=== PATIENT | female | born 1980 | race Caucasian/White ===

== ENCOUNTER 2023-10-04 20:44 | Emergency (ER) | payer BC, MEDICARE, SELFPAY ==
[2023-10-04 21:19] VITALS: BP 173/101
[2023-10-04] MEDS: ZOFRAN 4 MG IV (21:23)
[2023-10-04 21:32] LABS: % Basophils 0.6 % (0-2); % Eosinophils 0.9 % (0-6); % Immature Granulocytes 0.3 % (0-0.5); % Lymphocytes 12.4 % (20.5-51.1); % Monocytes 4.5 % (1.7-9.3); % Neutrophils 81.3 % (42.2-75.2); Absolute Basophils 0.1 10^3/uL (0-0.2); Absolute Eosinophils 0.1 10^3/uL (0-0.7); Absolute Immature Granulocytes 0.1 10^3/uL (0-0.05); Absolute Lymphocytes 1.8 10^3/uL (1.2-3.4); Absolute Monocytes 0.7 10^3/uL (0.1-0.6); Absolute Neutrophils 11.8 10^3/uL (1.4-6.5); Hematocrit 47.5 % (37.0-47.0); Hemoglobin 16.3 g/dL (12.0-16.0); Mean Corp Hgb Conc. 34.3 g/dL (33.0-37.0); Mean Corpuscular Hgb 28.5 pg (27.0-31.0); Mean Corpuscular Volume 83.2 fL (81.0-99.0); Mean Platelet Volume 9.1 fL (7.4-10.4); Nucleated Red Blood Cells % 0 %; Platelet Count 332 10^3/uL (130-400); Red Blood Cell Count 5.71 10^6/uL (4.20-5.40); Red Cell Dist. Width 13.3 % (11.5-14.5); White Blood Cell Count 14.5 10^3/uL (4.8-10.8)
[2023-10-04 21:46] LABS: HCG, Serum Qualitative Screen Negative
[2023-10-04 21:51] LABS: ALT (SGPT) 22 U/L (0-35); AST (SGOT) 30 U/L (14-36); Albumin 4.6 g/dl (3.5-5.0); Alkaline Phosphatase 97 U/L (38-126); Blood Urea Nitrogen 8 mg/dl (7-17); Calcium 10.2 mg/dl (8.4-10.2); Carbon Dioxide 20 mmol/L (22-30); Chloride 102 mmol/L (98-107); Glucose 125 mg/dl (70-99); Lipase 54 U/L (23-300); Potassium 3.8 mmol/L (3.5-5.1); Sodium 137 mmol/L (135-145); Total Protein 8.6 g/dl (6.3-8.2); eGFR > 60.00
--- NOTE | 2023-10-05 00:28 | ED.GENMED ---
History of Present Illness
General
Chief Complaint: Abdominal Pain
Source: patient
Exam Limitations: none
Time Seen by Provider: 10/05/23 00:14
Nursing documentation reviewed up to this point in time: agreed with
Travel History
Have you had any contact with someone who has COVID-19?: No
Do you have any symptoms of coronavirus? Fever > 100 degrees, chills, cough, shortness of breath, sore throat, loss of taste or smell, muscle aches, or headache?: No
History of Present Illness
History of Present Illness:
Patient diagnosed with colitis 2 weeks ago and completed 10-day course of Augmentin 5 days ago, presents to ED secondary to worsening lower abdominal pain with nausea and vomiting. Denies fever but reports chills sensation. Patient also reports
ongoing diarrhea. Abdominal pain described as sharp, nonradiating, without any alleviating or exacerbating factors. Denies back pain. Denies dizziness or weakness.
Past History
Past History
ED Past Medical History: GERD, Hypothyroidism and Other (RSD, nutcracker syndrome, lung nodules, hidradenitis, Colitis, Diverticulitis, Chronic pain syndrome due to RSD)
ED Past Surgical History: Cholecystectomy, (x 1), Gynecological (Tubal, ), Orthopedic (Right ankle surgery ) and Other (Tubal ligation , Spinal stimulator. Renal vein transposition)
Social History
Tobacco: Smoker
Alcohol: None
Drug: None
Personal:
Living: with family
Review of Systems
Review of Systems
Allergies reviewed?: Yes
All Other Systems: ROS reviewed and negative except as documented in HPI and ROS
Constitutional: Reports chills; Denies fever
EENT: Reports no symptoms
Respiratory: Reports no symptoms
Cardiac: Reports no symptoms
ABD/GI: Reports abdominal pain, nausea, vomiting and diarrhea
: Reports no symptoms
Musculoskeletal: Reports no symptoms
Skin: Reports no symptoms
Neurological: Reports no symptoms
Phy Exam
Physical Exam
Physical Exam:
Physical Exam
General: mild painful distress, not acutely ill. afebrile
Head: nc/at. eomi
Neck: supple. no meningeal signs.
Heart: s1/s2 regular rate and rhythm, no murmur. equal radial pulses.
Lungs: no acute respiratory distress. clear bilaterally
Abdomen: normal bowel sounds. mild LLQ tenderness to palpation.
Neuro: alert and oriented. no focal neurological deficits
Skin: no rash
Psychiatric: well kept. interactive and cooperative
Extremities: no edema. no calf tenderness.
Course
Orders/Labs/Results
Orders:
Orders
10/04/23 21:10
Ondansetron Orally Disint [Zofran Odt (Orally Disintegrating)] 4 mg .ROUTE .STK-MED ONE
10/04/23 21:12
Ondansetron Injectable [Zofran] 4 mg .ROUTE .STK-MED ONE
10/04/23 21:23
Ondansetron Injectable [Zofran] 4 mg IV NOW STA
Test Result ONCE
10/04/23 21:25
Complete Blood Count/With Diff Urgent
Comprehensive Metabolic Panel Urgent
HCG, Serum Qualitative Screen Urgent
Lipase Urgent
10/05/23 00:27
CT Abd/pelvis W Iv Cont Urgent
Comment:
Reason For Exam: LLQ pain
0.9% Sodium Chloride 1000 ml [Nss] 1,000 ml IV BOLUS
HYDROmorphone [Dilaudid] 1 mg IV NOW STA
Ondansetron Injectable [Zofran] 4 mg IV NOW STA
10/05/23 01:17
HYDROmorphone [Dilaudid] 1 mg IV NOW STA
10/05/23 01:48
Oxycodone/Acetaminophen [Percocet 5/325] 1 tablet PO NOW STA
Abnormal Lab Results
10/04/23
21:25
WBC 14.5 H 10^3/uL
(4.8-10.8)
RBC 5.71 H 10^6/uL
(4.20-5.40)
Hgb 16.3 H g/dL
(12.0-16.0)
Hct 47.5 H %
(37.0-47.0)
Abs Immat Gran (auto) 0.1 H 10^3/uL
(0-0.05)
Absolute Neuts (auto) 11.8 H 10^3/uL
(1.4-6.5)
Absolute Monos (auto) 0.7 H 10^3/uL
(0.1-0.6)
Neutrophils % 81.3 H %
(42.2-75.2)
Lymphocytes % 12.4 L %
(20.5-51.1)
Carbon Dioxide 20 L mmol/L
(22-30)
Creatinine 0.5 L mg/dL
(0.6-1.0)
Glucose 125 H mg/dl
(70-99)
Total Protein 8.6 H g/dl
(6.3-8.2)
10/04/23 21:25
10/04/23 21:25
Vital Signs
Initial and Last Documented VS:
Initial Vital Signs
Temp Pulse Resp BP Pulse Ox
98.7 F 105 20 173/101 100
10/04/23 21:19 10/04/23 21:19 10/04/23 21:19 10/04/23 21:19 10/04/23 21:19
Last Documented Vital Signs
Temp Pulse Resp BP Pulse Ox
98.7 F 86 17 150/88 96
10/04/23 21:19 10/05/23 01:54 10/05/23 01:54 10/05/23 01:54 10/05/23 01:45
MDM/Problems Addressed
MDM/Problems Addressed:
Blood work and CT report reviewed with patient. Patient without any further vomiting episodes after treatment in ED, and reports mild improvement in symptoms after treatment. As such, decision made to discharge patient home with additional 7-day
course of Augmentin along with pain medication. Advised to return to ED with worsening symptoms, i.e. fever/worsening pain/vomiting. Patient expresses understanding at time of discharge.
*Critical Care Note
Total Time (30-74mins, 75-104mins- exclusive of procedures): Not Applicable
ED Attending Note
-
Portions of this chart may have been created with voice recognition software.� Occasional wrong word or��sound alike� substitutions may have occurred due to the inherent limitations of voice recognition software.
Discharge Plan
Departure
Patient Disposition: Home (Routine Discharge)
Date of Disposition: 10/05/23
Time of Disposition: 01:50
Patient with high blood pressure during this ER visit?: Yes
Condition: Good
Discharge Problem:
Colitis
Instructions: Colitis (DC)
Prescriptions:
New
oxycodone-acetaminophen [Percocet] 5-325 mg Tablet
1 tab PO Q6HPRN PRN (Reason: pain) Qty: 12 0RF
ondansetron 4 mg Tablet,Disintegrating
4 mg PO TIDPRN PRN (Reason: nausea/vomiting) Qty: 12 0RF
amoxicillin-pot clavulanate 875-125 mg tablet
1 tab PO BID Qty: 14 0RF
No Action
gabapentin 600 MG tablet
600 mg PO BID
hydromorphone [Dilaudid] 4 mg Tablet
4 mg PO Q6HPRN PRN (Reason: BREAKTHROUGH PAIN)
Rx Instructions:
07/24/2023, patient filled this medication on 06/27/2023 for 120 tablets according to PDMP at [facility].
carvedilol 6.25 mg tablet
6.25 mg PO BID
morphine 30 mg tablet extended release
30 mg PO TID
Rx Instructions:
07/24/2023, patient filled this medication on 07/08/2023 for 90 tablets according to PDMP from [facility].
sennosides [Senokot] 8.6 mg Tablet
8.6 mg PO DAILY PRN (Reason: constipation)
polyethylene glycol 3350 [Miralax] 17 gram Powder In Packet
17 g PO DAILY PRN (Reason: constipation)
levothyroxine 200 mcg Tablet
200 mcg PO DAILY
albuterol sulfate 90 mcg/actuation Hfa Aerosol Inhaler
2 puff INHALATION R Q6HPRN PRN (Reason: wheezing)
duloxetine 30 mg Capsule,Delayed Release(Dr/Ec)
30 mg PO DAILY
dicyclomine 10 mg Capsule
10 mg PO BIDPRN PRN (Reason: ABDOMINAL PAIN) Qty: 10 0RF
amoxicillin-pot clavulanate 875-125 mg tablet
1 tab PO BID Qty: 20 0RF
Referrals:
Allan Estrada DO [Family Provider] -
Activity Restrictions/Additional Instructions:
As discussed, please follow-up with your primary care physician for reevaluation next week. Please return to ED with worsening symptoms, i.e. fever/worsening pain/vomiting. Your prescriptions have been sent electronically to [facility] pharmacy in
[place].
Interventions
Interventions:
*Risk Screen - Suicide Last Done: 10/04/23 21:19
*General Assessment Last Done: 10/04/23 21:19
*Neglect/Abuse Screening Last Done: 10/04/23 21:19
ED- Fall Risk Assessment Last Done: 10/05/23 02:03
*ED COVID-19 Vaccine History Last Done: 10/04/23 21:19
*Nursing Disposition Last Done: 10/05/23 02:03
GZ-Fsmbwj-Asutfyixwt Assessment Last Done: 10/05/23 01:04
Discharge Date and Time
Discharge Date/Time: 10/05/23 02:04
[2023-10-05] MEDS: ZOFRAN 4 MG IV (00:36)
[2023-10-05] MEDS: DILAUDID 1 MG IV ×2 (00:38→01:20)
[2023-10-05] MEDS: NSS 1000 IV (00:40)
[2023-10-05 00:42] VITALS: BP 178/109
[2023-10-05 01:13] VITALS: BP 185/96
[2023-10-05] MEDS: PERCOCET 5/325 1 TABLET PO (01:53)
[2023-10-05 01:54] VITALS: BP 150/88
== END 2023-10-05 02:04 | disposition home or self-care (01) ==
LOC: EMR 20:44
PROVIDERS: Student in an Organized Health Care Education/Training Program; EMERGENCY PHYSICIAN Emergency Medicine; FAMILY PHYSICIAN Family Medicine
DX: K52.9 Noninfective gastroenteritis and colitis, unspecified (principal); K21.9 Gastro-esophageal reflux disease without esophagitis; E03.9 Hypothyroidism, unspecified; G89.4 Chronic pain syndrome; F17.200 Nicotine dependence, unspecified, uncomplicated; Z90.49 Acquired absence of other specified parts of digestive tract
CPT/HCPCS: 99284; 96374 ×2; 96375; 96376; 96361; 74177; 80053; 83690; 84703; 85025; Q9967

== ENCOUNTER 2023-11-04 08:24 | Inpatient (IN) | payer BC, MEDICARE, SELFPAY ==
[2023-11-01] VITALS (8 sets, daily range): BP systolic 143–182; BP diastolic 88–125
[2023-11-01 17:05] LABS: % Basophils 0.5 % (0-2); % Eosinophils 1.3 % (0-6); % Immature Granulocytes 0.3 % (0-0.5); % Lymphocytes 7.6 % (20.5-51.1); % Monocytes 7.4 % (1.7-9.3); % Neutrophils 82.9 % (42.2-75.2); Absolute Eosinophils 0.1 10^3/uL (0-0.7); Absolute Lymphocytes 0.6 10^3/uL (1.2-3.4); Absolute Monocytes 0.6 10^3/uL (0.1-0.6); Absolute Neutrophils 6.6 10^3/uL (1.4-6.5); Hematocrit 44.3 % (37.0-47.0); Hemoglobin 15.6 g/dL (12.0-16.0); Mean Corp Hgb Conc. 35.2 g/dL (33.0-37.0); Mean Corpuscular Hgb 28.6 pg (27.0-31.0); Mean Corpuscular Volume 81.3 fL (81.0-99.0); Mean Platelet Volume 8.8 fL (7.4-10.4); Nucleated Red Blood Cells % 0 %; Platelet Count 188 10^3/uL (130-400); Red Blood Cell Count 5.45 10^6/uL (4.20-5.40); Red Cell Dist. Width 13.4 % (11.5-14.5)
[2023-11-01 17:22] LABS: ALT (SGPT) 17 U/L (0-35); AST (SGOT) 24 U/L (14-36); Albumin 4.6 g/dl (3.5-5.0); Alkaline Phosphatase 89 U/L (38-126); Blood Urea Nitrogen 9 mg/dl (7-17); Calcium 9.4 mg/dl (8.4-10.2); Carbon Dioxide 22 mmol/L (22-30); Chloride 105 mmol/L (98-107); Glucose 117 mg/dl (70-99); Lipase 38 U/L (23-300); Sodium 136 mmol/L (135-145); Total Bilirubin 1.2 mg/dl (0.2-1.3); eGFR > 60.00
[2023-11-01 17:31] LABS: Potassium 3.8 mmol/L (3.5-5.1)
--- NOTE | 2023-11-01 18:16 | ED.GENMED ---
History of Present Illness
General
Chief Complaint: Abdominal Symptoms
Source: patient
Exam Limitations: none
Time Seen by Provider: 11/01/23 18:03
Travel History
Have you had any contact with someone who has COVID-19?: No
Do you have any symptoms of coronavirus? Fever > 100 degrees, chills, cough, shortness of breath, sore throat, loss of taste or smell, muscle aches, or headache?: No
History of Present Illness
History of Present Illness:
43-year-old female presents for evaluation for recurrent left-sided abdominal pain with vomiting. Pain and diarrhea started about 3 to 4 days ago and vomiting started today. She has a complicated extended past medical history including nutcracker
syndrome, chronic pain syndrome and opiate dependence, colitis, diverticulitis. No known sick contacts. She denies chest pain. Was here last month for similar symptoms. Has been imaged many times in the past. Also does have a history of C.
difficile.
Past History
Past History
ED Past Medical History: GERD, Hypothyroidism and Other (RSD, nutcracker syndrome, lung nodules, hidradenitis, Colitis, Diverticulitis, Chronic pain syndrome due to RSD)
ED Past Surgical History: Cholecystectomy, (x 1), Gynecological (Tubal, ), Orthopedic (Right ankle surgery ) and Other (Tubal ligation , Spinal stimulator. Renal vein transposition)
Social History
Tobacco: Smoker
Alcohol: None
Drug: None
Personal:
Living: with family
Phy Exam
Physical Exam
Physical Exam:
General: Well-developed female no acute respiratory distress
HEENT: Normocephalic atraumatic
Heart: Regular rate and rhythm no murmurs
Lungs: Clear to auscultation bilaterally no wheezing
Abdomen soft tender to the left side of the abdomen no guarding or rebound normal bowel sounds
Extremities: No cyanosis or edema
Course
Orders/Labs/Results
Orders:
Orders
11/01/23 16:58
Complete Blood Count/With Diff Urgent
Comprehensive Metabolic Panel Urgent
Lipase Urgent
11/01/23 18:14
Ondansetron Injectable [Zofran] 4 mg IV NOW STA
11/01/23 18:15
STOOL [C difficile Antigen & Toxins] Urgent
KEILY Source: Feces/Stool
Specimen Description:
Stool Culture Urgent
KEILY Source: Feces/Stool
Specimen Description:
11/01/23 18:21
HYDROmorphone [Dilaudid] 1 mg IV NOW STA
11/01/23 19:40
HYDROmorphone [Dilaudid] 1 mg IV NOW STA
Ondansetron Injectable [Zofran] 4 mg IV NOW STA
Abnormal Lab Results
11/01/23
16:58
RBC 5.45 H 10^6/uL
(4.20-5.40)
Absolute Neuts (auto) 6.6 H 10^3/uL
(1.4-6.5)
Absolute Lymphs (auto) 0.6 L 10^3/uL
(1.2-3.4)
Neutrophils % 82.9 H %
(42.2-75.2)
Lymphocytes % 7.6 L %
(20.5-51.1)
Glucose 117 H mg/dl
(70-99)
11/01/23 16:58
11/01/23 16:58
Vital Signs
Initial and Last Documented VS:
Initial Vital Signs
Temp Pulse Resp BP Pulse Ox
100.1 F 103 16 178/125 97
11/01/23 16:17 11/01/23 16:17 11/01/23 16:17 11/01/23 16:17 11/01/23 16:17
Last Documented Vital Signs
Temp Pulse Resp BP Pulse Ox
98.9 F 88 19 153/98 96
11/01/23 20:47 11/01/23 20:46 11/01/23 20:46 11/01/23 20:46 11/01/23 19:45
MDM/Problems Addressed
Differential Diagnosis Includes:
Abdominal pain left-sided. Consider recurrent colitis versus diverticulitis versus C. difficile. Will check stool cultures and labs. Hydrate and give Zofran. I reviewed prior hospital records.
*Critical Care Note
Total Time (30-74mins, 75-104mins- exclusive of procedures): Not Applicable
Update Note
Update Note:
Patient reevaluated. She is still complaining significant abdominal pain and nausea despite multiple rounds of medication. Reviewed prior records. She has had multiple CTs in the past. Most recently was last month. Given the lack of improvement
with IV medications unable to discharge home. Will admit to hospital for intractable symptoms
ED Attending Note
-
Portions of this chart may have been created with voice recognition software.� Occasional wrong word or��sound alike� substitutions may have occurred due to the inherent limitations of voice recognition software.
Discharge Plan
Departure
Patient Disposition: Admit
Date of Disposition: 11/01/23
Time of Disposition: 21:27
Presentation/result/management discussed w/ accepting MD/DO: Hospitalist
Discharge Problem:
Abdominal pain
Prescriptions:
No Action
gabapentin 600 MG tablet
600 mg PO BID
hydromorphone [Dilaudid] 4 mg Tablet
4 mg PO Q6HPRN PRN (Reason: BREAKTHROUGH PAIN)
Rx Instructions:
07/24/2023, patient filled this medication on 06/27/2023 for 120 tablets according to PDMP at [facility].
carvedilol 6.25 mg tablet
6.25 mg PO BID
morphine 30 mg tablet extended release
30 mg PO TID
Rx Instructions:
07/24/2023, patient filled this medication on 07/08/2023 for 90 tablets according to PDMP from [facility].
sennosides [Senokot] 8.6 mg Tablet
8.6 mg PO DAILY PRN (Reason: constipation)
polyethylene glycol 3350 [Miralax] 17 gram Powder In Packet
17 g PO DAILY PRN (Reason: constipation)
levothyroxine 200 mcg Tablet
200 mcg PO DAILY
albuterol sulfate 90 mcg/actuation Hfa Aerosol Inhaler
2 puff INHALATION R Q6HPRN PRN (Reason: wheezing)
duloxetine 30 mg Capsule,Delayed Release(Dr/Ec)
30 mg PO DAILY
dicyclomine 10 mg Capsule
10 mg PO BIDPRN PRN (Reason: ABDOMINAL PAIN) Qty: 10 0RF
amoxicillin-pot clavulanate 875-125 mg tablet
1 tab PO BID Qty: 20 0RF
oxycodone-acetaminophen [Percocet] 5-325 mg Tablet
1 tab PO Q6HPRN PRN (Reason: pain) Qty: 12 0RF
ondansetron 4 mg Tablet,Disintegrating
4 mg PO TIDPRN PRN (Reason: nausea/vomiting) Qty: 12 0RF
amoxicillin-pot clavulanate 875-125 mg tablet
1 tab PO BID Qty: 14 0RF
Referrals:
Nidia Escobar DO [Family Provider] -
Interventions
Interventions:
*Risk Screen - Suicide Last Done: 11/01/23 16:17
*General Assessment Last Done: 11/01/23 16:57
*Neglect/Abuse Screening Last Done: 11/01/23 16:17
ED- Fall Risk Assessment Last Done: 11/01/23 16:57
*ED COVID-19 Vaccine History Last Done: 11/01/23 16:17
MM-Dgibgk-Pjlclvugan Assessment Last Done: 11/01/23 16:57
[2023-11-01] MEDS: DILAUDID 1 MG IV ×3 (18:23→23:35)
[2023-11-01] MEDS: ZOFRAN 4 MG IV ×2 (18:24→20:02)
--- NOTE | 2023-11-01 19:15 | EDRN ---
Report received, introduced myself to patient who is complaining of increased pain, SIN New aware
--- NOTE | 2023-11-01 21:52 | EDRN ---
Hospitalist at bedside working on admission
--- NOTE | 2023-11-01 22:08 | HPS.HSE ---
Addendum entered and electronically signed by Forrest Souza DO 11/01/23 23:32:
Patient seen and examined independently. Agree with findings and plan as set forth by Simona Santacruz PA-C.
Patient is a 43y F with PMH significant for chronic pain, L renal vein entrapment / 'nutcracker syndrome' and multiple prior admissions for pain control who presents to ED complaining of several days of worsening L flank pain. Patient reports
diarrhea x several days, N/V x multiple episodes. Symptoms are similar to prior exacerbations of pain. Patient has had multiple imaging studies in the past which have shown known anatomic abnormalities without any correctable issues.
Ass:
Acute on Chronic Pain Syndrome
Chronic Opioid Dependence
Complex Regional Pain Syndrome
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
Benign Hypertension
Hypothyroidism
GERD
Plan:
Observe overnight for pain / symptom control.
IV pain medications, antiemetics, IVF support, etc.
Continue usual outpatient medications.
Follow for clinical improvement.
Consider imaging if symptoms worsen or persist; however, patient has had myriad CT scans in the past which have proved unhelpful in her management.
Original Note:
Family Physician
-
Family Physician: Nidia Escobar DO
Chief Complaint
-
Flank Pain
History of Present Illness
Patient is a 43 y/o female past medical history of chronic pain with opioid dependence, left renal vein entrapment s/p renal vein transposition, and hypertension who presents with left sided abdominal pain, vomiting and diarrhea. Patient reports
some intermittent diarrhea for the past few days. This morning she developed worsening left sided abdominal / flank pain which was associated with significant vomiting. She reports about 3 episode of vomiting prior to arrival and about 3 episode
here in the emergency department. Patient admits to multiple similar episodes in the past.
Medical History
Past Medical History
Past Medical History: Reports Other
Additional Past Medical History:
Complex Regional Pain Syndrome
Opioid Dependence
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
Left Renal Vein Thrombus
Essential Hypertension
GERD
Hypothyroidism
Obesity
Unspecified Colitis
Hidradenitis
Past Surgical History: Reports Other
Additional Past Surgical History:
Left Renal Vein Transposition (08/07/22)
Spinal Stimulator
Tubal Ligation
x 1
Right Ankle Surgery
Cholecystectomy
Social History
Tobacco: Smoker (09/09 ppd)
Alcohol: None
Drug: Other (Patient reports she has a medical marijuana card, but has not used marijuana since Jul 2023)
Family History
Family History: Other (DM, hypertension, Breast Cancer, Lung Cancer)
Allergies / Home Medications
Allergies reflects when Allergies were last updated in [facility].
Home Medications with original date entered in [facility]
Allergy/Medication List:
Allergies
Allergy/AdvReac Type Severity Reaction Status Date / Time
No Known Allergies Allergy Verified 09/22/23 10:29
Home Medications
gabapentin 600 mg tablet 600 mg PO BID Pain 09/12/21
hydromorphone 4 mg tablet (Dilaudid) 4 mg PO Q6HPRN PRN BREAKTHROUGH PAIN 07/30/22
carvedilol 6.25 mg tablet 6.25 mg PO BID Blood pressure 08/20/22
morphine 30 mg tablet,extended release 30 mg PO TID Pain 05/25/23
albuterol sulfate 90 mcg/actuation aerosol inhaler 2 puff inhalation R Q6HPRN PRN wheezing 07/24/23
levothyroxine 200 mcg tablet 200 mcg PO DAILY 07/24/23
sennosides 8.6 mg tablet (Senokot) 25.8 mg PO DAILYPRN PRN constipation 07/24/23
ondansetron 4 mg disintegrating tablet 4 mg PO TIDPRN PRN nausea/vomiting #12 tabs 10/05/23
Review of Systems
-
A 12 point ROS was completed and negative except as noted: Yes
Constitutional: Denies Fever or Chills
Respiratory: Denies Cough or Trouble Breathing
Cardiac: Denies Chest Pain or Palpitations
Abdomen/GI: Reports See HPI
Physical Exam
Vital Signs
Vital Signs
Temp Pulse Resp BP Pulse Ox
98.9 F 90 22 143/88 96
11/01/23 20:47 11/01/23 21:45 11/01/23 21:45 11/01/23 21:00 11/01/23 19:45
Physical Exam
General: Well Developed, Well Nourished and Comfortable
HEENT: Anicteric and Moist mucous membranes
Respiratory: Clear and Non Labored Respirations
Cardiac: S1/S2 and Regular Rhythm; No Tachycardia
GI: Soft and Tender (Left upper quadrant/flank without rebound or guarding)
Rectal: Deferred by Provider
Musculoskeletal: No Clubbing, No Cyanosis and No Edema
Skin: Warm and Dry
Neuro: Awake, Alert, Oriented and Nonfocal/grossly intact
Psych: Calm
Laboratory Results
-
11/01/23 16:58
11/01/23 16:58
Laboratory Results
Total Bilirubin 1.2 mg/dl (0.2-1.3) 11/01/23 16:58
AST 24 U/L (14-36) 11/01/23 16:58
ALT 17 U/L (0-35) 11/01/23 16:58
Alkaline Phosphatase 89 U/L (38-126) 11/01/23 16:58
Lipase 38 U/L (23-300) 11/01/23 16:58
Impression/Plan
-
Acute on Chronic Abdominal Pain
-Continue MS Contin as prior to admission
-Continue Dilaudid for breakthrough pain
-Patient with multiple CT scans over the past few months therefore would hold on further imaging at this time
Essential Hypertension
-Continue Coreg
Hypothyroidism
-Continue Synthroid
DVT proph: Lovenox
Code Status: Full Code
--- NOTE | 2023-11-01 22:57 | EDRN ---
Dr. Souza at bedside speaking with patient
[2023-11-01] MEDS: NSS 1000 IV (23:42)
[2023-11-02] VITALS (7 sets, daily range): BP systolic 95–171; BP diastolic 75–98
[2023-11-02] MEDS: DILAUDID 1 MG IV ×7 (02:31→21:26)
[2023-11-02] MEDS: ZOFRAN 4 MG IV ×3 (02:31→20:59)
--- NOTE | 2023-11-02 02:36 | EDRN ---
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
[2023-11-02 05:56] LABS: Hematocrit 39.4 % (37.0-47.0); Hemoglobin 13.6 g/dL (12.0-16.0); Mean Corp Hgb Conc. 34.5 g/dL (33.0-37.0); Mean Corpuscular Hgb 28.4 pg (27.0-31.0); Mean Corpuscular Volume 82.3 fL (81.0-99.0); Mean Platelet Volume 8.6 fL (7.4-10.4); Platelet Count 153 10^3/uL (130-400); Red Blood Cell Count 4.79 10^6/uL (4.20-5.40); Red Cell Dist. Width 13.3 % (11.5-14.5); White Blood Cell Count 4.1 10^3/uL (4.8-10.8)
[2023-11-02 06:00] LABS: Blood Urea Nitrogen 11 mg/dl (7-17); Calcium 8.4 mg/dl (8.4-10.2); Carbon Dioxide 21 mmol/L (22-30); Chloride 108 mmol/L (98-107); Estimated Creatinine Clearance 122 ml/min; Glucose 95 mg/dl (70-99); Magnesium 1.9 mg/dl (1.6-2.3); Potassium 3.5 mmol/L (3.5-5.1); Sodium 135 mmol/L (135-145); eGFR > 60.00
--- NOTE | 2023-11-02 06:20 | EDRN ---
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
[2023-11-02] MEDS: SYNTHROID 200 MCG PO (07:01)
[2023-11-02] MEDS: NEURONTIN 600 MG PO ×2 (08:19→20:59)
[2023-11-02] MEDS: COREG 6.25 MG PO ×2 (08:19→20:55)
[2023-11-02] MEDS: MS CONTIN (EXTENDED RELEASE) 30 MG PO ×3 (08:19→20:59)
--- NOTE | 2023-11-02 11:41 | W.PN.HOSP.TC ---
Today's Communication/Plan
-
Left renal vein Doppler
UA for hematuria
Assessment / Plan
Assessment / Plan
Acute Abdominal Pain
Patient onset of pain was rather acute yesterday and it is localized to left lower quadrant radiating to left back. She is also tender in the left costovertebral angle.
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 That was followed by a blood clot/thrombosis of the left renal vein and needed anticoagulation for some time. Currently not on anticoagulation.
Rule out recurrent left renal vein thrombosis.
Check UA for hematuria and obtain Doppler ultrasound of the left renal vein. If ultrasound imaging is negative and if pain persists will obtain a CT of the abdomen pelvis due to her GI symptoms . She is nontoxic, afebrile and white count is
normal. Her diarrhea has not happened since arrival to the hospital.
RSD
-Continue MS Contin as prior to admission
-Continue Dilaudid for breakthrough pain
Essential Hypertension
-Continue Coreg
Hypothyroidism
-Continue Synthroid
DVT proph: Lovenox
Code Status: Full Code
Anticipated Discharge: 24 - 48 hours
Subjective/Interval History
-
Date of Service: November 02, 2023
Persistent left-sided abdominal pain.
Patient with RSD and chronic pain regimen at home. Her daughter is doing well his left arm and the right leg.
For the last 4 days she was having issues with diarrhea. Loose stools 5 to 6/day. They have stopped now. She also had vomiting yesterday. NOT Eating much. Feeling a little nauseous.
She developed acute left-sided abdominal pain. It is in the left lower quadrant radiating to left back. Currently scores it is 8 out of 10. No trauma.
No fever chills.
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 That was followed by a blood clot/thrombosis of the left renal vein and needed anticoagulation for some time. Currently not on anticoagulation.
Objective Data
-
Labs:
Laboratory Results
11/02/23
05:37
WBC 4.1 L
Hgb 13.6
Hct 39.4
Plt Count 153
Sodium 135
Potassium 3.5
Chloride 108 H
Carbon Dioxide 21 L
BUN 11
Creatinine 0.7
Glucose 95
Calcium 8.4
Vital Signs:
Vital Signs
Temp Pulse Resp BP Pulse Ox
98.3 F 98 28 156/87 97
11/02/23 08:35 11/02/23 10:46 11/02/23 10:46 11/02/23 08:35 11/02/23 08:35
Review of Systems
-
Respiratory: Denies Trouble Breathing
Cardiac: Denies Chest Pain
Neuro: Denies Dizzy
Physical Exam
-
General: No Apparent Distress
HEENT: Moist Mucous Membranes
Respiratory: Clear to Auscultation
Cardiac: Regular Rhythm and S1/S2
GI: Soft, Nondistended, Normal Bowel Sounds and Tender (LLQ n Left Cv angle ;no rebound or rigidity.)
Genito-urinary: Costovertebral Angle Tend (Left side)
Neuro: AO x 3
Psych: Calm
Data Reviewed
-
Labs: Labs Reviewed by me
[2023-11-02] MEDS: NSS 1000 IV (12:05)
[2023-11-02] MEDS: FLUSH (NSS) 2 FLUSH IV (15:23)
[2023-11-02] MEDS: LOVENOX 40 MG SC (17:12)
[2023-11-02 17:27] LABS: Urine Albumin Trace (Neg - Trace); Urine Bilirubin 1+ (Negative); Urine Character Slightly Cloudy (Clear); Urine Color Yellow; Urine Glucose Negative (Negative); Urine Ketone Negative (Negative); Urine Leukocyte Trace (Negative); Urine Nitrite Negative (Negative); Urine Occult Blood 4+ (Negative); Urine Specific Gravity 1.025 (<1.030); Urine Urobilinogen 2+ (Neg - 1+)
[2023-11-02 17:40] LABS: Urine Bacteria Few (Negative); Urine Mucus Moderate; Urine Squamous Cell 0-2 /LPF (Few)
[2023-11-03] MEDS: DILAUDID 1 MG IV ×8 (00:40→23:09)
[2023-11-03 00:59] VITALS: BP 107/61
[2023-11-03] MEDS: NSS 1000 IV (01:20)
[2023-11-03 07:00] VITALS: BP 106/60
[2023-11-03] MEDS: SYNTHROID 200 MCG PO (07:14)
[2023-11-03] MEDS: NEURONTIN 600 MG PO ×2 (07:35→19:50)
[2023-11-03] MEDS: MS CONTIN (EXTENDED RELEASE) 30 MG PO ×3 (07:35→21:08)
[2023-11-03] MEDS: COREG PO ×2 (07:38→19:49)
--- NOTE | 2023-11-03 13:06 | W.PN.HOSP.TC ---
Today's Communication/Plan
-
check CPK, CMP
CT scan ab/pelvis
await US
Assessment / Plan
Assessment / Plan
pt is a 43 year old female
Acute Abdominal Pain with diarrhea and left costovertebral angle tenderness--no improvement--check CT scan abdomen/pelvis--US of left renal vein pending--if ALL w/u neg, may be exacerbation of RSD--UA positive for 4+ blood but ONLY 3-5 RBC per HPF,
consistent with urine myoglobinuria--check CPK
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 That was followed by a blood clot/thrombosis of the left renal vein and needed anticoagulation for some time. Currently not on anticoagulation.
RSD -Continue MS Contin as prior to admission-Continue Dilaudid for breakthrough pain
Essential Hypertension-Continue Coreg
Hypothyroidism-Continue Synthroid
DVT proph: Lovenox
Code Status: Full Code
Anticipated Discharge: 24 - 48 hours
Subjective/Interval History
-
Date of Service: November 03, 2023
pt c/o Left sided abdominal pain--diarrhea stopped
Objective Data
-
Vital Signs:
max temp for 24 hours
11/02/23
12:39
Temp 98.7 F
Vital Signs
Temp Pulse Resp BP Pulse Ox
98.3 F 72 16 106/60 99
11/03/23 07:00 11/03/23 11:38 11/03/23 11:38 11/03/23 07:38 11/03/23 11:38
I&O
11/02/23 11/03/23 11/04/23
06:59 06:59 06:59
Intake Total 560 / 560
Balance 560 / 560
Review of Systems
-
All other systems: Reviewed and negative
Abdomen/GI: Reports Abdominal Pain
Physical Exam
-
General: Well Developed, Well Nourished and No Apparent Distress
HEENT: Normocephalic and Atraumatic; Negative Oxygen
Respiratory: Wheezes (diffusely); Negative Clear to Auscultation or Rhonchi
Cardiac: Regular Rhythm and S1/S2; Negative Murmur
GI: Soft, Nontender, Nondistended and Normal Bowel Sounds
Musculoskeletal: No Clubbing, No Cyanosis and No Edema
Skin: Warm
Neuro: Awake and Alert
--- NOTE | 2023-11-03 13:12 | CM ---
Patient seen at bedside with physician and mil. Patient is OBS and CM reviewed DAS form and signed copy placed on chart. Patient states that she lives with who works at [employer] so she uses their pharmacy on the [facility]
campus. Patient states that her PCP is Dr. Escobar and her plan is for discharge home with no needs. CM will continue to follow for discharge planning needs.
Plan; home with VN vs home with no needs
[2023-11-03] MEDS: OMNIPAQUE 50 ML PO (14:00)
[2023-11-03 14:50] LABS: ALT (SGPT) 19 U/L (0-35); AST (SGOT) 28 U/L (14-36); Albumin 3.6 g/dl (3.5-5.0); Alkaline Phosphatase 70 U/L (38-126); Blood Urea Nitrogen 4 mg/dl (7-17); Calcium 8.1 mg/dl (8.4-10.2); Carbon Dioxide 25 mmol/L (22-30); Chloride 105 mmol/L (98-107); Creatine Phosphokinase 128 U/L (30-135); Estimated Creatinine Clearance > 125 ml/min; Glucose 101 mg/dl (70-99); Potassium 3.2 mmol/L (3.5-5.1); Sodium 136 mmol/L (135-145); Total Bilirubin 0.8 mg/dl (0.2-1.3); Total Protein 6.3 g/dl (6.3-8.2); eGFR > 60.00
[2023-11-03 15:11] VITALS: BP 128/77
[2023-11-03] MEDS: LOVENOX 40 MG SC (17:21)
[2023-11-03] MEDS: KCL 40 MEQ PO (17:21)
[2023-11-03 19:49] VITALS: BP 115/76
[2023-11-03 23:20] VITALS: BP 113/64
[2023-11-04] MEDS: SYNTHROID 200 MCG PO (06:08)
[2023-11-04] MEDS: DILAUDID 1 MG IV ×2 (06:10→09:43)
[2023-11-04 06:44] LABS: Hematocrit 36.8 % (37.0-47.0); Hemoglobin 12.2 g/dL (12.0-16.0); Mean Corp Hgb Conc. 33.2 g/dL (33.0-37.0); Mean Corpuscular Hgb 28.2 pg (27.0-31.0); Mean Platelet Volume 9.5 fL (7.4-10.4); Platelet Count 143 10^3/uL (130-400); Red Blood Cell Count 4.33 10^6/uL (4.20-5.40); Red Cell Dist. Width 13.2 % (11.5-14.5); White Blood Cell Count 4.5 10^3/uL (4.8-10.8)
[2023-11-04 07:09] LABS: Blood Urea Nitrogen 3 mg/dl (7-17); Calcium 8.5 mg/dl (8.4-10.2); Carbon Dioxide 31 mmol/L (22-30); Chloride 103 mmol/L (98-107); Estimated Creatinine Clearance > 125 ml/min; Glucose 84 mg/dl (70-99); Potassium 3.9 mmol/L (3.5-5.1); Sodium 138 mmol/L (135-145); eGFR > 60.00
[2023-11-04] MEDS: VENTOLIN NEBULES 2.5 MG INH (07:31)
[2023-11-04] MEDS: NEURONTIN 600 MG PO (07:43)
[2023-11-04] MEDS: MS CONTIN (EXTENDED RELEASE) 30 MG PO (07:43)
[2023-11-04] MEDS: COREG 6.25 MG PO (07:43)
[2023-11-04 07:44] VITALS: BP 121/71
--- NOTE | 2023-11-04 08:24 | W.PN.HOSP.TC ---
Today's Communication/Plan
-
advance diet--if tolerates then OK for d/c
Assessment / Plan
Assessment / Plan
pt is a 43 year old female
Acute Abdominal Pain with diarrhea and left costovertebral angle tenderness--mild improvement-- CT scan abdomen/pelvis without acute pathology--US of left renal vein shows patency--if ALL w/u neg, may be exacerbation of RSD?--UA positive for 4+
blood but ONLY 3-5 RBC per HPF, consistent with urine myoglobinuria--CPK wnl--recheck UA and urine myoglobin
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 That was followed by a blood clot/thrombosis of the left renal vein and needed anticoagulation for some time. Currently not on anticoagulation.
RSD -Continue MS Contin as prior to admission-Continue Dilaudid for breakthrough pain
Essential Hypertension-Continue Coreg
Hypothyroidism-Continue Synthroid
DVT proph: Lovenox
Code Status: Full Code
Anticipated Discharge: Today
Subjective/Interval History
-
Date of Service: November 04, 2023
reviewed imaging studies with patient and possibility that this could be an RSD flare
Objective Data
-
Labs:
Laboratory Results
11/04/23
06:00
WBC 4.5 L
Hgb 12.2
Hct 36.8 L
Plt Count 143
Sodium 138
Potassium 3.9
Chloride 103
Carbon Dioxide 31 H
BUN 3 L
Creatinine 0.6
Glucose 84
Calcium 8.5
Vital Signs:
max temp for 24 hours
11/03/23
19:49
Temp 98.9 F
Vital Signs
Temp Pulse Resp BP Pulse Ox
97 F 56 18 121/71 97
11/04/23 07:44 11/04/23 07:44 11/04/23 07:44 11/04/23 07:44 11/04/23 07:44
I&O
11/03/23 11/04/23 11/05/23
06:59 06:59 06:59
Intake Total 560 / 560 1200 / 1200
Balance 560 / 560 1200 / 1200
Review of Systems
-
All other systems: Reviewed and negative
Physical Exam
-
General: Well Developed, Well Nourished and No Apparent Distress
HEENT: Normocephalic and Atraumatic
Respiratory: Wheezes
Cardiac: Regular Rhythm and S1/S2; Negative Murmur
GI: Soft, Nontender, Nondistended and Normal Bowel Sounds
Musculoskeletal: No Clubbing, No Cyanosis and No Edema
Neuro: Awake and Alert
Psych: Calm
--- NOTE | 2023-11-04 08:51 | CM ---
Patient for discharge today home with family, no needs anticipated.
Plan; home with no needs.
[2023-11-04 09:55] LABS: Urine Albumin Negative (Neg - Trace); Urine Bilirubin Negative (Negative); Urine Character Clear (Clear); Urine Color Yellow; Urine Glucose Negative (Negative); Urine Ketone Negative (Negative); Urine Leukocyte Negative (Negative); Urine Nitrite Negative (Negative); Urine Occult Blood 4+ (Negative); Urine Urobilinogen 2+ (Neg - 1+)
[2023-11-04 10:53] LABS: Urine Squamous Cell 26-30 /LPF (Few); Urine Urothelial Cell 0-2 /LPF (FEW)
[2023-11-04 10:54] LABS: Urine Bacteria Few (Negative)
--- NOTE | 2023-11-05 07:07 | W.DCSUMMARY ---
Discharge Summary
Discharge Data
Date of Admission: 11/04/23
Date of Discharge: 11/04/23
-
Pending Results: Yes
Additional Pending Results:
Urine myoglobin is pending
Hospital Course
Primary care physician : Nidia Escobar
Principal Discharge diagnosis : Acute abdominal pain with diarrhea and left costovertebral angle tenderness
Chronic Discharge diagnosis : History of nutcracker syndrome and left renal vein transposition in 2021, reflex sympathetic dystrophy, essential hypertension, hypothyroidism
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
left-sided abdominal pain, vomiting, and diarrhea. Patient had intermittent diarrhea for a few days prior to admission and on the morning of admission she developed worsening left-sided flank and abdominal pain. This was associated with
significant vomiting. She reported 3 episodes of vomiting prior to arrival and then 3 episodes in the emergency department. Patient was admitted.
Problem #1: Acute abdominal pain with diarrhea and left costovertebral angle tenderness. Patient was admitted. White blood cell count was normal on admission which then dropped to 4.5 on the day of discharge. Imaging studies showed widely patent
left renal vein by ultrasound. CAT scan was done which showed no acute pathology in the abdomen or pelvis. Patient was not started on any antibiotics. Urinalysis was done on November 02, 2023 which showed 4+ occult blood by dipstick but only 3-5
red blood cells per high-powered field. CPK was checked as this can be consistent with urine myoglobin; and CPK was normal. Repeat urinalysis was checked and findings were the same. Urine myoglobin was sent off and is pending at this time. There
were no signs of hemolysis as the patient's hemoglobin was 12 throughout her hospitalization. Therefore that workup was not started. Patient was reassured that studies are negative. She tolerated a diet and is stable for discharge at this time.
One possibility, is that this is part of her RSD flare and should be discussed with her RSD doctor as she has had multiple presentations with this and studies are always negative.
Problem #2: All other medical issues. These include History of nutcracker syndrome and left renal vein transposition in 2021, reflex sympathetic dystrophy, essential hypertension, hypothyroidism. These medical issues were stable during her
hospitalization. Medications were continued as able.
Patient is stable for discharge home at this time. If there are any questions regarding this dictation or her hospital stay, please not hesitate to call. Our office number is [phone].
Important imaging findings :
ULTRASOUND IMPRESSION: As on prior examinations, mid to distal left renal vein patent without signs of thrombosis. The proximal aspect of the vein/junction with IVC is not identifiable.
CT SCAN ABDOMEN/PELVIS IMPRESSION: No acute pathology of the abdomen or pelvis identified.
Mild hepatomegaly. Stable.
New mild splenomegaly.
Bowel and fat containing supraumbilical ventral hernia as described above. No evidence of incarceration or strangulation. Previously the hernia contained only fat
Mild diverticulosis. Stable. No evidence of acute diverticulitis.
Simple right ovarian cyst. Stable
Discharge Plan
-
Patient Disposition: Home (Routine Discharge)
Discharge Diagnosis/Procedures: Acute abdominal pain with diarrhea and left costovertebral angle tenderness, history of nutcracker syndrome with left renal vein transposition in 2021, reflex sympathetic dystrophy, essential hypertension,
hypothyroidism
Condition: Good
Diet: As tolerated
Activity: As tolerated
Driving Restrictions: As prior to admission
Bathing Restrictions: None
Referrals:
Nidia Escobar DO [Family Provider] - in less than 1 week
Prescriptions:
New
acetaminophen 325 mg Tablet
650 mg PO Q4HPRN PRN (Reason: mild pain/ fever>100.5F) Qty: 0 0RF
Continued
gabapentin 600 MG tablet
600 mg PO BID
hydromorphone [Dilaudid] 4 mg Tablet
4 mg PO Q6HPRN PRN (Reason: BREAKTHROUGH PAIN)
Rx Instructions:
07/24/2023, patient filled this medication on 06/27/2023 for 120 tablets according to PDMP at [facility].
carvedilol 6.25 mg tablet
6.25 mg PO BID
morphine 30 mg tablet extended release
30 mg PO TID
Rx Instructions:
07/24/2023, patient filled this medication on 07/08/2023 for 90 tablets according to PDMP from [facility].
sennosides [Senokot] 8.6 mg Tablet
25.8 mg PO DAILYPRN PRN (Reason: constipation)
levothyroxine 200 mcg Tablet
200 mcg PO DAILY AT 0700
albuterol sulfate 90 mcg/actuation Hfa Aerosol Inhaler
2 puff INHALATION R Q6HPRN PRN (Reason: wheezing)
ondansetron 4 mg Tablet,Disintegrating
4 mg PO TIDPRN PRN (Reason: nausea/vomiting) Qty: 12 0RF
Discharge Orders:
Discharge Patient (As Directed); Ordered 11/04/23
Ordered By: Autumn Chacon
Discharge Date and Time
Discharge Date/Time: 11/04/23 11:05
[2023-11-06 12:10] LABS: Myoglobin, Urine <1 mg/L (0-1)
== END 2023-11-04 11:05 | disposition home or self-care (01) | DRG 392 ==
LOC: 3 WEST ACU 08:24
PROVIDERS: Internal Medicine; Physician Assistant Medical; ADMITTING PHYSICIAN Hospitalist; ATTENDING PHYSICIAN Internal Medicine; EMERGENCY PHYSICIAN Emergency Medicine; FAMILY PHYSICIAN Family Medicine
DX: K52.9 Noninfective gastroenteritis and colitis, unspecified (principal); I82.3 Embolism and thrombosis of renal vein; F11.20 Opioid dependence, uncomplicated; G90.522 Complex regional pain syndrome I of left lower limb; I10 Essential (primary) hypertension; E03.9 Hypothyroidism, unspecified; K22.4 Dyskinesia of esophagus; G89.4 Chronic pain syndrome; K21.9 Gastro-esophageal reflux disease without esophagitis; E66.9 Obesity, unspecified; F17.210 Nicotine dependence, cigarettes, uncomplicated; Z68.35 Body mass index [BMI] 35.0-35.9, adult
CPT/HCPCS: 74177; 80048; 80053; 81003; 81015; 82550; 83690; 83735; 83874; 85025; 85027; 93975; 94640; 96361; 96374; 96375; 96376; 99284; Q9967

== ENCOUNTER 2023-12-13 11:26 | Observation (INO) | payer BC, MEDICARE, SELFPAY ==
[2023-12-13 03:49] VITALS: BP 152/100
[2023-12-13 05:04] VITALS: BMI 35.2
[2023-12-13] MEDS: ZOFRAN 4 MG IV ×3 (05:14→13:09)
[2023-12-13] MEDS: NSS 1000 IV ×3 (05:16→19:55)
[2023-12-13 05:17] LABS: % Basophils 0.8 % (0-2); % Eosinophils 4.8 % (0-6); % Immature Granulocytes 0.3 % (0-0.5); % Lymphocytes 17.1 % (20.5-51.1); % Monocytes 5.5 % (1.7-9.3); % Neutrophils 71.5 % (42.2-75.2); Absolute Basophils 0.1 10^3/uL (0-0.2); Absolute Eosinophils 0.3 10^3/uL (0-0.7); Absolute Lymphocytes 1.1 10^3/uL (1.2-3.4); Absolute Monocytes 0.3 10^3/uL (0.1-0.6); Absolute Neutrophils 4.4 10^3/uL (1.4-6.5); Hematocrit 42.9 % (37.0-47.0); Hemoglobin 14.3 g/dL (12.0-16.0); Mean Corp Hgb Conc. 33.3 g/dL (33.0-37.0); Mean Corpuscular Hgb 27.6 pg (27.0-31.0); Mean Corpuscular Volume 82.7 fL (81.0-99.0); Mean Platelet Volume 8.3 fL (7.4-10.4); Nucleated Red Blood Cells % 0 %; Platelet Count 198 10^3/uL (130-400); Red Blood Cell Count 5.19 10^6/uL (4.20-5.40); Red Cell Dist. Width 13.7 % (11.5-14.5); White Blood Cell Count 6.2 10^3/uL (4.8-10.8)
[2023-12-13 05:20] VITALS: BP 165/98
[2023-12-13 05:26] LABS: HCG, Serum Qualitative Screen Negative
[2023-12-13 05:29] LABS: ALT (SGPT) 17 U/L (0-35); AST (SGOT) 25 U/L (14-36); Albumin 4.4 g/dl (3.5-5.0); Alkaline Phosphatase 73 U/L (38-126); Blood Urea Nitrogen 7 mg/dl (7-17); Calcium 9.2 mg/dl (8.4-10.2); Carbon Dioxide 24 mmol/L (22-30); Chloride 107 mmol/L (98-107); Estimated Creatinine Clearance > 125 ml/min; Glucose 119 mg/dl (70-99); Lipase 44 U/L (23-300); Potassium 4.6 mmol/L (3.5-5.1); Sodium 135 mmol/L (135-145); Total Bilirubin 0.9 mg/dl (0.2-1.3); Total Protein 7.9 g/dl (6.3-8.2); eGFR > 60.00
--- NOTE | 2023-12-13 06:16 | ED.GENMED ---
History of Present Illness
General
Chief Complaint: Abdominal Pain
Source: patient
Exam Limitations: none
Time Seen by Provider: 12/13/23 06:02
Nursing documentation reviewed up to this point in time: agreed with
Travel History
Have you had any contact with someone who has COVID-19?: No
Do you have any symptoms of coronavirus? Fever > 100 degrees, chills, cough, shortness of breath, sore throat, loss of taste or smell, muscle aches, or headache?: No
History of Present Illness
History of Present Illness:
43-year-old female presents emergency department due to left-sided abdominal pain left leg pain left groin pain since 2 AM and vomiting. She has had similar symptoms like this before. She has a history of renal vein nutcracker syndrome. She has
had blood in her urine.
Past History
Past History
ED Past Medical History: GERD, Hypothyroidism and Other (RSD, nutcracker syndrome, lung nodules, hidradenitis, Colitis, Diverticulitis, Chronic pain syndrome due to RSD)
ED Past Surgical History: Cholecystectomy, (x 1), Gynecological (Tubal, ), Orthopedic (Right ankle surgery ) and Other (Tubal ligation , Spinal stimulator. Renal vein transposition)
Social History
Tobacco: Smoker
Alcohol: None
Drug: None
Personal:
Living: with family
Review of Systems
Review of Systems
Allergies reviewed?: Yes
All Other Systems: Not applicable
Constitutional: Reports no symptoms
EENT: Reports no symptoms
Respiratory: Reports no symptoms
Cardiac: Reports no symptoms
ABD/GI: Reports abdominal pain and vomiting
: Reports flank pain and bleeding
Musculoskeletal: Reports no symptoms
Skin: Reports no symptoms
Neurological: Reports no symptoms
Endocrine: Reports no symptoms
Hematologic/Lymphatic: Reports no symptoms
Psychiatric: Reports no symptoms
Phy Exam
Physical Exam
Physical Exam:
Physical Exam
General: Appears uncomfortable, afebrile
Neck: supple. no meningeal signs. normal posterior pharynx
Heart: s1/s2 regular rate and rhythm, no murmur. equal radial
pulses.
HEENT: Pupils equal round reactive to light, EOMI
Lungs: no acute respiratory distress. clear bilaterally
Abdomen: normal bowel sounds. Mild left lower quadrant tenderness. No CVAT
Neuro: alert and oriented. no focal neurological deficits cranial nerves II through XII intact
Skin: no rash
Psychiatric: well kept. interactive and cooperative
Extremities: no edema. no calf tenderness. negative homans. good distal pulses
Course
Orders/Labs/Results
Orders:
Orders
12/13/23 05:02
IV Insert/Care/Rem.- Treatment PRN
Test Result ONCE
12/13/23 05:04
Complete Blood Count/With Diff Urgent
Comprehensive Metabolic Panel Urgent
Free T4 Urgent
HCG, Serum Qualitative Screen Urgent
Lipase Urgent
TSH Reflex To Free T4 Urgent
Comment: ADDON
12/13/23 05:13
Ondansetron Injectable [Zofran] 4 mg .ROUTE .ST-MED ONE
12/13/23 05:14
Ondansetron Injectable [Zofran] 4 mg IV NOW STA
12/13/23 05:16
0.9% Sodium Chloride 1000 ml [Nss] 1,000 ml IV BOLUS
12/13/23 05:22
Add On- LAB Urgent
Tests Added?: TSH reflex t4
12/13/23 06:11
Urinalysis Reflex To Culture Urgent
Date Specimen was Collected: 12/13/23
Time Specimen was Collected: 05:02
Urine Microscopic Reflex Cult Urgent
12/13/23 06:14
Add On- LAB Urgent
Tests Added?: urine myoglobin
12/13/23 06:15
HYDROmorphone [Dilaudid] 1 mg IV NOW STA
12/13/23 06:39
Ondansetron Injectable [Zofran] 4 mg IV NOW STA
12/13/23 09:06
Renal & Bladder US [US Renal With Bladder] Urgent
Comment:
Reason For Exam: left flank pain, hematuria
12/13/23 09:25
HYDROmorphone [Dilaudid] 1 mg IV NOW STA
12/13/23 Lunch
Full Liquids
At Your Request: Full Participation
Does patient need a safe tray?: No
Flush Continuous pump feedings with water (mL/hr): 25
12/13/23 11:11
Admit/Transfer Patient As Directed
Co-Sign Provider:
Level of Care: Observation services
Assign to:: Medical/Surgical
Physician / Group: Cornell Dennison
Diagnosis: left flank pain, hematuria
12/13/23 11:14
Code Status As Directed
Resuscitation Status: Full Code
12/13/23 12:18
0.9% Sodium Chloride 1000 ml [Nss] 1,000 ml IV 150 mls/hr
Acetaminophen [Tylenol] 650 mg PO Q4HPRN PRN
HYDROmorphone [Dilaudid] 1 mg IV Q3HPRN PRN
HYDROmorphone [Dilaudid] 1.5 mg IV Q3HPRN PRN
Naloxone [Narcan] 0.4 mg IV ONCE PRN PRN
Ondansetron Injectable [Zofran] 4 mg IV Q6HPRN PRN
12/13/23 12:18
Activity As Directed
Activity Level: As Tolerated
Pneumatic Compression Sleeves As Directed
Type: Knee high
Vital Signs As Directed
Frequency: Per unit guidelines
DX Deep Vein Thrombosis Video Routine
12/13/23 16:00
Morphine Sulfate Extended Rel. [Ms Contin (Extended Release)] 30 mg PO TID
12/13/23 20:00
Carvedilol [Coreg] 6.25 mg PO BID
12/14/23 06:00
Basic Metabolic Panel IN AM
Complete Blood Count/No Diff IN AM
12/14/23 07:00
Levothyroxine [Synthroid] 200 mcg PO DAILY AT 0700
Abnormal Lab Results
12/13/23 12/13/23
05:04 06:11
Absolute Lymphs (auto) 1.1 L 10^3/uL
(1.2-3.4)
Lymphocytes % 17.1 L %
(20.5-51.1)
Glucose 119 H mg/dl
(70-99)
TSH (Reflex) 17.70 H uIU/ml
(0.47-4.68)
Free T4 0.57 L ng/dl
(0.78-2.19)
Ur Occult Blood Reflex 4+ A
(Negative)
Urine RBC >100 A /HPF
(0-2)
12/13/23 05:04
12/13/23 05:04
Vital Signs
Initial and Last Documented VS:
Initial Vital Signs
Temp Pulse Resp BP Pulse Ox
99.1 F 75 18 152/100 97
12/13/23 03:49 12/13/23 03:49 12/13/23 03:49 12/13/23 03:49 12/13/23 03:49
Last Documented Vital Signs
Temp Pulse Resp BP Pulse Ox
98.4 F 74 16 163/94 96
12/13/23 12:51 12/13/23 12:51 12/13/23 12:51 12/13/23 12:51 12/13/23 12:51
MDM/Problems Addressed
Differential Diagnosis Includes:
Hematuria, kidney stones
MDM/Problems Addressed:
43-year-old female with intractable left flank pain, hematuria. Admit to hospitalist. Doubt this is related to patient nutcracker syndrome.
Chronic conditions affecting care: Other (Nutcracker syndrome)
*Radiology
Radiology exam reviewed: radiology read reviewed (Ultrasound renal, no acute findings)
*Pulse Oximetry
Patient hypoxic: no
*EKG
Interpreted by ED Provider?: NA
*Chief Vendor Quality Interpretation
Rate: Chief Vendor Quality- N/A
*Critical Care Note
Total Time (30-74mins, 75-104mins- exclusive of procedures): Not Applicable
Data Reviewed
Review of Other/Old Records Reveals: Discharge Summary (Recent hospitalization for abdominal pain in October)
Patient Management
Discussion with other providers: Circular Knitter Helper (Vascular surgery)
Escalation/DeEscalation of care consider admission/obs:
Admit indicated
ED Attending Note
-
Portions of this chart may have been created with voice recognition software.� Occasional wrong word or��sound alike� substitutions may have occurred due to the inherent limitations of voice recognition software.
Discharge Plan
Departure
Patient Disposition: Admit
Date of Disposition: 12/13/23
Time of Disposition: 10:12
Admit to: Med/Surg
Presentation/result/management discussed w/ accepting MD/DO: Hospitalist
Patient with high blood pressure during this ER visit?: Yes
Condition: Fair
Discharge Problem:
Acute left flank pain, Hematuria
Interventions
Interventions:
*Risk Screen - Suicide Last Done: 12/13/23 03:49
*General Assessment Last Done: 12/13/23 03:49
*Neglect/Abuse Screening Last Done: 12/13/23 03:49
ED- Fall Risk Assessment Last Done: 12/13/23 05:20
*ED COVID-19 Vaccine History Last Done: 12/13/23 12:05
*Nursing Disposition Last Done: 12/13/23 12:05
EH-Phqwaw-Vqfggbtmse Assessment Last Done: 12/13/23 05:20
Discharge Date and Time
Discharge Date/Time: 12/13/23 12:05
[2023-12-13 06:18] LABS: Urine Albumin Trace (Neg - Trace); Urine Bilirubin Negative (Negative); Urine Character Very Cloudy (Clear); Urine Color Red; Urine Glucose Negative (Negative); Urine Ketone Negative (Negative); Urine Leukocyte Negative (Negative); Urine Nitrite Negative (Negative); Urine Occult Blood 4+ (Negative); Urine Urobilinogen Negative (Neg - 1+)
[2023-12-13 06:27] LABS: Urine Red Blood Cell >100 /HPF (0-2); Urine White Cell 0-2 /HPF (0-5)
[2023-12-13] MEDS: DILAUDID 1 MG IV ×2 (06:33→09:38)
[2023-12-13 06:38] LABS: Free T4 0.57 ng/dl (0.78-2.19)
[2023-12-13 09:30] VITALS: BP 152/91
--- NOTE | 2023-12-13 11:19 | HPS.HSE ---
Family Physician
-
Family Physician: Noemi Dowd
Chief Complaint
-
Left-sided flank pain nausea vomiting
History of Present Illness
Patient is a 43-year-old female with past medical history of hypothyroidism, obesity, chronic pain and narcotic dependence, nutcracker syndrome s/p left renal vein transposition in July 31, right ankle fracture and complex regional pain syndrome
came to ER with new onset of left flank pain with nausea vomiting and minimal hematuria. Patient had multiple ER visits and admission last year for similar presentation of flank pain with nausea and vomiting. Patient started to having acute onset
of discomfort of left flank pain with radiation to groin and leg from yesterday evening. Patient also had 3-4 episodes of bilious vomitus. No reported change in bowel habits/diarrhea/constipation. No overt fever or chills.
Patient also noticed minimal pinkish/bloody urine patient does have history of microscopic hematuria in the past although no joce hematuria. Denies of any problem of kidney stones.
Medical History
Past Medical History
Past Medical History: Reports Other
Additional Past Medical History:
history of hypothyroidism, obesity, chronic pain and narcotic dependence, nutcracker syndrome s/p left renal vein transposition in July 31, right ankle fracture and complex regional pain syndrome
Past Surgical History: Reports Other
Social History
Tobacco: Smoker
Alcohol: None
Drug: Marijuana
Personal:
Living: With Family
Employment: Employed
Family History
Family History: Not pertinent
Allergies / Home Medications
Allergies reflects when Allergies were last updated in [employer].
Home Medications with original date entered in [employer]
Allergy/Medication List:
Allergies
Allergy/AdvReac Type Severity Reaction Status Date / Time
No Known Allergies Allergy Verified 09/22/23 10:29
Home Medications
gabapentin 600 mg tablet 600 mg PO BID Pain 09/12/21
hydromorphone 4 mg tablet (Dilaudid) 4 mg PO Q6HPRN PRN BREAKTHROUGH PAIN 07/30/22
carvedilol 6.25 mg tablet 6.25 mg PO BID Blood pressure 08/20/22
morphine 30 mg tablet,extended release 30 mg PO TID Pain 05/25/23
albuterol sulfate 90 mcg/actuation aerosol inhaler 2 puff inhalation R Q6HPRN PRN wheezing 07/24/23
levothyroxine 200 mcg tablet 200 mcg PO DAILY AT 0700 Thyroid 07/24/23
sennosides 8.6 mg tablet (Senokot) 25.8 mg PO DAILYPRN PRN constipation 07/24/23
ondansetron 4 mg disintegrating tablet 4 mg PO TIDPRN PRN nausea/vomiting #12 tabs 10/05/23
acetaminophen 325 mg tablet 650 mg (2 x 325 mg) PO Q4HPRN PRN mild pain/ fever>100.5F #0 tabs 11/04/23
Review of Systems
-
A 12 point ROS was completed and negative except as noted: Yes
Physical Exam
Vital Signs
Vital Signs
Temp Pulse Resp BP Pulse Ox
99.1 F 72 17 152/91 97
12/13/23 03:49 12/13/23 09:30 12/13/23 09:30 12/13/23 09:30 12/13/23 09:30
Physical Exam
General: Pain and Obese
HEENT: No Oxygen
Respiratory: Clear
Cardiac: S1/S2 and Regular Rhythm; No Tachycardia or Murmur
GI: Soft, Non Distended, Normal Bowel Sounds and Tender (Left flank and left CV angle)
Musculoskeletal: No Edema
Skin: Warm; No Rash
Neuro: Awake, Alert, Oriented and Nonfocal/grossly intact
Psych: Calm
Laboratory Results
-
12/13/23 05:04
12/13/23 05:04
Laboratory Results
Total Bilirubin 0.9 mg/dl (0.2-1.3) 12/13/23 05:04
AST 25 U/L (14-36) 12/13/23 05:04
ALT 17 U/L (0-35) 12/13/23 05:04
Alkaline Phosphatase 73 U/L (38-126) 12/13/23 05:04
Lipase 44 U/L (23-300) 12/13/23 05:04
Data Reviewed
-
Ultrasound: Report Reviewed by me and Discussed with Patient
Lab Data: Labs Reviewed by me, Discussed with Patient and Discussed with Family
Old Records: Reviewed
Impression/Plan
-
1. Left flank pain
Nausea and vomiting
Hematuria
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
-Patient had frequent episode of intractable left-sided flank pain and nausea and vomiting
-have undergone left renal vein transposition for nutcracker syndrome last year
-Renal ultrasound negative for any kidney stone or hydronephrosis
-UA showing significant hematuria, patient not having any period right now.
-Considering CTA abdomen pelvis to rule out any vascular issues
-Maintain on IV Dilaudid and oral MS Contin
-As needed Zofran ordered
-Maintain on IV fluid and FL diet with advancing as tolerated
2. chronic pain and narcotic dependence
right ankle fracture and complex regional pain syndrome
-Patient on MS Contin 30 mg 3 times daily and Dilaudid 4 mg every 4 hours as needed
3. history of hypothyroidism
-Continue levothyroxine
4. Essential HTN
-No previous history also presumed component of HTN
-PRN hydralazine for SBP > 160
DVT PPX -scd
Full code
Total time spent : 78 mins
I personally saw and examined the patient.
I have reviewed all diagnostic interpretations and treatment plans as written.
Time includes patient management by me, time spent at the patients bedside, time to review lab and imaging results, discussing patient care, documentation in the medical record, and time spent with the family or caregiver and discussing care plan
with RN/Consultants.
--- NOTE | 2023-12-13 12:11 | CM ---
CM confirmed demographics. Patient lives independently with spouse. Patient confirmed demographics. Patient has had a history of VN with [facility] post-operatively, but they are currently no on service. Patient denies history of SNF> Patient is reliant
on crutches for ambulation. Patient uses [facility] for medication services. Patient is active with her PCP. OBS letter given.
PLAN: home no needs.
[2023-12-13 12:51] VITALS: BP 163/94; BMI 34.3
[2023-12-13] MEDS: DILAUDID 1.5 MG IV ×4 (13:10→23:43)
[2023-12-13 15:05] VITALS: BP 116/67
[2023-12-13] MEDS: MS CONTIN (EXTENDED RELEASE) 30 MG PO ×2 (16:09→21:27)
[2023-12-13] MEDS: COREG 6.25 MG PO (19:57)
[2023-12-13 23:55] VITALS: BP 130/84
[2023-12-14] MEDS: NSS 1000 IV ×2 (02:32→09:09)
[2023-12-14] MEDS: DILAUDID 1.5 MG IV ×2 (02:44→13:18)
[2023-12-14] MEDS: SYNTHROID 200 MCG PO (05:55)
[2023-12-14] MEDS: DILAUDID 1 MG IV ×2 (05:55→10:05)
[2023-12-14] MEDS: ZOFRAN 4 MG IV (05:55)
[2023-12-14 07:30] LABS: Hematocrit 35.3 % (37.0-47.0); Hemoglobin 11.8 g/dL (12.0-16.0); Mean Corp Hgb Conc. 33.4 g/dL (33.0-37.0); Mean Corpuscular Hgb 27.8 pg (27.0-31.0); Mean Corpuscular Volume 83.3 fL (81.0-99.0); Mean Platelet Volume 8.7 fL (7.4-10.4); Platelet Count 171 10^3/uL (130-400); Red Blood Cell Count 4.24 10^6/uL (4.20-5.40); Red Cell Dist. Width 13.8 % (11.5-14.5); White Blood Cell Count 6.1 10^3/uL (4.8-10.8)
[2023-12-14 08:06] LABS: Blood Urea Nitrogen 7 mg/dl (7-17); Calcium 8.4 mg/dl (8.4-10.2); Chloride 107 mmol/L (98-107); Estimated Creatinine Clearance 120 ml/min; Glucose 87 mg/dl (70-99); Potassium 4.6 mmol/L (3.5-5.1); Sodium 134 mmol/L (135-145); eGFR > 60.00
[2023-12-14 08:23] LABS: Carbon Dioxide 24 mmol/L (22-30)
[2023-12-14 08:40] VITALS: BP 139/81
[2023-12-14] MEDS: COREG 6.25 MG PO ×2 (09:09→20:01)
[2023-12-14] MEDS: MS CONTIN (EXTENDED RELEASE) 30 MG PO ×3 (09:09→21:50)
[2023-12-14 12:00] VITALS: BP 115/68
[2023-12-14] MEDS: FLUSH (NSS) 2 FLUSH IV (13:18)
--- NOTE | 2023-12-14 13:18 | W.PN.HOSP.TC ---
Today's Communication/Plan
-
see note
Assessment / Plan
Assessment / Plan
1. Left flank pain
Nausea and vomiting
Hematuria
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
-Patient had frequent episode of intractable left-sided flank pain and nausea and vomiting
-have undergone left renal vein transposition for nutcracker syndrome last year
-Renal ultrasound negative for any kidney stone or hydronephrosis
-UA showing significant hematuria, patient not having any period right now.
-Discussed at length with [facility] urology for possible noninvasive imaging to better diagnose transposition left renal vein stenosis/thrombosis. Per radiology CT with IV contrast (not angio) should be able to visualize any thrombus. As patient on
multiple CT scan and last few months ordering a repeat abdominal ultrasound Dopplex to r/o changes
-Definitive venogram would be the last resort to rule out any structural problem.
-Discussed with patient that patient may require to follow-up with vascular surgeon at tertiary center/[facility] and patient willing to do that.
-Pain better controlled today. Will transition to home regimen of MS Contin and oral Dilaudid from evening.
-Stop further IV fluid as patient have good oral intake. Diet advancing to regular as well.
2. chronic pain and narcotic dependence
right ankle fracture and complex regional pain syndrome
-Patient on MS Contin 30 mg 3 times daily and Dilaudid 4 mg every 4 hours as needed
3. history of hypothyroidism
-Continue levothyroxine
4. Essential HTN
-No previous history also presumed component of HTN
-PRN hydralazine for SBP > 160
DVT PPX -scd
Full code
Total time spent : 52 mins
Anticipated Discharge: Within 24 hours
Subjective/Interval History
-
Date of Service: December 14, 2023
Abdominal pain better
Nausea and vomiting has improved
Objective Data
-
Labs:
Laboratory Results
12/14/23
07:14
WBC 6.1
Hgb 11.8 L
Hct 35.3 L
Plt Count 171
Sodium 134 L
Potassium 4.6
Chloride 107
Carbon Dioxide 24
BUN 7
Creatinine 0.7
Glucose 87
Calcium 8.4
Vital Signs:
Vital Signs
Temp Pulse Resp BP Pulse Ox
98.2 F 75 16 115/68 94
12/14/23 12:00 12/14/23 12:00 12/14/23 12:00 12/14/23 12:00 12/14/23 12:00
I&O
12/13/23 12/14/23 12/15/23
06:59 06:59 06:59
Intake Total 4190 / 4190
Balance 4190 / 4190
Review of Systems
-
Respiratory: Reports No Symptoms
Cardiac: Reports No Symptoms
Abdomen/GI: Reports Abdominal Pain and Nausea
Physical Exam
-
General: Obese
HEENT: Negative Oxygen
Respiratory: Clear to Auscultation
Cardiac: Regular Rhythm and S1/S2; Negative Murmur
GI: Soft, Nondistended, Normal Bowel Sounds and Tender (Left flank)
Musculoskeletal: No Edema
Neuro: Awake, Alert and No Motor Deficits
Psych: Calm
[2023-12-14 15:20] VITALS: BP 114/71
[2023-12-14] MEDS: LOVENOX 40 MG SC (17:46)
[2023-12-14] MEDS: DILAUDID 4 MG PO ×2 (17:46→23:28)
[2023-12-14] MEDS: TYLENOL 650 MG PO (23:26)
[2023-12-14 23:45] VITALS: BP 131/82
[2023-12-15] MEDS: DILAUDID 4 MG PO ×2 (04:01→09:40)
[2023-12-15] MEDS: SYNTHROID 200 MCG PO (04:02)
[2023-12-15] MEDS: ZOFRAN 4 MG IV (06:34)
--- NOTE | 2023-12-15 07:35 | W.PN.HOSP.TC ---
Addendum entered and electronically signed by Lorenzo Yip MD 12/15/23 18:30:
Patient having fever; ordered COVID, Influenza and blood cultures.
Original Note:
Today's Communication/Plan
-
Still needing IV pain medication
Consulted urology for unexplained hematuria, recommendations appreciated
Assessment / Plan
Assessment / Plan
Physical Exam
Physical Exam was not performed as patient was not present in her room at the time of attempted patient encounter.
Assessment/Plan
# Left flank pain with History of Recurrent Left Flank Pain
Nausea and vomiting
Hematuria
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
-Patient had frequent episode of intractable left-sided flank pain and nausea and vomiting
-have undergone left renal vein transposition for nutcracker syndrome last year
-Renal ultrasound negative for any kidney stone or hydronephrosis
-UA showing significant hematuria, patient not having any period right now.
-Discussed at length with [facility] urology for possible noninvasive imaging to better diagnose transposition left renal vein stenosis/thrombosis. Per radiology CT with IV contrast (not angio) should be able to visualize any thrombus. As patient on
multiple CT scan and last few months a repeat abdominal ultrasound Dopplex to r/o changes was ordered
-Definitive venogram would be the last resort to rule out any structural problem.
-Dr. Dennison discussed with patient that patient may require to follow-up with vascular surgeon at tertiary center/[facility] and patient willing to do that.
-Continue Regular Diet
-Ordered renal vein Doppler to rule out any thrombus: showed possible new right renal artery stenosis
-Dr. Dennison Advised patient to find a [facility] vascular surgeon/nephrology as patient post discharge.
-Consulted urology, recommendations appreciated
# chronic pain and narcotic dependence
right ankle fracture and complex regional pain syndrome
-Pain is worse today, as per patient's nurse
-Patient on MS Contin 30 mg 3 times daily
-Hold home Dilaudid 4 mg every 4 hours as needed
-Continue prn IV Dilaudid for now
# history of hypothyroidism
-Continue levothyroxine
# Essential HTN
-No previous history also presumed component of HTN
-PRN hydralazine for SBP > 160
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 Garcia.
DVT PPX -scd
Full code
Anticipated Discharge: 24 - 48 hours
Subjective/Interval History
-
Date of Service: December 15, 2023
Patient was not present in her room at the time of attempted patient encounter. Nurse reported patient was in severe pain.
Objective Data
-
Vital Signs:
Vital Signs
Temp Pulse Resp BP Pulse Ox
100.1 F 91 16 131/82 97
12/14/23 23:45 12/14/23 23:45 12/14/23 23:45 12/14/23 23:45 12/14/23 23:45
I&O
12/14/23 12/15/23 12/16/23
06:59 06:59 06:59
Intake Total 4190 / 4190 1420 / 1420
Balance 4190 / 4190 1420 / 1420
[2023-12-15 08:00] VITALS: BP 134/77
[2023-12-15] MEDS: MS CONTIN (EXTENDED RELEASE) 30 MG PO ×3 (09:39→22:12)
[2023-12-15] MEDS: COREG 6.25 MG PO ×2 (09:40→20:19)
--- NOTE | 2023-12-15 10:50 | CM ---
Patient seen bedside, reports no concerns to CM at this time. Per previous CM note, patient history with [facility] post-operatively. CM will watch for VN needs, will follow for all discharge planning needs.
Plan; home with spouse, no needs likely.
[2023-12-15] MEDS: DILAUDID 1 MG IV ×3 (12:14→20:24)
[2023-12-15 15:15] VITALS: BP 123/80
--- NOTE | 2023-12-15 16:44 | CON.VAS ---
Addendum entered and electronically signed by Ponce Thomson III, MD 12/15/23 17:48:
This patient was seen and examined with SHIRLENE Fonseca. I agree with the history and physical exam as well as the assessment and plan. I have the following additions:
Patient well-known to the vascular surgery service
Prior surgical intervention for nutcracker
Postoperative course complicated by thrombosed left renal vein. Patent venous drainage through the left gonadal vein
Recurrent presentations for abdominal/flank pain
Now admitted with gross hematuria last week, abd pain/flank pain, nausea
Renal artery duplex performed. Velocity measurements on the right consistent with possible right KEIKO.
I reviewed her recent CT abdomen/pelvis from October 2023. Please see the attached clinical image. There is no evidence of renal artery stenosis bilaterally on cross-sectional imaging. Her left gonadal vein is enlarged.
Continue symptom management
BP control
No evidence of renal artery stenosis on recent (and prior) axial imaging and certainly this would not be consistent with her presentation if it were present.
She can followup with Dr Garcia after discharge
Signed:
Ponce Thomson III, MD
[facility] Vascular Surgery
[phone] ([id number])
Original Note:
Consultation
Consultation Request
Date/Time Consultation Performed: 12/15/2023 1600
Requesting Provider: Hospitalist
Performing Provider: Mercedes Humphries NP-C for Ponce Thomson III, MD
Reason for Consultation: Left flank pain
Medical History
-
Chief Complaint: left flank pain, hematuria, nausea, vomiting
History of Present Illness:
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
Patient is known to our service as she underwent left renal vein transposition on 08/07/2022 with subsequent development of thrombosed left renal vein roughly two weeks after surgery. She was on several months of PO anticoagulation for treatment of
left renal vein thrombosis. She presented in January, March, April, and May of 2023 to ER with similar chief compliant of LLQ abd/flank pain, nausea, and vomiting. She was successfully treated with pain medication and IV fluids and discharged home
after a short admission for all these occurrences. She endorses that she was doing well past several months, until this month. Historically she experiences 'flare ups' of symptoms a few days before her menstruation, this episode of abd pain and
nausea/vomiting was significant enough for her to seek evaluation in our ER. She does endorse that her menstruation is pending, she denies recent illness or trauma. Currently, she reports improvement in her abd pain and nausea/vomiting with pain
medication. She is tolerating p.o. intake. Does endorse that she has always had microscopic hematuria but noticed bright red blood in urine with this admission.
Past Medical History
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
Social History
Tobacco: Smoker
Alcohol: None
Drug: Marijuana
Personal:
Living: With Family
Allergies / Home Medications
Allergy/AdvReac Type Severity Reaction Status Date / Time
No Known Allergies Allergy Verified 09/22/23 10:29
�Medication �Instructions �Recorded �Confirmed �Type
gabapentin 600 mg tablet 600 mg PO BID Pain 09/12/21 12/13/23 History
hydromorphone 4 mg tablet 4 mg PO Q6HPRN PRN BREAKTHROUGH 07/30/22 12/13/23 History
(Dilaudid) PAIN
carvedilol 6.25 mg tablet 6.25 mg PO BID Blood pressure 08/20/22 12/13/23 History
morphine 30 mg tablet,extended 30 mg PO TID Pain 05/25/23 12/13/23 History
release
albuterol sulfate 90 mcg/actuation 2 puff inhalation R Q6HPRN PRN 07/24/23 12/13/23 History
aerosol inhaler wheezing
levothyroxine 200 mcg tablet 200 mcg PO DAILY AT 0700 Thyroid 07/24/23 12/13/23 History
sennosides 8.6 mg tablet (Senokot) 25.8 mg PO DAILYPRN PRN 07/24/23 12/13/23 History
constipation
ondansetron 4 mg disintegrating 4 mg PO TIDPRN PRN nausea/vomiting 10/05/23 12/13/23 Rx
tablet #12 tabs
acetaminophen 325 mg tablet 650 mg (2 x 325 mg) PO Q4HPRN PRN 11/04/23 12/13/23 Rx
mild pain/ fever>100.5F #0 tabs
Review of Systems
-
History Source: Patient
Constitutional: Reports No Symptoms
EENT: Reports No Symptoms
Respiratory: Reports No Symptoms
Cardiac: Reports No Symptoms
Abdomen/GI: Reports Abdominal Pain, Nausea and Vomiting
: Reports Other (Hematuria)
Musculoskeletal: Reports No Symptoms
Skin: Reports No Symptoms
Neurological: Reports No Symptoms
Endocrine: Reports No Symptoms
Physical Exam
Vital Signs
Temp Pulse Resp BP Pulse Ox
100.2 F 94 16 123/80 96
12/15/23 16:08 12/15/23 15:15 12/15/23 15:15 12/15/23 15:15 12/15/23 15:15
Lab Results
12/14/23 07:14
12/14/23 07:14
Physical Exam
General: No Apparent Distress and Comfortable
HEENT: Normocephalic, Anicteric and Atraumatic
Respiratory: Non Labored Respirations
Cardiac: Negative JVD
GI: Soft, Non Distended and Tender
Skin: Warm and Dry
Neuro: AO x 3
Assessment / Plan
-
Assessment: 43-year-old female with reoccurring left flank/groin pain with accompanying nausea, vomiting, and hematuria; s/p left renal vein transposition on 08/07/2022 with subsequent development of thrombosed left renal vein; now with renal artery
duplex ultrasound concerning for possible RIGHT renal artery stenosis
Plan:
Low suspicion for right renal artery stenosis, as CT done in October does not demonstrate renal artery stenosis and current symptomatology is not supportive of diagnosis. Additionally, patient notes well-controlled hypertension on Coreg, with no
changes in her blood pressure regimen or blood pressure readings at home.
No need for urgent/emergent surgical intervention, surgical recommendations for vascular attending
I performed this shared service with the attending. I evaluated the patient [id number] and have entered clinical documentation as shown in the encounter note. I performed the following component(s):�history and physical exam. Note that medical
decision making is not final until attested by vascular attending.
[2023-12-15] MEDS: LOVENOX 40 MG SC (17:36)
[2023-12-15 21:32] LABS: COVID-19 Antigen Negative (Negative)
[2023-12-15 23:58] VITALS: BP 112/60
[2023-12-16] MEDS: DILAUDID 1 MG IV ×3 (00:31→09:56)
[2023-12-16] MEDS: SYNTHROID 200 MCG PO (05:27)
[2023-12-16 06:03] LABS: % Basophils 0.5 % (0-2); % Immature Granulocytes 0.4 % (0-0.5); % Lymphocytes 16.5 % (20.5-51.1); % Monocytes 9.4 % (1.7-9.3); % Neutrophils 69.2 % (42.2-75.2); Absolute Eosinophils 0.3 10^3/uL (0-0.7); Absolute Lymphocytes 1.3 10^3/uL (1.2-3.4); Absolute Monocytes 0.7 10^3/uL (0.1-0.6); Absolute Neutrophils 5.4 10^3/uL (1.4-6.5); Hematocrit 36.5 % (37.0-47.0); Hemoglobin 12.3 g/dL (12.0-16.0); Mean Corp Hgb Conc. 33.7 g/dL (33.0-37.0); Mean Corpuscular Hgb 27.6 pg (27.0-31.0); Mean Corpuscular Volume 81.8 fL (81.0-99.0); Mean Platelet Volume 8.7 fL (7.4-10.4); Nucleated Red Blood Cells % 0 %; Platelet Count 147 10^3/uL (130-400); Red Blood Cell Count 4.46 10^6/uL (4.20-5.40); Red Cell Dist. Width 13.6 % (11.5-14.5); White Blood Cell Count 7.8 10^3/uL (4.8-10.8)
[2023-12-16 06:31] LABS: Blood Urea Nitrogen 6 mg/dl (7-17); Calcium 8.6 mg/dl (8.4-10.2); Carbon Dioxide 24 mmol/L (22-30); Chloride 102 mmol/L (98-107); Estimated Creatinine Clearance > 125 ml/min; Glucose 103 mg/dl (70-99); Potassium 3.7 mmol/L (3.5-5.1); Sodium 133 mmol/L (135-145); eGFR > 60.00
[2023-12-16 07:15] VITALS: BP 127/65
[2023-12-16] MEDS: COREG 6.25 MG PO (08:24)
[2023-12-16] MEDS: MS CONTIN (EXTENDED RELEASE) 30 MG PO (08:24)
--- NOTE | 2023-12-16 10:52 | W.PN.HOSP.TC ---
Addendum entered and electronically signed by Lorenzo Yip MD 12/16/23 13:10:
More than 30 minutes spent in discharge including
Final examination of the patient
Summarizing hospital stay
Instructions for continuing care to all relevant caregivers
Preparation of discharge records, prescriptions, and referral forms
Total time spent (in minutes): 38
Original Note:
Today's Communication/Plan
-
Discharge today
Assessment / Plan
Assessment / Plan
Physical Exam
General: Obese
HEENT: Negative Oxygen
Respiratory: Clear to Auscultation
Cardiac: Regular Rhythm and S1/S2; Negative Murmur
GI: Soft, Nondistended, Normal Bowel Sounds and Tender (Left flank)
Musculoskeletal: No Edema
Neuro: Awake, Alert and No Motor Deficits
Psych: Calm
Assessment/Plan
# Left flank pain with History of Recurrent Left Flank Pain
Recurrent presentations for abdominal/flank pain
Nausea and vomiting
Gross Hematuria
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 Patent venous drainage through the left gonadal vein
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 Garcia.
Enlarged Left Gonadal Vein
-Patient had frequent episodes of intractable left-sided flank pain and nausea and vomiting
-Underwent left renal vein transposition for nutcracker syndrome last year
-Renal ultrasound negative for any kidney stone or hydronephrosis
-Urinalysis showed significant hematuria, patient not having any period right now.
-Dr. Dennison discussed at length with [facility] and urology for possible noninvasive imaging to better diagnose transposition left renal vein stenosis/thrombosis. Per radiology CT with IV contrast (not angio) should be able to visualize any thrombus. As
patient on multiple CT scan and last few months a repeat abdominal ultrasound Dopplex to r/o changes was ordered: velocity measurements on the right consistent with possible right KEIKO.
-Definitive venogram would be the last resort to rule out any structural problem.
-Consulted vascular surgery, recommendations appreciated: Dr. Thomson reviewed her recent CT abdomen/pelvis from October 2023 - no evidence of renal artery stenosis bilaterally on cross-sectional imaging but her left gonadal
vein is enlarged.
-Dr. Dennison discussed with patient that patient may require to follow-up with vascular surgeon at tertiary center/[facility] and patient willing to do that.
-Follow-up with vascular surgeon Dr. Garcia within 1 week -- spoke with both Dr. Thomson and Dr. Garcia today and the plan as agreed with them is for patient to follow-up with Dr. Garcia after discharge
-Continue Regular Diet
-Ordered renal vein Doppler to rule out any thrombus: showed possible new right renal artery stenosis
-Dr. Dennison Advised patient to find a [facility] vascular surgeon/nephrology as patient post discharge.
-Consulted urology, recommendations appreciated
# Chronic pain and narcotic dependence
right ankle fracture and complex regional pain syndrome
-Continue home pain medications
-Patient needs follow-up with pain management outpatient
# History of hypothyroidism
-Continue levothyroxine
# Essential Hypertension
-No previous history also presumed component of hypertension
-PRN hydralazine for SBP > 160
DVT PPX -scd
Full code
Anticipated Discharge: Today
Subjective/Interval History
-
Date of Service: December 16, 2023
Patient was seen and examined. She reported that her pain is better controlled today. She reported that her urine is pink, she has been having hematuria previously.
Objective Data
-
Labs:
Laboratory Results
12/16/23
05:39
WBC 7.8
Hgb 12.3
Hct 36.5 L
Plt Count 147
Sodium 133 L
Potassium 3.7
Chloride 102
Carbon Dioxide 24
BUN 6 L
Creatinine 0.6
Glucose 103 H
Calcium 8.6
Vital Signs:
Vital Signs
Temp Pulse Resp BP Pulse Ox
99 F 80 16 112/60 95
12/16/23 07:15 12/16/23 07:15 12/16/23 07:15 12/16/23 08:24 12/16/23 07:15
I&O
12/15/23 12/16/23 12/17/23
06:59 06:59 06:59
Intake Total 1420 / 1420 1080 / 1080
Balance 1420 / 1420 1080 / 1080
--- NOTE | 2023-12-16 12:54 | W.PN.UPDATE ---
Update Note
Progress Note Update
Seen and examined. Agree with vascular team/Dr. Thomson assessment recently. Recurrent similar symptoms. Discussed again with patient only thing to offer at this point would be transposition of the ovarian vein onto one of the deep veins (pelvic
veins. However discussed that cannot definitively say this would relieve all her symptoms. It is odd for a chronically thrombosed renal vein to cause recurrent symptoms as such. Other alternative would be nephrectomy (would have to talk to
urology). However certainly that is more extreme at this point and necessarily needed. Patient expressed to me that she is having hernia repair done at different hospital. From what she describes sounds like component separation. She asked about
performing the procedure at the time of the component separation. I think it be reasonable to try to perform at the same time rather than staged as a component separation would involve likely incision in the fascia for the external oblique. This
may complicate a retroperitoneal type incision potentially or we can a closure as such. However, if her surgery is to be done at a different hospital and fortunately can help in she can discuss with the team there and potentially a vascular surgeon
over there if that could be performed concomitantly if needed. Regardless she will see me in the office in the next week or 2 to further discuss. She is being discharged home today.
--- NOTE | 2023-12-16 13:08 | W.DS.TRANS ---
DC Summary - [employer]
-
Discharge Instructions:
Discharge Diagnosis/Procedures Left flank pain with History of Recurrent Left
Flank Pain
Recurrent presentations for abdominal/flank pain
Nausea and vomiting
Gross Hematuria
Nutcracker syndrome s/p left renal vein
transposition in July 31 - postoperative
course complicated by thrombosed left renal vein
. Patent venous drainage through the left
gonadal vein
History of left renal vein transposition for SMA
syndrome in July [address] Garcia.
Enlarged Left Gonadal Vein
Chronic pain and narcotic dependence
right ankle fracture and complex regional pain
syndrome
History of hypothyroidism
Essential Hypertension
Diet As tolerated
Activity As tolerated
Driving Restrictions No driving
Blood Work Repeat CBC and BMP with your primary care
provider as soon as possible this week
Instructions:
Stand-Alone Forms:
Changes to Home Medications: Yes
Discharge Medications:
DC Medications w/original date entered in [employer]
gabapentin 600 mg tablet 600 mg PO BID Pain 09/12/21
hydromorphone 4 mg tablet (Dilaudid) 4 mg PO Q6HPRN PRN BREAKTHROUGH PAIN 07/30/22
carvedilol 6.25 mg tablet 6.25 mg PO BID Blood pressure 08/20/22
morphine 30 mg tablet,extended release 30 mg PO TID Pain 05/25/23
albuterol sulfate 90 mcg/actuation aerosol inhaler 2 puff inhalation R Q6HPRN PRN wheezing 07/24/23
levothyroxine 200 mcg tablet 200 mcg PO DAILY AT 0700 Thyroid 07/24/23
sennosides 8.6 mg tablet (Senokot) 25.8 mg PO DAILYPRN PRN constipation 07/24/23
ondansetron 4 mg disintegrating tablet 4 mg PO TIDPRN PRN nausea/vomiting #12 tabs 10/05/23
acetaminophen 325 mg tablet 650 mg (2 x 325 mg) PO Q4HPRN PRN mild pain/ fever>100.5F #0 tabs 11/04/23
Home Medication Changes
Zofran on hold pending primary care provider follow-up
Pending Results: No
Additional Pending Results:
Blood culture results
Total time spent discharging patient (in min): 38
[2023-12-16 13:58] VITALS: BP 126/82
--- NOTE | 2023-12-16 14:00 | CM ---
Chart reviewed and plan is to home no needs when stable.
Plan; Home no needs.
--- NOTE | 2023-12-16 17:58 | W.DCSUMMARY ---
Discharge Summary
Discharge Data
Date of Admission: 12/13/23
Date of Discharge: 12/16/23
Total time spent discharging patient (in min): 38
-
Pending Results: Yes
Additional Pending Results:
Blood culture results
Hospital Course
43-year-old female with past medical history of hypothyroidism, obesity, chronic pain and narcotic dependence, nutcracker syndrome status post left renal vein transposition recently, right ankle fracture and complex regional pain syndrome came to
emergency room with new onset of left flank pain with nausea vomiting and minimal hematuria. Patient was noted to have had multiple emergency room visits and admission last year for similar presentation of flank pain with nausea and vomiting. Renal
ultrasound was negative for any kidney stone or hydronephrosis, urinalysis showed significant hematuria, patient was noted not to be having any period at the time. Patient had 100.4 F fever one-time, but no obvious source of infection, and fevers
resolved. Vascular surgery was consulted, they mentioned that the renal artery duplex showed velocity measurements on the right consistent with possible right KEIKO, but then upon their review of her recent CT abdomen/pelvis from October 2023, there
was no evidence of renal artery stenosis bilaterally on cross-sectional imaging, and that her left gonadal vein is enlarged - there was no evidence of renal artery stenosis on recent (and prior) axial imaging and this would not be consistent with
her presentation if it were present. They recommended symptom management, blood pressure control and following with Dr. Garcia after discharge.
Discharge Plan
-
Patient Disposition: Home (Routine Discharge)
Discharge Diagnosis/Procedures: Left flank pain with History of Recurrent Left Flank Pain
Recurrent presentations for abdominal/flank pain
Nausea and vomiting
Gross Hematuria
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 Patent venous drainage through the left gonadal vein
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 Garcia.
Enlarged Left Gonadal Vein
Chronic pain and narcotic dependence
right ankle fracture and complex regional pain syndrome
History of hypothyroidism
Essential Hypertension
Condition: Fair
Diet: As tolerated
Activity: As tolerated
Driving Restrictions: No driving
Blood Work: Repeat CBC and BMP with your primary care provider as soon as possible this week
Activity Restrictions/Additional Instructions:
No driving because you are taking narcotic pain medications
Referrals:
Juliocesar Garcia MD [Active] - in one to two weeks
Noemi Dowd DO [Non-Admitting Privileges] - in two to three days
Additional Discharge Medication Instructions: Zofran on hold until patient discusses continuing Zofran with outpatient provider.
Prescriptions:
Continued
gabapentin 600 MG tablet
600 mg PO BID
hydromorphone [Dilaudid] 4 mg Tablet
4 mg PO Q6HPRN PRN (Reason: BREAKTHROUGH PAIN)
Patient Comments:
12/13/2023: last filled 11/18/23, 120 tabs for 30 days from [facility]
carvedilol 6.25 mg tablet
6.25 mg PO BID
morphine 30 mg tablet extended release
30 mg PO TID
Patient Comments:
: last filled 11/28/23, 90 tabs for 30 days from [facility]
sennosides [Senokot] 8.6 mg Tablet
25.8 mg PO DAILYPRN PRN (Reason: constipation)
levothyroxine 200 mcg Tablet
200 mcg PO DAILY AT 0700
albuterol sulfate 90 mcg/actuation Hfa Aerosol Inhaler
2 puff INHALATION R Q6HPRN PRN (Reason: wheezing)
acetaminophen 325 mg Tablet
650 mg PO Q4HPRN PRN (Reason: mild pain/ fever>100.5F) Qty: 0 0RF
Held
ondansetron 4 mg Tablet,Disintegrating
4 mg PO TIDPRN PRN (Reason: nausea/vomiting) Qty: 12 0RF
Hold Instructions: Resume on 12/23/23. Discuss with your primary care provider before resuming this medication, as this medication can prolong 'QTc' on an electrocardiogram
Discharge Orders:
Discharge Patient (As Directed); Ordered 12/16/23
Ordered By: Lorenzo Yip
Discharge Date and Time
Discharge Date/Time: 12/16/23 14:01
Print Language: [id number]
== END 2023-12-16 14:01 | disposition home or self-care (01) ==
LOC: 4 EAST ACU 11:26
PROVIDERS: Emergency Medicine; ADMITTING PHYSICIAN Hospitalist; ATTENDING PHYSICIAN Hospitalist; CONSULT PHYSICIAN Surgery Vascular Surgery; EMERGENCY PHYSICIAN Emergency Medicine; FAMILY PHYSICIAN Family Medicine
DX: R10.9 Unspecified abdominal pain (principal); R10.32 Left lower quadrant pain; M79.605 Pain in left leg; R11.2 Nausea with vomiting, unspecified; R31.0 Gross hematuria; I87.1 Compression of vein; G89.4 Chronic pain syndrome; F11.20 Opioid dependence, uncomplicated; G90.521 Complex regional pain syndrome I of right lower limb; I10 Essential (primary) hypertension; R50.9 Fever, unspecified; K21.9 Gastro-esophageal reflux disease without esophagitis; E03.9 Hypothyroidism, unspecified; F17.200 Nicotine dependence, unspecified, uncomplicated; E66.9 Obesity, unspecified; Z87.828 Personal history of other (healed) physical injury and trauma; Z68.34 Body mass index [BMI] 34.0-34.9, adult; Z79.890 Hormone replacement therapy; Z11.52 Encounter for screening for COVID-19
CPT/HCPCS: 76770; 80048; 80053; 81003; 81015; 83690; 84439; 84443; 84703; 85025; 85027; 87040; 87502; 87811; 93975; 96374; 96375; 96376; 99284; 99406; G0378

== ENCOUNTER 2023-12-28 01:35 | Emergency (ER) | payer BC, MEDICARE, SELFPAY ==
[2023-12-28 01:36] VITALS: BMI 34.1
[2023-12-28 01:45] VITALS: BP 157/100
--- NOTE | 2023-12-28 02:24 | ED.GENMED ---
History of Present Illness
General
Chief Complaint: Flank Pain
Source: patient
Exam Limitations: none
Time Seen by Provider: 12/28/23 02:12
Travel History
Have you had any contact with someone who has COVID-19?: No
Do you have any symptoms of coronavirus? Fever > 100 degrees, chills, cough, shortness of breath, sore throat, loss of taste or smell, muscle aches, or headache?: No
History of Present Illness
History of Present Illness:
This is a 43 year old female that comes in with c/o abd pain. States that she started at 12-12:30am with abd pain, nausea and vomiting. States that she didn't have much appetite yesterday and that this awoke her from sleep. States that the pain is
on the left sided and goes into her back. States that she can't tell the difference between if this is kidney pain or Diverticulitis. States that the renal vein clotted off after surgery so they are not sure if they are going to remove the kidney or
not. Denies any fever, chills, chest pain, SOB, diarrhea, headache, dizziness, urinary burning.
Past History
Past History
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 PNA, Gastroenteritis) and Other (C-diff)
ED Past Surgical History: Cholecystectomy, (x 1), Gynecological (Tubal, ), Orthopedic (Right ankle surgery ), Urological ( Renal vein transposition,) and Other ( Spinal stimulator. Hernia repair)
Social History
Tobacco: Smoker
Alcohol: None
Drug: None
Personal:
Living: with family
Review of Systems
Review of Systems
All Other Systems: ROS reviewed and negative except as documented in HPI and ROS
Constitutional: Reports no symptoms; Denies fever or chills
EENT: Reports no symptoms
Respiratory: Reports no symptoms; Denies cough or trouble breathing
Cardiac: Reports no symptoms; Denies chest pain
ABD/GI: Reports abdominal pain, nausea and vomiting; Denies diarrhea
: Reports no symptoms; Denies dysuria, frequency or urgency
Musculoskeletal: Reports no symptoms
Skin: Reports no symptoms
Neurological: Reports no symptoms; Denies dizzy or headache
Psychiatric: Reports no symptoms
Phy Exam
General Physical Exam
General Presentation: mild distress
General age: appears stated age
General Skin: warm and dry
General Habitus: normal
General Mental: alert
General Hydration: dry mucous membranes
ENT Exam
ENT Exam: TM's normal, pharynx normal and neck supple
Eye Exam
Eye Exam: EOMI
Cardiovascular Exam
Cardiovascular Exam: regular rate/rhythm, no edema, no murmur and normal peripheral pulses
Pulmonary Exam
Pulmonary Exam: lungs clear, no respiratory distress, no rales, chest non tender, no crackles, no rhonchi, no wheezing and no cough
Gastrointestinal Exam
Gastrointestinal Exam: soft, no organomegaly, no pulsatile mass, non distended, tender (Left sided abd tenderness with palpation) and other (Hypoactive bowel sounds)
Musculoskeletal Exam
Musculoskeletal Exam: full ROM and no edema
Skin Exam
Skin Exam: normal color, warm/dry, no petechia and other (Old bruising noted on the RLQ (patient states that she hit her dressing table))
Psychiatric Exam
Psychiatric Exam: normal mood/affect
Course
Orders/Labs/Results
Orders:
Orders
12/28/23 02:22
UA Reflex to Culture [Urinalysis Reflex To Culture] Urgent
Date Specimen was Collected: 12/28/23
Time Specimen was Collected: 02:21
Urine Microscopic Reflex Cult Urgent
12/28/23 02:23
CT Abd/pelvis W Iv Cont Urgent
Comment:
Reason For Exam: lEFT SIDED ABD PAIN
0.9% Sodium Chloride 1000 ml [Nss] 1,000 ml IV BOLUS
Test Result ONCE
12/28/23 02:24
HYDROmorphone [Dilaudid] 0.5 mg IV NOW STA
Ondansetron Injectable [Zofran] 4 mg IV NOW STA
12/28/23 02:40
Complete Blood Count/With Diff Urgent
Comprehensive Metabolic Panel Urgent
HCG, Serum Qualitative Screen Urgent
12/28/23 03:37
Ondansetron Injectable [Zofran] 4 mg IV NOW STA
Abnormal Lab Results
12/28/23 12/28/23
02:22 02:40
Chloride 108 H mmol/L
(98-107)
Carbon Dioxide 21 L mmol/L
(22-30)
Creatinine 0.5 L mg/dL
(0.6-1.0)
Glucose 100 H mg/dl
(70-99)
Urine Ketones 3+ A
(Negative)
Ur Occult Blood Reflex Trace A
(Negative)
Urine Bilirubin 1+ A
(Negative)
Urine Urobilinogen 3+ A
(Neg - 1+)
Leukocyte Esterase Rfl Trace A
(Negative)
Urine Bacteria (Reflex) Few A
(Negative)
12/28/23 02:40
12/28/23 02:40
Chloride slightly elevated. Glucose nonfasting. HCG negative. Urine negative for infection. Positive for Blood.
Vital Signs
Initial and Last Documented VS:
Initial Vital Signs
Temp Pulse Resp BP Pulse Ox
99.6 F 72 20 157/100 99
12/28/23 01:45 12/28/23 01:45 12/28/23 01:45 12/28/23 01:45 12/28/23 01:45
Last Documented Vital Signs
Temp Pulse Resp BP Pulse Ox
99.6 F 72 20 143/71 97
12/28/23 01:45 12/28/23 01:45 12/28/23 01:45 12/28/23 04:00 12/28/23 03:47
MDM/Problems Addressed
Differential Diagnosis Includes:
Diverticulitis, renal calculus,
MDM/Problems Addressed:
This is a 43 year old female that comes in with c/o left sided abd pain. State that this awoke her from sleep at 12-12:30am. States that she is nauseated and vomiting. States that the pain goes into he back.
will get labs and CT scan. Give IV pain medication and Antiemetics.
back into see patient. Explain that there is some constipation and Minimal diverticulitis/colitis. Will place patient on Augmenting and have patient follow up with the family doctor. Patient can use Pain medication that she has at home.
Chronic conditions affecting care:
Left renal vein transpositioned,
Chronic conditions affecting care: Previous abdomnial surgery
Acute Exacerbation and/or Progression of Chronic Illness: Previous abdomnial surgery and Other (History of diverticulitis and Colitis, )
*Radiology
Radiology exam reviewed: radiology read reviewed (CT [place]- appendix normal. constipation without bowel obstruction. Minimal inflammation about the sigmoid colon suggesting minimal diverticulitis/colitis. No obstructing renal stones. Status
post cholecystectomy. No pancreatitis. Abdominal aorta of normal caliber. Status post retroperitoneal ) and other (CT cont- lymph node dissection. Fat-containing ventral hernia. Dilated Pelvic venous collaterals suggesting pelvic congestion
syndrome. Bladder is decompressed. Spinal stimulator. )
*Pulse Oximetry
Patient hypoxic: no
*EKG
Interpreted by ED Provider?: NA
Rate: EKG- N/A
*Front Desk Manager Interpretation
Rate: Front Desk Manager- N/A
*Critical Care Note
Total Time (30-74mins, 75-104mins- exclusive of procedures): Not Applicable
ED Attending Note
-
Portions of this chart may have been created with voice recognition software.� Occasional wrong word or��sound alike� substitutions may have occurred due to the inherent limitations of voice recognition software.
Discharge Plan
Departure
Patient Disposition: Home (Routine Discharge)
Date of Disposition: 12/28/23
Time of Disposition: :25
Patient with high blood pressure during this ER visit?: Yes
Condition: Good
Covid-19: Not Applicable
Discharge Problem:
Diverticulitis
Instructions: Diverticulitis (DC), BLOOD PRESSURE
Prescriptions:
New
amoxicillin-pot clavulanate 875-125 mg tablet
1 tab PO BID Qty: 14 0RF
No Action
gabapentin 600 MG tablet
600 mg PO BID
hydromorphone [Dilaudid] 4 mg Tablet
4 mg PO Q6HPRN PRN (Reason: BREAKTHROUGH PAIN)
Patient Comments:
12/13/2023: last filled 11/18/23, 120 tabs for 30 days from [facility]
carvedilol 6.25 mg tablet
6.25 mg PO BID
morphine 30 mg tablet extended release
30 mg PO TID
Patient Comments:
: last filled 11/28/23, 90 tabs for 30 days from [facility]
sennosides [Senokot] 8.6 mg Tablet
25.8 mg PO DAILYPRN PRN (Reason: constipation)
levothyroxine 200 mcg Tablet
200 mcg PO DAILY AT 0700
albuterol sulfate 90 mcg/actuation Hfa Aerosol Inhaler
2 puff INHALATION R Q6HPRN PRN (Reason: wheezing)
ondansetron 4 mg Tablet,Disintegrating
4 mg PO TIDPRN PRN (Reason: nausea/vomiting) Qty: 12 0RF
Hold Instructions: Resume on 12/23/23. Discuss with your primary care provider before resuming this medication, as this medication can prolong 'QTc' on an electrocardiogram
acetaminophen 325 mg Tablet
650 mg PO Q4HPRN PRN (Reason: mild pain/ fever>100.5F) Qty: 0 0RF
Referrals:
Nidia Escobar, [Family Provider] - Follow up in 2-3 days
Activity Restrictions/Additional Instructions:
As discussed, your blood work is normal and your urine is negative for infection. Your CT scan shows that you have very mild Diverticulitis and constipation. You have been given your first dose of antibiotic here and a prescription has been sent to
your Pharmacy. You will also need to use Colace to help with your Constipation. You have pain medication at home that you can also use. IF YOU HAVE INCREASED OR CHANGING PAIN, FEVER, OR YOU HAVE ANY OTHER CONCERNS PLEASE RETURN TO THE EMERGENCY
ROOM.
Interventions
Interventions:
*Risk Screen - Suicide Last Done: 12/28/23 01:45
*General Assessment Last Done: 12/28/23 01:45
*Neglect/Abuse Screening Last Done: 12/28/23 01:45
ED- Fall Risk Assessment Last Done: 12/28/23 01:45
*ED COVID-19 Vaccine History Last Done: 12/28/23 01:45
WB-Yqaelv-Plvkiqtuso Assessment Last Done: 12/28/23 02:16
ED-Female Genitourinary Assessment Last Done: 12/28/23 02:16
Discharge Date and Time
Print Language: FRISIAN
[2023-12-28] MEDS: DILAUDID 0.5 MG IV (02:51)
[2023-12-28] MEDS: NSS 1000 IV (02:51)
[2023-12-28] MEDS: ZOFRAN 4 MG IV ×2 (02:52→03:44)
[2023-12-28 02:53] LABS: % Basophils 0.6 % (0-2); % Eosinophils 1.2 % (0-6); % Immature Granulocytes 0.4 % (0-0.5); % Lymphocytes 22.8 % (20.5-51.1); % Monocytes 4.9 % (1.7-9.3); % Neutrophils 70.1 % (42.2-75.2); Absolute Basophils 0.1 10^3/uL (0-0.2); Absolute Eosinophils 0.1 10^3/uL (0-0.7); Absolute Lymphocytes 1.9 10^3/uL (1.2-3.4); Absolute Monocytes 0.4 10^3/uL (0.1-0.6); Absolute Neutrophils 5.8 10^3/uL (1.4-6.5); Hematocrit 37.3 % (37.0-47.0); Hemoglobin 12.7 g/dL (12.0-16.0); Mean Corpuscular Hgb 28.2 pg (27.0-31.0); Mean Corpuscular Volume 82.7 fL (81.0-99.0); Mean Platelet Volume 9.1 fL (7.4-10.4); Nucleated Red Blood Cells % 0 %; Platelet Count 223 10^3/uL (130-400); Red Blood Cell Count 4.51 10^6/uL (4.20-5.40); Red Cell Dist. Width 13.8 % (11.5-14.5); White Blood Cell Count 8.3 10^3/uL (4.8-10.8)
[2023-12-28 02:53] LABS: Urine Albumin Trace (Neg - Trace); Urine Bilirubin 1+ (Negative); Urine Character Clear (Clear); Urine Color Amber; Urine Glucose Negative (Negative); Urine Ketone 3+ (Negative); Urine Leukocyte Trace (Negative); Urine Nitrite Negative (Negative); Urine Occult Blood Trace (Negative); Urine Specific Gravity 1.015 (<1.030); Urine Urobilinogen 3+ (Neg - 1+)
[2023-12-28 02:59] LABS: Urine Mucus Few; Urine Squamous Cell >30 /LPF (Few)
[2023-12-28 03:00] VITALS: BP 161/89
[2023-12-28 03:00] LABS: HCG, Serum Qualitative Screen Negative
[2023-12-28 03:00] LABS: Urine Bacteria Few (Negative); Urine Red Blood Cell None Seen /HPF (0-2)
[2023-12-28 03:05] LABS: ALT (SGPT) 11 U/L (0-35); AST (SGOT) 21 U/L (14-36); Albumin 4.2 g/dl (3.5-5.0); Alkaline Phosphatase 69 U/L (38-126); Blood Urea Nitrogen 9 mg/dl (7-17); Calcium 9.4 mg/dl (8.4-10.2); Carbon Dioxide 21 mmol/L (22-30); Chloride 108 mmol/L (98-107); Estimated Creatinine Clearance > 125 ml/min; Glucose 100 mg/dl (70-99); Potassium 4.1 mmol/L (3.5-5.1); Sodium 137 mmol/L (135-145); Total Bilirubin 0.9 mg/dl (0.2-1.3); Total Protein 7.5 g/dl (6.3-8.2); eGFR > 60.00
[2023-12-28 03:35] VITALS: BP 163/87
[2023-12-28 04:00] VITALS: BP 143/71
[2023-12-28] MEDS: AUGMENTIN 875 MG/125 MG 1 TABLET PO (04:49)
== END 2023-12-28 04:56 | disposition home or self-care (01) ==
LOC: EMR 01:35
PROVIDERS: Clinical Nurse Specialist Family Health; EMERGENCY PHYSICIAN Emergency Medicine; FAMILY PHYSICIAN Family Medicine
DX: K57.32 Diverticulitis of large intestine without perforation or abscess without bleeding (principal); I10 Essential (primary) hypertension; F17.200 Nicotine dependence, unspecified, uncomplicated
CPT/HCPCS: 99285; 96374; 96375; 96361; 96376; 74177; 80053; 81003; 81015; 84703; 85025; Q9967

== ENCOUNTER 2023-12-28 15:35 | Inpatient (IN) | payer BC, MEDICARE, SELFPAY ==
[2023-12-28] VITALS (9 sets, daily range): BP systolic 127–177; BP diastolic 76–119; BMI 34.3
--- NOTE | 2023-12-28 09:56 | ED.GENMED ---
History of Present Illness
General
Chief Complaint: Abdominal Pain
Time Seen by Provider: 12/28/23 09:39
Travel History
Have you had any contact with someone who has COVID-19?: No
Do you have any symptoms of coronavirus? Fever > 100 degrees, chills, cough, shortness of breath, sore throat, loss of taste or smell, muscle aches, or headache?: No
History of Present Illness
History of Present Illness:
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
with nausea and vomiting as well as chills. She was seen several hours ago and was emergency department and diagnosed with acute diverticulitis, was discharged on Augmentin. She states that on returning home she attempted to take her Augmentin but
vomited promptly. Her pain has been worsening. She does require chronic opiates but states this pain is distinctly different from her prior chronic pain
Past History
Past History
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 PNA, Gastroenteritis) and Other (C-diff)
ED Past Surgical History: Cholecystectomy, (x 1), Gynecological (Tubal, ), Orthopedic (Right ankle surgery ), Urological ( Renal vein transposition,) and Other ( Spinal stimulator. Hernia repair)
Social History
Tobacco: Smoker
Alcohol: None
Drug: None
Personal:
Living: with family
Review of Systems
Review of Systems
Allergies reviewed?: Yes
All Other Systems: ROS reviewed and negative except as documented in HPI and ROS
Phy Exam
Physical Exam
Physical Exam:
GEN: Well appearing, NAD, WDWN
HEENT: Oral mucosa moist, no scleral icterus
Cardiac: Regular rate
Lung: No respiratory distress, no tachypnea
Abdomen: Patient clutching the left lower quadrant, focally tender to palpation, no rigidity or peritoneal signs
MSK: No gross deformity or injuries
Skin: Good color, no pallor or jaundice, no rashes
Neuro: AO x3, moves all extremities freely
Psych: Calm, cooperative
Course
Orders/Labs/Results
Orders:
Orders
12/28/23 09:55
IV Insert/Care/Rem.- Treatment PRN
0.9% Sodium Chloride 1000 ml [Nss] 1,000 ml IV BOLUS
Metoclopramide [Reglan] 10 mg IV NOW STA
Piperacillin/Tazo 3.375 Gram [Zosyn] 3.375 gram in 50 ml IV NOW
12/28/23 09:56
HYDROmorphone [Dilaudid] 0.5 mg IV NOW STA
12/28/23 10:59
HYDROmorphone [Dilaudid] 0.5 mg IV NOW STA
Vital Signs
Initial and Last Documented VS:
Initial Vital Signs
Temp Pulse Resp BP Pulse Ox
99.3 F 80 20 172/100 98
12/28/23 09:12 12/28/23 09:12 12/28/23 09:12 12/28/23 09:12 12/28/23 09:12
Last Documented Vital Signs
Temp Pulse Resp BP Pulse Ox
99.3 F 80 20 159/97 97
12/28/23 09:12 12/28/23 09:12 12/28/23 09:12 12/28/23 13:00 12/28/23 14:30
MDM/Problems Addressed
MDM/Problems Addressed:
Patient was treated with IV opioids and antiemetics as well as fluids, reports pain is not improving. She was given the option for discharge home given initial IV antibiotics were started in the emergency department however she request admission
for pain control purposes. It is not clear whether this pain represents a breakthrough of her chronic symptoms versus related to diverticulitis however the CT scan findings are somewhat minimal. Will place in observation under the hospitalist
service for further IV antibiotics and management
Case was discussed with the hospitalist via [employer] connect message at 11:41 AM
*Critical Care Note
Total Time (30-74mins, 75-104mins- exclusive of procedures): Not Applicable
ED Attending Note
-
Portions of this chart may have been created with voice recognition software.� Occasional wrong word or��sound alike� substitutions may have occurred due to the inherent limitations of voice recognition software.
Discharge Plan
Departure
Patient Disposition: Admit
Date of Disposition: 12/28/23
Time of Disposition: 11:41
Admit to: Med/Surg
Presentation/result/management discussed w/ accepting MD/DO: Hospitalist
Discharge Problem:
Acute diverticulitis
Prescriptions:
No Action
gabapentin 600 MG tablet
600 mg PO BID
hydromorphone [Dilaudid] 4 mg Tablet
4 mg PO Q6HPRN PRN (Reason: BREAKTHROUGH PAIN)
morphine 30 mg tablet extended release
30 mg PO TID
sennosides [Senokot] 8.6 mg Tablet
25.8 mg PO DAILYPRN PRN (Reason: constipation)
levothyroxine 200 mcg Tablet
200 mcg PO DAILY
Patient Comments:
12/28/2023, last filled on 07/23/2023 for 90-day supply.
albuterol sulfate 90 mcg/actuation Hfa Aerosol Inhaler
2 puff INHALATION R Q6HPRN PRN (Reason: wheezing)
carvedilol 12.5 mg Tablet
12.5 mg PO BID
ibuprofen [Motrin IB] 200 mg Tablet
400 - 600 mg PO DAILYPRN PRN (Reason: mild pain)
ondansetron 4 mg Tablet,Disintegrating
4 mg PO TIDPRN PRN (Reason: nausea/vomiting)
Referrals:
Nidia Escobar DO [Family Provider] -
Interventions
Interventions:
*Risk Screen - Suicide Last Done: 12/28/23 09:50
*General Assessment Last Done: 12/28/23 09:50
*Neglect/Abuse Screening Last Done: 12/28/23 09:50
ED- Fall Risk Assessment Last Done: 12/28/23 09:50
*ED COVID-19 Vaccine History Last Done: 12/28/23 09:50
QD-Exelvn-Bedspsduvl Assessment Last Done: 12/28/23 09:50
Discharge Date and Time
Print Language: KOSOVAN
[2023-12-28] MEDS: NSS 1000 IV ×2 (10:07→17:56)
[2023-12-28] MEDS: ZOSYN 50 IV ×3 (10:07→23:23)
[2023-12-28] MEDS: REGLAN 10 MG IV (10:07)
[2023-12-28] MEDS: DILAUDID 0.5 MG IV ×2 (10:08→11:12)
--- NOTE | 2023-12-28 11:58 | HPS.HSE ---
Family Physician
-
Family Physician: Nidia Escobar DO
Chief Complaint
-
Left sided Abd pain
History of Present Illness
43 female current smoker hypothyroidism obesity chronic pain opioid dependence Nutcracker syndrome status post left renal vein transposition right ankle fracture complex regional pain syndrome presents with new onset left-sided abdomen pain
progressive since yesterday morning resulting in appetite loss. Pain worsened overnight waking her from sleep with associate nausea vomiting prompting visit to ED. Evaluated with lab work and CT patient was diagnosed with diverticulitis/colitis
and discharged with Augmentin. Patient however returned as she was unable to tolerate any oral intake. Reporting non-bloody vomiting. Reported regular bowel movements. Denied constipation (though CT was suggestive of constipation with moderate
colonic fecal burden. Denied fever coughing sneezing bloody bowel movements diarrhea. VSS afebrile. Labs unremarkable, no leukocytosis anemia or renal insufficiency. Oral thrush noted on physical exam.
Medical History
Past Medical History
Past Medical History: Reports Other (as above)
Past Surgical History: Reports Other (as above)
Social History
Tobacco: Smoker (currently smokes)
Alcohol: None
Drug: Marijuana
Personal:
Living: With Family
Family History
Family History: Not pertinent (reviewed)
Allergies / Home Medications
Allergies reflects when Allergies were last updated in [employer].
Home Medications with original date entered in [employer]
Allergy/Medication List:
Allergies
Allergy/AdvReac Type Severity Reaction Status Date / Time
No Known Allergies Allergy Verified 12/28/23 09:11
Home Medications
gabapentin 600 mg tablet 600 mg PO BID Pain 09/12/21
hydromorphone 4 mg tablet (Dilaudid) 4 mg PO Q6HPRN PRN BREAKTHROUGH PAIN 07/30/22
morphine 30 mg tablet,extended release 30 mg PO TID Pain 05/25/23
albuterol sulfate 90 mcg/actuation aerosol inhaler 2 puff inhalation R Q6HPRN PRN wheezing 07/24/23
levothyroxine 200 mcg tablet 200 mcg PO DAILY Thyroid 07/24/23
sennosides 8.6 mg tablet (Senokot) 25.8 mg PO DAILYPRN PRN constipation 07/24/23
carvedilol 12.5 mg tablet 12.5 mg PO BID 12/28/23
ibuprofen 200 mg tablet (Motrin IB) 400 - 600 mg PO DAILYPRN PRN mild pain 12/28/23
ondansetron 4 mg disintegrating tablet 4 mg PO TIDPRN PRN nausea/vomiting 12/28/23
Review of Systems
-
A 12 point ROS was completed and negative except as noted: Yes
Constitutional: Reports Other (as below)
Physical Exam
Vital Signs
Vital Signs
Temp Pulse Resp BP Pulse Ox
99.3 F 80 20 144/85 95
12/28/23 09:12 12/28/23 09:12 12/28/23 09:12 12/28/23 11:00 12/28/23 11:30
Physical Exam
General: Other (as below)
Impression/Plan
-
ROS
General: Denies fever chills night sweats unexpected weight loss
Neuro: Denies seizure shaking loss of consciousness dizziness vertigo
Psych: denies depression hallucinations confusion manic episodes
Endocrine: Denies polyuria polydipsia polyphagia heat/cold intolerance
HEENT: Denies blindness visual disturbances epistaxis
Pulmonary: denies coughing hemoptysis sneezing sob dyspnea on exertion
Cardiovascular: denies chest pain palpitations leg swelling
Hematology: denies signs symptoms of anemia easy bruising/bleeding
Gastrointestinal: reports severe left sided abdomen pain tenderness with associate nausea vomiting
Genito-Urinary: denies retention incontinence dysuria
Musculoskeletal: reports joint pain
Dermatology: denies rash laceration bruising
Physical Exam
General: No pallor, cyanosis, or jaundice.
HEENT: Throat clear. Normocephalic atraumatic dilated pupils b/l equal reactive to light oral thrush noted
NECK: Supple. No JVD Carotid Bruits
RESPIRATORY: Lungs clear to auscultation. No crackles wheezes stridor
CVS: S1, S2 normal. RRR. No murmur, rub or gallop.
ABDOMEN: Soft, left sided tenderness. No distension rebound tenderness or guarding. BS+/normal.
EXTREMITIES: No peripheral cyanosis or edema.
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
IMPRESSION:
43 female current smoker HTN hypothyroidism obesity chronic pain opioid dependence Nutcracker syndrome status post left renal vein transposition right ankle fracture complex regional pain syndrome presents with new onset left-sided abdomen pain
progressive since yesterday morning resulting in appetite loss. Pain worsened overnight waking her from sleep with associate nausea vomiting prompting visit to ED. Evaluated with lab work and CT patient was diagnosed with diverticulitis/colitis
and discharged with Augmentin. Patient however returned as she was unable to tolerate any oral intake. Reporting non-bloody vomiting. Reported regular bowel movements. Denied constipation (though CT was suggestive of constipation with moderate
colonic fecal burden. Denied fever coughing sneezing bloody bowel movements diarrhea. VSS afebrile. Labs unremarkable, no leukocytosis anemia or renal insufficiency. Oral thrush noted on physical exam.
PLAN:
CT abd/pelvis noted
-Mild splenomegaly
-Pre-existing high attenuation excreted contrast material within the collapsed renal pelvis, bilaterally, and collapsed urinary bladder. Uncertain etiology.
-Constipation with moderate colonic fecal burden.
-Mild to moderate diverticulosis of the sigmoid colon. Initial/preliminary report suggested possible minor diverticulitis/colitis.
-Anterior midline abdominal hernia without associated bowel obstruction.
-Normal appendix.
-Slight prominence of the left pelvic venous structures and distended left ovarian vein, which may be a sequela of previous left renal vein compression and/or collateral flow. Cannot exclude pelvic congestion syndrome.
#Left-sided abdomen pain progressive 24 to 48 hours associated nausea vomiting
# Possibly due to diverticulitis/colitis versus severe constipation (Patient report regular bowel movements non-diarrheal nonbloody not suggestive of diverticulitis/colitis or severe constipation)
med/surg
bowel rest, NPO except meds as tolerated
IVF support
pain control
scheduled laxatives
cont empiric zosyn for now
Gi eval requested
Nutcracker Syndrome s/p left renal transposition
chronic pain opioid dependence
-to minimize risk opioid withdrawal, oral pain meds converted to Fentanyl patch and prn IV pain meds
-can convert back to home oral pain meds when patient is tolerating oral intake
-consider Vascular re-evaluation inpt vs outpt.
#Oral thrush
start nystatin swish when tolerating oral diet
#Hypothyroidism
cont Synthroid
#HTN
cont home Coreg
consider additional antihypertensives if BP remains elevated despite pain control
Tobacco us
Currently smokes
Smoking cessation advised
patient declined nicotine supplementation
dvt ppx Lovenox
gi ppx Protonix
Meds reconciled and resumed a appropriate
Full Code
I spent a total of 76 minutes with the patient or on the floor. More than 50% of this time involved counseling and coordination of care.
[2023-12-28] MEDS: PROTONIX IV 40 MG IV (15:48)
[2023-12-28] MEDS: DURAGESIC 25 MCG/HR PATCH 1 PATCH TRANSDERM (15:49)
[2023-12-28] MEDS: ZOFRAN 4 MG IV (17:14)
[2023-12-28] MEDS: DILAUDID 2 MG IV ×2 (17:15→21:17)
[2023-12-28] MEDS: LOVENOX 40 MG SC (17:56)
[2023-12-28] MEDS: MUCINEX 600 MG PO (20:30)
[2023-12-28] MEDS: SENOKOT-S 1 TABLET PO (20:30)
[2023-12-28] MEDS: COREG 12.5 MG PO (20:30)
[2023-12-29] MEDS: DILAUDID 2 MG IV ×6 (01:22→22:59)
[2023-12-29] MEDS: NSS 1000 IV ×3 (01:22→18:27)
[2023-12-29] MEDS: ZOFRAN 4 MG IV (05:38)
[2023-12-29] MEDS: SYNTHROID 200 MCG PO (05:38)
[2023-12-29] MEDS: ZOSYN 50 IV ×4 (05:38→23:03)
[2023-12-29 06:00] VITALS: BMI 33.6
[2023-12-29 06:27] LABS: % Basophils 0.6 % (0-2); % Eosinophils 1.6 % (0-6); % Immature Granulocytes 0.2 % (0-0.5); % Lymphocytes 19.5 % (20.5-51.1); % Monocytes 6.1 % (1.7-9.3); Absolute Basophils 0.1 10^3/uL (0-0.2); Absolute Eosinophils 0.1 10^3/uL (0-0.7); Absolute Lymphocytes 1.7 10^3/uL (1.2-3.4); Absolute Monocytes 0.5 10^3/uL (0.1-0.6); Absolute Neutrophils 6.2 10^3/uL (1.4-6.5); Mean Corp Hgb Conc. 33.3 g/dL (33.0-37.0); Mean Corpuscular Hgb 27.7 pg (27.0-31.0); Mean Corpuscular Volume 83.1 fL (81.0-99.0); Nucleated Red Blood Cells % 0 %; Platelet Count 213 10^3/uL (130-400); Red Blood Cell Count 4.33 10^6/uL (4.20-5.40); Red Cell Dist. Width 13.5 % (11.5-14.5); White Blood Cell Count 8.7 10^3/uL (4.8-10.8)
[2023-12-29 06:56] LABS: ALT (SGPT) < 10 U/L (0-35); AST (SGOT) 19 U/L (14-36); Albumin 3.6 g/dl (3.5-5.0); Alkaline Phosphatase 62 U/L (38-126); Blood Urea Nitrogen 8 mg/dl (7-17); Calcium 8.5 mg/dl (8.4-10.2); Carbon Dioxide 21 mmol/L (22-30); Chloride 106 mmol/L (98-107); Estimated Creatinine Clearance > 125 ml/min; Glucose 95 mg/dl (70-99); Potassium 3.6 mmol/L (3.5-5.1); Sodium 134 mmol/L (135-145); Total Bilirubin 0.9 mg/dl (0.2-1.3); Total Protein 6.5 g/dl (6.3-8.2); eGFR > 60.00
--- NOTE | 2023-12-29 07:14 | CON.GI ---
Addendum entered and electronically signed by Jackie Walker MD 12/29/23 13:49:
I saw and examined the patient.
The TILE MASON's note was reviewed and I agree with the note.
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
presented to the emergency room with symptoms of abdominal pain she has had prior admissions for abdominal pain. She is also been recently seen by a surgeon at [facility] and was going to be scheduled soon for repair of abdominal wall hernia CT
shows probable mild diverticulitis versus colitis and rest of findings as below and was started on antibiotics. She does have chronic constipation and she says that she usually takes MiraLAX and senna as needed. No rectal bleeding or melena no
fevers or chills
Assessment and plan abdominal pain with nausea vomiting CT negative for bowel obstruction she does have an anterior abdominal wall hernia, possible mild colitis or diverticulitis was noted. Symptoms are likely related to mild diverticulitis,
constipation, diverticular associated spasm and adhesions from prior surgeries. She did have mild sigmoid inflammation noted on colonoscopy in 2021 possible segmental colitis associated with chronic diverticular disease. Continue antibiotics for
now. No rectal bleeding currently
Chronic constipation on opiates, I encouraged her to use MiraLAX daily and Senokot daily she is currently using them as needed if does not improve with it may need to be started on Relistor or Movantik.
Original Note:
Consultation
-
Date/Time Consultation Requested: 12/28/23 1750
Date/Time Consultation Performed: 12/29/23 0715
Requesting Provider: Eliu Sesay MD
Performing Provider: SHIRLENE Gamez, Jackie Walker MD
Reason for Consultation: abdominal pain
Medical History
Chief Complaint / HPI
Chief Complaint: N/V/D, LLQ pain
History of Present Illness:
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
diverticulitis, scad on colonoscopy however was diagnosed with renal vein nutcracker compression after. Since surgery she has had evaluation by surgeon at [facility] for abdominal hernia(due for repair) and several admission to for recurrent
abdominal pain. On last admission Pt had reassessment with vascular surgery with only other recommendation would be transposition of ovarian vein onto one of deep veins vs considering nephrectomy. She has also seen vascular surgery outpatient and
also discussed similar recommendations but was to see COMMER[employer] OCEAN CLAMMER first prior to consider ovarian transposition. She now presents with recurrent abdominal pain. CT on admission with mild splenomegaly with high attenuation contrast material in
collapsed renal pelvis b/l and collapsed urinary bladder. Constipation with moderate colon stool burden. diverticulosis and minor diverticulitis/colitis anterior midline hernia without bowl obstruction. normal appendix and Slight prominence of the
left pelvic venous structures and distended left ovarian vein, which may be a sequela of previous left renal vein compression and/or collateral flow. Cannot exclude pelvic congestion syndrome. Asked to see for any other etiology of pain as noted
with constipation and minor diverticulitis/colitis on imaging.
In reviewing with patient pain similar to prior episodes with some less back pain. She admits to constipation with stools every 3 days. She does not always take laxatives daily but takes Colace or spencer-colace at time and will take Senna
and Miralax if increased constipation. She denies any improvement in pain with stools and had several stools even loose stool overnight with continued pain. She had some nausea with vomiting small amounts of bile prior to admission. She denies
dysphagia, GERD, blood or black in stools. HX EGD [address] Alston with mild antral gastritis, bilious gastric fluid, normal duodenum, coloscopy [address] Rebeca TANNER thickening with diverticular disease, hemorrhoids multiple small polyps
in rectum and sigmoid, diverticulosis, congested and erythema in recto sigmoid, and distal sigmoid, polyps(hyperplastic) and glandularity. random bx with nodular lymphoid aggregate no significant pathology.
Past Medical History
Past Medical History: GERD, Hypothyroidism and Other (Left renal vein nutcracker syndrome, ovarian cyst, renal pain syndrome, diverticulosis, scad, lung nodule, hidradenitis)
Past Surgical History: Cholecystectomy, , Gynecological (The ligation), Orthopedic (Ankle surgery) and Other (Spinal cord stimulator, renal vein transposition)
Social History
Tobacco: Smoker
Alcohol: None
Drug: Marijuana (rare use )
Personal:
Living: With Family
Family History
Family History: Other (aunt colon cancer, ?father with colon cancer, mother with polyps)
Allergies / Home Medications
Allergy/AdvReac Type Severity Reaction Status Date / Time
No Known Allergies Allergy Verified 12/28/23 09:11
�Medication �Instructions �Recorded
gabapentin 600 mg tablet 600 mg PO BID Pain 09/12/21
hydromorphone 4 mg tablet 4 mg PO Q6HPRN PRN BREAKTHROUGH 07/30/22
(Dilaudid) PAIN
morphine 30 mg tablet,extended 30 mg PO TID Pain 05/25/23
release
albuterol sulfate 90 mcg/actuation 2 puff inhalation R Q6HPRN PRN 07/24/23
aerosol inhaler wheezing
levothyroxine 200 mcg tablet 200 mcg PO DAILY Thyroid 07/24/23
sennosides 8.6 mg tablet (Senokot) 25.8 mg PO DAILYPRN PRN 07/24/23
constipation
carvedilol 12.5 mg tablet 12.5 mg PO BID 12/28/23
ibuprofen 200 mg tablet (Motrin IB) 400 - 600 mg PO DAILYPRN PRN mild 12/28/23
pain
ondansetron 4 mg disintegrating 4 mg PO TIDPRN PRN nausea/vomiting 12/28/23
tablet
Review of Systems
-
History Source: Patient
Constitutional: Reports No Symptoms
EENT: Reports No Symptoms
Respiratory: Reports No Symptoms
Abdomen/GI: Reports Abdominal Pain, Nausea, Vomiting, Diarrhea (since admission ) and Constipated (prior to admission )
: Reports No Symptoms
Musculoskeletal: Reports Other (back pain at times )
Skin: Reports No Symptoms
Neurological: Reports Weakness
Endocrine: Reports No Symptoms
Hematologic/Lymphatic: Reports No Symptoms
Vital Signs
Temp Pulse Resp BP Pulse Ox
98.1 F 60 18 127/84 97
12/28/23 23:05 12/28/23 23:05 12/28/23 23:05 12/28/23 23:05 12/28/23 23:05
Physical Exam
Exam
General: Well Developed, Well Nourished and No Apparent Distress
HEENT: Normocephalic and Anicteric
Respiratory: Clear
Cardiac: Regular Rhythm
GI: Soft, Non Distended, Tender (LLQ ) and Other (large mid line scar healed minimal bulge with hernia with lying flat )
Musculoskeletal: No Clubbing and No Cyanosis
Skin: Warm and Dry
Neuro: Awake, Alert and AO x 3
Psych: Calm
Results
WBC 8.7 10^3/uL (4.8-10.8) 12/29/23 06:03
Hgb 12.0 g/dL (12.0-16.0) 12/29/23 06:03
Hct 36.0 % (37.0-47.0) L 12/29/23 06:03
MCV 83.1 fL (81.0-99.0) 12/29/23 06:03
Plt Count 213 10^3/uL (130-400) 12/29/23 06:03
Absolute Neuts (auto) 6.2 10^3/uL (1.4-6.5) 12/29/23 06:03
Sodium 134 mmol/L (135-145) L 12/29/23 06:03
Potassium 3.6 mmol/L (3.5-5.1) 12/29/23 06:03
Chloride 106 mmol/L (98-107) 12/29/23 06:03
Carbon Dioxide 21 mmol/L (22-30) L 12/29/23 06:03
BUN 8 mg/dl (7-17) 12/29/23 06:03
Creatinine 0.6 mg/dL (0.6-1.0) 12/29/23 06:03
Calcium 8.5 mg/dl (8.4-10.2) 12/29/23 06:03
Total Bilirubin 0.9 mg/dl (0.2-1.3) 12/29/23 06:03
AST 19 U/L (14-36) 12/29/23 06:03
ALT < 10 U/L (0-35) 12/29/23 06:03
Alkaline Phosphatase 62 U/L (38-126) 12/29/23 06:03
Diagnostic Image Results:
12/28/23-
Mild splenomegaly.
Pre-existing high attenuation excreted contrast material within the collapsed renal pelvis, bilaterally, and collapsed urinary bladder. Uncertain etiology.
Constipation with moderate colonic fecal burden.
Mild to moderate diverticulosis of the sigmoid colon. Initial/preliminary report suggested possible minor diverticulitis/colitis.
Anterior midline abdominal hernia without associated bowel obstruction.
Normal appendix.
Slight prominence of the left pelvic venous structures and distended left ovarian vein, which may be a sequela of previous left renal vein compression and/or collateral flow. Cannot exclude pelvic congestion syndrome.
Prior GI Procedures:
EGD: ar[facility] 2021 with normal esophagus, mild antral gastritis, bilious gastric fluid, normal duodenum. bx chronic inactive gastritis, neg H pylori, neg celiac, neg EOE or dysplasia.
Colonoscopy: 01/2022 [facility]- SCAD thickening with diverticular disease, hemorrhoids multiple small polyps in rectum and sigmoid, diverticulosis, congested and erythema in recto sigmoid, and distal sigmoid, polyps(hyperplastic) and glandularity.
random bx with nodular lymphoid aggregate no significant pathology.
Assessment / Plan
-
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
diverticulitis, scad on colonoscopy however was diagnosed with renal vein nutcracker compression after. Since surgery she has had evaluation by surgeon at [facility] for abdominal hernia(due for repair) and several admission to for recurrent
abdominal pain. On last admission Pt had reassessment with vascular surgery with only other recommendation would be transposition of ovarian vein onto one of deep veins vs considering nephrectomy. She has also seen vascular surgery outpatient and
also discussed similar recommendations but was to see [facility]CE[facility] CLAMMER first prior to consider ovarian transposition. She now presents with recurrent abdominal pain. CT on admission with mild splenomegaly with high attenuation contrast material in
collapsed renal pelvis b/l and collapsed urinary bladder. Constipation with moderate colon stool burden. diverticulosis and minor diverticulitis/colitis anterior midline hernia without bowl obstruction. normal appendix and Slight prominence of the
left pelvic venous structures and distended left ovarian vein, which may be a sequela of previous left renal vein compression and/or collateral flow. Cannot exclude pelvic congestion syndrome. Asked to see for any other etiology of pain as noted
with constipation and minor diverticulitis/colitis on imaging.
-abdominal pain with nausea/vomiting
-hx left renal vein nutcracker compression with prior left renal vein transposition with occlusion
-narcotic induced constipation with increased stool on CT with now diarrhea since admission
-concern for possible oral thrush
-minor diverticulitis vs colitis on CT
-abdominal hernia
-hx SCAD on prior colonoscopy
other medical problems:
-regional pain symptoms with prior ankle injury- chronic narcotics and stimulator in place
-tobacco abuse
-GERD
-ovarian cyst
-julio cesar
-rare Marijuana use
-family hx colon CA
-hypothyroidism
PLAN:
etiology of LLQ related to nutcracker compression with continued occlusion, colitis/diverticulitis though mild on CT, constipation(though no improvement with several stools overnight) vs other
currently on antibiotics for colitis /diverticulitis -- monitor for loose stools as may be antibiotic related
cont laxative regiment Miralax daily and Senna BID-- discussed if failed may need to consider laxative such as Movantik, relistor for narcotic induced constipation
pt due OP follow up with [facility]CE[facility] CLAMMER and need to review with vascular [place] [facility] [place] if any intervention can be done at time of hernia
cont pain control per hospitalist
advance to clear diet for lunch with no further vomiting
cont protonix 40mg daily
counseled on quitting tobacco
-
-
-
Thank you for consultation and allowing me to participate in the patient's care. Please call the publications production supervisor GI physician during the after hours with any questions or concerns.
[2023-12-29 07:39] VITALS: BP 135/87
[2023-12-29] MEDS: PROTONIX IV 40 MG IV (08:11)
[2023-12-29] MEDS: COREG 12.5 MG PO ×2 (08:12→21:53)
[2023-12-29] MEDS: SENOKOT-S PO (08:13)
[2023-12-29] MEDS: MUCINEX 600 MG PO ×2 (08:13→21:48)
--- NOTE | 2023-12-29 08:13 | W.PN.HOSP.TC ---
Today's Communication/Plan
-
Continue antibiotics and bowel regimen
If tolerating clear liquid diet, diet will be advanced tomorrow and patient can be resumed on her oral pain medicines
Discussed case with vascular surgery, please see below
Assessment / Plan
Assessment / Plan
Physical Exam
General: Not in acute distress.
HEENT: Normocephalic.
NECK: Supple.
RESPIRATORY: Lungs clear to auscultation bilaterally.
CVS: S1, S2 normal. RRR.
ABDOMEN: Soft, left sided tenderness. No distension rebound tenderness or guarding. BS+/normal.
EXTREMITIES: No peripheral cyanosis or edema.
GREEN END WORKER: AAOx3
Assessment/Plan
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
left-sided abdominal pain progressive since the day before presentation, resulting in appetite loss. Pain worsened overnight waking her from sleep with associated nausea and vomiting - prompting her to visit the ED. Evaluated with lab work and CT,
patient was diagnosed with diverticulitis/colitis and discharged with Augmentin. Patient however returned as she was unable to tolerate any oral intake, reporting non-bloody vomiting. Reported regular bowel movements. Denied constipation (though
CT was suggestive of constipation with moderate colonic fecal burden. Denied fever coughing sneezing bloody bowel movements diarrhea. VSS afebrile. Labs unremarkable, no leukocytosis anemia or renal insufficiency. Oral thrush noted on physical
exam.
CT abd/pelvis noted
-Mild splenomegaly
-Pre-existing high attenuation excreted contrast material within the collapsed renal pelvis, bilaterally, and collapsed urinary bladder. Uncertain etiology.
-Constipation with moderate colonic fecal burden.
-Mild to moderate diverticulosis of the sigmoid colon. Initial/preliminary report suggested possible minor diverticulitis/colitis.
-Anterior midline abdominal hernia without associated bowel obstruction.
-Normal appendix.
-Slight prominence of the left pelvic venous structures and distended left ovarian vein, which may be a sequela of previous left renal vein compression and/or collateral flow. Cannot exclude pelvic congestion syndrome.
#Left-sided abdomen pain progressive 24 to 48 hours associated nausea vomiting
# Possibly due to diverticulitis/colitis versus severe constipation (Patient report regular bowel movements non-diarrheal nonbloody not suggestive of diverticulitis/colitis or severe constipation)
med/surg
bowel rest
Diet advanced on December 29, 2023 to Clear Liquids Diet
IVF support
pain control -- oral pain meds converted to fentanyl patch and IV prn to avoid opiate withdrawal.
Resume oral pain meds soon if patient tolerating diet
Scheduled laxatives
If constipation does not improve, may need to be started on Relistor or Movantik
Continue empiric zosyn for now
GI eval requested
Nutcracker Syndrome s/p left renal transposition
chronic pain opioid dependence
-to minimize risk opioid withdrawal, oral pain meds converted to Fentanyl patch and prn IV pain meds
-can convert back to home oral pain meds when patient is tolerating oral intake
-Will discuss with Vascular Surgery today 12/29/23: Dr. Garcia just saw her as outpatient last week and recommended she sees REVENUE ACCOUNTING MANAGER re: possible OCPs to see if slowing/stopping her menses may help with her pain; otherwise the only thing Dr. Garcia would
offer is ovarian vein transposition.
-REVENUE ACCOUNTING MANAGER referral for soon after discharge.
#Oral thrush
Consider starting nystatin swish when tolerating oral diet
#Hypothyroidism
cont Synthroid
#Hypertension
cont home Coreg
consider additional antihypertensives if BP remains elevated despite pain control
Obesity
Tobacco us
Currently smokes
Smoking cessation advised
patient declined nicotine supplementation
dvt ppx Lovenox
gi ppx Protonix
Full Code
Anticipated Discharge: 24 - 48 hours
Subjective/Interval History
-
Date of Service: December 29, 2023
Patient was seen and examined. She reported ongoing pain in her left lower abdomen, where she usually gets her pain.
Objective Data
-
Labs:
Laboratory Results
12/29/23
06:03
WBC 8.7
Hgb 12.0
Hct 36.0 L
Plt Count 213
Sodium 134 L
Potassium 3.6
Chloride 106
Carbon Dioxide 21 L
BUN 8
Creatinine 0.6
Glucose 95
Calcium 8.5
Total Bilirubin 0.9
AST 19
ALT < 10
Alkaline Phosphatase 62
Vital Signs:
Vital Signs
Temp Pulse Resp BP Pulse Ox
98.0 F 63 17 135/87 98
12/29/23 07:39 12/29/23 07:39 12/29/23 07:39 12/29/23 07:39 12/29/23 07:39
I&O
12/28/23 12/29/23 12/30/23
06:59 06:59 06:59
Intake Total 1300 / 1300
Balance 1300 / 1300
--- NOTE | 2023-12-29 11:48 | CM ---
Met with pt at bedside
Pt lives with her , children and mother in a split-level home
Describes self as mostly independent - needs some assist. Ambulates with crutches
DME - Crutches, shower chair
SNF - none in past
HH - has used [facility] in past
Has ride home at d/c
PCP - Dr Ren Rocha
Pharm - [facility]
Plan - anticipate home no needs vs HH
[2023-12-29 15:24] VITALS: BP 122/73
[2023-12-29] MEDS: LOVENOX 40 MG SC (18:26)
[2023-12-29] MEDS: SENOKOT-S 1 TABLET PO (21:48)
[2023-12-29 23:33] VITALS: BP 118/72
[2023-12-30] MEDS: DILAUDID 2 MG IV ×4 (03:24→20:07)
[2023-12-30] MEDS: NSS 1000 IV ×2 (04:50→11:02)
[2023-12-30 06:00] VITALS: BMI 34.4
[2023-12-30] MEDS: ZOSYN 50 IV ×2 (06:21→11:01)
[2023-12-30] MEDS: SYNTHROID 200 MCG PO (06:22)
[2023-12-30 07:12] VITALS: BP 152/89
[2023-12-30] MEDS: PROTONIX IV 40 MG IV (07:42)
[2023-12-30] MEDS: COREG 12.5 MG PO ×2 (07:43→21:54)
[2023-12-30] MEDS: NSS (PRESERVATIVE FREE) 10 ML IV (07:43)
[2023-12-30] MEDS: SENOKOT-S PO ×3 (07:44→21:55)
[2023-12-30] MEDS: MUCINEX 600 MG PO ×2 (07:44→21:54)
[2023-12-30 08:35] LABS: % Basophils 0.7 % (0-2); % Immature Granulocytes 0.2 % (0-0.5); % Lymphocytes 24.2 % (20.5-51.1); % Monocytes 6.3 % (1.7-9.3); % Neutrophils 65.6 % (42.2-75.2); Absolute Eosinophils 0.2 10^3/uL (0-0.7); Absolute Lymphocytes 1.3 10^3/uL (1.2-3.4); Absolute Monocytes 0.3 10^3/uL (0.1-0.6); Absolute Neutrophils 3.5 10^3/uL (1.4-6.5); Hematocrit 33.5 % (37.0-47.0); Mean Corp Hgb Conc. 32.8 g/dL (33.0-37.0); Mean Corpuscular Hgb 27.7 pg (27.0-31.0); Mean Corpuscular Volume 84.4 fL (81.0-99.0); Mean Platelet Volume 9.1 fL (7.4-10.4); Nucleated Red Blood Cells % 0 %; Platelet Count 203 10^3/uL (130-400); Red Blood Cell Count 3.97 10^6/uL (4.20-5.40); Red Cell Dist. Width 13.6 % (11.5-14.5); White Blood Cell Count 5.4 10^3/uL (4.8-10.8)
[2023-12-30 09:23] LABS: ALT (SGPT) 11 U/L (0-35); AST (SGOT) 18 U/L (14-36); Albumin 3.4 g/dl (3.5-5.0); Alkaline Phosphatase 59 U/L (38-126); Blood Urea Nitrogen 6 mg/dl (7-17); Calcium 8.4 mg/dl (8.4-10.2); Carbon Dioxide 24 mmol/L (22-30); Chloride 108 mmol/L (98-107); Estimated Creatinine Clearance 120 ml/min; Glucose 91 mg/dl (70-99); Magnesium 1.8 mg/dl (1.6-2.3); Potassium 3.6 mmol/L (3.5-5.1); Sodium 135 mmol/L (135-145); Total Bilirubin 0.6 mg/dl (0.2-1.3); Total Protein 6.1 g/dl (6.3-8.2); eGFR > 60.00
--- NOTE | 2023-12-30 09:42 | W.PN.GI.CBS2 ---
Addendum entered and electronically signed by Jovan Boone MD 12/30/23 10:30:
I saw and examined the patient.
The PA's note was reviewed and I agree with the note.
Comment:
Pt feeling her pain is improving. Tolerating liquid diet. Some loose BM this AM, agree with stool studies. GI will s/o, pls call with questions.
Original Note:
Today's Communication / Plan
-
etiology of LLQ related to nutcracker compression with continued occlusion, colitis/diverticulitis though mild on CT, constipation(though no improvement with several stools overnight), adhesive disease vs other
slow improvement in pain but some nausea
cont pain management per hospitalist
typically with constipation(possible narcotic induced with chronic opioid use) now loose stool overnight will check stool studies to rule out infectious process vs possible abx related
laxatives held this am
tolerating small amount liquid diet will trial full liquid lunch
no signs of thrush this am hold on treatment
cont Protonix 40mg daily
Due OP EDGER LINER and [facility] surgical eval to discuss vascular issues
Assessment / Plan
-
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
diverticulitis, scad on colonoscopy however was diagnosed with renal vein nutcracker compression after. Since surgery she has had evaluation by surgeon at [facility] for abdominal hernia(due for repair) and several admission to for recurrent
abdominal pain. On last admission Pt had reassessment with vascular surgery with only other recommendation would be transposition of ovarian vein onto one of deep veins vs considering nephrectomy. She has also seen vascular surgery outpatient and
also discussed similar recommendations but was to see EDGER LINER first prior to consider ovarian transposition. She now presents with recurrent abdominal pain. CT on admission with mild splenomegaly with high attenuation contrast material in
collapsed renal pelvis b/l and collapsed urinary bladder. Constipation with moderate colon stool burden. diverticulosis and minor diverticulitis/colitis anterior midline hernia without bowl obstruction. normal appendix and Slight prominence of the
left pelvic venous structures and distended left ovarian vein, which may be a sequela of previous left renal vein compression and/or collateral flow. Cannot exclude pelvic congestion syndrome. Asked to see for any other etiology of pain as noted
with constipation and minor diverticulitis/colitis on imaging.
-abdominal pain with nausea/vomiting
-hx left renal vein nutcracker compression with prior left renal vein transposition with occlusion
-narcotic induced constipation with increased stool on CT with now diarrhea since admission
-concern for possible oral thrush on admission no thrush noted now
-minor diverticulitis vs colitis on CT
-abdominal hernia
-hx SCAD on prior colonoscopy
other medical problems:
-regional pain symptoms with prior ankle injury- chronic narcotics and stimulator in place
-tobacco abuse
-GERD
-ovarian cyst
-julio cesar
-rare Marijuana use
-family hx colon CA
-hypothyroidism
PLAN:
etiology of LLQ related to nutcracker compression with continued occlusion, colitis/diverticulitis though mild on CT, constipation(though no improvement with several stools overnight), adhesive disease vs other
slow improvement in pain but some nausea
cont pain management per hospitalist
typically with constipation(possible narcotic induced with chronic opioid use) now loose stool overnight will check stool studies to rule out infectious process vs possible abx related
laxatives held this am
tolerating small amount liquid diet will trial full liquid lunch
no signs of thrush this am hold on treatment
cont Protonix 40mg daily
Due OP [facility] LINER and [facility] eval to discuss vascular issues
-
Subjective
Subjective
Date of Service: December 30, 2023
still with some LLQ pain and nausea taking small amount of liquid diet
Objective
Data Reviewed
Laboratory Data:
Laboratory Results
12/30/23 08:11
12/30/23 08:11
Laboratory Results
Magnesium 1.8 mg/dl (1.6-2.3) 12/30/23 08:11
Total Bilirubin 0.6 mg/dl (0.2-1.3) 12/30/23 08:11
AST 18 U/L (14-36) 12/30/23 08:11
ALT 11 U/L (0-35) 12/30/23 08:11
Alkaline Phosphatase 59 U/L (38-126) 12/30/23 08:11
Vital Signs and I&O:
Vital Signs
Temp Pulse Resp BP Pulse Ox
98.5 F 56 18 152/89 97
12/30/23 07:12 12/30/23 07:43 12/30/23 07:12 12/30/23 07:43 12/30/23 07:12
I&O
12/29/23 12/30/23 12/31/23
06:59 06:59 06:59
Intake Total 1300 / 1300 1600 / 1600
Balance 1300 / 1300 1600 / 1600
Physical Exam
Physical Exam
HEENT: Anicteric and Moist mucous membranes
Cardiology: Normal Sinus Rhythm
Pulmonary: Clear
GI: Soft, Non Distended and Tender (LLQ )
Extremities: No Edema
Neuro: Non Focal
--- NOTE | 2023-12-30 12:38 | W.PN.UPDATE ---
Update Note
Progress Note Update
Vascular surgery consult:
Pt seen in our office by Dr Garcia 1 week ago, office note attached.
Pt has MEDIA BUYER appt next month.
Pt seen at bedside this am. No new/different symptoms at this time. Pt in agreement with plan to see MEDIA BUYER as scheduled.
--- NOTE | 2023-12-30 12:39 | PTOTSP ---
Patient independent with all functional mobility. No skilled PT needs, will sign off.
[2023-12-30] MEDS: DILAUDID 1 MG IV (12:50)
[2023-12-30] MEDS: ZOFRAN 4 MG IV (13:34)
[2023-12-30 14:34] LABS: Hemoglobin 11.1 g/dL (12.0-16.0); Mean Corp Hgb Conc. 33.6 g/dL (33.0-37.0); Mean Corpuscular Hgb 27.8 pg (27.0-31.0); Mean Corpuscular Volume 82.5 fL (81.0-99.0); Mean Platelet Volume 9.2 fL (7.4-10.4); Platelet Count 211 10^3/uL (130-400); Red Cell Dist. Width 13.8 % (11.5-14.5); White Blood Cell Count 5.8 10^3/uL (4.8-10.8)
[2023-12-30 14:51] LABS: Lactic Acid 1.6 mmol/L (0.7-2.0)
[2023-12-30 14:52] LABS: ALT (SGPT) 13 U/L (0-35); AST (SGOT) 18 U/L (14-36); Albumin 3.5 g/dl (3.5-5.0); Alkaline Phosphatase 54 U/L (38-126); Blood Urea Nitrogen 5 mg/dl (7-17); Calcium 8.4 mg/dl (8.4-10.2); Carbon Dioxide 25 mmol/L (22-30); Chloride 108 mmol/L (98-107); Estimated Creatinine Clearance 120 ml/min; Glucose 122 mg/dl (70-99); Potassium 3.3 mmol/L (3.5-5.1); Sodium 136 mmol/L (135-145); Total Bilirubin 0.5 mg/dl (0.2-1.3); Total Protein 6.2 g/dl (6.3-8.2); eGFR > 60.00
[2023-12-30] MEDS: KCL 40 MEQ PO (15:16)
--- NOTE | 2023-12-30 15:33 | PTOTSP ---
pt currently demonstrates ability to complete simple ADLs, functional transfers, ambulation with supervision to no assistance. no acute OT needs identified, will sign off.
--- NOTE | 2023-12-30 15:34 | W.PN.HOSP.TC ---
Today's Communication/Plan
-
Tolerating oral diet now -- full liquids
Pain has been severe along with nausea
Per vascular, this will likely be an outpatient ASSISTANT ACCOUNTING MANAGER follow-up for consideration of OCPs
Transitioned Zosyn to Augmentin
Hopefully pain can be better controlled
Assessment / Plan
Assessment / Plan
Physical Exam
General: Not in acute distress.
HEENT: Normocephalic.
NECK: Supple.
RESPIRATORY: Lungs clear to auscultation bilaterally.
CVS: S1, S2 normal. RRR.
ABDOMEN: Soft, left sided tenderness. No distension rebound tenderness or guarding. BS+/normal.
EXTREMITIES: No peripheral cyanosis or edema.
CELL ROOM OPERATOR: AAOx3
Assessment/Plan
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
left-sided abdominal pain progressive since the day before presentation, resulting in appetite loss. Pain worsened overnight waking her from sleep with associated nausea and vomiting - prompting her to visit the ED. Evaluated with lab work and CT,
patient was diagnosed with diverticulitis/colitis and discharged with Augmentin. Patient however returned as she was unable to tolerate any oral intake, reporting non-bloody vomiting. Reported regular bowel movements. Denied constipation (though
CT was suggestive of constipation with moderate colonic fecal burden. Denied fever coughing sneezing bloody bowel movements diarrhea. VSS afebrile. Labs unremarkable, no leukocytosis anemia or renal insufficiency. Oral thrush noted on physical
exam.
CT abd/pelvis noted
-Mild splenomegaly
-Pre-existing high attenuation excreted contrast material within the collapsed renal pelvis, bilaterally, and collapsed urinary bladder. Uncertain etiology.
-Constipation with moderate colonic fecal burden.
-Mild to moderate diverticulosis of the sigmoid colon. Initial/preliminary report suggested possible minor diverticulitis/colitis.
-Anterior midline abdominal hernia without associated bowel obstruction.
-Normal appendix.
-Slight prominence of the left pelvic venous structures and distended left ovarian vein, which may be a sequela of previous left renal vein compression and/or collateral flow. Cannot exclude pelvic congestion syndrome.
#Left-sided abdomen pain progressive 24 to 48 hours associated nausea vomiting
# Possibly due to diverticulitis/colitis versus severe constipation (Patient report regular bowel movements non-diarrheal nonbloody not suggestive of diverticulitis/colitis or severe constipation)
med/surg
bowel rest
Diet advanced on December 30, 2023 to Full Liquids Diet
IVF support -- wean off IV fluids as patient now tolerating liquids
pain control -- oral pain meds converted to fentanyl patch and IV prn to avoid opiate withdrawal.
Resume oral pain meds soon if patient tolerating diet
Scheduled laxatives -- careful with the laxatives as patient has been having diarrhea -- appreciate GI assistance with this
If constipation did not/does not improve, may need to be started on Relistor or Movantik
Status post Zosyn
Start Augmentin 875 mg BID for 10 days (Day 1 is 12/30/23)
GI eval requested
Continue Protonix
Nutcracker Syndrome s/p left renal transposition
chronic pain opioid dependence
-to minimize risk opioid withdrawal, oral pain meds converted to Fentanyl patch and prn IV pain meds
-can convert back to home oral pain meds when patient is tolerating oral intake
-Will discuss with Vascular Surgery today 12/29/23: Dr. Garcia just saw her as outpatient last week and recommended she sees ASSISTANT ACCOUNTING MANAGER re: possible OCPs to see if slowing/stopping her menses may help with her pain; otherwise the only thing Dr. Garcia would
offer is ovarian vein transposition.
-ASSISTANT ACCOUNTING MANAGER referral for soon after discharge: OCP not actually contraindicated as per vascular --- ASSISTANT ACCOUNTING MANAGER will need to communicate with vascular about this
#Oral thrush
None right now
#Hypothyroidism
cont Synthroid
#Hypertension
cont home Coreg
consider additional antihypertensives if BP remains elevated despite pain control
Obesity
Tobacco us
Currently smokes
Smoking cessation advised
patient declined nicotine supplementation
dvt ppx Lovenox
gi ppx Protonix
Full Code
Anticipated Discharge: 24 - 48 hours
Subjective/Interval History
-
Date of Service: December 30, 2023
Patient was seen and examined. She reported diarrhea in the past 24 hours, she still has pain, later in the day she had more severe pain and additional nausea and pain medications given.
Objective Data
-
Labs:
Laboratory Results
12/30/23 12/30/23
08:11 14:27
WBC 5.4 5.8
Hgb 11.0 L 11.1 L
Hct 33.5 L 33.0 L
Plt Count 203 211
Sodium 135 136
Potassium 3.6 3.3 L
Chloride 108 H 108 H
Carbon Dioxide 24 25
BUN 6 L 5 L
Creatinine 0.7 0.7
Glucose 91 122 H
Calcium 8.4 8.4
Total Bilirubin 0.6 0.5
AST 18 18
ALT 11 13
Alkaline Phosphatase 59 54
Vital Signs:
Vital Signs
Temp Pulse Resp BP Pulse Ox
98.5 F 56 18 152/89 97
12/30/23 07:12 12/30/23 07:43 12/30/23 07:12 12/30/23 07:43 12/30/23 07:12
I&O
12/29/23 12/30/23 12/31/23
06:59 06:59 06:59
Intake Total 1300 / 1300 1600 / 1600
Balance 1300 / 1300 1600 / 1600
--- NOTE | 2023-12-30 15:52 | CM ---
Per PT, no skilled PT needed
Plan: discharge to home when medically stable
[2023-12-30 16:34] VITALS: BP 159/97
[2023-12-30] MEDS: LOVENOX 40 MG SC (17:08)
[2023-12-30] MEDS: AUGMENTIN 875 MG/125 MG 1 TABLET PO (21:53)
[2023-12-30 23:30] VITALS: BP 141/74
[2023-12-31] MEDS: DILAUDID 2 MG IV ×2 (00:34→05:38)
[2023-12-31] MEDS: SYNTHROID 200 MCG PO (06:32)
[2023-12-31 07:00] VITALS: BP 112/76
[2023-12-31] MEDS: MUCINEX 600 MG PO ×2 (07:24→20:40)
[2023-12-31] MEDS: AUGMENTIN 875 MG/125 MG 1 TABLET PO (07:24)
[2023-12-31] MEDS: COREG 12.5 MG PO ×2 (07:25→20:40)
[2023-12-31] MEDS: NSS (PRESERVATIVE FREE) 10 ML IV (07:25)
[2023-12-31] MEDS: SENOKOT-S PO ×2 (07:25→20:45)
[2023-12-31] MEDS: PROTONIX IV 40 MG IV (07:25)
--- NOTE | 2023-12-31 09:25 | W.PN.GI.CBS2 ---
Addendum entered and electronically signed by Jovan Boone MD 12/31/23 12:31:
I saw and examined the patient.
The PA's note was reviewed and I agree with the note.
Comment:
Agree with advancing diet, f/u stool studies.
Original Note:
Today's Communication / Plan
-
etiology of LLQ related to nutcracker compression with continued occlusion, colitis/diverticulitis though mild on CT, constipation(though no improvement with several stools overnight), adhesive disease vs other
slow improvement in pain still some nausea but taking some liquid and willing to try advanced diet
cont pain management per hospitalist
other complaint is diarrhea -antibiotics related vs colitis vs overflow vs other
-- stool studies pending c-diff neg
abx changed to PO Augmentin 12/29 monitor off Zosyn
check abd film for stool burden to excluded
reviewed with patient will hold Imodium for now as hx chronic narcotic induced constipation
resume laxative regiment after diarrhea improves
advance to low residue/low lactose diet
no signs of thrush this am hold on treatment
cont Protonix 40mg daily
Due OP MANAGEMENT SUPERVISOR and [facility] surgical eval to discuss vascular issues -- already set up Outpatient
appreciate vascular input
Assessment / Plan
-
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
diverticulitis, scad on colonoscopy however was diagnosed with renal vein nutcracker compression after. Since surgery she has had evaluation by surgeon at [facility] for abdominal hernia(due for repair) and several admission to for recurrent
abdominal pain. On last admission Pt had reassessment with vascular surgery with only other recommendation would be transposition of ovarian vein onto one of deep veins vs considering nephrectomy. She has also seen vascular surgery outpatient and
also discussed similar recommendations but was to see MANAGEMENT SUPERVISOR first prior to consider ovarian transposition. She now presents with recurrent abdominal pain. CT on admission with mild splenomegaly with high attenuation contrast material in
collapsed renal pelvis b/l and collapsed urinary bladder. Constipation with moderate colon stool burden. diverticulosis and minor diverticulitis/colitis anterior midline hernia without bowl obstruction. normal appendix and Slight prominence of the
left pelvic venous structures and distended left ovarian vein, which may be a sequela of previous left renal vein compression and/or collateral flow. Cannot exclude pelvic congestion syndrome. Asked to see for any other etiology of pain as noted
with constipation and minor diverticulitis/colitis on imaging.
-abdominal pain with nausea/vomiting
-hx left renal vein nutcracker compression with prior left renal vein transposition with occlusion
-narcotic induced constipation with increased stool on CT with now diarrhea since admission
-concern for possible oral thrush on admission no thrush noted now
-minor diverticulitis vs colitis on CT
-abdominal hernia
-hx SCAD on prior colonoscopy
other medical problems:
-regional pain symptoms with prior ankle injury- chronic narcotics and stimulator in place
-tobacco abuse
-GERD
-ovarian cyst
-julio cesar
-rare Marijuana use
-family hx colon CA
-hypothyroidism
PLAN:
etiology of LLQ related to nutcracker compression with continued occlusion, colitis/diverticulitis though mild on CT, constipation(though no improvement with several stools overnight), adhesive disease vs other
slow improvement in pain still some nausea but taking some liquid and willing to try advanced diet
cont pain management per hospitalist
other complaint is diarrhea -antibiotics related vs colitis vs overflow vs other
-- stool studies pending c-diff neg
abx changed to PO Augmentin 12/29 monitor off Zosyn
check abd film for stool burden to excluded
reviewed with patient will hold Imodium for now as hx chronic narcotic induced constipation
resume laxative regiment after diarrhea improves
advance to low residue/low lactose diet
no signs of thrush this am hold on treatment
cont Protonix 40mg daily
Due OP MANAGEMENT SUPERVISOR and [facility] surgical eval to discuss vascular issues -- already set up Outpatient
appreciate vascular input
-
Subjective
Subjective
Date of Service: December 31, 2023
asked to reassess for diarrhea
still with some abdominal pain but states some improvement and c/o diarrhea passing some stool every time in bathroom advancing to low residue diet
Objective
Data Reviewed
Laboratory Data:
Laboratory Results
12/30/23 14:27
12/30/23 14:27
Laboratory Results
Magnesium 1.8 mg/dl (1.6-2.3) 12/30/23 08:11
Total Bilirubin 0.5 mg/dl (0.2-1.3) 12/30/23 14:27
AST 18 U/L (14-36) 12/30/23 14:27
ALT 13 U/L (0-35) 12/30/23 14:27
Alkaline Phosphatase 54 U/L (38-126) 12/30/23 14:27
Vital Signs and I&O:
Vital Signs
Temp Pulse Resp BP Pulse Ox
98.4 F 60 18 112/76 98
12/31/23 07:00 12/31/23 07:25 12/31/23 07:00 12/31/23 07:25 12/31/23 07:00
I&O
12/30/23 12/31/23 01/01/24
06:59 06:59 06:59
Intake Total 1600 / 1600 1460 / 1460
Balance 1600 / 1600 1460 / 1460
Physical Exam
Physical Exam
HEENT: Anicteric and Moist mucous membranes
Cardiology: Normal Sinus Rhythm
Pulmonary: Clear
GI: Soft, Distended (mild ) and Tender (LLQ but states some improvement overnight )
Extremities: No Edema
Neuro: Non Focal
[2023-12-31] MEDS: MS CONTIN (EXTENDED RELEASE) 30 MG PO ×3 (09:37→22:01)
--- NOTE | 2023-12-31 09:48 | W.PN.UPDATE ---
Update Note
Progress Note Update
Seen and examined. Seen vascular ONLINE FACILITATOR notes for attached recent office visit. Patient's pain seems to be improving today. Her exam is stable. Discussed with her again options/plan extensively as discussed in the office with her.
I really have great hesitation reoperating on her for ovarian vein transposition. It just seems not clear/quite odd that she has such difficulty and pain due to left renal vein occlusion. In addition this would not explain nausea etc. Though
there really is no other found etiology so far for any of the symptoms. And based on the fact that it is left flank into the pelvis, the proposed mechanism of congestion that worsens during menses (since the renal vein currently is
decompressed/drains via the ovarian vein, and resistance through that system increases likely at the time of menses) does make sense.
She is amenable to seeing HEAD OF MARKETING ADOMETRY as an outpatient to see if she can be started on OCPs and if those help her. She does not have any hypercoagulability that I am aware of that would contraindicate her being started on OCPs. Her renal vein transposed
thrombosis was not likely due to hypercoagulable state but was postsurgical.
[2023-12-31] MEDS: DILAUDID 4 MG PO ×2 (12:31→20:49)
--- NOTE | 2023-12-31 12:31 | W.PN.UPDATE ---
Update Note
Progress Note Update
billing note
[2023-12-31] MEDS: ZOFRAN 4 MG IV (13:13)
[2023-12-31 13:50] LABS: Hematocrit 36.2 % (37.0-47.0); Hemoglobin 12.2 g/dL (12.0-16.0); Mean Corp Hgb Conc. 33.7 g/dL (33.0-37.0); Mean Corpuscular Hgb 27.9 pg (27.0-31.0); Mean Corpuscular Volume 82.8 fL (81.0-99.0); Mean Platelet Volume 9.3 fL (7.4-10.4); Platelet Count 233 10^3/uL (130-400); Red Blood Cell Count 4.37 10^6/uL (4.20-5.40); Red Cell Dist. Width 13.8 % (11.5-14.5); White Blood Cell Count 8.7 10^3/uL (4.8-10.8)
[2023-12-31 14:02] LABS: Blood Urea Nitrogen 2 mg/dl (7-17); Calcium 9.2 mg/dl (8.4-10.2); Carbon Dioxide 24 mmol/L (22-30); Chloride 105 mmol/L (98-107); Estimated Creatinine Clearance > 125 ml/min; Glucose 120 mg/dl (70-99); Magnesium 1.9 mg/dl (1.6-2.3); Potassium 3.7 mmol/L (3.5-5.1); Sodium 135 mmol/L (135-145); eGFR > 60.00
[2023-12-31 15:00] VITALS: BP 169/102
[2023-12-31] MEDS: TYLENOL 650 MG PO (15:59)
[2023-12-31] MEDS: LOVENOX 40 MG SC (16:56)
--- NOTE | 2023-12-31 19:28 | W.PN.HOSP.TC ---
Today's Communication/Plan
-
Patient having fever today after switched to Augmentin yesterday
Ordered blood cultures
Antibiotics switched back to Zosyn
Assessment / Plan
Assessment / Plan
Physical Exam
General: Not in acute distress.
HEENT: Normocephalic.
NECK: Supple.
RESPIRATORY: Lungs clear to auscultation bilaterally.
CVS: S1, S2 normal. RRR.
ABDOMEN: Soft, left sided tenderness. No distension rebound tenderness or guarding. BS+/normal.
EXTREMITIES: No peripheral cyanosis or edema.
PATIENT REGISTRATION CLERK: AAOx3
Assessment/Plan
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
left-sided abdominal pain progressive since the day before presentation, resulting in appetite loss. Pain worsened overnight waking her from sleep with associated nausea and vomiting - prompting her to visit the ED. Evaluated with lab work and CT,
patient was diagnosed with diverticulitis/colitis and discharged with Augmentin. Patient however returned as she was unable to tolerate any oral intake, reporting non-bloody vomiting. Reported regular bowel movements. Denied constipation (though
CT was suggestive of constipation with moderate colonic fecal burden. Denied fever coughing sneezing bloody bowel movements diarrhea. VSS afebrile. Labs unremarkable, no leukocytosis anemia or renal insufficiency. Oral thrush noted on physical
exam.
CT abd/pelvis noted
-Mild splenomegaly
-Pre-existing high attenuation excreted contrast material within the collapsed renal pelvis, bilaterally, and collapsed urinary bladder. Uncertain etiology.
-Constipation with moderate colonic fecal burden.
-Mild to moderate diverticulosis of the sigmoid colon. Initial/preliminary report suggested possible minor diverticulitis/colitis.
-Anterior midline abdominal hernia without associated bowel obstruction.
-Normal appendix.
-Slight prominence of the left pelvic venous structures and distended left ovarian vein, which may be a sequela of previous left renal vein compression and/or collateral flow. Cannot exclude pelvic congestion syndrome.
#Left-sided abdomen pain progressive 24 to 48 hours associated nausea vomiting
# Possibly due to diverticulitis/colitis versus severe constipation (Patient report regular bowel movements non-diarrheal nonbloody not suggestive of diverticulitis/colitis or severe constipation)
med/surg
bowel rest
Diet advanced on December 30, 2023 to Full Liquids Diet
IVF support -- wean off IV fluids as patient now tolerating liquids
pain control -- oral pain meds converted to fentanyl patch and IV prn to avoid opiate withdrawal.
Resume oral pain meds soon if patient tolerating diet
Scheduled laxatives -- careful with the laxatives as patient has been having diarrhea -- appreciate GI assistance with this
If constipation did not/does not improve, may need to be started on Relistor or Movantik
Was on Zosyn-->then switched to Augmentin on 12/30/23-->then switched back to Zosyn on 12/31/23 due to fever
Continue Zosyn
Will request ID consult
GI eval requested
Continue Protonix
#Diarrhea
-Could be due to antibiotics
-Monitor
-Stool studies pending
-C. diff negative
Nutcracker Syndrome s/p left renal transposition
chronic pain opioid dependence
-to minimize risk opioid withdrawal, oral pain meds converted to Fentanyl patch and prn IV pain meds
-can convert back to home oral pain meds when patient is tolerating oral intake
-Will discuss with Vascular Surgery today 12/29/23: Dr. Garcia just saw her as outpatient last week and recommended she sees WIRE WEAVER CLOTH re: possible OCPs to see if slowing/stopping her menses may help with her pain; otherwise the only thing Dr. Garcia would
offer is ovarian vein transposition.
-WIRE WEAVER CLOTH referral for soon after discharge: OCP not actually contraindicated as per vascular --- WIRE WEAVER CLOTH will need to communicate with vascular about this
#Oral thrush
None right now
#Hypothyroidism
cont Synthroid
#Hypertension
cont home Coreg
consider additional antihypertensives if BP remains elevated despite pain control
Obesity
Tobacco us
Currently smokes
Smoking cessation advised
patient declined nicotine supplementation
DVT PPx Lovenox
GI PPx Protonix
Full Code
Anticipated Discharge: > 48 hours
Subjective/Interval History
-
Date of Service: December 31, 2023
Patient was seen and examined. She reported the ongoing same abdominal pain, but denied any other new symptoms or complaints.
Objective Data
-
Labs:
Laboratory Results
12/31/23
13:19
WBC 8.7
Hgb 12.2
Hct 36.2 L
Plt Count 233
Sodium 135
Potassium 3.7
Chloride 105
Carbon Dioxide 24
BUN 2 L
Creatinine 0.6
Glucose 120 H
Calcium 9.2
Vital Signs:
Vital Signs
Temp Pulse Resp BP Pulse Ox
100.7 F H 94 18 169/102 99
12/31/23 15:00 12/31/23 15:00 12/31/23 15:00 12/31/23 15:00 12/31/23 15:00
I&O
12/30/23 12/31/23 01/01/24
06:59 06:59 06:59
Intake Total 1600 / 1600 1460 / 1460 720 / 720
Balance 1600 / 1600 1460 / 1460 720 / 720
[2023-12-31] MEDS: ZOSYN 50 IV (20:39)
[2023-12-31] MEDS: FLUSH (NSS) 2 FLUSH IV (20:40)
[2023-12-31 23:44] VITALS: BP 105/61
[2024-01-01] MEDS: ZOSYN 50 IV ×4 (02:15→20:21)
[2024-01-01] MEDS: DILAUDID 4 MG PO ×4 (03:00→22:21)
[2024-01-01 05:37] VITALS: BMI 33.7
[2024-01-01] MEDS: SYNTHROID 200 MCG PO (05:39)
[2024-01-01 07:00] VITALS: BP 109/68
[2024-01-01 07:10] LABS: % Basophils 0.4 % (0-2); % Eosinophils 0.7 % (0-6); % Immature Granulocytes 0.3 % (0-0.5); % Lymphocytes 11.5 % (20.5-51.1); % Monocytes 6.2 % (1.7-9.3); % Neutrophils 80.9 % (42.2-75.2); Absolute Basophils 0.1 10^3/uL (0-0.2); Absolute Eosinophils 0.1 10^3/uL (0-0.7); Absolute Lymphocytes 1.3 10^3/uL (1.2-3.4); Absolute Monocytes 0.7 10^3/uL (0.1-0.6); Hemoglobin 11.6 g/dL (12.0-16.0); Mean Corp Hgb Conc. 34.1 g/dL (33.0-37.0); Mean Corpuscular Hgb 28.1 pg (27.0-31.0); Mean Corpuscular Volume 82.3 fL (81.0-99.0); Mean Platelet Volume 9.6 fL (7.4-10.4); Nucleated Red Blood Cells % 0 %; Platelet Count 210 10^3/uL (130-400); Red Blood Cell Count 4.13 10^6/uL (4.20-5.40); Red Cell Dist. Width 13.9 % (11.5-14.5); White Blood Cell Count 11.2 10^3/uL (4.8-10.8)
[2024-01-01 07:18] LABS: Blood Urea Nitrogen 5 mg/dl (7-17); Calcium 9.4 mg/dl (8.4-10.2); Carbon Dioxide 27 mmol/L (22-30); Chloride 101 mmol/L (98-107); Estimated Creatinine Clearance 104 ml/min; Glucose 100 mg/dl (70-99); Potassium 3.5 mmol/L (3.5-5.1); Sodium 136 mmol/L (135-145); eGFR > 60.00
[2024-01-01] MEDS: MS CONTIN (EXTENDED RELEASE) 30 MG PO ×3 (08:51→23:21)
[2024-01-01] MEDS: MUCINEX 600 MG PO ×2 (08:51→20:20)
[2024-01-01] MEDS: COREG 12.5 MG PO ×2 (08:51→20:20)
[2024-01-01] MEDS: PROTONIX 40 MG PO (08:51)
[2024-01-01] MEDS: SENOKOT-S PO ×2 (08:54→20:21)
--- NOTE | 2024-01-01 10:28 | W.PN.GI.CBS2 ---
Today's Communication / Plan
-
.
Assessment / Plan
-
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
diverticulitis, scad on colonoscopy however was diagnosed with renal vein nutcracker compression after. Since surgery she has had evaluation by surgeon at [facility] for abdominal hernia(due for repair) and several admission to for recurrent
abdominal pain. On last admission Pt had reassessment with vascular surgery with only other recommendation would be transposition of ovarian vein onto one of deep veins vs considering nephrectomy. She has also seen vascular surgery outpatient and
also discussed similar recommendations but was to see DIRECTOR OF RESEARCH first prior to consider ovarian transposition. She now presents with recurrent abdominal pain. CT on admission with mild splenomegaly with high attenuation contrast material in
collapsed renal pelvis b/l and collapsed urinary bladder. Constipation with moderate colon stool burden. diverticulosis and minor diverticulitis/colitis anterior midline hernia without bowl obstruction. normal appendix and Slight prominence of the
left pelvic venous structures and distended left ovarian vein, which may be a sequela of previous left renal vein compression and/or collateral flow. Cannot exclude pelvic congestion syndrome. Asked to see for any other etiology of pain as noted
with constipation and minor diverticulitis/colitis on imaging.
Abdo pain is improving, wants to eat solid breakfast this am. Stool studies pending, will need f/u.
Total Time Spent with Patient (in minutes): 35
Subjective
Subjective
Date of Service: January 01, 2024
pain better today, wants to eat solid breakfast today
Objective
Data Reviewed
Laboratory Data:
Laboratory Results
01/01/24 06:09
01/01/24 06:09
Laboratory Results
Magnesium 1.9 mg/dl (1.6-2.3) 12/31/23 13:19
Total Bilirubin 0.5 mg/dl (0.2-1.3) 12/30/23 14:27
AST 18 U/L (14-36) 12/30/23 14:27
ALT 13 U/L (0-35) 12/30/23 14:27
Alkaline Phosphatase 54 U/L (38-126) 12/30/23 14:27
Vital Signs and I&O:
Vital Signs
Temp Pulse Resp BP Pulse Ox
98.1 F 64 18 109/68 94
01/01/24 07:00 01/01/24 08:51 01/01/24 07:00 01/01/24 08:51 01/01/24 09:37
I&O
12/31/23 01/01/24 01/02/24
06:59 06:59 06:59
Intake Total 1460 / 1460 1060 / 1060
Balance 1460 / 1460 1060 / 1060
--- NOTE | 2024-01-01 12:12 | CM ---
manager garden following pt for d/c planning
Remains on IV abx
Seen by PT - no needs
CM will be available for d/c needs
Plan - anticipate home no needs when medically ready
--- NOTE | 2024-01-01 14:01 | CON.ID ---
Consultation
-
Date/Time Consultation Requested: 12/31/20232025
Date/Time Consultation Performed: 01/01/2024 1400
Requesting Provider: Dr. Yip
Performing Provider: Dr. Acosta
Reason for Consultation: Fever; diverticulitis
Chief Complaint / Past History
History of Present Illness
Chelsie Gao is a 43-year-old female being evaluated at request of Dr. Yip regarding fever. History is obtained from chart review, along with patient interview.
Patient has an extensive past medical history that includes RSD and diverticulitis, and she reports she was in her usual state of health until 12/27 when she had the acute onset of left lower quadrant abdominal discomfort. This was associated with
nausea and vomiting. She presented to the emergency room for further evaluation, and ultimately was discharged on Augmentin. She she returned later that day secondary to vomiting up the Augmentin and overall feeling unwell. She notes that the
pain was sharp and persistent.
She was started on empiric antibiotics (Zosyn) and then transition to oral Augmentin on 12/29. Yesterday she developed a temperature to 100.7 degrees, and Infectious Diseases asked to comment upon further antimicrobial therapy.
At present, she notes that the pain is improved (now 4/10) but remains in the left lower quadrant. She notes some vomiting yesterday, but this is improved today she is currently tolerating pills.
Past History
Additional Past Medical History:
GERD
HTN
Hypothyroidism
RSD
Nutcracker syndrome
Lung nodule
Hidradenitis suppurativa
Diverticulitis
Arm and leg wounds secondary to RSD
Hx PNA
Additional Past Surgical History:
Cholecystectomy
Tubal ligation
Right ankle surgery
Renal vein transposition
Spinal stimulator
Hernia repair
Allergy History:
No Known Allergies Allergy (Verified 12/28/23 09:11)
Medications Reviewed: Yes
Current Antibiotics:
Zosyn 3.375 g IV every 6 hours
Social History
Tobacco: Smoker (1/2 PPD)
Alcohol: None
Drug: None
Personal:
Living: With Family
Review of Systems
Vital Signs
Temp Pulse Resp BP Pulse Ox
98.1 F 64 18 109/68 94
01/01/24 07:00 01/01/24 08:51 01/01/24 07:00 01/01/24 08:51 01/01/24 09:37
Physical Exam
Physical Exam
Constitutional: No Acute Distress, Comfortable and Non-toxic
Eyes: No Conjunctival Hemorrhage
Oral: No Thrush and No Ulcers
Cardiovascular: S1/S2; Negative S3/S4 or Murmur
Pulmonary: Clear; Negative Wheezes, Rales or Rhonchi
Gastrointestinal: Soft, Tender (LLQ), Non Distended and Normal Bowel Sounds; Negative No Rebound or No Guarding
Genito-Urinary: Negative Thomson
Extremities: Negative Cyanosis or Erythema
Neurological: Awake and Alert
Psychological: Calm
Lab / Diagnostic Study Results
01/01/24 06:09
01/01/24 06:09
Abs Immat Gran (auto) 0.0 10^3/uL (0-0.05) 01/01/24 06:09
Absolute Neuts (auto) 9.0 10^3/uL (1.4-6.5) H 01/01/24 06:09
Absolute Lymphs (auto) 1.3 10^3/uL (1.2-3.4) 01/01/24 06:09
Absolute Monos (auto) 0.7 10^3/uL (0.1-0.6) H 01/01/24 06:09
Absolute Basos (auto) 0.1 10^3/uL (0-0.2) 01/01/24 06:09
Immature Gran % 0.3 % (0-0.5) 01/01/24 06:09
Neutrophils % 80.9 % (42.2-75.2) H 01/01/24 06:09
Lymphocytes % 11.5 % (20.5-51.1) L 01/01/24 06:09
Monocytes % 6.2 % (1.7-9.3) 01/01/24 06:09
Eosinophils % 0.7 % (0-6) 01/01/24 06:09
Basophils % 0.4 % (0-2) 01/01/24 06:09
Lactic Acid 1.6 mmol/L (0.7-2.0) 12/30/23 14:27
Microbiology Results
Micro:
12/30/23 12:52 Salmonella/Shigella Culture - Final
Feces/Stool No Salmonella, Shigella, Aeromonas or Plesiomonas species
isolated.
Campylobacter Culture - Final
No Campylobacter species isolated.
Shiga Toxin Test - Final
No E. coli Shiga Toxin 1 or 2 detected.
12/31/23 17:23 Blood Culture - Pending
Blood/Venous
12/31/23 16:47 Blood Culture - Pending
Blood/Venous
12/30/23 12:52 Stool Leukocytes - Final
Feces/Stool
12/30/23 12:52 C. difficile GDH Antigen & Toxins - Final
Feces/Stool Negative for toxigenic C.difficile
12/30/23 12:52 Cryptosporidium/Giardia - Final
Feces/Stool Negative for Cryptosporidium and/or Giardia Lamblia
antigens.
12/29/23 06:14 MRSA Screen - Final
Nose No Methicillin Resistant Staphylococcus aureus isolated.
Imaging:
12/28/2023 CT abdomen/pelvis: Mild splenomegaly. Pre-existing high attenuation excreted contrast material within the collapsed renal pelvis, bilaterally, and collapsed urinary bladder. Uncertain etiology. Constipation with moderate colonic fecal
burden. Mild to moderate diverticulosis of the sigmoid colon. Initial/preliminary report suggested possible minor diverticulitis/colitis. Anterior midline abdominal hernia without associated bowel obstruction. Normal appendix.
Slight prominence of the left pelvic venous structures and distended left ovarian vein, which may be a sequela of previous left renal vein compression and/or collateral flow. Cannot exclude pelvic congestion syndrome.
Assessment / Plan
Diverticulitis
Episode of fever
GERD
HTN
Hypothyroidism
RSD
Note crackly syndrome
Lung nodule
Hidradenitis suppurativa
Diverticulitis
Arm and leg wounds secondary to RSD
Hx PNA
Recommendations:
Continue with Zosyn for today. Eventually will transition back to oral antibiotics (augmentin)
Follow temperature curve, along with white count.
[2024-01-01 15:00] VITALS: BP 128/85
--- NOTE | 2024-01-01 15:32 | W.PN.HOSP.TC ---
Today's Communication/Plan
-
Continue Zosyn
Follow cultures
Appreciate Infectious Diseases
Assessment / Plan
Assessment / Plan
Physical Exam
General: Not in acute distress.
HEENT: Normocephalic.
NECK: Supple.
RESPIRATORY: Lungs clear to auscultation bilaterally.
CVS: S1, S2 normal. RRR.
ABDOMEN: Soft, left sided tenderness. No distension rebound tenderness or guarding. BS+/normal.
EXTREMITIES: No peripheral cyanosis or edema.
SHADE BANDER: AAOx3
Assessment/Plan
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
left-sided abdominal pain progressive since the day before presentation, resulting in appetite loss. Pain worsened overnight waking her from sleep with associated nausea and vomiting - prompting her to visit the ED. Evaluated with lab work and CT,
patient was diagnosed with diverticulitis/colitis and discharged with Augmentin. Patient however returned as she was unable to tolerate any oral intake, reporting non-bloody vomiting. Reported regular bowel movements. Denied constipation (though
CT was suggestive of constipation with moderate colonic fecal burden. Denied fever coughing sneezing bloody bowel movements diarrhea. VSS afebrile. Labs unremarkable, no leukocytosis anemia or renal insufficiency. Oral thrush noted on physical
exam.
CT abd/pelvis noted
-Mild splenomegaly
-Pre-existing high attenuation excreted contrast material within the collapsed renal pelvis, bilaterally, and collapsed urinary bladder. Uncertain etiology.
-Constipation with moderate colonic fecal burden.
-Mild to moderate diverticulosis of the sigmoid colon. Initial/preliminary report suggested possible minor diverticulitis/colitis.
-Anterior midline abdominal hernia without associated bowel obstruction.
-Normal appendix.
-Slight prominence of the left pelvic venous structures and distended left ovarian vein, which may be a sequela of previous left renal vein compression and/or collateral flow. Cannot exclude pelvic congestion syndrome.
#Left-sided abdomen pain progressive 24 to 48 hours associated nausea vomiting
# Possibly due to diverticulitis/colitis versus severe constipation (Patient report regular bowel movements non-diarrheal nonbloody not suggestive of diverticulitis/colitis or severe constipation)
med/surg
bowel rest
Diet advanced on December 30, 2023 to Full Liquids Diet
IVF support -- wean off IV fluids as patient now tolerating liquids
pain control -- oral pain meds converted to fentanyl patch and IV prn to avoid opiate withdrawal.
Resumed oral pain meds
Scheduled laxatives -- careful with the laxatives as patient has been having diarrhea -- appreciate GI assistance with this
If constipation did not/does not improve, may need to be started on Relistor or Movantik
Was on Zosyn-->then switched to Augmentin on 12/30/23-->then switched back to Zosyn on 12/31/23 due to fever
Continue Zosyn
ID consulted due to the fever after previously switching to Augmentin -- appreciate evaluation and recommendations
GI eval requested
Continue Protonix
#Diarrhea
-Could be due to antibiotics
-Monitor
-Stool studies pending
-C. diff negative
Nutcracker Syndrome s/p left renal transposition
chronic pain opioid dependence
-to minimize risk opioid withdrawal, oral pain meds converted to Fentanyl patch and prn IV pain meds
-can convert back to home oral pain meds when patient is tolerating oral intake
-Will discuss with Vascular Surgery today 12/29/23: Dr. Garcia just saw her as outpatient last week and recommended she sees SENIOR SYSTEM OPERATOR re: possible OCPs to see if slowing/stopping her menses may help with her pain; otherwise the only thing Dr. Garcia would
offer is ovarian vein transposition.
-SENIOR SYSTEM OPERATOR referral for soon after discharge: OCP not actually contraindicated as per vascular --- SENIOR SYSTEM OPERATOR will need to communicate with vascular about this
#Oral thrush
None right now
#Hypothyroidism
cont Synthroid
#Hypertension
cont home Coreg
consider additional antihypertensives if BP remains elevated despite pain control
Obesity
Tobacco us
Currently smokes
Smoking cessation advised
patient declined nicotine supplementation
DVT PPx Lovenox
GI PPx Protonix
Full Code
Anticipated Discharge: 24 - 48 hours
Subjective/Interval History
-
Date of Service: January 01, 2024
Patient was seen and examined. She reports the same chronic abdominal pain, her diarrhea is improving.
Objective Data
-
Labs:
Laboratory Results
01/01/24
06:09
WBC 11.2 H
Hgb 11.6 L
Hct 34.0 L
Plt Count 210
Sodium 136
Potassium 3.5
Chloride 101
Carbon Dioxide 27
BUN 5 L
Creatinine 0.8
Glucose 100 H
Calcium 9.4
Vital Signs:
Vital Signs
Temp Pulse Resp BP Pulse Ox
98.1 F 64 18 109/68 94
01/01/24 07:00 01/01/24 08:51 01/01/24 07:00 01/01/24 08:51 01/01/24 09:37
I&O
12/31/23 01/01/24 01/02/24
06:59 06:59 06:59
Intake Total 1460 / 1460 1060 / 1060
Balance 1460 / 1460 1060 / 1060
[2024-01-01] MEDS: LOVENOX 40 MG SC (17:15)
[2024-01-01 23:08] VITALS: BP 117/66
[2024-01-02] MEDS: ZOSYN 50 IV ×2 (02:39→09:03)
[2024-01-02] MEDS: DILAUDID 4 MG PO ×2 (04:22→10:25)
[2024-01-02] MEDS: SYNTHROID 200 MCG PO (05:19)
[2024-01-02 06:00] VITALS: BMI 34.3
[2024-01-02 06:20] LABS: % Basophils 0.8 % (0-2); % Eosinophils 3.5 % (0-6); % Immature Granulocytes 0.4 % (0-0.5); % Lymphocytes 20.6 % (20.5-51.1); % Monocytes 9.3 % (1.7-9.3); % Neutrophils 65.4 % (42.2-75.2); Absolute Basophils 0.1 10^3/uL (0-0.2); Absolute Eosinophils 0.3 10^3/uL (0-0.7); Absolute Lymphocytes 1.5 10^3/uL (1.2-3.4); Absolute Monocytes 0.7 10^3/uL (0.1-0.6); Absolute Neutrophils 4.9 10^3/uL (1.4-6.5); Hematocrit 31.8 % (37.0-47.0); Hemoglobin 10.6 g/dL (12.0-16.0); Mean Corp Hgb Conc. 33.3 g/dL (33.0-37.0); Mean Corpuscular Volume 84.1 fL (81.0-99.0); Mean Platelet Volume 9.1 fL (7.4-10.4); Nucleated Red Blood Cells % 0 %; Platelet Count 196 10^3/uL (130-400); Red Blood Cell Count 3.78 10^6/uL (4.20-5.40); Red Cell Dist. Width 14.1 % (11.5-14.5); White Blood Cell Count 7.4 10^3/uL (4.8-10.8)
[2024-01-02 07:24] LABS: Blood Urea Nitrogen 11 mg/dl (7-17); Calcium 8.5 mg/dl (8.4-10.2); Carbon Dioxide 30 mmol/L (22-30); Chloride 104 mmol/L (98-107); Estimated Creatinine Clearance 105 ml/min; Glucose 93 mg/dl (70-99); Potassium 3.5 mmol/L (3.5-5.1); Sodium 137 mmol/L (135-145); eGFR > 60.00
[2024-01-02 07:33] VITALS: BP 130/88
[2024-01-02] MEDS: MUCINEX 600 MG PO (09:04)
[2024-01-02] MEDS: PROTONIX 40 MG PO (09:04)
[2024-01-02] MEDS: COREG 12.5 MG PO (09:05)
[2024-01-02] MEDS: MS CONTIN (EXTENDED RELEASE) 30 MG PO ×2 (09:06→16:32)
[2024-01-02] MEDS: SENOKOT-S PO (09:09)
--- NOTE | 2024-01-02 10:05 | W.PN.ID1 ---
Date of Service
Date of Service: January 02, 2024
Today's Communication
Transition to Augmentin.
Assessment / Plan
Diverticulitis
Episode of fever
GERD
HTN
Hypothyroidism
RSD
Note crackly syndrome
Lung nodule
Hidradenitis suppurativa
Diverticulitis
Arm and leg wounds secondary to RSD
Hx PNA
Recommendations:
Transition back to Augmentin.
Chief Complaint
-: Other (Diverticulitis)
Subjective / Review of Systems
Patient seen and examined. Reports mild ongoing abdominal discomfort on the left side, but overall improved. No further fevers or chills.
Review of Systems: No Fever and No Chills
Vital Signs / Physical Exam
Vital Signs
Vital Signs
Temp Pulse Resp BP Pulse Ox
98 F 69 17 130/88 98
01/02/24 07:33 01/02/24 09:05 01/02/24 07:33 01/02/24 09:05 01/02/24 07:33
Physical Exam
Constitutional: No Acute Distress, Comfortable and Non-toxic
Eyes: Sclera Anicteric
Cardiovascular: S1/S2; Negative S3/S4
Pulmonary: Non Labored
Gastrointestinal: Soft, Tender (left side - minimal), Non Distended and Normal Bowel Sounds
Neurological: Awake and Alert
Objective Data
Lab Data
Lab Results
01/02/24 06:05
01/02/24 06:05
Estimated Creat Clear 105 ml/min 01/02/24 06:05
Lactic Acid 1.6 mmol/L (0.7-2.0) 12/30/23 14:27
Total Bilirubin 0.5 mg/dl (0.2-1.3) 12/30/23 14:27
AST 18 U/L (14-36) 12/30/23 14:27
ALT 13 U/L (0-35) 12/30/23 14:27
Alkaline Phosphatase 54 U/L (38-126) 12/30/23 14:27
Most recent labs reviewed.
Micro Results:
12/31/23 17:23 Blood Culture - Preliminary
Blood/Venous No Growth in 24 hours- Final report to follow
12/31/23 16:47 Blood Culture - Preliminary
Blood/Venous No Growth in 24 hours- Final report to follow
12/30/23 12:52 Salmonella/Shigella Culture - Final
Feces/Stool No Salmonella, Shigella, Aeromonas or Plesiomonas species
isolated.
Campylobacter Culture - Final
No Campylobacter species isolated.
Shiga Toxin Test - Final
No E. coli Shiga Toxin 1 or 2 detected.
12/30/23 12:52 Stool Leukocytes - Final
Feces/Stool
12/30/23 12:52 C. difficile GDH Antigen & Toxins - Final
Feces/Stool Negative for toxigenic C.difficile
12/30/23 12:52 Cryptosporidium/Giardia - Final
Feces/Stool Negative for Cryptosporidium and/or Giardia Lamblia
antigens.
12/29/23 06:14 MRSA Screen - Final
Nose No Methicillin Resistant Staphylococcus aureus isolated.
Imaging:
12/28/2023 CT abdomen/pelvis: Mild splenomegaly. Pre-existing high attenuation excreted contrast material within the collapsed renal pelvis, bilaterally, and collapsed urinary bladder. Uncertain etiology. Constipation with moderate colonic fecal
burden. Mild to moderate diverticulosis of the sigmoid colon. Initial/preliminary report suggested possible minor diverticulitis/colitis. Anterior midline abdominal hernia without associated bowel obstruction. Normal appendix.
Slight prominence of the left pelvic venous structures and distended left ovarian vein, which may be a sequela of previous left renal vein compression and/or collateral flow. Cannot exclude pelvic congestion syndrome.
--- NOTE | 2024-01-02 10:32 | W.PN.GI.CBS2 ---
Addendum entered and electronically signed by Lucila Ybarra MD 01/02/24 15:42:
I saw and examined the patient.
The LIBRARY CLERK [employer] or PA's note was reviewed and I agree with the note.
Comment: Patient reports that her abdominal pain is better though not completely resolved. Tolerating diet without any GI symptoms. Diarrhea is improving as well.
Abdominal x-ray without any evidence of overflow diarrhea. Stool cultures, white cells and C. difficile negative.
Complete course of antibiotics for questionable diverticulitis. Patient could have diarrhea associated with antibiotics as well. Okay to take probiotics. Outpatient GI follow-up. Will sign off
Original Note:
Today's Communication / Plan
-
As per plan. GI signing off.
Assessment / Plan
-
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
diverticulitis, scad on colonoscopy however was diagnosed with renal vein nutcracker compression after. Since surgery she has had evaluation by surgeon at [facility] for abdominal hernia(due for repair) and several admission to for recurrent
abdominal pain. On last admission Pt had reassessment with vascular surgery with only other recommendation would be transposition of ovarian vein onto one of deep veins vs considering nephrectomy. She has also seen vascular surgery outpatient and
also discussed similar recommendations but was to see ENTRY MANAGER first prior to consider ovarian transposition. She now presents with recurrent abdominal pain. CT on admission with mild splenomegaly with high attenuation contrast material in collapsed
renal pelvis b/l and collapsed urinary bladder. Constipation with moderate colon stool burden. diverticulosis and minor diverticulitis/colitis anterior midline hernia without bowl obstruction. normal appendix and Slight prominence of the left
pelvic venous structures and distended left ovarian vein, which may be a sequela of previous left renal vein compression and/or collateral flow. Cannot exclude pelvic congestion syndrome. Asked to see for any other etiology of pain as noted with
constipation and minor diverticulitis/colitis on imaging.
Impression:
Left lower quadrant pain-> improving
History of nutcracker compression with continued occlusion
Colitis/diverticulitis on CT-> improving currently on antibiotics. Transition to Augmentin.
History of chronic constipation on opiates
Plan:
-Antibiotics per internal medicine/ID
-Low residue diet as tolerated
-Discussed with patient to make sure that she does not become constipated again. To make sure that as her stools become more solid to reinitiate MiraLAX.
-Continue Protonix 40 mg daily
-Follow-up outpatient with ENTRY MANAGER and and surgery at [facility] as outpatient to discuss vascular issues (already set up as an outpatient).
-Patient up-to-date on colonoscopy. Had colonoscopy 2021.
-Can follow-up in the office as outpatient after discharge with Dr. Kwon.
-Nothing further to add from a GI perspective. Will be available as needed or by request.
Subjective
Subjective
Date of Service: January 02, 2024
Patient feeling much improved. No further nausea or vomiting. Left lower quadrant tenderness improved. Tolerating solid diet without any difficulty. Loose stool improving. States she felt better on oral antibiotics (Augmentin) than she did on
Zosyn. She states she feels good enough to go home and would like to do so. GI has no objection to this.
Objective
Data Reviewed
Laboratory Data:
Laboratory Results
01/02/24 06:05
01/02/24 06:05
Laboratory Results
Magnesium 1.9 mg/dl (1.6-2.3) 12/31/23 13:19
Total Bilirubin 0.5 mg/dl (0.2-1.3) 12/30/23 14:27
AST 18 U/L (14-36) 12/30/23 14:27
ALT 13 U/L (0-35) 12/30/23 14:27
Alkaline Phosphatase 54 U/L (38-126) 12/30/23 14:27
Vital Signs and I&O:
Vital Signs
Temp Pulse Resp BP Pulse Ox
98 F 69 17 130/88 98
01/02/24 07:33 01/02/24 09:05 01/02/24 07:33 01/02/24 09:05 01/02/24 07:33
I&O
01/01/24 01/02/24 01/03/24
06:59 06:59 06:59
Intake Total 1060 / 1060 1060 / 1060
Balance 1060 / 1060 1060 / 1060
Physical Exam
Physical Exam
HEENT: Anicteric
Cardiology: Normal Sinus Rhythm
Pulmonary: Clear
GI: Soft, Non Distended, Tender (Very mild left lower quadrant tenderness) and Normal Bowel Sounds
Extremities: No Edema
Neuro: Non Focal
--- NOTE | 2024-01-02 11:41 | CM ---
Case management following for d/c planning
PT - no needs
Has ride when d/c'ed
Plan - anticipate home no needs when medically stable
--- NOTE | 2024-01-02 14:35 | W.PN.HOSP.TC ---
Today's Communication/Plan
-
Discharge today
Assessment / Plan
Assessment / Plan
Physical Exam
General: Not in acute distress.
HEENT: Normocephalic.
NECK: Supple.
RESPIRATORY: Lungs clear to auscultation bilaterally.
CVS: S1, S2 normal. RRR.
ABDOMEN: Soft, left sided tenderness. No distension rebound tenderness or guarding. BS+/normal.
EXTREMITIES: No peripheral cyanosis or edema.
CADASTRAL ENGINEER: AAOx3
Assessment/Plan
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
left-sided abdominal pain progressive since the day before presentation, resulting in appetite loss. Pain worsened overnight waking her from sleep with associated nausea and vomiting - prompting her to visit the ED. Evaluated with lab work and CT,
patient was diagnosed with diverticulitis/colitis and discharged with Augmentin. Patient however returned as she was unable to tolerate any oral intake, reporting non-bloody vomiting. Reported regular bowel movements. Denied constipation (though
CT was suggestive of constipation with moderate colonic fecal burden. Denied fever coughing sneezing bloody bowel movements diarrhea. VSS afebrile. Labs unremarkable, no leukocytosis anemia or renal insufficiency. Oral thrush noted on physical
exam.
CT abd/pelvis noted
-Mild splenomegaly
-Pre-existing high attenuation excreted contrast material within the collapsed renal pelvis, bilaterally, and collapsed urinary bladder. Uncertain etiology.
-Constipation with moderate colonic fecal burden.
-Mild to moderate diverticulosis of the sigmoid colon. Initial/preliminary report suggested possible minor diverticulitis/colitis.
-Anterior midline abdominal hernia without associated bowel obstruction.
-Normal appendix.
-Slight prominence of the left pelvic venous structures and distended left ovarian vein, which may be a sequela of previous left renal vein compression and/or collateral flow. Cannot exclude pelvic congestion syndrome.
#Left-sided abdomen pain progressive 24 to 48 hours associated nausea vomiting
# Possibly due to diverticulitis/colitis versus severe constipation (Patient report regular bowel movements non-diarrheal nonbloody not suggestive of diverticulitis/colitis or severe constipation)
med/surg
bowel rest
Continue low residue diet -- patient is tolerating it
IVF support -- wean off IV fluids as patient now tolerating liquids
pain control -- oral pain meds converted to fentanyl patch and IV prn to avoid opiate withdrawal.
Resumed oral pain meds
Scheduled laxatives -- careful with the laxatives as patient has been having diarrhea -- appreciate GI assistance with this
As diarrhea improves and stools become more solid - MUST resume bowel regimen with Miralax
If constipation did not/does not improve, may need to be started on Relistor or Movantik
Was on Zosyn-->then switched to Augmentin on 12/30/23-->then switched back to Zosyn on 12/31/23 due to fever
Now switched back to Augmentin
Continue Augmentin on discharge for 7 more days
ID consulted due to the fever after previously switching to Augmentin -- appreciate evaluation and recommendations
Follow-up with Dr. Kwon (GI) after discharge
Continue Protonix 40 mg daily
#Diarrhea
-Could be due to antibiotics
-Monitor
-Stool studies pending
-C. diff negative
Nutcracker Syndrome s/p left renal transposition
chronic pain opioid dependence
-to minimize risk opioid withdrawal, oral pain meds converted to Fentanyl patch and prn IV pain meds
-can convert back to home oral pain meds when patient is tolerating oral intake
-Will discuss with Vascular Surgery today 12/29/23: Dr. Garcia just saw her as outpatient last week and recommended she sees CONFERENCE SERVICES COORDINATOR re: possible OCPs to see if slowing/stopping her menses may help with her pain; otherwise the only thing Dr. Garcia would
offer is ovarian vein transposition.
-Follow-up outpatient with CONFERENCE SERVICES COORDINATOR and and surgery at [facility] as outpatient to discuss vascular issues (already set up as an outpatient).
#Oral thrush
None right now
#Hypothyroidism
cont Synthroid
#Hypertension
cont home Coreg
consider additional antihypertensives if BP remains elevated despite pain control
Obesity
Tobacco us
Currently smokes
Smoking cessation advised
patient declined nicotine supplementation
DVT PPx Lovenox
GI PPx Protonix
Full Code
More than 30 minutes spent in discharge including
Final examination of the patient
Summarizing hospital stay
Instructions for continuing care to all relevant caregivers
Preparation of discharge records, prescriptions, and referral forms
Total time spent (in minutes): 34
Anticipated Discharge: Today
Subjective/Interval History
-
Date of Service: January 02, 2024
Patient was seen and examined. She reported her diarrhea is improving and her abdominal pain on the left side is about the same, tolerating diet well.
Objective Data
-
Labs:
Laboratory Results
01/02/24
06:05
WBC 7.4
Hgb 10.6 L
Hct 31.8 L
Plt Count 196
Sodium 137
Potassium 3.5
Chloride 104
Carbon Dioxide 30
BUN 11
Creatinine 0.8
Glucose 93
Calcium 8.5
Vital Signs:
Vital Signs
Temp Pulse Resp BP Pulse Ox
98 F 69 17 130/88 98
01/02/24 07:33 01/02/24 09:05 01/02/24 07:33 01/02/24 09:05 01/02/24 08:30
I&O
01/01/24 01/02/24 01/03/24
06:59 06:59 06:59
Intake Total 1060 / 1060 1060 / 1060
Balance 1060 / 1060 1060 / 1060
--- NOTE | 2024-01-02 15:59 | W.DS.TRANS ---
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
-
Discharge Instructions:
Discharge Diagnosis/Procedures Constipation
Mild Splenomegaly
Diverticulitis/Colitis
Diarrhea
Abdominal Hernia
Nutcracker Syndrome status post left renal
transposition
Chronic pain opioid dependence
Hypothyroidism
Hypertension
Obesity
Tobacco use
Diet Low Residue
Activity As tolerated
Instructions:
Stand-Alone Forms:
Changes to Home Medications: Yes
Discharge Medications:
DC Medications w/original date entered in [employer]
gabapentin 600 mg tablet 600 mg PO BID Pain 09/12/21
hydromorphone 4 mg tablet (Dilaudid) 4 mg PO Q6HPRN PRN BREAKTHROUGH PAIN 07/30/22
morphine 30 mg tablet,extended release 30 mg PO TID Pain 05/25/23
albuterol sulfate 90 mcg/actuation aerosol inhaler 2 puff inhalation R Q6HPRN PRN wheezing 07/24/23
levothyroxine 200 mcg tablet 200 mcg PO DAILY Thyroid 07/24/23
sennosides 8.6 mg tablet (Senokot) 25.8 mg PO DAILYPRN PRN constipation 07/24/23
carvedilol 12.5 mg tablet 12.5 mg PO BID Heart Failure 12/28/23
ibuprofen 200 mg tablet (Motrin IB) 400 - 600 mg PO DAILYPRN PRN mild pain 12/28/23
ondansetron 4 mg disintegrating tablet 4 mg PO TIDPRN PRN nausea/vomiting 12/28/23
amoxicillin 875 mg-potassium clavulanate 125 mg tablet 1 tab PO Q12 7 days #14 tabs 01/02/24
pantoprazole 40 mg tablet,delayed release 40 mg PO DAILY #30 tabs 01/02/24
polyethylene glycol 3350 17 gram oral powder packet (HealthyLax) 17 g PO DAILYPRN PRN constipation #100 ea 01/02/24
Home Medication Changes
Amoxicillin-Pot Clavulanate, Pantoprazole, and HealthyLax are new medications.
Pending Results: Yes
Additional Pending Results:
Final results of blood cultures from hospitalization
Total time spent discharging patient (in min): 34
[2024-01-02 16:00] VITALS: BP 152/75
--- NOTE | 2024-01-05 10:23 | W.DCSUMMARY ---
Discharge Summary
Discharge Data
Date of Admission: 12/28/23
Date of Discharge: 01/07/24
Total time spent discharging patient (in min): 34
-
Pending Results: Yes
Additional Pending Results:
Final results of blood cultures from hospitalization
Hospital Course
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
abdomen pain progressive since the morning on the day before resulting in appetite loss. Pain worsened overnight waking her from sleep with associate nausea vomiting prompting visit to emergency department. Patient was evaluated with lab work and CT
imaging, diagnosed with diverticulitis/colitis and discharged with Augmentin. Patient however returned as she was unable to tolerate any oral intake. Patient was started on intravenous fluids and Zosyn. Gastroenterology was consulted and mentioned
that patient's symptoms are likely related to mild diverticulitis, constipation, diverticular-associated spasm and adhesions from prior surgeries. Patient was also noted to have chronic constipation on opiates, she was encouraged to use MiraLAX
daily and Senokot daily on a scheduled basis and if her constipation/pain did not improve then she may need to be started on Relistor or Movantik. Patient's diet was advanced as tolerated. Vascular surgery was consulted, and mentioned they have
great hesitation reoperating on her for ovarian vein transposition. Vascular also mentioned that, based on the fact that it is left flank into the pelvis, the proposed mechanism of congestion that worsens during menses (since the renal vein
currently is decompressed/drains via the ovarian vein, and resistance through that system increases likely at the time of menses) does make sense. Patient was happy to see a MAIL PROCESSING MACHINE OPERATOR provider as an outpatient to see if she can be started on OCPs and if
those help her. She did not have any hypercoagulability that would otherwise prevent her being started on OCPs. It was noted that patient's renal vein transposed thrombosis was not likely due to hypercoagulable state, but was postsurgical.
Patient was switched from intravenous antibiotic (above) to Augmentin but then had fever. Patient was placed back on intravenous antibiotics and infectious disease was consulted. Patient had diarrhea which improved. Patient's pain improved, she was
tolerating PO well, and she was stable for discharge.
Discharge Plan
-
Patient Disposition: Home (Routine Discharge)
Discharge Diagnosis/Procedures: Constipation
Mild Splenomegaly
Diverticulitis/Colitis
Diarrhea
Abdominal Hernia
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
Chronic pain opioid dependence
Hypothyroidism
Hypertension
Obesity
Tobacco use
Diet: Low Residue
Activity: As tolerated
Activity Restrictions/Additional Instructions:
As diarrhea improves and stools become more solid - MUST resume bowel regimen with Miralax.
Follow-up with gastroenterology and vascular surgery outpatient.
Referrals:
Polly Kwon DO [Active] - in less than 1 week
Nidia Escobar DO [Family Provider] - in three to four days
Additional Discharge Medication Instructions: Amoxicillin-Pot Clavulanate, Pantoprazole, and HealthyLax are new medications.
Prescriptions:
New
amoxicillin-pot clavulanate 875-125 mg Tablet
1 tab PO Q12 7 Days Qty: 14 0RF
pantoprazole 40 mg Tablet,Delayed Release (Dr/Ec)
40 mg PO DAILY Qty: 30 1RF
polyethylene glycol 3350 [HealthyLax] 17 gram Powder In Packet
17 g PO DAILYPRN PRN (Reason: constipation) Qty: 100 0RF
Continued
gabapentin 600 MG tablet
600 mg PO BID
hydromorphone [Dilaudid] 4 mg Tablet
4 mg PO Q6HPRN PRN (Reason: BREAKTHROUGH PAIN)
morphine 30 mg tablet extended release
30 mg PO TID
sennosides [Senokot] 8.6 mg Tablet
25.8 mg PO DAILYPRN PRN (Reason: constipation)
levothyroxine 200 mcg Tablet
200 mcg PO DAILY
Patient Comments:
12/28/2023, last filled on 07/23/2023 for 90-day supply.
albuterol sulfate 90 mcg/actuation Hfa Aerosol Inhaler
2 puff INHALATION R Q6HPRN PRN (Reason: wheezing)
carvedilol 12.5 mg Tablet
12.5 mg PO BID
ibuprofen [Motrin IB] 200 mg Tablet
400 - 600 mg PO DAILYPRN PRN (Reason: mild pain)
ondansetron 4 mg Tablet,Disintegrating
4 mg PO TIDPRN PRN (Reason: nausea/vomiting)
Discharge Orders:
Discharge Patient (As Directed); Ordered 01/02/24
Ordered By: Lorenzo Yip
Discharge Date and Time
Discharge Date/Time: 01/02/24 17:21
Print Language: AMERICAN
== END 2024-01-02 17:21 | disposition home or self-care (01) | DRG 392 ==
LOC: 3 WEST ACU 15:35
PROVIDERS: ADMITTING PHYSICIAN Internal Medicine; ATTENDING PHYSICIAN Hospitalist; CONSULT PHYSICIAN Internal Medicine Gastroenterology; CONSULT PHYSICIAN Internal Medicine Infectious Disease; EMERGENCY PHYSICIAN Student in an Organized Health Care Education/Training Program; FAMILY PHYSICIAN Family Medicine
DX: K59.09 Other constipation (principal); K57.32 Diverticulitis of large intestine without perforation or abscess without bleeding; I87.1 Compression of vein; F11.20 Opioid dependence, uncomplicated; B37.0 Candidal stomatitis; G90.521 Complex regional pain syndrome I of right lower limb; G89.4 Chronic pain syndrome; F17.210 Nicotine dependence, cigarettes, uncomplicated; I10 Essential (primary) hypertension; E03.9 Hypothyroidism, unspecified; R91.1 Solitary pulmonary nodule; R16.1 Splenomegaly, not elsewhere classified; R19.7 Diarrhea, unspecified; L73.2 Hidradenitis suppurativa; K21.9 Gastro-esophageal reflux disease without esophagitis; E66.9 Obesity, unspecified; T40.605A Adverse effect of unspecified narcotics, initial encounter; K59.03 Drug induced constipation; Z68.34 Body mass index [BMI] 34.0-34.9, adult; Z80.0 Family history of malignant neoplasm of digestive organs; Z87.01 Personal history of pneumonia (recurrent)
CPT/HCPCS: 74018; 80048; 80053; 83605; 83735; 85025; 85027; 87040; 87045; 87046; 87070; 87324; 87328; 87329; 87427; 87449; 89055; 96365; 96375; 96376; 97161; 97165; 99285

== ENCOUNTER 2024-01-24 23:39 | Emergency (ER) | payer BC, MEDICARE, SELFPAY ==
[2024-01-24 23:40] VITALS: BP 171/106
--- NOTE | 2024-01-25 01:22 | ED.GENMED ---
History of Present Illness
General
Chief Complaint: Abdominal Pain
Source: patient
Time Seen by Provider: 01/25/24 01:08
Travel History
Have you had any contact with someone who has COVID-19?: No
Do you have any symptoms of coronavirus? Fever > 100 degrees, chills, cough, shortness of breath, sore throat, loss of taste or smell, muscle aches, or headache?: No
History of Present Illness
History of Present Illness:
43-year-old female presents to the emergency room complaining of left lower abdominal pain. Pain began yesterday. Patient was recently treated for diverticulitis. She completed her course of antibiotics about a week ago. Pain seems similar. No
fever. She has been nauseous and vomiting. She has also had diarrhea. No relief with Zofran at home. Patient does take chronic opiates for chronic pain syndrome.
Past History
Past History
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 PNA, Gastroenteritis) and Other (C-diff)
ED Past Surgical History: Cholecystectomy, (x 1), Gynecological (Tubal, ), Orthopedic (Right ankle surgery ), Urological ( Renal vein transposition,) and Other ( Spinal stimulator. Hernia repair)
Social History
Tobacco: Smoker
Alcohol: None
Drug: None
Personal:
Living: with family
Phy Exam
Physical Exam
Physical Exam:
General: Awake, Alert, Oriented X3. No acute distress.
Vitals: unremarkable
Head: Atraumatic
Eyes: Pupils equal, EOMI
Throat: Airway intact, no exudates
Neck: Trachea midline
Lungs: Clear and equal b/l
Heart: Regular rate, no murmurs
Abd: Soft, tender left abdomen, No pulsatile mass
Neuro: Nonfocal
Skin: Warm, dry, no rash
Extremities: pulses equal b/l, no edema
Course
Orders/Labs/Results
Orders:
Orders
01/25/24 01:21
0.9% Sodium Chloride 1000 ml [Nss] 1,000 ml IV BOLUS
HYDROmorphone [Dilaudid] 1 mg IV NOW STA
Ondansetron Injectable [Zofran] 4 mg IV NOW STA
01/25/24 01:22
CT Abd/Pel (IV only)-DH only Urgent
Comment:
Reason For Exam: llq abd pain
01/25/24 01:52
Complete Blood Count/With Diff Urgent
Comprehensive Metabolic Panel Urgent
Lipase Urgent
01/25/24 02:10
Diphenhydramine [Benadryl] 25 mg IV NOW STA
Metoclopramide [Reglan] 10 mg IV NOW STA
01/25/24 03:30
HYDROmorphone [Dilaudid] 0.5 mg IV NOW STA
01/25/24 03:44
Ondansetron Orally Disint [Zofran Odt (Orally Disintegrating)] 4 mg PO NOW STA
Abnormal Lab Results
01/25/24
01:52
MCV 80.1 L fL
(81.0-99.0)
Lymphocytes % 18.9 L %
(20.5-51.1)
Chloride 109 H mmol/L
(98-107)
Carbon Dioxide 20 L mmol/L
(22-30)
Creatinine 0.5 L mg/dL
(0.6-1.0)
Glucose 125 H mg/dl
(70-99)
01/25/24 01:52
01/25/24 01:52
Vital Signs
Initial and Last Documented VS:
Initial Vital Signs
Temp Pulse Resp BP Pulse Ox
98.9 F 83 16 171/106 97
01/24/24 23:40 01/24/24 23:40 01/24/24 23:40 01/24/24 23:40 01/24/24 23:40
Last Documented Vital Signs
Temp Pulse Resp BP Pulse Ox
98.9 F 79 16 139/88 96
01/24/24 23:40 01/25/24 05:00 01/25/24 05:00 01/25/24 05:00 01/25/24 05:00
MDM/Problems Addressed
Differential Diagnosis Includes:
Diverticulitis, exacerbation of chronic pain, intra-abdominal abscess
MDM/Problems Addressed:
CT shows no acute abnormality. Patient has normal labs. Given there is no evidence of an acute unstable process I think she would be best served by being discharged and following up with her pain management doctors as an outpatient.
*Radiology
Radiology exam reviewed: radiology read reviewed
*Critical Care Note
Total Time (30-74mins, 75-104mins- exclusive of procedures): Not Applicable
ED Attending Note
-
Portions of this chart may have been created with voice recognition software.� Occasional wrong word or��sound alike� substitutions may have occurred due to the inherent limitations of voice recognition software.
Discharge Plan
Departure
Patient Disposition: Home (Routine Discharge)
Date of Disposition: 01/25/24
Time of Disposition: 04:55
Patient with high blood pressure during this ER visit?: No
Condition: Good
Discharge Problem:
Abdominal pain, Nausea & vomiting, exacerbation of chronic pain
Instructions: Abdominal Pain
Prescriptions:
No Action
gabapentin 600 MG tablet
600 mg PO BID
hydromorphone [Dilaudid] 4 mg Tablet
4 mg PO Q6HPRN PRN (Reason: BREAKTHROUGH PAIN)
morphine 30 mg tablet extended release
30 mg PO TID
sennosides [Senokot] 8.6 mg Tablet
25.8 mg PO DAILYPRN PRN (Reason: constipation)
levothyroxine 200 mcg Tablet
200 mcg PO DAILY
Patient Comments:
12/28/2023, last filled on 07/23/2023 for 90-day supply.
albuterol sulfate 90 mcg/actuation Hfa Aerosol Inhaler
2 puff INHALATION R Q6HPRN PRN (Reason: wheezing)
carvedilol 12.5 mg Tablet
12.5 mg PO BID
ondansetron 4 mg Tablet,Disintegrating
4 mg PO TIDPRN PRN (Reason: nausea/vomiting)
pantoprazole 40 mg Tablet,Delayed Release (Dr/Ec)
40 mg PO DAILY Qty: 30 1RF
polyethylene glycol 3350 [HealthyLax] 17 gram Powder In Packet
17 g PO DAILYPRN PRN (Reason: constipation) Qty: 100 0RF
Referrals:
Nidia Escobar DO [Family Provider] -
Activity Restrictions/Additional Instructions:
Please follow-up with your pain management doctor as well as MEDTRONICS TECHNICIAN as recommended by vascular surgery
Interventions
Interventions:
*Risk Screen - Suicide Last Done: 01/24/24 23:40
*General Assessment Last Done: 01/24/24 23:40
*Neglect/Abuse Screening Last Done: 01/24/24 23:40
*ED COVID-19 Vaccine History Last Done: 01/25/24 01:41
*Nursing Disposition Last Done: 01/25/24 05:10
W[facility]-Ckzqpl-Ymevxtnecb Assessment Last Done: 01/25/24 02:21
Discharge Date and Time
Discharge Date/Time: 01/25/24 05:10
Print Language: IVORIAN
[2024-01-25 01:41] VITALS: BMI 34.9
[2024-01-25] MEDS: NSS 1000 IV (01:54)
[2024-01-25 01:57] LABS: % Basophils 0.8 % (0-2); % Eosinophils 1.4 % (0-6); % Immature Granulocytes 0.2 % (0-0.5); % Lymphocytes 18.9 % (20.5-51.1); % Monocytes 5.4 % (1.7-9.3); % Neutrophils 73.3 % (42.2-75.2); Absolute Basophils 0.1 10^3/uL (0-0.2); Absolute Eosinophils 0.1 10^3/uL (0-0.7); Absolute Lymphocytes 1.6 10^3/uL (1.2-3.4); Absolute Monocytes 0.5 10^3/uL (0.1-0.6); Absolute Neutrophils 6.1 10^3/uL (1.4-6.5); Hematocrit 43.2 % (37.0-47.0); Hemoglobin 14.8 g/dL (12.0-16.0); Mean Corp Hgb Conc. 34.3 g/dL (33.0-37.0); Mean Corpuscular Hgb 27.5 pg (27.0-31.0); Mean Corpuscular Volume 80.1 fL (81.0-99.0); Mean Platelet Volume 8.9 fL (7.4-10.4); Nucleated Red Blood Cells % 0 %; Platelet Count 204 10^3/uL (130-400); Red Blood Cell Count 5.39 10^6/uL (4.20-5.40); Red Cell Dist. Width 13.5 % (11.5-14.5); White Blood Cell Count 8.4 10^3/uL (4.8-10.8)
--- NOTE | 2024-01-25 02:04 | EDRN ---
Started to push zofran IV and pt instantly developed hives and redness above iv site - pt complained of itching. IVF was discontinued immediately. IV site checked, good blood return. IVF infusing without difficulty - pt says itching has improved.
Blake Cid RN inserting another IV site.
[2024-01-25] MEDS: DILAUDID 1 MG IV (02:09)
[2024-01-25 02:15] VITALS: BP 160/93
--- NOTE | 2024-01-25 02:23 | EDRN ---
Pt says she started with L side abdominal pain yesterday morning and it has gotten progressively worse associated with n/v/d. Last vomiting and diarrhea was while pt was in the waiting room. Pt denies fever/chills/cough, cp, sob, urinary symptoms,
constipation. Pt recently diagnosed with diverticulitis and finished course of abx. No blood in urine or diarrhea.
[2024-01-25 02:36] LABS: ALT (SGPT) 15 U/L (0-35); AST (SGOT) 23 U/L (14-36); Albumin 4.6 g/dl (3.5-5.0); Alkaline Phosphatase 77 U/L (38-126); Blood Urea Nitrogen 10 mg/dl (7-17); Calcium 9.6 mg/dl (8.4-10.2); Carbon Dioxide 20 mmol/L (22-30); Chloride 109 mmol/L (98-107); Estimated Creatinine Clearance > 125 ml/min; Glucose 125 mg/dl (70-99); Lipase 47 U/L (23-300); Potassium 4.1 mmol/L (3.5-5.1); Sodium 140 mmol/L (135-145); Total Bilirubin 0.6 mg/dl (0.2-1.3); Total Protein 8.1 g/dl (6.3-8.2); eGFR > 60.00
[2024-01-25] MEDS: DILAUDID 0.5 MG IV (03:46)
[2024-01-25] MEDS: ZOFRAN ODT (ORALLY DISINTEGRATING) 4 MG PO (03:57)
[2024-01-25 04:00] VITALS: BP 144/76
[2024-01-25 04:16] VITALS: BP 144/76
[2024-01-25 05:00] VITALS: BP 139/88
== END 2024-01-25 05:10 | disposition home or self-care (01) ==
LOC: EMR 23:39
PROVIDERS: EMERGENCY PHYSICIAN Emergency Medicine; FAMILY PHYSICIAN Family Medicine
DX: R11.2 Nausea with vomiting, unspecified (principal); R10.32 Left lower quadrant pain; R19.7 Diarrhea, unspecified; K57.92 Diverticulitis of intestine, part unspecified, without perforation or abscess without bleeding; I10 Essential (primary) hypertension; E03.9 Hypothyroidism, unspecified; K52.9 Noninfective gastroenteritis and colitis, unspecified; G90.50 Complex regional pain syndrome I, unspecified; F17.200 Nicotine dependence, unspecified, uncomplicated; G89.29 Other chronic pain; Z79.891 Long term (current) use of opiate analgesic; Z90.49 Acquired absence of other specified parts of digestive tract; Z88.8 Allergy status to other drugs, medicaments and biological substances
CPT/HCPCS: 99285; 96374; 96376; 96361 ×2; 74177; 80053; 83690; 85025; Q9967

== ENCOUNTER 2024-01-25 08:41 | Emergency (ER) | payer BC, MEDICARE, SELFPAY ==
[2024-01-25 08:42] VITALS: BP 184/111
--- NOTE | 2024-01-25 09:06 | ED.GENMED ---
History of Present Illness
<Beatrice Noonan PA-C - Last Filed: 01/25/24 17:59>
General
Chief Complaint: Abdominal Symptoms
Source: patient
Exam Limitations: none
Time Seen by Provider: 01/25/24 09:06
Nursing documentation reviewed up to this point in time: agreed with
Travel History
Have you had any contact with someone who has COVID-19?: No
Do you have any symptoms of coronavirus? Fever > 100 degrees, chills, cough, shortness of breath, sore throat, loss of taste or smell, muscle aches, or headache?: No
History of Present Illness
History of Present Illness:
This is a 43 y/o female with a PMH of renal vein stenosis (nutcracker syndrome), HTN, diverticulitis, HS, presenting to the emergency department today with N/V/D and left-sided flank pain and abdominal pain. Patient states that this pain is
characteristic of her nutcracker syndrome however she usually does not get diarrhea with this. Patient states that anytime she uses the bathroom she will have diarrhea. Patient denies any blood in her diarrhea or her vomitus. Patient was seen in
the emergency department last night for the same symptoms, and had a CT scan done as well as lab work which was unremarkable. Patient was told to follow-up with her vascular surgeon FRAMING MACHINE TENDER. However, patient was in so much pain and discomfort that
she had to return emergency department today. Of note, patient was recently hospitalized for diverticulitis and finished her course of Augmentin a few days ago. Patient states that she had a surgery a few months ago with Dr. Garcia for her not
cracker syndrome but it had clotted over and there was discussion of possibly going back for another surgery. Patient denies fever, syncopal episodes, dizziness. Patient denies any chest pain, shortness of breath.
Past History
<Beatrice Noonan PA-C - Last Filed: 01/25/24 17:59>
Past History
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 PNA, Gastroenteritis) and Other (C-diff)
ED Past Surgical History: Cholecystectomy, (x 1), Gynecological (Tubal, ), Orthopedic (Right ankle surgery ), Urological ( Renal vein transposition,) and Other ( Spinal stimulator. Hernia repair)
Social History
Tobacco: Smoker
Alcohol: None
Drug: None
Personal:
Living: with family
Review of Systems
<Beatrice Noonan PA-C - Last Filed: 01/25/24 17:59>
Review of Systems
All Other Systems: ROS reviewed and negative except as documented in HPI and ROS
Phy Exam
<Beatrice Noonan PA-C - Last Filed: 01/25/24 17:59>
Physical Exam
Physical Exam:
General: Patient is well appearing and in no acute distress
Skin: Warm and dry, no rashes or lesions
Head: Normocephalic, atraumatic
Eyes: Sclera non-icteric. EOMs intact. PERRLA.
Cardiac: Regular rate and rhythm, no murmurs
Peripheral Vascular: No lower extremity swelling
Pulm: Normal respiratory effort
Abdomen: Exquisite left sided CVA tenderness. Tenderness to palpation in the left lower abdominal quadrant. No palpable masses. Normoactive bowel sounds.
Neuro: CN II-XII intact, no focal neurologic deficits.
Psychiatric: Appropriate mood and affect.
Course
<Beatrice Noonan PA-C - Last Filed: 01/25/24 17:59>
Orders/Labs/Results
Orders:
Orders
01/25/24 09:28
HYDROmorphone [Dilaudid] 1 mg IV NOW STA
01/25/24 09:33
0.9% Sodium Chloride 1000 ml [Nss] 1,000 ml IV BOLUS
01/25/24 09:35
Trimethobenzamide [Tigan] 200 mg IM NOW STA
01/25/24 09:38
Diphenhydramine [Benadryl] 25 mg IV NOW STA
Metoclopramide [Reglan] 10 mg IV NOW STA
01/25/24 09:44
Complete Blood Count/With Diff Urgent
Comprehensive Metabolic Panel Urgent
01/25/24 11:11
HYDROmorphone [Dilaudid] 1 mg IV NOW STA
01/25/24 11:12
HYDROmorphone [Dilaudid] 0.5 mg IV NOW STA
01/25/24 11:46
STOOL [C difficile Antigen & Toxins] Urgent
KEILY Source: Feces/Stool
Specimen Description:
Date Specimen was Collected: 01/25/24
Time Specimen was Collected: 11:41
Stool Culture Urgent
KEILY Source: Feces/Stool
Specimen Description:
Date Specimen was Collected: 01/25/24
Time Specimen was Collected: 11:41
01/25/24 13:31
Ketorolac [Toradol] 15 mg IV NOW STA
01/25/24 13:38
Ketorolac [Toradol] 15 mg IM NOW STA
Abnormal Lab Results
01/25/24
09:44
Chloride 109 H mmol/L
(98-107)
Carbon Dioxide 21 L mmol/L
(22-30)
Creatinine 0.5 L mg/dL
(0.6-1.0)
Glucose 104 H mg/dl
(70-99)
01/25/24 09:44
01/25/24 09:44
Vital Signs
Initial and Last Documented VS:
Initial Vital Signs
Temp Pulse Resp BP Pulse Ox
99 F 75 20 184/111 98
01/25/24 08:42 01/25/24 08:42 01/25/24 08:42 01/25/24 08:42 01/25/24 08:42
Last Documented Vital Signs
Temp Pulse Resp BP Pulse Ox
99 F 78 13 153/113 98
01/25/24 08:42 01/25/24 13:15 01/25/24 13:15 01/25/24 11:00 01/25/24 11:00
<Edwin Alegria, - Last Filed: 01/25/24 11:59>
Orders/Labs/Results
Orders:
Orders
01/25/24 09:28
HYDROmorphone [Dilaudid] 1 mg IV NOW STA
01/25/24 09:33
0.9% Sodium Chloride 1000 ml [Nss] 1,000 ml IV BOLUS
01/25/24 09:35
Trimethobenzamide [Tigan] 200 mg IM NOW STA
01/25/24 09:38
Diphenhydramine [Benadryl] 25 mg IV NOW STA
Metoclopramide [Reglan] 10 mg IV NOW STA
01/25/24 09:44
Complete Blood Count/With Diff Urgent
Comprehensive Metabolic Panel Urgent
01/25/24 11:11
HYDROmorphone [Dilaudid] 1 mg IV NOW STA
01/25/24 11:12
HYDROmorphone [Dilaudid] 0.5 mg IV NOW STA
01/25/24 11:46
STOOL [C difficile Antigen & Toxins] Urgent
KEILY Source: Feces/Stool
Specimen Description:
Date Specimen was Collected: 01/25/24
Time Specimen was Collected: 11:41
Stool Culture Urgent
KEILY Source: Feces/Stool
Specimen Description:
Date Specimen was Collected: 01/25/24
Time Specimen was Collected: 11:41
01/25/24 13:31
Ketorolac [Toradol] 15 mg IV NOW STA
01/25/24 13:38
Ketorolac [Toradol] 15 mg IM NOW STA
Abnormal Lab Results
01/25/24
09:44
Chloride 109 H mmol/L
(98-107)
Carbon Dioxide 21 L mmol/L
(22-30)
Creatinine 0.5 L mg/dL
(0.6-1.0)
Glucose 104 H mg/dl
(70-99)
01/25/24 09:44
01/25/24 09:44
Vital Signs
Initial and Last Documented VS:
Initial Vital Signs
Temp Pulse Resp BP Pulse Ox
99 F 75 20 184/111 98
01/25/24 08:42 01/25/24 08:42 01/25/24 08:42 01/25/24 08:42 01/25/24 08:42
Last Documented Vital Signs
Temp Pulse Resp BP Pulse Ox
99 F 78 13 153/113 98
01/25/24 08:42 01/25/24 13:15 01/25/24 13:15 01/25/24 11:00 01/25/24 11:00
<AJ Comer Last Filed: 01/25/24 17:59>
MDM/Problems Addressed
Differential Diagnosis Includes:
Differentials include exacerbation of chronic pain syndrome, gastroenteritis, constipation, medication side effect C. difficile infection
MDM/Problems Addressed:
Left flank pain, left-sided abdominal pain, nausea,
Chronic conditions affecting care:
nutcracker syndrome, diverticulitis, hypertension, history of C. difficile, hidradenitis suppurativa
Acute Exacerbation and/or Progression of Chronic Illness:
nutcracker syndrome
<AJ Comer Last Filed: 01/25/24 17:59>
*Pulse Oximetry
Patient hypoxic: no
*Critical Care Note
Total Time (30-74mins, 75-104mins- exclusive of procedures): Not Applicable
Data Reviewed
Review of Other/Old Records Reveals: Records (Reviewed ER physician documentation from : today), Radiology Studies (See T scan done today demonstrated no acute findings but did show a chronic lesion left renal vein with associated shunting via
the been narrowing to left-sided pelvic varices) and Discharge Summary (Reviewed discharge summary from 01/05/2024,)
<Beatrice Noonan PA-C - Last Filed: 01/25/24 17:59>
Patient Management
Escalation/DeEscalation of care consider admission/obs:
This is a 43 y/o female with a PMH of renal vein stenosis (nutcracker syndrome), HTN, diverticulitis, HS, presenting to the emergency department today with N/V/D and left-sided flank pain and abdominal pain. Patient has said that this is
characteristic of her chronic pain. Patient was seen here last night for this pain and nares CT scan did not show any acute findings, no evidence of diverticulitis however did demonstrate chronic findings associated with her nutcracker syndrome as
well as some left-sided pelvic varices. Spoke to radiology and vascular surgeon on-call who recommend no additional imaging or interventions at this time. Patient does have a follow-up appointment with Dr. Garcia in March. Vascular surgeon on-call
said that they will try to have the office try to move her appointment up. During her most previous hospitalization, there was discussion of gynecologic follow-up for OCP therapy since the vascular congestion worsens with menses. Patient does have
follow-up with SULFUR BURNER. Advised patient to call the office tomorrow. Patient stable for discharge.
ED Attending Note
<Beatrice Noonan PA-C - Last Filed: 01/25/24 17:59>
-
Portions of this chart may have been created with voice recognition software.� Occasional wrong word or��sound alike� substitutions may have occurred due to the inherent limitations of voice recognition software.
<Edwin Alegria DO - Last Filed: 01/25/24 11:59>
ED Attending Note
Patient seen and examined by attending physician: Yes
I performed the substantive portion of visit, reviewed & personally made and approve the management plan that is documented in note by myself or CED.: Yes
Discharge Plan
Departure
Patient Disposition: Home (Routine Discharge)
Date of Disposition: 01/25/24
Time of Disposition: 13:16
Patient with high blood pressure during this ER visit?: Yes
Condition: Good
Discharge Problem:
Nutcracker phenomenon of renal vein, Pelvic congestion
Instructions: Abdominal Pain, BLOOD PRESSURE
Prescriptions:
New
metoclopramide HCl 10 mg tablet
10 mg PO Q6H Qty: 10 0RF
No Action
gabapentin 600 MG tablet
600 mg PO BID
hydromorphone [Dilaudid] 4 mg Tablet
4 mg PO Q6HPRN PRN (Reason: BREAKTHROUGH PAIN)
morphine 30 mg tablet extended release
30 mg PO TID
sennosides [Senokot] 8.6 mg Tablet
25.8 mg PO DAILYPRN PRN (Reason: constipation)
levothyroxine 200 mcg Tablet
200 mcg PO DAILY
albuterol sulfate 90 mcg/actuation Hfa Aerosol Inhaler
2 puff INHALATION R Q6HPRN PRN (Reason: wheezing)
carvedilol 12.5 mg Tablet
12.5 mg PO BID
ondansetron 4 mg Tablet,Disintegrating
4 mg PO TIDPRN PRN (Reason: nausea/vomiting)
pantoprazole 40 mg Tablet,Delayed Release (Dr/Ec)
40 mg PO DAILY Qty: 30 1RF
polyethylene glycol 3350 [HealthyLax] 17 gram Powder In Packet
17 g PO DAILYPRN PRN (Reason: constipation) Qty: 100 0RF
Referrals:
Zawistoski,Nidia, DO [Family Provider] -
Activity Restrictions/Additional Instructions:
Your last dose of dilaudid was at 11:12 am.
We have sent Reglan to your pharmacy. You can take one tablet every 6 hours as needed for nausea/vomiting.
Please call Dr. Garcia's office on Friday to establish a sooner appointment.
Please return to the emergency department should you have intractable pain or intractable vomiting.
Interventions
Interventions:
*Risk Screen - Suicide Last Done: 01/25/24 08:42
*General Assessment Last Done: 01/25/24 08:42
*Neglect/Abuse Screening Last Done: 01/25/24 08:42
*ED COVID-19 Vaccine History Last Done: 01/25/24 09:21
*Nursing Disposition Last Done: 01/25/24 13:41
[facility]-Woxnb[facility]-Nsfksdvddp Assessment Last Done: 01/25/24 09:21
Discharge Date and Time
Discharge Date/Time: 01/25/24 13:54
Print Language: ARMENIAN
[2024-01-25 09:15] VITALS: BP 188/109
[2024-01-25 09:21] VITALS: BMI 33.2
[2024-01-25] MEDS: NSS 1000 IV (09:45)
[2024-01-25] MEDS: REGLAN 10 MG IV (09:45)
[2024-01-25] MEDS: DILAUDID 1 MG IV (09:46)
[2024-01-25] MEDS: BENADRYL 25 MG IV (09:46)
[2024-01-25 09:54] LABS: % Basophils 0.4 % (0-2); % Eosinophils 1.5 % (0-6); % Immature Granulocytes 0.3 % (0-0.5); % Lymphocytes 20.5 % (20.5-51.1); % Monocytes 6.7 % (1.7-9.3); % Neutrophils 70.6 % (42.2-75.2); Absolute Eosinophils 0.1 10^3/uL (0-0.7); Absolute Lymphocytes 1.5 10^3/uL (1.2-3.4); Absolute Monocytes 0.5 10^3/uL (0.1-0.6); Absolute Neutrophils 5.1 10^3/uL (1.4-6.5); Hematocrit 41.4 % (37.0-47.0); Hemoglobin 13.8 g/dL (12.0-16.0); Mean Corp Hgb Conc. 33.3 g/dL (33.0-37.0); Mean Corpuscular Hgb 27.4 pg (27.0-31.0); Mean Corpuscular Volume 82.3 fL (81.0-99.0); Mean Platelet Volume 9.5 fL (7.4-10.4); Nucleated Red Blood Cells % 0 %; Platelet Count 220 10^3/uL (130-400); Red Blood Cell Count 5.03 10^6/uL (4.20-5.40); Red Cell Dist. Width 13.5 % (11.5-14.5); White Blood Cell Count 7.3 10^3/uL (4.8-10.8)
[2024-01-25 10:00] VITALS: BP 142/98
[2024-01-25 10:06] LABS: ALT (SGPT) 12 U/L (0-35); AST (SGOT) 20 U/L (14-36); Albumin 4.3 g/dl (3.5-5.0); Alkaline Phosphatase 78 U/L (38-126); Blood Urea Nitrogen 9 mg/dl (7-17); Calcium 9.5 mg/dl (8.4-10.2); Carbon Dioxide 21 mmol/L (22-30); Chloride 109 mmol/L (98-107); Estimated Creatinine Clearance > 125 ml/min; Glucose 104 mg/dl (70-99); Potassium 3.8 mmol/L (3.5-5.1); Sodium 140 mmol/L (135-145); Total Bilirubin 0.6 mg/dl (0.2-1.3); Total Protein 7.6 g/dl (6.3-8.2); eGFR > 60.00
[2024-01-25 11:00] VITALS: BP 153/113
[2024-01-25] MEDS: DILAUDID 0.5 MG IV (11:39)
[2024-01-25] MEDS: TORADOL 15 MG IM (13:38)
== END 2024-01-25 13:54 | disposition home or self-care (01) ==
LOC: EMR 08:41
PROVIDERS: Physician Assistant; EMERGENCY PHYSICIAN Emergency Medicine; FAMILY PHYSICIAN Family Medicine
DX: N94.89 Other specified conditions associated with female genital organs and menstrual cycle (principal); I87.1 Compression of vein; I10 Essential (primary) hypertension; F17.200 Nicotine dependence, unspecified, uncomplicated
CPT/HCPCS: 99284; 96374; 96375 ×2; 96361; 96376; 96372; 80053; 85025; 87045; 87046; 87324; 87427; 87449

== ENCOUNTER 2024-03-06 19:12 | Inpatient (IN) | payer BC, MEDICARE, SELFPAY ==
[2024-03-06] VITALS (19 sets, daily range): BP systolic 149–200; BP diastolic 82–132; BMI 35.3; BMI 33.3
[2024-03-06] MEDS: NSS 1000 IV ×3 (09:21→22:19)
--- NOTE | 2024-03-06 09:21 | ED.GENMED ---
History of Present Illness
General
Chief Complaint: Abdominal Pain
Source: patient
Exam Limitations: none
Time Seen by Provider: 03/06/24 09:00
Nursing documentation reviewed up to this point in time: agreed with
History of Present Illness
History of Present Illness:
43 y/o F with many chronic medical problems
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
02/23 had ventral hernia repair and abd wall reconstruction, she has a midline vertical incision with aniyah and 2 HARLAN drains, the left has not put it any output since being discharged and the right she has had to empty several times a day
Patient says this morning at 2 AM she was woken up to generalized abdominal pain around her surgical incision site followed by vomiting. She thinks she has vomited a total of 7 or 8 times. There is no blood in her vomit. She is not having
diarrhea and was able to have a normal bowel movement this morning. She did not take any of her oral pain medications or her blood pressure medication Coreg. Patient
Rates her pain 10 out of 10. It is worse with movement. She has no chest pain or shortness of breath. She did not call her surgeon over at [facility] Dr. Verdin yet. Patient says she could not get herself to that hospital because of the
drive. Patient has never had a bowel obstruction. She does have chronic pain secondary to her pelvic congestion and renal artery stenosis but this does not feel like that
Past History
Past History
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 PNA, Gastroenteritis) and Other (C-diff)
ED Past Surgical History: Cholecystectomy, (x 1), Gynecological (Tubal, ), Orthopedic (Right ankle surgery ), Urological ( Renal vein transposition,) and Other ( Spinal stimulator. Hernia repair)
Social History
Tobacco: Smoker
Alcohol: None
Drug: None
Personal:
Living: with family
Phy Exam
Physical Exam
Physical Exam:
GENERAL: Alert , uncomfortable
EYE: pupils equal and reactive
NECK: Supple
ENT: o/p clr, mmm.
CARDIAC: Regular rate and rhythm .
LUNGS: Clear breath sounds bilaterally, no acute respiratory distress, no wheezes/rales/rhonchi
ABDOMEN: slight distended, moderately tender ángel upper abd; no r/g, no cvat, dec bowel sounds
midline srugcial incision close dwith aniyah
[address]
NEUROLOGICAL: Alert and oriented, no focal neuro deficits
SKIN: Warm and dry, midline surgical incision site closed
MUSCULOSKELETAL: No edema, well perfused. neg maki's sign
PSYCH: Normal and appropriate interaction.
Course
Orders/Labs/Results
Orders:
Orders
03/06/24 09:18
CT Abd/Pel (IV only)-DH only Urgent
Comment:
Reason For Exam: ventral hernia , vomiting
0.9% Sodium Chloride 1000 ml [Nss] 1,000 ml IV BOLUS
HYDROmorphone [Dilaudid] 1 mg IV NOW STA
03/06/24 09:19
CMP [Comprehensive Metabolic Panel] Urgent
Complete Blood Count/With Diff Urgent
03/06/24 09:36
Ondansetron Injectable [Zofran] 4 mg IV NOW STA
03/06/24 10:54
HYDROmorphone [Dilaudid] 1 mg IV NOW STA
03/06/24 11:44
NG Tube [GI tube insertion- Treatment] ONCE
03/06/24 12:16
HYDROmorphone [Dilaudid] 0.5 mg IV NOW STA
03/06/24 Dinner
NPO
Allow oral meds: No
Allow clear liquids: No
NPO with Ice Chips: Yes
03/06/24 16:02
HYDROmorphone [Dilaudid] 1 mg IV NOW STA
03/06/24 16:03
0.9% Sodium Chloride 1000 ml [Nss] 1,000 ml IV BOLUS
03/06/24 16:46
Labetalol HCl [Trandate] 10 mg IV NOW STA
03/06/24 18:14
HYDROmorphone [Dilaudid] 1 mg IV NOW STA
03/06/24 18:31
Admit/Transfer Patient As Directed
Co-Sign Provider:
Level of Care: Inpatient admission
Assign to:: Medical/Surgical
Physician / Group: Chucho
Diagnosis: SBO
Reason for Hospitalization: See progress note
Expected length of stay greater than two midnights?: Yes
ELOS- Estimated Length of Stay in days: 2
I certify the patient meets the requirements for IP care: Yes
03/06/24 18:32
Code Status As Directed
Resuscitation Status: Full Code
03/06/24 20:52
HYDROmorphone [Dilaudid] 0.5 mg IV Q4HPRN PRN
Prochlorperazine [Compazine] 5 mg IV Q6HPRN PRN
03/06/24 21:50
0.9% Sodium Chloride 1000 ml [Nss] 1,000 ml IV 100 mls/hr
Albuterol [ProAIR HFA INHALER] 2 puff INH R Q6HPRN PRN
HydrALAZINE [Apresoline] 5 mg IV Q4HPRN PRN
Ipratropium/Albuterol Sulfate [Duoneb] 3 ml INH R Q4HPRN PRN
03/06/24 21:50
Discharge Patient As Directed
Discharge patient after: to [facility] when bed is available
Month/Year vaccine administered for 0252-9315 flu season: May 2023
Month/Year vaccine administered for 4905-5056 flu season: July 2021
Month/Year vaccine administered for 8585-8676 flu season: May 2022
Activity As Directed
Activity Level: With Assistance
I&O [Intake/ Output] As Directed
Frequency: q12h
DX Deep Vein Thrombosis Video Routine
03/07/24 00:00
Heparin 5,000 units SC Q8
03/07/24 01:00
HYDROmorphone [Dilaudid] 0.25 mg IV Q4HPRN PRN
03/07/24 06:45
BMP [Basic Metabolic Panel] IN AM
CBC/No Diff [Complete Blood Count/No Diff] IN AM
Abnormal Lab Results
03/06/24
09:19
WBC 17.4 H 10^3/uL
(4.8-10.8)
MCV 79.9 L fL
(81.0-99.0)
Abs Immat Gran (auto) 0.1 H 10^3/uL
(0-0.05)
Absolute Neuts (auto) 15.4 H 10^3/uL
(1.4-6.5)
Absolute Lymphs (auto) 0.9 L 10^3/uL
(1.2-3.4)
Immature Gran % 0.6 H %
(0-0.5)
Neutrophils % 88.8 H %
(42.2-75.2)
Lymphocytes % 5.2 L %
(20.5-51.1)
Creatinine 0.5 L mg/dL
(0.6-1.0)
Glucose 147 H mg/dl
(70-99)
AST 37 H U/L
(14-36)
03/06/24 09:19
03/06/24 09:19
Vital Signs
Initial and Last Documented VS:
Initial Vital Signs
Temp Pulse Resp BP Pulse Ox
99 F 89 16 200/108 98
03/06/24 08:25 03/06/24 08:25 03/06/24 08:25 03/06/24 08:25 03/06/24 08:25
Last Documented Vital Signs
Temp Pulse Resp BP Pulse Ox
98.1 F 90 16 181/104 98
03/07/24 15:00 03/07/24 15:00 03/07/24 15:00 03/07/24 17:46 03/07/24 15:00
MDM/Problems Addressed
Differential Diagnosis Includes:
sbo
MDM/Problems Addressed:
PT IS 43 Y/O F
chronic pain opiate dependent
renal artery stenosis s/p[ transfer renal vein
pt had elective hernia repair 02/[address] [facility] [address] verdin and developed pain an dnauesa/vomitim x 8 at [facility] 2 am
unable to take her coreg
no vomiing here
mild distention
harlan output not concerning
wound not dehisced
wbc 17
ct c/w sbo:
IMPRESSION: Interval surgery with ventral hernia repair. Drains are present within the anterior subcutaneous soft tissues of the anterior abdominal wall. Small amount of air within the anterior subcutaneous soft tissues with no evidence for
collection/abscess.
Thin fluid collection along the posterior margin of the rectus muscles in the anterior abdominal wall, which is likely a postsurgical seroma
CT findings compatible with small bowel obstruction. Transition in the left anterior paramedian abdomen, adjacent to the site of surgery, with obstruction likely on the basis of an adhesion.
Small to moderate amount of free fluid within the pelvic cul-de-sac. No evidence of free intraperitoneal air.
Splenic size is in the upper range of normal, maximum dimension of 12.9 cm.
1145 AM DISCUSSED WITH [facility] [employer] REP WHO ACCEPTED THE TRANSFER
UNFORTUNATELY NO BEDS
1530 - reassessed bed status, no beds
ivf givne
more pain meds
1630 - bp elevated, hasn't had her coreg
will give labetaolol
1730 - pt still unable to be placed and [facility]
will admit given that it has malvin 6 hours and no sign of bed placement tonight.
*Critical Care Note
Total Time (30-74mins, 75-104mins- exclusive of procedures): Not Applicable
ED Attending Note
-
Portions of this chart may have been created with voice recognition software.� Occasional wrong word or��sound alike� substitutions may have occurred due to the inherent limitations of voice recognition software.
Discharge Plan
Departure
Patient Disposition: Admit
Date of Disposition: 03/06/24
Time of Disposition: 11:45
Presentation/result/management discussed w/ accepting MD/DO: Hospitalist
Patient with high blood pressure during this ER visit?: Yes
Condition: Fair
Covid-19: Not Applicable
Discharge Problem:
Small bowel obstruction
Interventions
Interventions:
*Risk Screen - Suicide Last Done: 03/06/24 08:25
*General Assessment Last Done: 03/06/24 08:25
*Neglect/Abuse Screening Last Done: 03/06/24 08:25
ED- Fall Risk Assessment Last Done: 03/06/24 09:07
*ED COVID-19 Vaccine History Last Done: 03/06/24 09:07
*Nursing Disposition Last Done: 03/06/24 21:30
HC-Chgbxt-Cxhzapxwwa Assessment Last Done: 03/06/24 09:07
Discharge Date and Time
Discharge Date/Time: 03/06/24 21:30
[2024-03-06 09:29] LABS: % Basophils 0.9 % (0-2); % Eosinophils 2.1 % (0-6); % Immature Granulocytes 0.6 % (0-0.5); % Lymphocytes 5.2 % (20.5-51.1); % Monocytes 2.4 % (1.7-9.3); % Neutrophils 88.8 % (42.2-75.2); Absolute Basophils 0.2 10^3/uL (0-0.2); Absolute Eosinophils 0.4 10^3/uL (0-0.7); Absolute Immature Granulocytes 0.1 10^3/uL (0-0.05); Absolute Lymphocytes 0.9 10^3/uL (1.2-3.4); Absolute Monocytes 0.4 10^3/uL (0.1-0.6); Absolute Neutrophils 15.4 10^3/uL (1.4-6.5); Hematocrit 38.9 % (37.0-47.0); Hemoglobin 13.3 g/dL (12.0-16.0); Mean Corp Hgb Conc. 34.2 g/dL (33.0-37.0); Mean Corpuscular Hgb 27.3 pg (27.0-31.0); Mean Corpuscular Volume 79.9 fL (81.0-99.0); Mean Platelet Volume 8.7 fL (7.4-10.4); Nucleated Red Blood Cells % 0 %; Platelet Count 360 10^3/uL (130-400); Red Blood Cell Count 4.87 10^6/uL (4.20-5.40); Red Cell Dist. Width 14.2 % (11.5-14.5); White Blood Cell Count 17.4 10^3/uL (4.8-10.8)
[2024-03-06] MEDS: DILAUDID 1 MG IV ×4 (09:38→18:14)
[2024-03-06] MEDS: ZOFRAN 4 MG IV (09:38)
[2024-03-06 09:47] LABS: ALT (SGPT) 18 U/L (0-35); AST (SGOT) 37 U/L (14-36); Albumin 4.6 g/dl (3.5-5.0); Alkaline Phosphatase 81 U/L (38-126); Blood Urea Nitrogen 9 mg/dl (7-17); Calcium 9.7 mg/dl (8.4-10.2); Carbon Dioxide 25 mmol/L (22-30); Chloride 102 mmol/L (98-107); Glucose 147 mg/dl (70-99); Potassium 4.6 mmol/L (3.5-5.1); Sodium 137 mmol/L (135-145); Total Bilirubin 0.9 mg/dl (0.2-1.3); eGFR > 60.00
[2024-03-06] MEDS: DILAUDID 0.5 MG IV ×2 (12:23→21:07)
[2024-03-06] MEDS: TRANDATE 10 MG IV (16:59)
--- NOTE | 2024-03-06 18:38 | HPS.HSE ---
Family Physician
-
Family Physician: Nidia Escobar, DO
Chief Complaint
-
Abdominal pain, nausea and vomiting.
History of Present Illness
Patient had a ventral hernia repair on 02/24/[address] [facility] and still has [address] came in as she is tender to have abdominal pain followed by vomiting. She states she vomited multiple times. She did not see any blood in
the vomitus. No diarrhea.
She was evaluated in the ER including a CT scan of the abdomen pelvis which raised the concern for small bowel obstruction with an addition. Case was discussed by ER with primary surgeon at [facility] and was accepted in transfer.
Patient has been waiting many hours in the ER for bed and since no bed available patient will be admitted to the hospital while waiting for transfer. I did speak with the transfer center myself and they still do not have a bed. Updated the
admission to the hospital while waiting for the transfer to them.
In the ER she had an NG tube with some improvement in her pain but still requiring pain medication. She has chronic opiate use for chronic abdominal pain. She has a history of nutcracker syndrome had a left renal vein transposition in 2021. She
is not passing any gas yet but states she had a bowel movement at home this morning.
Denies any shortness of breath or chest pain. No dizziness.
No fever or chills.
Medical History
Past Medical History
Past Medical History: Reports GERD, HTN, Hypothyroidism and Other (Left renal vein transposition. History of nutcracker syndrome. Chronic opiate use for chronic abdominal pain.)
Additional Past Medical History:
Chronic pain syndrome from RSD.
Past Surgical History: Reports Cholecystectomy and Other (Renal vein transposition, spinal stimulator, hernia repair)
Social History
Tobacco: Smoker (currently smokes)
Alcohol: None
Personal:
Living: With Family
Family History
Family History: Not pertinent (reviewed)
Allergies / Home Medications
Allergies reflects when Allergies were last updated in [facility].
Home Medications with original date entered in [facility]
Allergy/Medication List:
Allergies
Allergy/AdvReac Type Severity Reaction Status Date / Time
No Known Allergies Allergy Verified 12/28/23 09:11
Home Medications
gabapentin 600 mg tablet 600 mg PO BID Pain 09/12/21
hydromorphone 4 mg tablet (Dilaudid) 4 mg PO Q6HPRN PRN BREAKTHROUGH PAIN 07/30/22
morphine 30 mg tablet,extended release 30 mg PO TID Pain 05/25/23
albuterol sulfate 90 mcg/actuation aerosol inhaler 2 puff inhalation R Q6HPRN PRN wheezing 07/24/23
levothyroxine 200 mcg tablet 200 mcg PO DAILY Thyroid 07/24/23
sennosides 8.6 mg tablet (Senokot) 25.8 mg PO DAILYPRN PRN constipation 07/24/23
carvedilol 12.5 mg tablet 12.5 mg PO BID 12/28/23
ibuprofen 200 mg tablet (Motrin IB) 400 - 600 mg PO DAILYPRN PRN mild pain 12/28/23
ondansetron 4 mg disintegrating tablet 4 mg PO TIDPRN PRN nausea/vomiting 12/28/23
Review of Systems
-
A 12 point ROS was completed and negative except as noted: Yes
Physical Exam
Vital Signs
Vital Signs
Temp Pulse Resp BP Pulse Ox
99 F 89 16 175/132 98
03/06/24 08:25 03/06/24 08:25 03/06/24 08:25 03/06/24 18:08 03/06/24 08:25
Physical Exam
General: Comfortable
HEENT: Moist mucous membranes
Respiratory: Wheezes (Occasional bilateral wheezing; denies history of asthma but uses as needed inhaler) and Non Labored Respirations; No Accessory Resp Muscle Use
Cardiac: S1/S2 and Regular Rhythm
GI: Soft, Non Distended, Tender (Discomfort in all quadrants but no rebound or guarding.) and Other (2 abdominal wall drains noted on either side of midline; surgical incision with aniyah which is clean); No Normal Bowel Sounds (Hypoactive bowel
sounds)
Neuro: AO x 3
Psych: Calm; No Confused
Laboratory Results
-
03/06/24 09:19
03/06/24 09:19
Laboratory Results
Total Bilirubin 0.9 mg/dl (0.2-1.3) 03/06/24 09:19
AST 37 U/L (14-36) H 03/06/24 09:19
ALT 18 U/L (0-35) 03/06/24 09:19
Alkaline Phosphatase 81 U/L (38-126) 03/06/24 09:19
Data Reviewed
-
CT Scan: Report Reviewed by me (CT of the abdomen pelvis)
Lab Data: Labs Reviewed by me
Impression/Plan
-
Acute abdominal pain with nausea and vomiting multiple times. Suspect secondary to small bowel obstruction. Unclear if complete or partial. There is a concern about ideation. She is currently postop ventral hernia repair. Patient is accepted in
transfer to [facility], awaiting bed. Admit to hospital bed is available. Keep NPO. Start on IV fluids. Started on antiemetics and IV pain medication as needed. If here tomorrow we will get plain abdominal x-ray and surgical
consultation. Continue with NG tube suction.
Transfer to [facility] when bed is available.
Recent ventral hernia repair-[address] without any obvious abscess on the CAT scan. Continue with the drains.
Leukocytosis-afebrile. Nontoxic looking. Unclear if this is reactive. CT of the abdomen pelvis shows anterior wall subcutaneous tissue collection or abscess. There is a thin fluid collection along the posterior margin of the rectus muscle in the
anterior abdominal wall likely postsurgical seroma. Hold on antibiotics and follow white count. If she becomes febrile we will do blood cultures and start on antibiotics.
Hypertension-patient did not take her medications today. Elevated blood pressure noted. Use as needed hydralazine.
Hypothyroidism-will start on IV Synthroid if she is still here.
Chronic pain syndrome and on chronic home opiates-continue the pain regimen as above intravenously while she is NPO.
Discussed with the at bedside regarding the plan
[2024-03-06] MEDS: COMPAZINE 5 MG IV (21:07)
[2024-03-06] MEDS: APRESOLINE 5 MG IV (22:27)
--- NOTE | 2024-03-06 23:00 | PTCARENOTE ---
Pt arrived to floor from ED. FLAVIO grullon. VSS. Pt hooked up to low intermittent suction with yellow drainage. Pt oriented to room. Call stock within reach.
[2024-03-07] MEDS: HEPARIN 5000 UNITS SC ×3 (01:15→15:19)
[2024-03-07] MEDS: DILAUDID 0.5 MG IV ×4 (01:16→15:20)
[2024-03-07 04:00] VITALS: BP 175/106
[2024-03-07] MEDS: APRESOLINE 5 MG IV (04:20)
[2024-03-07] MEDS: COMPAZINE 5 MG IV ×2 (05:08→15:22)
[2024-03-07 06:09] VITALS: BP 158/99
[2024-03-07 07:00] VITALS: BP 158/108
[2024-03-07 07:39] LABS: Blood Urea Nitrogen 8 mg/dl (7-17); Calcium 9.2 mg/dl (8.4-10.2); Carbon Dioxide 23 mmol/L (22-30); Chloride 104 mmol/L (98-107); Estimated Creatinine Clearance > 125 ml/min; Glucose 119 mg/dl (70-99); Sodium 136 mmol/L (135-145); eGFR > 60.00
[2024-03-07 07:51] LABS: Hemoglobin 11.9 g/dL (12.0-16.0); Mean Corpuscular Hgb 27.4 pg (27.0-31.0); Mean Corpuscular Volume 80.6 fL (81.0-99.0); Mean Platelet Volume 9.1 fL (7.4-10.4); Platelet Count 334 10^3/uL (130-400); Red Blood Cell Count 4.34 10^6/uL (4.20-5.40); Red Cell Dist. Width 14.1 % (11.5-14.5); White Blood Cell Count 14.6 10^3/uL (4.8-10.8)
[2024-03-07] MEDS: DILAUDID 0.25 MG IV ×3 (07:58→18:26)
[2024-03-07] MEDS: NSS 1000 IV ×2 (08:02→17:02)
--- NOTE | 2024-03-07 10:50 | CM ---
Patient with Hx recent ventral hernia repair on 02/23 with Dx Abdominal pain, nausea and vomiting, concern for small bowel obstruction. [address] NPO/IVF. Receiving Compazine prn, Dilaudid prn.
Spoke with patient, who resides with her and 3 children in a 2 story house.
The patient has been independent in ADLs and ambulation, using crutches chronically stating for her right leg due to RSD.
The patient says she has no difficulty doing the stairs at home.
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
DME - crutches
Prior Joel VN.
PCP - Nidia Escobar
Pharmacy - [facility] form & Ambulance Form completed.
Plan transfer to [facility] when bed available.
--- NOTE | 2024-03-07 14:29 | W.PN.HOSP.TC ---
Today's Communication/Plan
-
transfer to [facility] once bed available
Assessment / Plan
Assessment / Plan
1. Small bowel obstruction
S/p ventral hernia repair at [facility] on 02/23
-CT abdomen pelvis showing transition point in mid abdomen concerning for small bowel obstruction
-Patient is postoperative from ventral hernia repair [facility] and has been accepted for transfer back for surgical evaluation. No bed available currently.
-NG tube in place and patient having significant greenish bilious output
-Case discussed with on-call general surgery, continue current management and may require full consultation if any change in clinical course from surgical perspective.
-Have some reactive leukocytosis and will require IV antibiotics if starting spiking fever
-Maintain n.p.o./IV fluid. On IV as needed Dilaudid for pain control
2. Essential hypertension -uncontrolled
-Elevated blood pressure maintain on IV hydralazine as needed
3. Chronic pain and narcotic dependence
H/o Right ankle fracture and complex regional pain syndrome
-Patient on MS Contin 30 mg 3 times daily (last filled on 02/26) and Dilaudid 4 mg every 4 hours as needed (last filled on 02/10/24)
-Patient currently cannot take any oral pain medication and monitor for relative narcotic withdrawal signs,.
Hematuria
Nutcracker syndrome s/p left renal vein transposition in July 31
history of hypothyroidism
DVT PPX -scd
Full code
Anticipated Discharge: Today
Subjective/Interval History
-
Date of Service: March 07, 2024
Continues to have diffuse abdominal pain
Significant drain output from solemn sump of roughly 550 mill over last 24 hrs
no other reported problems
Objective Data
-
Labs:
Laboratory Results
03/07/24
06:45
WBC 14.6 H
Hgb 11.9 L
Hct 35.0 L
Plt Count 334
Sodium 136
Potassium 4.0
Chloride 104
Carbon Dioxide 23
BUN 8
Creatinine 0.5 L
Glucose 119 H
Calcium 9.2
Vital Signs:
Vital Signs
Temp Pulse Resp BP Pulse Ox
99.2 F 108 16 158/108 98
03/07/24 07:00 03/07/24 07:00 03/07/24 07:00 03/07/24 07:00 03/07/24 07:00
I&O
03/06/24 03/07/24 03/08/24
06:59 06:59 06:59
Intake Total 350 / 350
Output Total 550 / 550
Balance 320 / 320 -550 / -550
Review of Systems
-
Respiratory: Reports No Symptoms
Cardiac: Reports No Symptoms
Abdomen/GI: Reports Abdominal Pain and Nausea; Denies Vomiting
Physical Exam
-
General: Obese
HEENT: Other (NGT - greenish billios drainage); Negative Oxygen
Respiratory: Clear to Auscultation
GI: Soft, Nondistended, Tender (Left flank) and Other (Kin drain with blood containing fluid); Negative Normal Bowel Sounds
Musculoskeletal: No Edema
Neuro: Awake, Alert and No Motor Deficits
Psych: Calm
[2024-03-07 15:00] VITALS: BP 175/114
[2024-03-07] MEDS: APRESOLINE 10 MG IV (17:46)
== END 2024-03-07 18:38 | disposition short-term general hospital (02) | DRG 389 ==
LOC: 4 WEST ACU 19:12
PROVIDERS: Physician Assistant; ADMITTING PHYSICIAN Internal Medicine; ATTENDING PHYSICIAN Hospitalist; EMERGENCY PHYSICIAN Emergency Medicine; FAMILY PHYSICIAN Family Medicine
PROC: 0DH67UZ Insertion of Feeding Device into Stomach, Via Natural or Artificial Opening (ICD-10-PCS; 2024-03-06)
DX: K56.609 Unspecified intestinal obstruction, unspecified as to partial versus complete obstruction (principal); F11.20 Opioid dependence, uncomplicated; G90.521 Complex regional pain syndrome I of right lower limb; K91.872 Postprocedural seroma of a digestive system organ or structure following a digestive system procedure; I10 Essential (primary) hypertension; I70.1 Atherosclerosis of renal artery; E03.9 Hypothyroidism, unspecified; K21.9 Gastro-esophageal reflux disease without esophagitis; D72.829 Elevated white blood cell count, unspecified; R31.9 Hematuria, unspecified; Y83.8 Other surgical procedures as the cause of abnormal reaction of the patient, or of later complication, without mention of misadventure at the time of the procedure; F17.200 Nicotine dependence, unspecified, uncomplicated; Z79.890 Hormone replacement therapy; Z79.899 Other long term (current) drug therapy; Z98.890 Other specified postprocedural states
CPT/HCPCS: 43752; 74177; 80048; 80053; 85025; 85027; 96361; 96374; 96375; 96376; 99285; Q9967

== ENCOUNTER 2024-06-08 03:42 | Emergency (ER) | payer BC, MEDICARE, SELFPAY ==
[2024-06-08 03:44] VITALS: BP 190/110
[2024-06-08 04:19] VITALS: BMI 33.8
[2024-06-08] MEDS: NSS 1000 IV (04:24)
[2024-06-08] MEDS: ZOFRAN 4 MG IV ×2 (04:28→06:14)
[2024-06-08 04:36] LABS: % Basophils 0.5 % (0-2); % Eosinophils 0.2 % (0-6); % Immature Granulocytes 0.3 % (0-0.5); % Lymphocytes 8.3 % (20.5-51.1); % Monocytes 3.3 % (1.7-9.3); % Neutrophils 87.4 % (42.2-75.2); Absolute Basophils 0.1 10^3/uL (0-0.2); Absolute Lymphocytes 1.1 10^3/uL (1.2-3.4); Absolute Monocytes 0.4 10^3/uL (0.1-0.6); Absolute Neutrophils 11.1 10^3/uL (1.4-6.5); Hematocrit 43.9 % (37.0-47.0); Mean Corp Hgb Conc. 34.2 g/dL (33.0-37.0); Mean Corpuscular Hgb 25.6 pg (27.0-31.0); Mean Corpuscular Volume 74.8 fL (81.0-99.0); Nucleated Red Blood Cells % 0 %; Platelet Count 314 10^3/uL (130-400); Red Blood Cell Count 5.87 10^6/uL (4.20-5.40); Red Cell Dist. Width 15.3 % (11.5-14.5); White Blood Cell Count 12.8 10^3/uL (4.8-10.8)
[2024-06-08 04:57] LABS: ALT (SGPT) 21 U/L (0-35); AST (SGOT) 31 U/L (14-36); Alkaline Phosphatase 94 U/L (38-126); Blood Urea Nitrogen 10 mg/dl (7-17); Calcium 10.2 mg/dl (8.4-10.2); Carbon Dioxide 18 mmol/L (22-30); Chloride 103 mmol/L (98-107); Estimated Creatinine Clearance > 125 ml/min; Glucose 150 mg/dl (70-99); Lipase 32 U/L (23-300); Potassium 4.3 mmol/L (3.5-5.1); Sodium 141 mmol/L (135-145); Total Bilirubin 0.9 mg/dl (0.2-1.3); Total Protein 8.3 g/dl (6.3-8.2); eGFR > 60.00
--- NOTE | 2024-06-08 06:07 | ED.GENMED ---
History of Present Illness
General
Chief Complaint: Abdominal Pain
Source: patient
Exam Limitations: none
Time Seen by Provider: 06/08/24 06:03
History of Present Illness
History of Present Illness:
See MDM
Past History
Past History
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 PNA, Gastroenteritis) and Other (C-diff)
ED Past Surgical History: Cholecystectomy, (x 1), Gynecological (Tubal, ), Orthopedic (Right ankle surgery ), Urological ( Renal vein transposition,) and Other ( Spinal stimulator. Hernia repair)
Social History
Tobacco: Smoker
Alcohol: None
Drug: None
Personal:
Living: with family
Phy Exam
Physical Exam
Physical Exam:
See MDM
Course
Orders/Labs/Results
Orders:
Orders
06/08/24 04:16
IV Insert/Care/Rem.- Treatment PRN
06/08/24 04:18
Complete Blood Count/With Diff Urgent
Comprehensive Metabolic Panel Urgent
Lipase Urgent
06/08/24 04:24
0.9% Sodium Chloride 1000 ml [Nss] 1,000 ml IV BOLUS
06/08/24 04:26
Ondansetron Injectable [Zofran] 4 mg .ROUTE .[facility]
06/08/24 04:28
Ondansetron Injectable [Zofran] 4 mg IV NOW STA
06/08/24 06:06
HYDROmorphone [Dilaudid] 1 mg IV NOW STA
Ondansetron Injectable [Zofran] 4 mg IV NOW STA
06/08/24 06:07
CT Abd/pelvis W Iv Cont Urgent
Comment:
Reason For Exam: General abd pain, vomiting, hx SBO
06/08/24 07:00
Urinalysis Reflex To Culture Urgent
Date Specimen was Collected: 06/08/24
Time Specimen was Collected: 04:16
Abnormal Lab Results
06/08/24
04:18
WBC 12.8 H 10^3/uL
(4.8-10.8)
RBC 5.87 H 10^6/uL
(4.20-5.40)
MCV 74.8 L fL
(81.0-99.0)
MCH 25.6 L pg
(27.0-31.0)
RDW 15.3 H %
(11.5-14.5)
Absolute Neuts (auto) 11.1 H 10^3/uL
(1.4-6.5)
Absolute Lymphs (auto) 1.1 L 10^3/uL
(1.2-3.4)
Neutrophils % 87.4 H %
(42.2-75.2)
Lymphocytes % 8.3 L %
(20.5-51.1)
Carbon Dioxide 18 L mmol/L
(22-30)
Glucose 150 H mg/dl
(70-99)
Total Protein 8.3 H g/dl
(6.3-8.2)
06/08/24 04:18
06/08/24 04:18
Vital Signs
Initial and Last Documented VS:
Initial Vital Signs
Temp Pulse Resp BP Pulse Ox
98.1 F 76 18 190/110 98
06/08/24 03:44 06/08/24 03:44 06/08/24 03:44 06/08/24 03:44 06/08/24 03:44
Last Documented Vital Signs
Temp Pulse Resp BP Pulse Ox
98.1 F 76 18 190/110 98
06/08/24 03:44 06/08/24 03:44 06/08/24 03:44 06/08/24 03:44 06/08/24 03:44
MDM/Problems Addressed
Differential Diagnosis Includes:
HPI and MDM Narrative:
44-year-old female presenting with generalized abdominal pain, nausea and vomiting. She is having trouble passing gas again. Symptoms started yesterday. Patient is concerned she could have another small bowel obstruction. Patient has a history
of a ventral hernia repair at [facility]. She was seen in the hospital few months ago and admitted for small bowel obstruction. She was then transferred to [facility] where the NG tube was continued and symptoms self resolved. Patient states she
returns back to this hospital because it is closer and she is uncomfortable. She states that she did not go to [facility] because the surgeon has 'signed off'.
Given her discomfort, will give IV pain medicine. Patient is on Dilaudid at home and MS Peters. Will obtain CT with concern for small bowel
Physical exam
General: Uncomfortable
HEENT: protecting airway
Neck: appears supple
CV: No evidence of cyanosis
Resp: No accessory muscle use
Abd: Non-distended. Generalized abdominal tenderness throughout. Hyperactive bowel sounds
Extremities: No deformities
Neuro: alert
Psych: Normal affect
Skin: Intact
Problems Addressed including Acute and Chronic Conditions affecting care:
1. General Abdominal pain
Acuity: acute
Prognosis: stable
Details: Clinical concern for small bowel obstruction. Will obtain CT
Updates
CT consistent with constipation. No evidence of small bowel obstruction. Patient is on daily Senokot. Will give magnesium citrate and discussed return precautions
Differential Diagnosis (but not limited to): Small bowel obstruction, constipation, colitis
Testing considered: Obstruction series
Drug therapy (if applicable): OTC meds, please see d/c instruction regarding Rx drugs
Amount and/or Complexity of Data Reviewed
Clinical info obtained from: Patient
External data reviewed: Patient has been admitted for small bowel obstruction and ultimately required transfer back to [facility]
Labs I independently reviewed (but not limited to): Mild leukocytosis
Radiology: The CT scan was personally and independently reviewed. In addition, official CT report reviewed.
Pulse Ox: not hypoxic
EKG independently reviewed: N/A
Sweatband Shaper: Sinus rhythm
Critical Care: N/A
Risk of Complication:
Social Determinants of health: Good social support
Discussed with other providers: N/A
Escalation of Care includes Admit/Obs: After being observed in the Emergency Department, pt stable for discharge.
Occasional wrong word or 'sound a like' substitutions may have occurred due to the inherent limitations of voice recognition software. Read the chart carefully and recognize, using context, where substitutions have occurred.
*Critical Care Note
Total Time (30-74mins, 75-104mins- exclusive of procedures): Not Applicable
ED Attending Note
-
Portions of this chart may have been created with voice recognition software.� Occasional wrong word or��sound alike� substitutions may have occurred due to the inherent limitations of voice recognition software.
Discharge Plan
Departure
Patient Disposition: Home (Routine Discharge)
Date of Disposition: 06/08/24
Time of Disposition: 07:11
Patient with high blood pressure during this ER visit?: Yes
Discharge Problem:
Constipation
Prescriptions:
No Action
gabapentin 600 MG tablet
600 mg PO BID
hydromorphone [Dilaudid] 4 mg Tablet
4 mg PO Q6HPRN PRN (Reason: BREAKTHROUGH PAIN)
Patient Comments:
03/06/2024: last filled 02/10/24, 120 tabs for 30 days from [facility]
morphine 30 mg tablet extended release
30 mg PO TID
Patient Comments:
03/06/2024: last filled 02/27/24, 90 tabs for 30 days from [facility]
sennosides [Senokot] 8.6 mg Tablet
25.8 mg PO DAILYPRN PRN (Reason: constipation)
levothyroxine 200 mcg Tablet
200 mcg PO DAILY@06
albuterol sulfate 90 mcg/actuation Hfa Aerosol Inhaler
2 puff INHALATION R Q6HPRN PRN (Reason: wheezing)
carvedilol 12.5 mg Tablet
12.5 mg PO BID
ondansetron 4 mg Tablet,Disintegrating
4 mg PO TIDPRN PRN (Reason: nausea/vomiting)
pantoprazole 40 mg Tablet,Delayed Release (Dr/Ec)
40 mg PO DAILY Qty: 30 1RF
polyethylene glycol 3350 [HealthyLax] 17 gram Powder In Packet
17 g PO DAILYPRN PRN (Reason: constipation) Qty: 100 0RF
prochlorperazine maleate 10 mg tablet
10 mg PO Q6HPRN PRN (Reason: nausea/vomiting)
methocarbamol 750 mg tablet
750 mg PO TIDPRN PRN (Reason: muscle spasms)
oxycodone-acetaminophen 10-325 mg tablet
1 tab PO BID
Patient Comments:
03/06/2024: last filled 03/01/24, 14 tabs for 7 days from [facility]
ibuprofen 600 mg tablet
600 mg PO Q6HPRN PRN (Reason: mild pain)
Referrals:
Kwabena Schulte MD [Family Provider] -
Activity Restrictions/Additional Instructions:
Please return for any worsening symptoms.
You may return at any time if you have further concerns.
Please follow up with your doctor at the first available appointment, preferably this week.
Thank you for choosing [facility].
Interventions
Interventions:
*Risk Screen - Suicide Last Done: 06/08/24 03:44
*General Assessment Last Done: 06/08/24 03:49
*Neglect/Abuse Screening Last Done: 06/08/24 03:49
ED- Fall Risk Assessment Last Done: 06/08/24 06:05
*ED COVID-19 Vaccine History Last Done: 06/08/24 03:49
HP-Zhdyrm-Umcrcisgar Assessment Last Done: 06/08/24 06:10
Discharge Date and Time
Print Language: MOSOTHO
[2024-06-08] MEDS: DILAUDID 1 MG IV (06:14)
[2024-06-08 07:29] VITALS: BP 158/91
[2024-06-08] MEDS: CITROMA 300 ML PO (07:31)
== END 2024-06-08 07:39 | disposition home or self-care (01) ==
LOC: EMR 03:42
PROVIDERS: Emergency Medicine; EMERGENCY PHYSICIAN Student in an Organized Health Care Education/Training Program; FAMILY PHYSICIAN Internal Medicine
DX: K59.00 Constipation, unspecified (principal); K21.9 Gastro-esophageal reflux disease without esophagitis; I10 Essential (primary) hypertension; E03.9 Hypothyroidism, unspecified; F17.200 Nicotine dependence, unspecified, uncomplicated; Z90.49 Acquired absence of other specified parts of digestive tract
CPT/HCPCS: 99284; 74177; 80053; 83690; 85025; Q9967

== ENCOUNTER 2024-06-09 01:00 | Observation (INO) | payer BC, MEDICARE, SELFPAY ==
[2024-06-08 21:25] VITALS: BP 195/113
[2024-06-08 21:40] LABS: % Basophils 0.2 % (0-2); % Immature Granulocytes 0.4 % (0-0.5); % Lymphocytes 7.8 % (20.5-51.1); % Monocytes 3.8 % (1.7-9.3); % Neutrophils 87.8 % (42.2-75.2); Absolute Immature Granulocytes 0.1 10^3/uL (0-0.05); Absolute Lymphocytes 1.2 10^3/uL (1.2-3.4); Absolute Monocytes 0.6 10^3/uL (0.1-0.6); Absolute Neutrophils 13.5 10^3/uL (1.4-6.5); Hematocrit 43.1 % (37.0-47.0); Hemoglobin 14.8 g/dL (12.0-16.0); Mean Corp Hgb Conc. 34.3 g/dL (33.0-37.0); Mean Corpuscular Hgb 25.1 pg (27.0-31.0); Mean Corpuscular Volume 73.1 fL (81.0-99.0); Mean Platelet Volume 8.9 fL (7.4-10.4); Nucleated Red Blood Cells % 0 %; Platelet Count 321 10^3/uL (130-400); Red Cell Dist. Width 15.2 % (11.5-14.5); White Blood Cell Count 15.3 10^3/uL (4.8-10.8)
[2024-06-08 21:55] LABS: ALT (SGPT) 21 U/L (0-35); AST (SGOT) 26 U/L (14-36); Albumin 5.1 g/dl (3.5-5.0); Alkaline Phosphatase 94 U/L (38-126); Blood Urea Nitrogen 12 mg/dl (7-17); Calcium 10.2 mg/dl (8.4-10.2); Carbon Dioxide 20 mmol/L (22-30); Chloride 101 mmol/L (98-107); Glucose 150 mg/dl (70-99); Lipase 38 U/L (23-300); Potassium 3.9 mmol/L (3.5-5.1); Sodium 137 mmol/L (135-145); Total Bilirubin 0.9 mg/dl (0.2-1.3); Total Protein 8.5 g/dl (6.3-8.2); eGFR > 60.00
--- NOTE | 2024-06-08 22:30 | ED.GENMED ---
History of Present Illness
General
Chief Complaint: Abdominal Symptoms
Source: patient
Exam Limitations: none
Time Seen by Provider: 06/08/24 22:21
Nursing documentation reviewed up to this point in time: agreed with
History of Present Illness
History of Present Illness:
44-year-old female with a past medical history significant for CRPS, GERD, hypothyroidism presents to the emergency department with intractable nausea and vomiting. Patient was seen in the emergency department earlier this morning and had a CAT
scan which showed constipation. Patient states that she has had several bowel movements throughout the day today and does not feel constipated any longer. She reports that the abdominal pain no longer feels like a small bowel obstruction. She
states that it feels different. Patient was formally treated at [facility], but lives closer to [facility].
Vital signs are stable. Patient not hypoxic
Nursing note reviewed. I agree with nursing documentation up to this point in time.
Home Meds and allergies reviewed.
NUMBER AND COMPLEXITY OF PROBLEMS ADDRESSED AT THE ENCOUNTER
� Chronic conditions affecting care: CRPS, GERD, history of small bowel obstruction, constipation
� Acute Exacerbation and/or Progression of Chronic Illness: chronic regional pain syndrome,
� Differential Diagnosis includes: Constipation, viral syndrome, small bowel obstruction, colitis
AMOUNT AND/OR COMPLEXITY OF DATA TO BE REVIEWED AND ANALYZED
I performed an independent evaluation of the following and my interpretation is:
EKG:
CT:
X-rays:
Ultrasound:
Laboratory Studies: 15,000 white blood cell count up from 12,000 earlier
Other:
Review of other/old records: Records including CT scan from this morning's ER visit.
Clinical information was obtained by an independent historian: Patient is the historian.
Prescriptions/Medications Considered but not given:
Further testing considered but not performed:
RISK OF COMPLICATIONS AND/OR MORBIDITY OR MORTALITY OF PATIENT MANAGEMENT
Social determinants of health affecting care: Good Social Support.
Discussion with other providers:
Escalation of care including admission/observation vs risk of discharge considered:
CRITICAL CARE NOTE:
Total Time (exclusive of procedures):
Update:
Past History
Past History
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 PNA, Gastroenteritis) and Other (C-diff)
ED Past Surgical History: Cholecystectomy, (x 1), Gynecological (Tubal, ), Orthopedic (Right ankle surgery ), Urological ( Renal vein transposition,) and Other ( Spinal stimulator. Hernia repair)
Social History
Tobacco: Smoker
Alcohol: None
Drug: None
Personal:
Living: with family
Phy Exam
Physical Exam
Physical Exam:
Physical Exam
Vital signs and allergy list reviewed and agreed with.
GENERAL: Alert , in minimal to moderate apparent distress
EYE: pupils equal, EOMI, anicteric
NECK: Supple, no significant adenopathy. No masses. Trachea midline
ENT: Oropharynx is clear, mmm.
CARDIAC: Regular rate and rhythm . No M/R/G
LUNGS: Clear breath sounds bilaterally, no acute respiratory distress, no wheezes/rales/rhonchi
ABDOMEN: Soft, diffuse tenderness to palpation, without focal tenderness, no r/g, no cvat. Normal BSx4q
NEUROLOGICAL: Alert and oriented, no focal neuro deficits
SKIN: Warm and dry, skin intact.
MUSCULOSKELETAL: No edema, well perfused. Moves all 4 extremities
PSYCH: Normal and appropriate interaction.
Course
Orders/Labs/Results
Orders:
Orders
06/08/24 21:33
Complete Blood Count/With Diff Urgent
Comprehensive Metabolic Panel Urgent
Lipase Urgent
06/08/24 22:23
Ondansetron Injectable [Zofran] 4 mg .ROUTE .[facility]
06/08/24 22:27
Urinalysis Reflex To Culture Urgent
Date Specimen was Collected: 06/09/24
Time Specimen was Collected: 14:52
06/08/24 22:28
CR Obstruct Series W/pa Chest Urgent
Comment:
Reason For Exam: Persistent nausea and vomiting. CT scan this morn
06/08/24 22:40
PTT Urgent
Procalcitonin Urgent
PCT Algorithmm Indication: Sepsis
Prothrombin Time Urgent
Troponin I Urgent
Ondansetron Injectable [Zofran] 4 mg IV NOW STA
06/08/24 22:42
Lactate Level [Lactic Acid] Urgent
06/08/24 22:48
HYDROmorphone [Dilaudid] 0.5 mg IV NOW STA
06/08/24 23:29
Electrocardiogram (*1) Routine
Reason for Study: QTc Monitoring
06/08/24 23:52
Haloperidol Lactate [Haldol] 1 mg IV NOW STA
06/09/24 00:20
Albuterol [ProAIR HFA INHALER] 2 puff INH R Q6HPRN PRN
HYDROmorphone [Dilaudid] 4 mg PO Q6HPRN PRN
Polyethylene Glycol Powder [Miralax] 17 grams PO DAILYPRN PRN
06/09/24 00:21
Admit/Transfer Patient As Directed
Co-Sign Provider:
Level of Care: Observation services
Assign to:: Medical/Surgical
Physician / Group: hospitalist
Diagnosis: intractable abdominal pain
PRN Pain Medication Management As Directed
May give lesser potent ordered pain med per pt: Yes
preference::
Protocol:: Medication orders for pain may be administered in a
manner that supports deferring to patient preference
when the pt is:
- Requesting an ordered lesser potent pain medication.
Least to most potent pain medications are defined
as: acetaminophen < NSAID < tramadol < opioids
(morphine, oxycodone, hydromorphone).
- Requesting a lesser dose of the same medication IF
ORDERED.
- Requesting a less intrusive route of administration
if both routes are prescribed by the provider (PO <
IV).
06/09/24 00:22
Code Status As Directed
Resuscitation Status: Full Code
06/09/24 00:49
HYDROmorphone [Dilaudid] 1 mg IV Q4HPRN PRN
Ketorolac [Toradol] 10 mg IV Q6HPRN PRN
Ondansetron Injectable [Zofran] 4 mg IV Q6HPRN PRN
06/09/24 01:00
Flush (0.9% Sodium Chloride) [Flush (Nss)] See Dose Instructions IV PER PROTOCOL
06/09/24 01:43
Acetaminophen [Tylenol] 650 mg PO Q4HPRN PRN
Dextrose 5%/Lactringers 1000ML [D5lr] 1,000 ml IV 100 mls/hr
Docusate W/Senna [Senokot-S] 1 tablet PO BIDPRN PRN
06/09/24 01:43
Activity As Directed
Activity Level: With Assistance
Vital Signs As Directed
Frequency: Per unit guidelines
DX Deep Vein Thrombosis Video Routine
06/09/24 05:59
Basic Metabolic Panel IN AM
Complete Blood Count/No Diff IN AM
06/09/24 06:00
ECG [Electrocardiogram (*1)] IN AM
Reason for Study: QTc Monitoring
Clear Liquid
At Your Request: Full Participation
Levothyroxine [Synthroid] 200 mcg PO DAILY@06
06/09/24 08:00
Carvedilol [Coreg] 12.5 mg PO BID
Gabapentin [Neurontin] 600 mg PO BID
Pantoprazole [Protonix IV] 40 mg IV DAILY
06/09/24 18:00
Enoxaparin Sodium [Lovenox] 40 mg SC QPM
Abnormal Lab Results
06/08/24
21:33
WBC 15.3 H 10^3/uL
(4.8-10.8)
RBC 5.90 H 10^6/uL
(4.20-5.40)
MCV 73.1 L fL
(81.0-99.0)
MCH 25.1 L pg
(27.0-31.0)
RDW 15.2 H %
(11.5-14.5)
Abs Immat Gran (auto) 0.1 H 10^3/uL
(0-0.05)
Absolute Neuts (auto) 13.5 H 10^3/uL
(1.4-6.5)
Neutrophils % 87.8 H %
(42.2-75.2)
Lymphocytes % 7.8 L %
(20.5-51.1)
Carbon Dioxide 20 L mmol/L
(22-30)
Creatinine 0.5 L mg/dL
(0.6-1.0)
Glucose 150 H mg/dl
(70-99)
Total Protein 8.5 H g/dl
(6.3-8.2)
Albumin 5.1 H g/dl
(3.5-5.0)
06/08/24 21:33
06/08/24 21:33
Vital Signs
Initial and Last Documented VS:
Initial Vital Signs
Temp Pulse Resp BP Pulse Ox
99.4 F 84 18 195/113 98
06/08/24 21:25 06/08/24 21:25 06/08/24 21:25 06/08/24 21:25 06/08/24 21:25
Last Documented Vital Signs
Temp Pulse Resp BP Pulse Ox
99.2 F 83 18 106/72 97
06/12/24 15:15 06/12/24 20:27 06/12/24 15:15 06/12/24 20:27 06/12/24 15:15
*Critical Care Note
Total Time (30-74mins, 75-104mins- exclusive of procedures): Not Applicable
Update Note
Update Note:
EKG shows normal sinus rhythm rate of 61 with normal intervals, normal axis. No evidence of acute ischemia. Corrected QT is 430 ms.
ED Attending Note
-
Portions of this chart may have been created with voice recognition software.� Occasional wrong word or��sound alike� substitutions may have occurred due to the inherent limitations of voice recognition software.
Discharge Plan
Departure
Patient Disposition: Admit
Date of Disposition: 06/08/24
Time of Disposition: 23:53
Admit to: Med/Surg
Presentation/result/management discussed w/ accepting MD/DO: Hospitalist
Discharge Problem:
Gastroparesis, Nausea and vomiting
Interventions
Interventions:
*Risk Screen - Suicide Last Done: 06/09/24 02:00
*General Assessment Last Done: 06/08/24 21:25
*Neglect/Abuse Screening Last Done: 06/08/24 22:46
ED- Fall Risk Assessment Last Done: 06/08/24 22:45
*ED COVID-19 Vaccine History Last Done: 06/09/24 02:00
*Nursing Disposition Last Done: 06/09/24 01:30
LC-Rzxkjc-Eqjpvqlxre Assessment Last Done: 06/08/24 22:47
Discharge Date and Time
Discharge Date/Time: 06/09/24 02:10
[2024-06-08] MEDS: ZOFRAN 4 MG IV (22:40)
[2024-06-08 22:44] VITALS: BMI 34.7
[2024-06-08] MEDS: DILAUDID 0.5 MG IV (22:50)
[2024-06-08 23:03] LABS: Lactic Acid 1.5 mmol/L (0.7-2.0)
[2024-06-08 23:15] LABS: INR 1.13; PT 14.3 Sec (11.4-14.6)
[2024-06-08 23:16] LABS: APTT 25.1 Sec (23.4-35.0)
[2024-06-08 23:17] LABS: Procalcitonin < 0.05 ng/ml (0.0-0.25)
[2024-06-08 23:22] VITALS: BP 187/95
[2024-06-08 23:24] LABS: Troponin I < 0.012 ng/ml
[2024-06-08 23:26] VITALS: BP 187/95
--- NOTE | 2024-06-09 00:07 | HPS.HSE ---
Family Physician
-
Family Physician: Kwabena Schulte MD
Chief Complaint
-
Abdominal pain nausea vomiting
History of Present Illness
This is a 44-year-old female with past medical history significant for hypothyroidism, complex regional pain syndrome, diverticular disease, opioid dependence, history of left ventricular hernia repair and SBO earlier this year treated nonsurgically
who presents to the emergency department with approximately 1/2 days of abdominal discomfort that is reminiscent of her SBO.
Patient reported that she was in usual state of health up until yesterday when she developed bilateral lower quadrant abdominal pain. This was associated with nausea and bilious emesis. She is unable to tolerate any p.o. She had no fevers at home
but reports low-grade temps on arrival in the emergency department. Patient denies any urinary symptoms. She denies flank pain. She denies diarrhea. No recent antibiotic use.
CT of the abdomen pelvis was negative on initial presentation to the ED. She was treated with pain control and laxatives. Patient reported that she had had gastroparesis in the past but this discomfort is different from her gastroparesis.
In the ED she had a temp of 99.4, she was hypertensive to 177/95 with a pulse of 60. ECG showed sinus rhythm at a rate of 61. White count was 15,000 with hemoglobin of 14.9 platelet of 321. Her electrolytes are within normal limits. CT of the
abdomen pelvis was negative for small bowel obstruction, negative for colitis or peritonitis.
Medical History
Past Medical History
Past Medical History: Reports HTN, Hypothyroidism and Other (Complex regional pain syndrome)
Additional Past Medical History:
Chronic pain on MS Contin and as needed Dilaudid
Renal vein thrombosis
Diverticulitis
Past Surgical History: Reports Other (Hernia repair)
Social History
Tobacco: Smoker
Alcohol: None
Drug: None
Personal:
Living: With Family
Employment: Not Employed
Family History
Family History: Not pertinent
Allergies / Home Medications
Allergies reflects when Allergies were last updated in [facility].
Home Medications with original date entered in [facility]
Allergy/Medication List:
Allergies
Allergy/AdvReac Type Severity Reaction Status Date / Time
metoclopramide [From Reglan] AdvReac 'I got Verified 06/08/24 03:43
real
anxious,
jumping
out of my
skin'
Home Medications
gabapentin 600 mg tablet 600 mg PO BID Pain 09/12/21
hydromorphone 4 mg tablet (Dilaudid) 4 mg PO Q6HPRN PRN BREAKTHROUGH PAIN 07/30/22
morphine 30 mg tablet,extended release 30 mg PO TID Pain 05/25/23
albuterol sulfate 90 mcg/actuation aerosol inhaler 2 puff inhalation R Q6HPRN PRN wheezing 07/24/23
levothyroxine 200 mcg tablet 200 mcg PO DAILY@06 Thyroid 07/24/23
sennosides 8.6 mg tablet (Senokot) 25.8 mg PO DAILYPRN PRN constipation 07/24/23
carvedilol 12.5 mg tablet 12.5 mg PO BID Heart Failure 12/28/23
ondansetron 4 mg disintegrating tablet 4 mg PO TIDPRN PRN nausea/vomiting 12/28/23
pantoprazole 40 mg tablet,delayed release 40 mg PO DAILY #30 tabs 01/02/24
polyethylene glycol 3350 17 gram oral powder packet (HealthyLax) 17 g PO DAILYPRN PRN constipation #100 ea 01/02/24
ibuprofen 600 mg tablet 600 mg PO Q6HPRN PRN mild pain 03/06/24
methocarbamol 750 mg tablet 750 mg PO TIDPRN PRN muscle spasms 03/06/24
oxycodone-acetaminophen 10 mg-325 mg tablet 1 tab PO BID Pain 03/06/24
prochlorperazine maleate 10 mg tablet 10 mg PO Q6HPRN PRN nausea/vomiting 03/06/24
Review of Systems
-
History Source: Patient
Constitutional: Reports No Symptoms
EENT: Reports No Symptoms
Respiratory: Reports No Symptoms
Cardiac: Reports No Symptoms
Abdomen/GI: Reports Abdominal Pain, Nausea and Vomiting
: Reports No Symptoms
Musculoskeletal: Reports No Symptoms
Skin: Reports No Symptoms
Neurological: Reports No Symptoms
Endocrine: Reports No Symptoms
Hematologic/Lymphatic: Reports No Symptoms
Psych: Reports No Symptoms
Physical Exam
Vital Signs
Vital Signs
Temp Pulse Resp BP Pulse Ox
99.4 F 60 20 187/95 98
06/08/24 21:25 06/08/24 23:26 06/08/24 23:26 06/08/24 23:26 06/08/24 23:26
Physical Exam
General: Well Developed, Well Nourished and Appears in Distress
HEENT: NormoCephalic, Anicteric, Moist mucous membranes and Atraumatic
Cardiac: S1/S2 and Regular Rhythm
Breast: Deferred by me
GI: Soft, Non Distended, Normal Bowel Sounds and Tender (Bilateral lower quadrant tenderness to palpation, no rebound or guarding.)
Rectal: Deferred by Provider
Genito-urinary: No costovertebral tender
Musculoskeletal: No Clubbing, No Cyanosis and No Edema
Skin: Warm
Neuro: AO x 3
Hematologic/Lymphatic: No Lymphadenopathy
Psych: Calm
Laboratory Results
-
06/08/24 21:33
06/08/24 21:33
Laboratory Results
PT 14.3 Sec (11.4-14.6) 06/08/24 22:40
INR 1.13 06/08/24 22:40
APTT 25.1 Sec (23.4-35.0) 06/08/24 22:40
Lactic Acid 1.5 mmol/L (0.7-2.0) 06/08/24 22:42
Total Bilirubin 0.9 mg/dl (0.2-1.3) 06/08/24 21:33
AST 26 U/L (14-36) 06/08/24 21:33
ALT 21 U/L (0-35) 06/08/24 21:33
Alkaline Phosphatase 94 U/L (38-126) 06/08/24 21:33
Troponin I < 0.012 ng/ml 06/08/24 22:40
Lipase 38 U/L (23-300) 06/08/24 21:33
Data Reviewed
-
CT Scan: Report Reviewed by me
Medical Tests (Nuc Med, Echo, EKG etc): Image Personally Visualized and interpreted
Lab Data: Labs Reviewed by me
Old Records: Reviewed
Impression/Plan
-
IMPRESSION:
Patient with history of chronic pain on high-dose opioids 30 mg MS Contin 3 times daily presenting to the ED with 1 day of abdominal pain and nausea and vomiting. Has a negative CT abdomen pelvis. The labs are unremarkable except for leukocytosis
to 15,000. Despite negative initial studies and treatment the patient continues to have intractable abdominal pain and nausea. She has no vomiting and no ileus on exam. Concern for gastroparesis.
PLAN:
1. Abdominal pain -abdominal pain with nausea vomiting. No ileus or small bowel obstruction peritonitis colitis, or other acute intra-abdominal process. Labs unremarkable. Patient nontoxic appearing. History of gastroparesis and opioid
dependence.
- admit to med/surg observation
- no obstipation so clear liquid diet as tolerated
- antimetics and pain control iv
- iv fluids for now
- allergy to reglan, haldol given in ED
- consider erythromycin
- consider GI consultation if not improved in am
2. HTN - uncontrolled hypertension in ED
- IV hydralazine prn
- continue coreg
- consider adding nifedipine
3. Chronic pain and opioid dependence - ? Narcortic bowel? Patient has been on current regimen for at least 3 years.
- IV dilaudid prn for now
DVT PPX - lovenox sq
Code Status - Full Code
[2024-06-09] MEDS: HALDOL 1 MG IV (00:11)
[2024-06-09] MEDS: ZOFRAN 4 MG IV ×3 (00:53→14:42)
[2024-06-09] MEDS: DILAUDID 1 MG IV ×6 (00:56→22:50)
[2024-06-09] MEDS: D5LR 1000 IV ×3 (01:53→22:44)
[2024-06-09 02:01] VITALS: BMI 32.4
--- NOTE | 2024-06-09 02:18 | PTCARENOTE ---
Received pt from ED into room 2130. Pt able to ambulate with crutches to the bed. AAOx3. Reports 7/10 pain in abdomen. D5LR started at 100ml/hr to R hand IV. Pt with no further complaints, resting comfortably in bed.
[2024-06-09 02:30] VITALS: BP 176/86
[2024-06-09] MEDS: APRESOLINE 10 MG IV (03:02)
[2024-06-09] MEDS: TORADOL 10 MG IV (03:53)
[2024-06-09] MEDS: SYNTHROID 200 MCG PO (05:13)
[2024-06-09 05:25] VITALS: BP 182/87
[2024-06-09 06:40] LABS: Hematocrit 40.4 % (37.0-47.0); Hemoglobin 13.6 g/dL (12.0-16.0); Mean Corp Hgb Conc. 33.7 g/dL (33.0-37.0); Mean Corpuscular Hgb 25.2 pg (27.0-31.0); Mean Platelet Volume 9.1 fL (7.4-10.4); Platelet Count 297 10^3/uL (130-400); Red Blood Cell Count 5.39 10^6/uL (4.20-5.40); Red Cell Dist. Width 15.5 % (11.5-14.5); White Blood Cell Count 13.3 10^3/uL (4.8-10.8)
[2024-06-09] MEDS: TRANDATE 10 MG IV (06:41)
[2024-06-09 07:05] LABS: Blood Urea Nitrogen 12 mg/dl (7-17); Calcium 9.7 mg/dl (8.4-10.2); Carbon Dioxide 20 mmol/L (22-30); Chloride 102 mmol/L (98-107); Estimated Creatinine Clearance > 125 ml/min; Glucose 146 mg/dl (70-99); Potassium 3.6 mmol/L (3.5-5.1); Sodium 137 mmol/L (135-145); eGFR > 60.00
--- NOTE | 2024-06-09 07:22 | PTCARENOTE ---
On admission, pt hypertensive. BP 176/86. [employer] SUPERVISOR made aware, IV 10mg Hydralazine PRN ordered. Administered medication, as well as pain medication. See NOV. Recheck BP 182/87. Notified [employer] SUPERVISOR, ordered and administered 10mg IV Labetolol. See NOV. Pt
asymptomatic, resting comfortably in bed.
--- NOTE | 2024-06-09 07:32 | W.PN.HOSP.TC ---
Addendum entered and electronically signed by Peng Randle MD 06/09/24 23:53:
Attending Addendum-
I saw and evaluated the patient. I reviewed the resident�s note and agree with findings and plan as documented in the resident�s note. Sub: continues to have abd pain, nausea no vomiting. seen with mother Full 12 point ROS reviewed and negative
except as documented Exam: Vitals reviewed in chart GEN-NAD heart RRR lungs clear abd soft mildly distended mildly TTP Ext no edema
PLAN:
# Abdominal pain-
- possible from gastroparesis, narcotic bowel, constipation
- start aggressive bowel regimen
- cont clear liquid diet as tolerated
- antimetics and pain control iv
- iv fluids for now
- allergy to reglan, haldol given in ED
- t/c relistor
- c/s GI for eval
# HTN
- uncontrolled due to pain and opiod w/d
- IV hydralazine prn
- continue coreg
- start COWS
# Chronic pain/CRPS and opioid dependence -
- restart home regimen morphine
- cont IV dilaudid prn for now
- COWS
- reviewed PDMP
# Leukocytosis
- trendning down
- repeat CBC in am
# Spinal surgery
- has spinal stim
# Peripheral Neuropathy
- cont gabapentin
# Hypothyroidism
- cont levothyroxine
- check TSH
DVT PPX - lovenox sq
Code Status - Full Code
Time spent coordinating care, review of plan of care with resident, personally reviewed records in EMR, med rec, consults, notes, labs, radiology, d/w nursing, mom � 55 mins
Original Note:
Today's Communication/Plan
-
Patient may be suffering from mild opiate withdrawal. COWs score of 5. Resumed home pain meds. IVF support. GI consulted. Continue to follow labs and consider advancing diet if patient able to tolerate.
Assessment / Plan
Assessment / Plan
HPI: Patient is a 44-year-old female who presented to [facility] emergency department with a generalized abdominal pain, nausea and vomiting on 06/08/2024. She was having trouble passing gas and the symptoms started the day before her
presentation. She was concerned that she may have been suffering from another small bowel obstruction. She was in her normal state of health up until the day before she presented to the emergency department when she suddenly developed bilateral
lower quadrant abdominal pain. This was associated with nausea and bilious emesis. She had no fevers at home but reported low-grade temps on arrival to the emergency department. She has a history of ventral hernia repair at [facility]. She has
been admitted here at [facility] few months ago for a small bowel obstruction. After her admission she was transferred to [facility] where an NG tube was continued and her symptoms self resolved. Patient states she returned back to this
hospital because it is closer and she was uncomfortable at [facility]. She also made mention that she did not stay at [facility] because 'the surgeon has signed off.' She was initially evaluated by provider downstairs in the emergency department who
believed that she was constipated based on presentation and abdominal CT scan conducted. There was no evidence of small bowel obstruction and supportive counseling was given along with magnesium citrate and instructions on how to avoid further
exacerbating her symptoms. She was then discharged. She then returned a few hours later to the emergency department stating that she had several bowel movements throughout the day and did not feel constipated any longer. She reported that the
abdominal pain no longer felt like a small bowel obstruction and that it felt different. The patient was subsequently admitted to [facility] for gastroparesis, nausea and vomiting.
Past medical history:
GERD
Hypertension
Hypothyroidism
RSD
Nutcracker syndrome
Lung nodule
Hiradenitis
Colitis
Diverticulitis
Chronic pain syndrome due to RSD
Gastroenteritis
C. difficile
Past surgical history:
Cholecystectomy
Gynecological surgery on one of her fallopian tube
Right ankle surgery
Renal vein transposition
Spinal stimulator
Hernia repair
Allergies
Allergy/AdvReac Type Severity Reaction Status Date / Time
metoclopramide [From Reglan] AdvReac 'I got Verified 06/08/24 03:43
real
anxious,
jumping
out of my
skin'
Home Medications
gabapentin 600 mg tablet 600 mg PO BID Pain 09/12/21
hydromorphone 4 mg tablet (Dilaudid) 4 mg PO Q6HPRN PRN BREAKTHROUGH PAIN 07/30/22
morphine 30 mg tablet,extended release 30 mg PO TID Pain 05/25/23
albuterol sulfate 90 mcg/actuation aerosol inhaler 2 puff inhalation R Q6HPRN PRN wheezing 07/24/23
levothyroxine 200 mcg tablet 200 mcg PO DAILY@06 Thyroid 07/24/23
sennosides 8.6 mg tablet (Senokot) 25.8 mg PO DAILYPRN PRN constipation 07/24/23
carvedilol 12.5 mg tablet 12.5 mg PO BID Heart Failure 12/28/23
ondansetron 4 mg disintegrating tablet 4 mg PO TIDPRN PRN nausea/vomiting 12/28/23
pantoprazole 40 mg tablet,delayed release 40 mg PO DAILY #30 tabs 01/02/24
polyethylene glycol 3350 17 gram oral powder packet (HealthyLax) 17 g PO DAILYPRN PRN constipation #100 ea 01/02/24
ibuprofen 600 mg tablet 600 mg PO Q6HPRN PRN mild pain 03/06/24
methocarbamol 750 mg tablet 750 mg PO TIDPRN PRN muscle spasms 03/06/24
oxycodone-acetaminophen 10 mg-325 mg tablet 1 tab PO BID Pain 03/06/24
prochlorperazine maleate 10 mg tablet 10 mg PO Q6HPRN PRN nausea/vomiting 03/06/24
Assessment/Plan:
-Intractable abdominal pain with nausea and vomiting:
CT scan conducted shows no ileus or small bowel obstruction, peritonitis, colitis, or other acute intra-abdominal processes.
Labs unremarkable
Patient nontoxic-appearing and appears well-nourished
History of gastroparesis and opioid dependent
Admitted to med/surg for observation
Clear liquid diet for the time being -patient does not appear to be suffering from obstipation based on imaging and presentation
IV antiemetics and pain medication
Haldol was given in the ED�Haldol may help improve nausea
Consider GI consult
[address]io
-Uncontrolled hypertension:
Patient was hypertensive in the emergency department
Raised blood pressures may be due to pain
IV hydralazine as needed
Continue Coreg
Consider possibly adding nifedipine or amlodipine
-Chronic pain and opioid dependence:
IV Dilaudid as needed for now
Resumed home dose of morphine 30mg PO TID
COWs score of 5. Mild opiate withdrawal
Dr coleman pain management
Patient has been on this current regimen for at least 3 years... Narcotic bowel?
-Ulcer prophylaxis: Protonix IV 40 mg
-DVT prophylaxis: Lovenox subcu
-Full CODE STATUS
Anticipated Discharge: 24 - 48 hours
Subjective/Interval History
-
Date of Service: June 09, 2024
Patient complains of abdominal pain sharp and stabbing in nature. Predominantly on the mid abdomen and right side of the abdomen
Objective Data
-
Labs:
Laboratory Results
06/08/24 06/08/24 06/09/24
21:33 22:40 05:59
WBC 15.3 H 13.3 H
Hgb 14.8 13.6
Hct 43.1 40.4
Plt Count 321 297
PT 14.3
INR 1.13
APTT 25.1
Sodium 137 137
Potassium 3.9 3.6
Chloride 101 102
Carbon Dioxide 20 L 20 L
BUN 12 12
Creatinine 0.5 L 0.5 L
Glucose 150 H 146 H
Calcium 10.2 9.7
Total Bilirubin 0.9
AST 26
ALT 21
Alkaline Phosphatase 94
Vital Signs:
Vital Signs
Temp Pulse Resp BP Pulse Ox
98.3 F 85 16 185/90 98
06/09/24 02:02 06/09/24 06:41 06/09/24 02:30 06/09/24 06:41 06/09/24 03:43
I&O
06/08/24 06/09/24 06/10/24
06:59 06:59 06:59
Intake Total 240 / 240
Balance 240 / 240
[2024-06-09 07:44] VITALS: BP 170/90
[2024-06-09] MEDS: COREG 12.5 MG PO ×2 (08:20→20:30)
[2024-06-09] MEDS: NEURONTIN 600 MG PO ×2 (08:20→20:30)
[2024-06-09] MEDS: PROTONIX IV 40 MG IV (08:21)
[2024-06-09] MEDS: NSS (PRESERVATIVE FREE) 10 ML IV (08:21)
[2024-06-09 11:00] VITALS: BP 160/87
--- NOTE | 2024-06-09 11:28 | CM ---
Reviewed the chart notes and spoke with the patient at the bedside. The patient is being admitted under observational status. The DAS letter was provided and explained. The patient had no questions with regards to the letter.
The patient resides with her spouse and three children in a two story home with three steps to enter. The patient uses crutches with ambulation. The patient has had [facility] in the past, but no SNF. The patient confirmed her pharmacy of choice
is the [facility]. continues to be available to patient/family and is monitoring medical plan for needs at discharge.
Plan: Discharge to home when medically stable. No needs anticipated.
[2024-06-09 15:08] VITALS: BP 157/88
[2024-06-09 15:08] LABS: Urine Albumin Trace (Neg - Trace); Urine Bilirubin Negative (Negative); Urine Character Clear (Clear); Urine Color Yellow; Urine Glucose Negative (Negative); Urine Ketone 1+ (Negative); Urine Leukocyte Negative (Negative); Urine Nitrite Negative (Negative); Urine Occult Blood 2+ (Negative); Urine Specific Gravity 1.015 (<1.030); Urine Urobilinogen Negative (Neg - 1+); Urine pH 6.5 (5.0-9.0)
[2024-06-09 15:22] LABS: Urine Mucus Many
[2024-06-09 15:23] LABS: Urine Amorphous Seen; Urine Squamous Cell 21-25 /LPF (Few)
[2024-06-09 15:24] LABS: Urine Bacteria Few (Negative); Urine Red Blood Cell 16-20 /HPF (0-2); Urine White Cell 0-2 /HPF (0-5)
[2024-06-09] MEDS: LOVENOX 40 MG SC (17:19)
[2024-06-09] MEDS: MORPHINE SULFATE 30 MG PO (20:29)
[2024-06-09 23:27] VITALS: BP 112/70
[2024-06-10] MEDS: DILAUDID 1 MG IV ×4 (03:15→21:04)
[2024-06-10] MEDS: MORPHINE SULFATE 30 MG PO ×3 (06:22→23:28)
[2024-06-10] MEDS: SYNTHROID 200 MCG PO (06:23)
[2024-06-10 06:43] LABS: Hematocrit 36.6 % (37.0-47.0); Hemoglobin 12.3 g/dL (12.0-16.0); Mean Corp Hgb Conc. 33.6 g/dL (33.0-37.0); Mean Corpuscular Hgb 26.3 pg (27.0-31.0); Mean Corpuscular Volume 78.2 fL (81.0-99.0); Mean Platelet Volume 9.2 fL (7.4-10.4); Platelet Count 239 10^3/uL (130-400); Red Blood Cell Count 4.68 10^6/uL (4.20-5.40); Red Cell Dist. Width 15.6 % (11.5-14.5); White Blood Cell Count 7.4 10^3/uL (4.8-10.8)
--- NOTE | 2024-06-10 06:54 | CON.GI ---
Addendum entered and electronically signed by Jackie Walker MD 06/10/24 14:33:
I saw and examined the patient.
The FIRE CONTROLMAN's note was reviewed and I agree with the note.
Comment: This is a 44-year-old female with past medical history as listed below who does have chronic abdominal pain and history of partial small bowel obstruction and on chronic opiates and has had a few admissions here for recurrent abdominal
pain/n/v. She had a recent visit to the emergency room and on CT was shown to be constipated so was told to use magnesium citrate and she says that she went home and took it and had multiple bowel movements but symptoms persisted so she presented
back to the emergency room obstruction series was negative for bowel obstruction. She complains of right-sided abdominal pain more in the lower right quadrant with nausea vomiting. she is scheduled follow up in November for [facility]/Vascular specialist at
[place] for nutcracker syndrome (s/p left renal vein transposition in July 31) and further intervention. She has a history of ventral hernia repair at [facility] 02/24/24. She was admitted here at in February for a small bowel obstruction post hernia
repair had NGT placed and was transferred to [facility] and the PSBO resolved without surgery.
Assessment and plan chronic intermittent episodes of nausea vomiting abdominal pain most likely related to ileus and possible gastroparesis from chronic opiate use and also pain may be exacerbated by adhesions from prior surgeries but currently has
no signs of partial small bowel obstruction she does have a history of this after her hernia repair in February which resolved with conservative treatment and NG tube placement. Continue supportive care with IV fluids, antiemetics and pain control, try
to minimize the use of narcotics as much as possible. She does have constipation will increase MiraLAX to twice daily continue senna may need to consider Linzess for OIC versus Amitiza or Relistor. She does have an appointment at [facility] in November
with JIRA DEVELOPER/vascular surgery for nutcracker syndrome had prior surgery and has pelvic congestion syndrome. I also told her to make an appointment with motility clinic at [facility].
Original Note:
Consultation
-
Date/Time Consultation Requested: 06/09/24 1700
Date/Time Consultation Performed: 06/10/24 0700
Requesting Provider: lynda Schneider MD
Performing Provider: SHIRLENE Gamez, Jackie Walker MD
Reason for Consultation: abdominal pain
Medical History
Chief Complaint / HPI
Chief Complaint: N/V/D, LLQ pain
History of Present Illness:
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
pain with chronic narcotic use, colitis, diverticulitis, scad on colonoscopy however was diagnosed with renal vein nutcracker compression after that finding. She has been admitted to several time for recurrent pain. She was admitted at the
end of February after she completed ventral hernia repair at [facility] and concern for SBO. She was transferred to [facility] for continued care and non surgical management. . In the past she has been seen by J[facility] DEVELOPER and vascular surgery for consideration
of transposition of ovarian vein vs nephrectomy. She also saw OP JIRA DEVELOPER and completed uterine bx and plan for colposcopy. She is scheduled follow up in November for specialist at [facility] for review of nutcracker syndrome and further intervention as was
trying to avoid nephrectomy. She now presents with lower abdominal pain with nausea and vomiting mild amounts mostly bile that has now improved. Initially pain was left sided now more right sided and 8/10 with constant discomfort. she completed
CT on 06/08 with IV and oral contrast with not acute pathology but moderate stool in colon and prominent pelvic vascularity. follow up obstruction series without acute pathology. Labs notable for leukocytosis which has improved and persistent
elevated glucose .
She otherwise denies dysphagia, GERD, or bleeding. She admits bowel habit are stools every 2-3 days with some form other small balls of stools. She takes senna 3 tabs at night. HX EGD [address] Alston with mild antral gastritis, bilious
gastric fluid, normal duodenum, coloscopy [address] Jose SCAD thickening with diverticular disease, hemorrhoids multiple small polyps in rectum and sigmoid, diverticulosis, congested and erythema in recto sigmoid, and distal sigmoid,
polyps(hyperplastic) and glandularity. random bx with nodular lymphoid aggregate no significant pathology.
Past Medical History
Past Medical History: GERD, Hypothyroidism and Other (Left renal vein nutcracker syndrome, ovarian cyst, renal pain syndrome, diverticulosis, scad, lung nodule, hidradenitis)
Past Surgical History: Cholecystectomy, , Gynecological (The ligation), Orthopedic (Ankle surgery) and Other (Spinal cord stimulator, renal vein transposition)
Social History
Tobacco: Smoker
Alcohol: None
Drug: Marijuana (in past no current use )
Personal:
Living: With Family
Employment: Disabled
Family History
Family History: Other (aunt colon cancer, mother with polyps)
Allergies / Home Medications
Allergy/AdvReac Type Severity Reaction Status Date / Time
metoclopramide [From Reglan] AdvReac 'I got Verified 06/08/24 03:43
real
anxious,
jumping
out of my
skin'
�Medication �Instructions �Recorded
gabapentin 600 mg tablet 600 mg PO BID Pain 09/12/21
hydromorphone 4 mg tablet 4 mg PO Q6HPRN PRN BREAKTHROUGH 07/30/22
(Dilaudid) PAIN
morphine 30 mg tablet,extended 30 mg PO TID Pain 05/25/23
release
albuterol sulfate 90 mcg/actuation 2 puff inhalation R Q6HPRN PRN 07/24/23
aerosol inhaler wheezing
levothyroxine 200 mcg tablet 200 mcg PO DAILY@06 Thyroid 07/24/23
sennosides 8.6 mg tablet (Senokot) 25.8 mg PO DAILYPRN PRN 07/24/23
constipation
carvedilol 12.5 mg tablet 12.5 mg PO BID Heart Failure 12/28/23
ondansetron 4 mg disintegrating 4 mg PO TIDPRN PRN nausea/vomiting 12/28/23
tablet
pantoprazole 40 mg tablet,delayed 40 mg PO DAILY #30 tabs 01/02/24
release
polyethylene glycol 3350 17 gram 17 g PO DAILYPRN PRN constipation 01/02/24
oral powder packet (HealthyLax) #100 ea
ibuprofen 600 mg tablet 600 mg PO Q6HPRN PRN mild pain 03/06/24
prochlorperazine maleate 10 mg 10 mg PO Q6HPRN PRN nausea/vomiting 03/06/24
tablet
Review of Systems
-
History Source: Patient
Constitutional: Reports Chills
EENT: Reports No Symptoms
Respiratory: Reports No Symptoms
Cardiac: Reports No Symptoms
Abdomen/GI: Reports Abdominal Pain, Nausea, Vomiting and Constipated
: Reports No Symptoms
Musculoskeletal: Reports Other (chronic pain with chronic narcotic use )
Skin: Reports No Symptoms
Neurological: Reports No Symptoms
Endocrine: Reports No Symptoms
Hematologic/Lymphatic: Reports No Symptoms
Vital Signs
Temp Pulse Resp BP Pulse Ox
98.2 F 68 19 112/70 96
06/09/24 23:27 06/09/24 23:27 06/09/24 23:27 06/09/24 23:27 06/10/24 00:59
Physical Exam
Exam
General: Well Developed, Well Nourished and No Apparent Distress
HEENT: Normocephalic and Anicteric
Respiratory: Clear
Cardiac: Regular Rhythm
GI: Soft, Non Distended and Tender (RLQ no rebound or guarding )
Musculoskeletal: No Clubbing and No Cyanosis
Skin: Warm and Dry
Neuro: Awake, Alert and AO x 3
Psych: Calm
Results
WBC 7.4 10^3/uL (4.8-10.8) 06/10/24 06:14
Hgb 12.3 g/dL (12.0-16.0) 06/10/24 06:14
Hct 36.6 % (37.0-47.0) L 06/10/24 06:14
MCV 78.2 fL (81.0-99.0) L 06/10/24 06:14
Plt Count 239 10^3/uL (130-400) 06/10/24 06:14
Absolute Neuts (auto) 13.5 10^3/uL (1.4-6.5) H 06/08/24 21:33
PT 14.3 Sec (11.4-14.6) 06/08/24 22:40
INR 1.13 06/08/24 22:40
APTT 25.1 Sec (23.4-35.0) 06/08/24 22:40
Sodium 137 mmol/L (135-145) 06/09/24 05:59
Potassium 3.6 mmol/L (3.5-5.1) 06/09/24 05:59
Chloride 102 mmol/L (98-107) 06/09/24 05:59
Carbon Dioxide 20 mmol/L (22-30) L 06/09/24 05:59
BUN 12 mg/dl (7-17) 06/09/24 05:59
Creatinine 0.5 mg/dL (0.6-1.0) L 06/09/24 05:59
Calcium 9.7 mg/dl (8.4-10.2) 06/09/24 05:59
Total Bilirubin 0.9 mg/dl (0.2-1.3) 06/08/24 21:33
AST 26 U/L (14-36) 06/08/24 21:33
ALT 21 U/L (0-35) 06/08/24 21:33
Alkaline Phosphatase 94 U/L (38-126) 06/08/24 21:33
Lipase 38 U/L (23-300) 06/08/24 21:33
Diagnostic Image Results:
06/08/24 obstruction series
No active cardiopulmonary disease.
No evidence of acute abdominal pathology.
06/08/24 CT A/p with IV and oral contrast:
IMPRESSION: No acute pathology of the abdomen or pelvis identified.
Moderate fecal material throughout the colon. Stable
Prior cholecystectomy. Stable
Prominent pelvic vascularity which can be seen with pelvic congestion syndrome. Stable
03/06/24 CT Abd/Pel (IV only)- only
IMPRESSION: Interval surgery with ventral hernia repair. Drains are present within the anterior subcutaneous soft tissues of the anterior abdominal wall. Small amount of air within the anterior subcutaneous soft tissues with no evidence for
collection/abscess.
Thin fluid collection along the posterior margin of the rectus muscles in the anterior abdominal wall, which is likely a postsurgical seroma
CT findings compatible with small bowel obstruction. Transition in the left anterior paramedian abdomen, adjacent to the site of surgery, with obstruction likely on the basis of an adhesion.
Small to moderate amount of free fluid within the pelvic cul-de-sac. No evidence of free intraperitoneal air.
Splenic size is in the upper range of normal, maximum dimension of 12.9 cm.
Prior GI Procedures:
EGD: [facility] 2021 with normal esophagus, mild antral gastritis, bilious gastric fluid, normal duodenum. bx chronic inactive gastritis, neg H pylori, neg celiac, neg EOE or dysplasia.
Colonoscopy: 01/2022 [facility]- SCAD thickening with diverticular disease, hemorrhoids multiple small polyps in rectum and sigmoid, diverticulosis, congested and erythema in recto sigmoid, and distal sigmoid, polyps(hyperplastic) and glandularity.
random bx with nodular lymphoid aggregate no significant pathology.
Assessment / Plan
-
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
pain with chronic narcotic use, colitis, diverticulitis, scad on colonoscopy however was diagnosed with renal vein nutcracker compression after that finding. She has been admitted to several time for recurrent pain. She was admitted at the
end of February after she completed ventral hernia repair at [facility] and concern for SBO. She was transferred to [facility] for continued care and non surgical management. . In the past she has been seen by [facility] DEVELOPER and vascular surgery for consideration
of transposition of ovarian vein vs nephrectomy. She also saw OP JIRA DEVELOPER and completed uterine bx and plan for colposcopy. She is scheduled follow up in November for specialist at [facility] for review of nutcracker syndrome and further intervention as was
trying to avoid nephrectomy. She now presents with lower abdominal pain with nausea and vomiting mild amounts mostly bile that has now improved. Initially pain was left sided now more right sided and 8/10 with constant discomfort and also admits
to some chronic constipation. She completed CT on 06/08 with IV and oral contrast with not acute pathology but moderate stool in colon and prominent pelvic vascularity. follow up obstruction series without acute pathology. Labs notable for
leukocytosis which has improved and persistent elevated glucose .
-abdominal pain with nausea/vomiting
-hx left renal vein nutcracker compression with prior left renal vein transposition with occlusion- pelvic congestion noted on imaging
-narcotic induced constipation
-hernia repair at [facility] in February with SBO after repair treated with medical management
-hx SCAD on prior colonoscopy
-abnormal uterince bx due for colposcopy
-persistent elevated glucose
other medical problems:
-regional pain symptoms with prior ankle injury- chronic narcotics and stimulator in place
-tobacco abuse
-GERD
-ovarian cyst
-julio cesar
-hx prior Marijuana use
-family hx colon CA
-hypothyroidism
PLAN:
etiology of LLQ related to constipation with chronic narcotic use, nutcracker compression with continued occlusion, component of gastroparesis with persistent elevated glucose vs adhesive disease though no obstructive process on imaging, vs other
from GI standpoint vomiting improved since last PM
advance diet to clears if tolerating ADA diet
would treat constipation with senna 3 tabs at HS as she has been doing at home and add miralax daily-- if not working increased miralax to BID
pain control but discussed cutting back OP meds as this is leading to increased constipation
advised follow up with OP [facility] DEVELOPER and [facility] -- discussed with prolonged wait at [facility] would collect all records needed for follow up prior to visit
cont antiemetic
pt with persistent elevated glucose-- add hbg A1C to eval for underlying DM and gastroparesis may also be playing a role
-
-
-
Thank you for consultation and allowing me to participate in the patient's care. Please call the expenditure requisition clerk GI physician during the after hours with any questions or concerns.
[2024-06-10 07:01] VITALS: BP 129/81
[2024-06-10 07:22] LABS: ALT (SGPT) 16 U/L (0-35); AST (SGOT) 18 U/L (14-36); Albumin 3.7 g/dl (3.5-5.0); Alkaline Phosphatase 56 U/L (38-126); Blood Urea Nitrogen 14 mg/dl (7-17); Carbon Dioxide 24 mmol/L (22-30); Chloride 103 mmol/L (98-107); Direct Bilirubin 0.1 mg/dl (0.0-0.4); Estimated Creatinine Clearance 115 ml/min; Glucose 107 mg/dl (70-99); Potassium 3.5 mmol/L (3.5-5.1); Sodium 140 mmol/L (135-145); Total Bilirubin 0.7 mg/dl (0.2-1.3); Total Protein 6.4 g/dl (6.3-8.2); eGFR > 60.00
[2024-06-10 07:40] LABS: TSH 2.83 uIU/ml (0.47-4.68)
--- NOTE | 2024-06-10 07:53 | W.PN.HOSP.TC ---
Addendum entered and electronically signed by Peng Randle MD 06/10/24 22:45:
Attending Addendum-
I saw and evaluated the patient. I reviewed the resident�s note and agree with findings and plan as documented in the resident�s note. Sub: continues to have abd pain but mildly improved, mild nausea no vomiting. pos BM Full 12 point ROS reviewed
and negative except as documented Exam: Vitals reviewed in chart GEN-NAD heart RRR lungs clear abd soft mildly distended mildly TTP Ext no edema
PLAN:
# Abdominal pain-
- possible from gastroparesis, narcotic bowel, constipation
- cont aggressive bowel regimen
- cont clear liquid diet advance as tolerated
- antimetics and pain control iv
- iv fluids for now
- allergy to reglan, haldol given in ED
- t/c relistor amitiza
- GI input appreciated
# HTN
- controlled, CTM
- IV hydralazine prn
- continue coreg
# Chronic pain/CRPS and opioid dependence -
- cont home regimen morphine
- cont IV dilaudid prn for now
- COWS
- reviewed PDMP
# Leukocytosis
- resolved
- repeat CBC in am
# Spinal surgery
- has spinal stim
# Peripheral Neuropathy
- cont gabapentin
# Hypothyroidism
- cont levothyroxine
- check TSH
DVT PPX - lovenox sq
Code Status - Full Code
Dispo DC home in am
Time spent coordinating care, review of plan of care with resident, personally reviewed records in EMR, med rec, consults, notes, labs, radiology, d/w nursing� 52 mins
Original Note:
Today's Communication/Plan
-
Senna should be continued and MiraLax qd was added to the medication regimen. If Miralax is not sufficient then increase to BID. HbA1c drawn to assess for underlying diabetes. We will advance her diet as tolerated.
Assessment / Plan
Assessment / Plan
HPI: Patient is a 44-year-old female who presented to [facility] emergency department with a generalized abdominal pain, nausea and vomiting on 06/08/2024. She was having trouble passing gas and the symptoms started the day before her
presentation. She was concerned that she may have been suffering from another small bowel obstruction. She was in her normal state of health up until the day before she presented to the emergency department when she suddenly developed bilateral
lower quadrant abdominal pain. This was associated with nausea and bilious emesis. She had no fevers at home but reported low-grade temps on arrival to the emergency department. She has a history of ventral hernia repair at [facility]. She has
been admitted here at [facility] few months ago for a small bowel obstruction. After her admission she was transferred to [facility] where an NG tube was continued and her symptoms self resolved. Patient states she returned back to this
hospital because it is closer and she was uncomfortable at [facility]. She also made mention that she did not stay at [facility] because 'the surgeon has signed off.' She was initially evaluated by provider downstairs in the emergency department who
believed that she was constipated based on presentation and abdominal CT scan conducted. There was no evidence of small bowel obstruction and supportive counseling was given along with magnesium citrate and instructions on how to avoid further
exacerbating her symptoms. She was then discharged. She then returned a few hours later to the emergency department stating that she had several bowel movements throughout the day and did not feel constipated any longer. She reported that the
abdominal pain no longer felt like a small bowel obstruction and that it felt different. The patient was subsequently admitted to [facility] for gastroparesis, nausea and vomiting.
Past medical history:
GERD
Hypertension
Hypothyroidism
RSD
Nutcracker syndrome
Lung nodule
Hiradenitis
Colitis
Diverticulitis
Chronic pain syndrome due to RSD
Gastroenteritis
C. difficile
Past surgical history:
Cholecystectomy
Gynecological surgery on one of her fallopian tube
Right ankle surgery
Renal vein transposition
Spinal stimulator
Hernia repair
Allergies
Allergy/AdvReac Type Severity Reaction Status Date / Time
metoclopramide [From Reglan] AdvReac 'I got Verified 06/08/24 03:43
real
anxious,
jumping
out of my
skin'
Home Medications
gabapentin 600 mg tablet 600 mg PO BID Pain 09/12/21
hydromorphone 4 mg tablet (Dilaudid) 4 mg PO Q6HPRN PRN BREAKTHROUGH PAIN 07/30/22
morphine 30 mg tablet,extended release 30 mg PO TID Pain 05/25/23
albuterol sulfate 90 mcg/actuation aerosol inhaler 2 puff inhalation R Q6HPRN PRN wheezing 07/24/23
levothyroxine 200 mcg tablet 200 mcg PO DAILY@06 Thyroid 07/24/23
sennosides 8.6 mg tablet (Senokot) 25.8 mg PO DAILYPRN PRN constipation 07/24/23
carvedilol 12.5 mg tablet 12.5 mg PO BID Heart Failure 12/28/23
ondansetron 4 mg disintegrating tablet 4 mg PO TIDPRN PRN nausea/vomiting 12/28/23
pantoprazole 40 mg tablet,delayed release 40 mg PO DAILY #30 tabs 01/02/24
polyethylene glycol 3350 17 gram oral powder packet (HealthyLax) 17 g PO DAILYPRN PRN constipation #100 ea 01/02/24
ibuprofen 600 mg tablet 600 mg PO Q6HPRN PRN mild pain 03/06/24
methocarbamol 750 mg tablet 750 mg PO TIDPRN PRN muscle spasms 03/06/24
oxycodone-acetaminophen 10 mg-325 mg tablet 1 tab PO BID Pain 03/06/24
prochlorperazine maleate 10 mg tablet 10 mg PO Q6HPRN PRN nausea/vomiting 03/06/24
Assessment/Plan:
-Intractable abdominal pain with nausea and vomiting:
CT scan conducted shows no ileus or small bowel obstruction, peritonitis, colitis, or other acute intra-abdominal processes.
Patient nontoxic-appearing and appears well-nourished
History of gastroparesis and opioid dependent -possible narcotic bowel or constipation
Admitted to med/surg for observation
IV antiemetics and pain medication
Haldol was given in the ED�Haldol may help improve nausea
GI consulted - They have increased her Senna and added Miralax to her medication regimen. They also have drawn an HBa1c to assess for underlying diabetes as the patient has had elevated glucose throughout this admission.
Advance diet as tolerated.
-Uncontrolled hypertension: Monitoring
Patient was hypertensive in the emergency department
Raised blood pressures may be due to pain
IV hydralazine as needed
Continue Coreg
Consider possibly adding nifedipine or amlodipine
-Chronic pain and opioid dependence: Monitoring
IV Dilaudid as needed for now
Resumed home dose of morphine 30mg PO TID
COWs score of 5. Mild opiate withdrawal
Dr coleman pain management
-Leukocytosis: Resolved
Possibly due to physical stress
Was 15.3 on 06/08/2024 and has been trending downwards. On 06/10/2024 white blood cells at 7.4 which is within normal limits.
Will continue to trend
-Hx of Spinal Surgery:
Has spinal stimulator
-Hypothyroidism:
Continue home levothyroxine
TSH 2.83 on 06/10/2024 -within normal limit
-Ulcer prophylaxis: Protonix IV 40 mg
-DVT prophylaxis: Lovenox subcu
-Full CODE STATUS
Anticipated Discharge: 24 - 48 hours
Subjective/Interval History
-
Date of Service: June 10, 2024
Met with patient at the bedside. She is doing better than she did yesterday but unfortunately continues to complain of ongoing abdominal pain in mid abdominal region and right side of her abdomen. She states that the abdominal pain is marginally
improved. She had a recent episode of nausea and vomiting today.
Objective Data
-
Labs:
Laboratory Results
06/10/24
06:14
WBC 7.4
Hgb 12.3
Hct 36.6 L
Plt Count 239
Sodium 140
Potassium 3.5
Chloride 103
Carbon Dioxide 24
BUN 14
Creatinine 0.7
Glucose 107 H
Calcium 9.0
Total Bilirubin 0.7
AST 18
ALT 16
Alkaline Phosphatase 56
Vital Signs:
Vital Signs
Temp Pulse Resp BP Pulse Ox
98.1 F 79 16 129/81 97
06/10/24 07:01 06/10/24 07:01 06/10/24 07:01 06/10/24 07:01 06/10/24 07:01
I&O
06/09/24 06/10/24 06/11/24
06:59 06:59 06:59
Intake Total 240 / 240 2765 / 2765
Output Total 400 / 400
Balance 240 / 240 2365 / 2365
Review of Systems
-
History Source: Patient
Constitutional: Reports No Symptoms
EENT: Reports No Symptoms Reported
Respiratory: Reports No Symptoms
Cardiac: Reports No Symptoms
Abdomen/GI: Reports Abdominal Pain
Breast: Reports No Symptoms
Genitourinary: Reports No Symptoms
Musculoskeletal: Reports No Symptoms
Skin: Reports No Symptoms
Neuro: Reports No Symptoms
Endocrine: Reports No Symptoms
Hematologic / Lymphatic: Reports No Symptoms
Physical Exam
-
General: Well Developed and Well Nourished
HEENT: Normocephalic, Atraumatic and Moist Mucous Membranes
Respiratory: Clear to Auscultation
Cardiac: Regular Rhythm
Breast: Deferred by me
Rectal: Brown
Genito-urinary: Deferred by me
Musculoskeletal: No Clubbing, No Cyanosis and No Edema
Skin: Warm and Dry
Neuro: Awake, Alert, Oriented and AO x 3
[2024-06-10] MEDS: SENOKOT-S 1 TABLET PO (08:12)
[2024-06-10] MEDS: NEURONTIN 600 MG PO ×2 (08:12→20:59)
[2024-06-10] MEDS: NSS (PRESERVATIVE FREE) 10 ML IV (08:12)
[2024-06-10] MEDS: MIRALAX 17 GRAMS PO ×2 (08:12→21:00)
[2024-06-10] MEDS: PROTONIX IV 40 MG IV (08:13)
[2024-06-10] MEDS: COREG 12.5 MG PO ×2 (08:14→21:00)
[2024-06-10] MEDS: D5LR 1000 IV (08:41)
[2024-06-10 09:25] LABS: Glycohemoglobin (HgbA1c) 5.3 % (4.0-5.6)
[2024-06-10] MEDS: ZOFRAN IV (12:56)
[2024-06-10] MEDS: DILAUDID IV (12:56)
--- NOTE | 2024-06-10 13:23 | CM ---
Reviewed the chart notes. Patient's diet advanced to regular today. CM continues to be available to patient/family and is monitoring medical plan for needs at discharge.
Plan: Discharge to home when medically stable. No anticipated needs identified at this time.
--- NOTE | 2024-06-10 14:47 | VATNOTE ---
VAT RNs x2 unsuccessful at placing new PIV. Primary RN to discuss with patient and attending MD about need for IV access. Plan to place midline if needed.
[2024-06-10 15:03] VITALS: BP 147/88
[2024-06-10] MEDS: ZOFRAN 4 MG IV (16:32)
[2024-06-10] MEDS: LOVENOX 40 MG SC (17:29)
[2024-06-10] MEDS: SENOKOT 25.8 MG PO (21:10)
[2024-06-10 22:47] VITALS: BP 115/69
[2024-06-11] MEDS: DILAUDID 1 MG IV ×5 (01:24→21:36)
[2024-06-11 05:26] LABS: Hematocrit 35.1 % (37.0-47.0); Hemoglobin 11.7 g/dL (12.0-16.0); Mean Corp Hgb Conc. 33.3 g/dL (33.0-37.0); Mean Corpuscular Hgb 26.2 pg (27.0-31.0); Mean Corpuscular Volume 78.7 fL (81.0-99.0); Mean Platelet Volume 9.1 fL (7.4-10.4); Platelet Count 217 10^3/uL (130-400); Red Blood Cell Count 4.46 10^6/uL (4.20-5.40); Red Cell Dist. Width 15.2 % (11.5-14.5); White Blood Cell Count 8.3 10^3/uL (4.8-10.8)
[2024-06-11 05:50] LABS: ALT (SGPT) 14 U/L (0-35); AST (SGOT) 16 U/L (14-36); Albumin 3.5 g/dl (3.5-5.0); Alkaline Phosphatase 50 U/L (38-126); Blood Urea Nitrogen 17 mg/dl (7-17); Calcium 8.9 mg/dl (8.4-10.2); Carbon Dioxide 26 mmol/L (22-30); Chloride 103 mmol/L (98-107); Estimated Creatinine Clearance 101 ml/min; Glucose 90 mg/dl (70-99); Potassium 3.9 mmol/L (3.5-5.1); Sodium 138 mmol/L (135-145); Total Bilirubin 0.6 mg/dl (0.2-1.3); Total Protein 6.1 g/dl (6.3-8.2); eGFR > 60.00
[2024-06-11] MEDS: ZOFRAN 4 MG IV ×2 (06:00→21:36)
[2024-06-11] MEDS: SYNTHROID PO (06:18)
--- NOTE | 2024-06-11 07:28 | W.PN.HOSP.TC ---
Addendum entered and electronically signed by Peng Randle MD 06/11/24 23:49:
Attending Addendum-
I saw and evaluated the patient. I reviewed the resident�s note and agree with findings and plan as documented in the resident�s note. Sub: continues to have abd pain, moving bowels, vomited post reglan. Full 12 point ROS reviewed and negative
except as documented Exam: Vitals reviewed in chart GEN-NAD heart RRR lungs clear abd obese soft mildly distended mildly TTP Ext no edema
PLAN:
# Abdominal pain-
- possible from gastroparesis, narcotic bowel, constipation
- cont aggressive bowel regimen
- clear liquid diet advance as tolerated to GP diet
- antimetics and pain control iv
- cont reglan not tue allergy
- t/c relistor amitiza
- GI input appreciated
# HTN
- controlled, CTM
- IV hydralazine prn
- continue coreg
# Chronic pain/CRPS and opioid dependence -
- cont home regimen morphine (changed to ER per home regime)
- cont IV dilaudid prn for now
- COWS
- reviewed PDMP
# Leukocytosis
- resolved
- repeat CBC in am
# Spinal surgery
- has spinal stim
# Peripheral Neuropathy
- cont gabapentin
# Hypothyroidism
- cont levothyroxine
DVT PPX - lovenox sq
Code Status - Full Code
Dispo DC home in am if migdalia diet
Time spent coordinating care, review of plan of care with resident, personally reviewed records in EMR, med rec, consults, notes, labs, radiology, d/w nursing and MOM� 53 mins
Original Note:
Today's Communication/Plan
-
Patient's diet has been advanced to low residue small meals and trialed on a short course of oral Reglan. Unfortunately, shortly after taking her Reglan in the afternoon she became nauseous and vomited up her food. We will continue to monitor and
support the patient until her acute GI symptoms improve.
Assessment / Plan
Assessment / Plan
Assessment/Plan:
-Intractable abdominal pain with nausea and vomiting:
CT scan conducted shows no ileus or small bowel obstruction, peritonitis, colitis, or other acute intra-abdominal processes.
Patient nontoxic-appearing and appears well-nourished
History of gastroparesis and opioid dependent -possible narcotic bowel or constipation
Admitted to med/surg for observation
IV antiemetics and pain medication
Haldol was given in the ED�Haldol may help improve nausea
GI consulted -they recommended intermittent Reglan use because of this patient's cyclical vomiting is not constant and intermittent Reglan would be a better treatment plan. They also recommend that the patient continue with twice daily MiraLAX and
regular senna use. If the patient's stools get too soft or mushy she may cut back on the MiraLAX. Her diet has been advanced to a low residue diet with small meals. Gastroenterology recommends that she be placed on a gastroparesis diet and not a
regular diet.
There has been a discussion about cutting down on the patient's outpatient pain medications as it is leading to increased constipation.
Diet advanced to low residue small meals
Patient vomited shortly after taking Reglan for lunch�we will continue to monitor the patient and give support until her GI symptoms resolved.
Oral morphine immediate release was given to the patient instead of her usual extended release. She has been returned to her extended release version of morphine 30 mg p.o. 3 times daily.
Continue IV fluid support
-Uncontrolled hypertension: Monitoring
Patient was hypertensive in the emergency department
Raised blood pressures may be due to pain
IV hydralazine as needed
Continue Coreg
Consider possibly adding nifedipine or amlodipine
-Chronic pain and opioid dependence: Monitoring
IV Dilaudid as needed for now
Resumed home dose of morphine 30mg PO TID
COWs score of 5. Mild opiate withdrawal
Dr coleman pain management
Reviewed PDMP
-Leukocytosis: Resolved
Possibly due to physical stress
Was 15.3 on 06/08/2024 and has been trending downwards. On 06/11/2024 white blood cells at 8.3 which is within normal limits.
Will continue to monitor
-Hx of Spinal Surgery:
Has spinal stimulator
-Hypothyroidism:
Continue home levothyroxine
TSH 2.83 on 06/10/2024 -within normal limit
-Ulcer prophylaxis: Protonix IV 40 mg
-DVT prophylaxis: Lovenox subcu
-Full CODE STATUS
Anticipated Discharge: 24 - 48 hours
Subjective/Interval History
-
Date of Service: June 11, 2024
Met with patient at the bedside. She was seen sitting in bed doing a crossword. She states that her abdominal pain and nausea is the same as yesterday and that her pain is a 7 out of 10. She was able to tolerate her breakfast but unfortunately
was unable to tolerate her lunch after taking Reglan.
Objective Data
-
Labs:
Laboratory Results
06/11/24 06/11/24
04:57 04:58
WBC 8.3
Hgb 11.7 L
Hct 35.1 L
Plt Count 217
Sodium 138
Potassium 3.9
Chloride 103
Carbon Dioxide 26
BUN 17
Creatinine 0.8
Glucose 90
Calcium 8.9
Total Bilirubin 0.6
AST 16
ALT 14
Alkaline Phosphatase 50
Vital Signs:
Vital Signs
Temp Pulse Resp BP Pulse Ox
98.8 F 70 16 115/69 98
06/10/24 22:47 06/10/24 22:47 06/10/24 22:47 06/10/24 22:47 06/11/24 03:24
I&O
06/10/24 06/11/24 06/12/24
06:59 06:59 06:59
Intake Total 2765 / 2765 1800 / 1800
Output Total 400 / 400
Balance 2364 / 2364 1799 / 1799
[2024-06-11 08:32] VITALS: BP 136/75
[2024-06-11] MEDS: MORPHINE SULFATE 30 MG PO (08:33)
[2024-06-11] MEDS: NEURONTIN 600 MG PO ×2 (08:33→20:47)
[2024-06-11] MEDS: PROTONIX IV 40 MG IV (08:33)
[2024-06-11] MEDS: NSS (PRESERVATIVE FREE) 10 ML IV (08:33)
[2024-06-11] MEDS: MIRALAX 17 GRAMS PO ×2 (08:34→20:46)
[2024-06-11] MEDS: COREG 12.5 MG PO ×2 (08:34→20:47)
--- NOTE | 2024-06-11 08:42 | W.PN.GI.CBS2 ---
Today's Communication / Plan
-
-- Short course of oral Reglan
-- Changed diet to low residue small meals. Needs to be on a gastroparesis diet not a regular diet
Assessment / Plan
-
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
pain with chronic narcotic use, colitis, diverticulitis, scad on colonoscopy however was diagnosed with renal vein nutcracker compression after that finding. She has been admitted to several time for recurrent pain. She was admitted at the
end of February after she completed ventral hernia repair at [place] and concern for SBO. She was transferred to [place] for continued care and non surgical management. . In the past she has been seen by [facility] and vascular surgery for consideration
of transposition of ovarian vein vs nephrectomy. She also saw OP [facility] and completed uterine bx and plan for colposcopy. She is scheduled follow up in November for specialist at [facility] for review of nutcracker syndrome and further intervention as was
trying to avoid nephrectomy. She now presents with lower abdominal pain with nausea and vomiting mild amounts mostly bile that has now improved. Initially pain was left sided now more right sided and 8/10 with constant discomfort and also admits
to some chronic constipation. She completed CT on 06/08 with IV and oral contrast with not acute pathology but moderate stool in colon and prominent pelvic vascularity. follow up obstruction series without acute pathology. Labs notable for
leukocytosis which has improved and persistent elevated glucose .
-abdominal pain with nausea/vomiting
-hx left renal vein nutcracker compression with prior left renal vein transposition with occlusion- pelvic congestion noted on imaging
-narcotic induced constipation
-hernia repair at [place] in February with SBO after repair treated with medical management
-hx SCAD on prior colonoscopy
-abnormal uterince bx due for colposcopy
-persistent elevated glucose
other medical problems:
-regional pain symptoms with prior ankle injury- chronic narcotics and stimulator in place
-tobacco abuse
-GERD
-ovarian cyst
-julio cesar
-hx prior Marijuana use
-family hx colon CA
-hypothyroidism
PLAN:
etiology of LLQ related to constipation with chronic narcotic use, nutcracker compression with continued occlusion, component of gastroparesis with persistent elevated glucose vs adhesive disease though no obstructive process on imaging, vs other
from GI standpoint vomiting improved since last PM
advance diet to clears if tolerating ADA diet
would treat constipation with senna 3 tabs at as she has been doing at home and add miralax daily-- if not working increased miralax to BID
pain control but discussed cutting back OP meds as this is leading to increased constipation
advised follow up with OP [facility] and [facility] -- discussed with prolonged wait at [facility] would collect all records needed for follow up prior to visit
cont antiemetic
pt with persistent elevated glucose-- add hbg A1C to eval for underlying DM and gastroparesis may also be playing a role
06/11/2024 -discussed with patient Reglan is not a true allergy and when given IV made her feel jumpy. I will start with 5 mg before meals and at night. Will give short-term. I discussed black box warning with her including Parkinson's-like side
effects. Her episodes of nausea appear to be cyclical and not constant and intermittent Reglan may be a good treatment plan. She needs to follow-up with motility center at [facility].
Her bowels are moving well with twice daily MiraLAX and regular senna use. Continue this at home. Can cut back on the MiraLAX if stools get too mushy or soft.
-- Changed diet to low residue small meals. Needs to be on a gastroparesis diet not a regular diet
-
Subjective
Subjective
Date of Service: June 11, 2024
Patient continues to have right lower quadrant discomfort. Worsening nausea after eating solids. Did vomit last night. Is on a regular diet. States the Reglan is not a true allergy just made her feel jumpy when open given IV in the past. Did
have a bowel movement this morning that soft brown formed
Objective
Data Reviewed
Laboratory Data:
Laboratory Results
06/11/24 04:58
06/11/24 04:57
Laboratory Results
PT 14.3 Sec (11.4-14.6) 06/08/24 22:40
INR 1.13 06/08/24 22:40
APTT 25.1 Sec (23.4-35.0) 06/08/24 22:40
Total Bilirubin 0.6 mg/dl (0.2-1.3) 06/11/24 04:57
AST 16 U/L (14-36) 06/11/24 04:57
ALT 14 U/L (0-35) 06/11/24 04:57
Alkaline Phosphatase 50 U/L (38-126) 06/11/24 04:57
Lipase 38 U/L (23-300) 06/08/24 21:33
Vital Signs and I&O:
Vital Signs
Temp Pulse Resp BP Pulse Ox
98.6 F 75 16 136/75 97
06/11/24 08:32 06/11/24 08:32 06/11/24 08:32 06/11/24 08:32 06/11/24 08:32
I&O
06/10/24 06/11/24 06/12/24
06:59 06:59 06:59
Intake Total 2765 / 2765 1800 / 1800
Output Total 400 / 400
Balance 2365 / 2365 1800 / 1800
Physical Exam
Physical Exam
HEENT: Anicteric
Pulmonary: Clear
GI: Soft and Tender
Extremities: No Edema
Neuro: Non Focal
[2024-06-11] MEDS: REGLAN 5 MG PO ×3 (11:27→22:46)
--- NOTE | 2024-06-11 15:30 | CM ---
met with patient at bedside.still with llq abd pain,on short course of reglan,changing diet to low residue small meals,on bowel regimen.Plan:dc home with no needs.
[2024-06-11 16:00] VITALS: BP 128/88
[2024-06-11] MEDS: MS CONTIN (EXTENDED RELEASE) 30 MG PO ×2 (16:02→22:46)
[2024-06-11] MEDS: LOVENOX 40 MG SC (17:19)
[2024-06-11 22:42] VITALS: BP 118/63
[2024-06-11] MEDS: SENOKOT 25.8 MG PO (22:46)
[2024-06-12] MEDS: DILAUDID 1 MG IV ×5 (02:31→20:26)
[2024-06-12] MEDS: SYNTHROID 200 MCG PO (06:09)
[2024-06-12] MEDS: ZOFRAN 4 MG IV (06:42)
[2024-06-12 07:20] VITALS: BP 144/85
--- NOTE | 2024-06-12 08:49 | W.PN.GI.CBS2 ---
Today's Communication / Plan
-
-- Would continue Premeal Reglan for 1 more week then stop. Follow-up with outpatient motility clinic at [facility]
-- Ideally titrate off narcotics
Assessment / Plan
-
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
pain with chronic narcotic use, colitis, diverticulitis, scad on colonoscopy however was diagnosed with renal vein nutcracker compression after that finding. She has been admitted to several time for recurrent pain. She was admitted at the
end of February after she completed ventral hernia repair at [facility] and concern for SBO. She was transferred to [facility] for continued care and non surgical management. . In the past she has been seen by MOTION PICTURE PROJECTIONIST and vascular surgery for consideration
of transposition of ovarian vein vs nephrectomy. She also saw OP MOTION PICTURE PROJECTIONIST and completed uterine bx and plan for colposcopy. She is scheduled follow up in November for specialist at [facility] for review of nutcracker syndrome and further intervention as was
trying to avoid nephrectomy. She now presents with lower abdominal pain with nausea and vomiting mild amounts mostly bile that has now improved. Initially pain was left sided now more right sided and 8/10 with constant discomfort and also admits
to some chronic constipation. She completed CT on 06/08 with IV and oral contrast with not acute pathology but moderate stool in colon and prominent pelvic vascularity. follow up obstruction series without acute pathology. Labs notable for
leukocytosis which has improved and persistent elevated glucose .
-abdominal pain with nausea/vomiting
-hx left renal vein nutcracker compression with prior left renal vein transposition with occlusion- pelvic congestion noted on imaging
-narcotic induced constipation
-hernia repair at [facility] in February with SBO after repair treated with medical management
-hx SCAD on prior colonoscopy
-abnormal uterince bx due for colposcopy
-persistent elevated glucose
other medical problems:
-regional pain symptoms with prior ankle injury- chronic narcotics and stimulator in place
-tobacco abuse
-GERD
-ovarian cyst
-julio cesar
-hx prior Marijuana use
-family hx colon CA
-hypothyroidism
PLAN:
etiology of LLQ related to constipation with chronic narcotic use, nutcracker compression with continued occlusion, component of gastroparesis with persistent elevated glucose vs adhesive disease though no obstructive process on imaging, vs other
from GI standpoint vomiting improved since last PM
advance diet to clears if tolerating ADA diet
would treat constipation with senna 3 tabs at as she has been doing at home and add miralax daily-- if not working increased miralax to BID
pain control but discussed cutting back OP meds as this is leading to increased constipation
advised follow up with OP MOTION PICTURE PROJECTIONIST and [facility] -- discussed with prolonged wait at [facility] would collect all records needed for follow up prior to visit
cont antiemetic
pt with persistent elevated glucose-- add hbg A1C to eval for underlying DM and gastroparesis may also be playing a role
06/11/2024 -discussed with patient Reglan is not a true allergy and when given IV made her feel jumpy. I will start with 5 mg before meals and at night. Will give short-term. I discussed black box warning with her including Parkinson's-like side
effects. Her episodes of nausea appear to be cyclical and not constant and intermittent Reglan may be a good treatment plan. She needs to follow-up with motility center at [facility].
Her bowels are moving well with twice daily MiraLAX and regular senna use. Continue this at home. Can cut back on the MiraLAX if stools get too mushy or soft.
-- Changed diet to low residue small meals. Needs to be on a gastroparesis diet not a regular diet
06/12/24 -patient improved, still symptomatic with right lower quadrant discomfort, less nausea still vomited 2 hours after dinner last night. Tolerated her breakfast well.
Discussed what a gastroparesis diet is and how she should follow it. Still needs to follow-up with motility center at [facility]. Continue outpatient MiraLAX and senna regularly and she can cut back on MiraLAX if her stools get too soft.
-- Reviewed CT scan imaging from this admission along with all prior labs. Her temperature curve is around 99. Urine was negative.
-- Really needs to get off narcotics if at all possible
-- Once daily PPI is fine
-
Subjective
Subjective
Date of Service: June 12, 2024
Patient tolerated breakfast well. Does feel better today than yesterday. Did have some vomiting last night about 2 hours after her meal. Having good bowel movements on her new bowel regimen. Still has her right lower quadrant discomfort
Objective
Data Reviewed
Laboratory Data:
Laboratory Results
PT 14.3 Sec (11.4-14.6) 06/08/24 22:40
INR 1.13 06/08/24 22:40
APTT 25.1 Sec (23.4-35.0) 06/08/24 22:40
Total Bilirubin 0.6 mg/dl (0.2-1.3) 06/11/24 04:57
AST 16 U/L (14-36) 06/11/24 04:57
ALT 14 U/L (0-35) 06/11/24 04:57
Alkaline Phosphatase 50 U/L (38-126) 06/11/24 04:57
Lipase 38 U/L (23-300) 06/08/24 21:33
Vital Signs and I&O:
Vital Signs
Temp Pulse Resp BP Pulse Ox
99.2 F 76 16 144/85 96
06/12/24 07:20 06/12/24 07:20 06/12/24 07:20 06/12/24 07:20 06/12/24 07:20
I&O
06/11/24 06/12/24 06/13/24
06:59 06:59 06:59
Intake Total 1800 / 1800 1200 / 1200
Balance 1800 / 1800 1200 / 1200
Physical Exam
Physical Exam
HEENT: Anicteric
Cardiology: Normal Sinus Rhythm
GI: Soft and Tender
Extremities: No Edema
Neuro: Non Focal
[2024-06-12] MEDS: MS CONTIN (EXTENDED RELEASE) 30 MG PO ×3 (09:02→22:09)
[2024-06-12] MEDS: COREG 12.5 MG PO ×2 (09:02→20:27)
[2024-06-12] MEDS: NEURONTIN 600 MG PO ×2 (09:03→20:27)
[2024-06-12] MEDS: NSS (PRESERVATIVE FREE) 10 ML IV (09:03)
[2024-06-12] MEDS: PROTONIX IV 40 MG IV (09:03)
[2024-06-12] MEDS: FLUSH (NSS) 2 FLUSH IV ×3 (09:06→15:45)
[2024-06-12] MEDS: REGLAN 5 MG PO ×4 (09:11→20:27)
[2024-06-12] MEDS: MIRALAX PO ×2 (09:13→20:27)
--- NOTE | 2024-06-12 10:41 | W.PN.HOSP.TC ---
Today's Communication/Plan
-
reglan
bowel regimen
anti-emetics PRN
monitor electrolytes
expect DC tomorrow
Assessment / Plan
Assessment / Plan
Assessment/Plan:
-Intractable abdominal pain with nausea and vomiting:
CT scan conducted shows no ileus or small bowel obstruction, peritonitis, colitis, or other acute intra-abdominal processes.
Patient nontoxic-appearing and appears well-nourished
History of gastroparesis and opioid dependent -possible narcotic bowel or constipation
Admitted to med/surg for observation
IV antiemetics and pain medication
Haldol was given in the ED�Haldol may help improve nausea
Appreciate GI - continue pre-meal reglan, bowel regimen - patient now having BM
-Uncontrolled hypertension: Monitoring
Patient was hypertensive in the emergency department
Raised blood pressures may be due to pain
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
-Chronic pain and opioid dependence: Monitoring
Resumed home dose of morphine 30mg PO TID
COWs score of 5. Mild opiate withdrawal
Dr coleman pain management
Reviewed PDMP
patient knows ideally would cut back on morphine to help gut function
-Leukocytosis: Resolved
Possibly due to physical stress
no e/o infection, resolved
-Hx of Spinal Surgery:
Has spinal stimulator
-Hypothyroidism:
Continue home levothyroxine
TSH 2.83 on 06/10/2024 -within normal limit
-Ulcer prophylaxis: Protonix IV 40 mg
-DVT prophylaxis: Lovenox subcu
-Full CODE STATUS
Anticipated Discharge: 24 - 48 hours
Subjective/Interval History
-
Date of Service: June 12, 2024
feeling better today but vomited last night and doesn't feel ready to go home
Objective Data
-
Labs:
Laboratory Results
06/12/24
06:00
WBC Pending
Hgb Pending
Hct Pending
Plt Count Pending
Sodium Pending
Potassium Pending
Chloride Pending
Carbon Dioxide Pending
BUN Pending
Creatinine Pending
Glucose Pending
Calcium Pending
Total Bilirubin Pending
AST Pending
ALT Pending
Alkaline Phosphatase Pending
Vital Signs:
Vital Signs
Temp Pulse Resp BP Pulse Ox
99.2 F 76 16 144/85 96
06/12/24 07:20 06/12/24 07:20 06/12/24 07:20 06/12/24 07:20 06/12/24 07:20
I&O
06/11/24 06/12/24 06/13/24
06:59 06:59 06:59
Intake Total 1800 / 1800 1200 / 1200
Balance 1800 / 1800 1200 / 1200
Review of Systems
-
History Source: Patient
All other systems: Reviewed and negative
Physical Exam
-
General: Well Developed and Well Nourished
HEENT: Normocephalic, Atraumatic and Moist Mucous Membranes
Respiratory: Clear to Auscultation
Cardiac: Regular Rhythm
Breast: Deferred by me
Rectal: Brown
Genito-urinary: Deferred by me
Musculoskeletal: No Clubbing, No Cyanosis and No Edema
Skin: Warm and Dry
Neuro: Awake, Alert, Oriented and AO x 3
Psych: Calm
Data Reviewed
-
Diagnostic Radiology: Report Reviewed by me
Labs: Labs Reviewed by me
[2024-06-12 12:15] LABS: Hematocrit 33.3 % (37.0-47.0); Hemoglobin 11.3 g/dL (12.0-16.0); Mean Corp Hgb Conc. 33.9 g/dL (33.0-37.0); Mean Corpuscular Hgb 25.7 pg (27.0-31.0); Mean Corpuscular Volume 75.7 fL (81.0-99.0); Platelet Count 218 10^3/uL (130-400); Red Cell Dist. Width 15.3 % (11.5-14.5); White Blood Cell Count 10.5 10^3/uL (4.8-10.8)
[2024-06-12 12:21] LABS: ALT (SGPT) 13 U/L (0-35); AST (SGOT) 15 U/L (14-36); Albumin 3.6 g/dl (3.5-5.0); Alkaline Phosphatase 52 U/L (38-126); Blood Urea Nitrogen 12 mg/dl (7-17); Calcium 8.7 mg/dl (8.4-10.2); Carbon Dioxide 25 mmol/L (22-30); Chloride 103 mmol/L (98-107); Estimated Creatinine Clearance 115 ml/min; Glucose 104 mg/dl (70-99); Sodium 137 mmol/L (135-145); Total Bilirubin 0.7 mg/dl (0.2-1.3); Total Protein 6.3 g/dl (6.3-8.2); eGFR > 60.00
[2024-06-12 15:15] VITALS: BP 121/68
[2024-06-12] MEDS: TYLENOL 650 MG PO (15:55)
[2024-06-12] MEDS: LOVENOX 40 MG SC (17:32)
[2024-06-12] MEDS: SENOKOT PO (20:30)
[2024-06-12] MEDS: TORADOL 10 MG IV (22:09)
[2024-06-12 22:34] VITALS: BP 134/63
[2024-06-13] MEDS: DILAUDID 1 MG IV ×3 (01:25→09:53)
[2024-06-13] MEDS: SYNTHROID 200 MCG PO (05:43)
[2024-06-13 07:10] VITALS: BP 150/73
[2024-06-13] MEDS: NSS (PRESERVATIVE FREE) 10 ML IV (08:29)
[2024-06-13] MEDS: REGLAN 5 MG PO ×2 (08:29→12:49)
[2024-06-13] MEDS: NEURONTIN 600 MG PO (08:29)
[2024-06-13] MEDS: PROTONIX IV 40 MG IV (08:29)
[2024-06-13] MEDS: MS CONTIN (EXTENDED RELEASE) 30 MG PO (08:29)
[2024-06-13] MEDS: COREG 12.5 MG PO (08:29)
[2024-06-13] MEDS: FLUSH (NSS) 2 FLUSH IV ×2 (08:33→09:54)
[2024-06-13] MEDS: MIRALAX PO (08:35)
--- NOTE | 2024-06-13 09:14 | W.PN.GI.CBS2 ---
Today's Communication / Plan
-
Okay for discharge from GI perspective
Assessment / Plan
-
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
pain with chronic narcotic use, colitis, diverticulitis, scad on colonoscopy however was diagnosed with renal vein nutcracker compression after that finding. She has been admitted to several time for recurrent pain. She was admitted at the
end of February after she completed ventral hernia repair at [facility] and concern for SBO. She was transferred to [facility] for continued care and non surgical management. . In the past she has been seen by BUILDING SERVICEMAN and vascular surgery for consideration
of transposition of ovarian vein vs nephrectomy. She also saw OP BUILDING SERVICEMAN and completed uterine bx and plan for colposcopy. She is scheduled follow up in November for specialist at [facility] for review of nutcracker syndrome and further intervention as was
trying to avoid nephrectomy. She now presents with lower abdominal pain with nausea and vomiting mild amounts mostly bile that has now improved. Initially pain was left sided now more right sided and 8/10 with constant discomfort and also admits
to some chronic constipation. She completed CT on 06/08 with IV and oral contrast with not acute pathology but moderate stool in colon and prominent pelvic vascularity. follow up obstruction series without acute pathology. Labs notable for
leukocytosis which has improved and persistent elevated glucose .
-abdominal pain with nausea/vomiting
-hx left renal vein nutcracker compression with prior left renal vein transposition with occlusion- pelvic congestion noted on imaging
-narcotic induced constipation
-hernia repair at [facility] in February with SBO after repair treated with medical management
-hx SCAD on prior colonoscopy
-abnormal uterince bx due for colposcopy
-persistent elevated glucose
other medical problems:
-regional pain symptoms with prior ankle injury- chronic narcotics and stimulator in place
-tobacco abuse
-GERD
-ovarian cyst
-julio cesar
-hx prior Marijuana use
-family hx colon CA
-hypothyroidism
PLAN:
etiology of LLQ related to constipation with chronic narcotic use, nutcracker compression with continued occlusion, component of gastroparesis with persistent elevated glucose vs adhesive disease though no obstructive process on imaging, vs other
from GI standpoint vomiting improved since last PM
advance diet to clears if tolerating ADA diet
would treat constipation with senna 3 tabs at HS as she has been doing at home and add miralax daily-- if not working increased miralax to BID
pain control but discussed cutting back OP meds as this is leading to increased constipation
advised follow up with OP BUILDING SERVICEMAN and [facility] -- discussed with prolonged wait at [facility] would collect all records needed for follow up prior to visit
cont antiemetic
pt with persistent elevated glucose-- add hbg A1C to eval for underlying DM and gastroparesis may also be playing a role
06/11/2024 -discussed with patient Reglan is not a true allergy and when given IV made her feel jumpy. I will start with 5 mg before meals and at night. Will give short-term. I discussed black box warning with her including Parkinson's-like side
effects. Her episodes of nausea appear to be cyclical and not constant and intermittent Reglan may be a good treatment plan. She needs to follow-up with motility center at [facility].
Her bowels are moving well with twice daily MiraLAX and regular senna use. Continue this at home. Can cut back on the MiraLAX if stools get too mushy or soft.
-- Changed diet to low residue small meals. Needs to be on a gastroparesis diet not a regular diet
06/12/24 -patient improved, still symptomatic with right lower quadrant discomfort, less nausea still vomited 2 hours after dinner last night. Tolerated her breakfast well.
Discussed what a gastroparesis diet is and how she should follow it. Still needs to follow-up with motility center at [facility]. Continue outpatient MiraLAX and senna regularly and she can cut back on MiraLAX if her stools get too soft.
-- Reviewed CT scan imaging from this admission along with all prior labs. Her temperature curve is around 99. Urine was negative.
-- Really needs to get off narcotics if at all possible
-- Once daily PPI is fine
06/13/2024 -patient improved, okay for discharge
--Patient will call [facility] motility clinic tomorrow to make an appointment
--Avoid narcotics if possible, once daily PPI, continue bowel regimen with twice daily MiraLAX and regular senna as given here in the hospital
--Please send her home with 1 week of Reglan 5 mg before meals
Subjective
Subjective
Date of Service: June 13, 2024
Patient has improved and she is ready for discharge
Objective
Data Reviewed
Laboratory Data:
Laboratory Results
06/12/24 11:53
06/12/24 11:53
Laboratory Results
PT 14.3 Sec (11.4-14.6) 06/08/24 22:40
INR 1.13 06/08/24 22:40
APTT 25.1 Sec (23.4-35.0) 06/08/24 22:40
Total Bilirubin 0.7 mg/dl (0.2-1.3) 06/12/24 11:53
AST 15 U/L (14-36) 06/12/24 11:53
ALT 13 U/L (0-35) 06/12/24 11:53
Alkaline Phosphatase 52 U/L (38-126) 06/12/24 11:53
Lipase 38 U/L (23-300) 06/08/24 21:33
Vital Signs and I&O:
Vital Signs
Temp Pulse Resp BP Pulse Ox
98.5 F 77 18 150/73 97
06/13/24 07:10 06/13/24 07:10 06/13/24 07:10 06/13/24 07:10 06/13/24 07:10
I&O
06/12/24 06/13/24 06/14/24
06:59 06:59 06:59
Intake Total 1200 / 1200 1800 / 1800
Output Total /
Balance 1200 / 1200 179 / 179
Physical Exam
Physical Exam
HEENT: Anicteric
GI: Soft, Non Distended and Non Tender
--- NOTE | 2024-06-13 11:01 | W.PN.HOSP.TC ---
Today's Communication/Plan
-
OK for DC today
Assessment / Plan
Assessment / Plan
Assessment/Plan:
-Intractable abdominal pain with nausea and vomiting:
CT scan conducted shows no ileus or small bowel obstruction, peritonitis, colitis, or other acute intra-abdominal processes.
Patient nontoxic-appearing and appears well-nourished
History of gastroparesis and opioid dependent -possible narcotic bowel or constipation
Admitted to med/surg for observation
IV antiemetics and pain medication
Haldol was given in the ED�Haldol may help improve nausea
Appreciate GI - continue pre-meal reglan, bowel regimen - patient now having BM - OK for DC
-Uncontrolled hypertension: Monitoring
Patient was hypertensive in the emergency department
Raised blood pressures may be due to pain
continue CAREER DEVELOPMENT MANAGER Coreg
-Chronic pain and opioid dependence: Monitoring
Resumed home dose of morphine 30mg PO TID
COWs score of 5. Mild opiate withdrawal
Dr coleman pain management
Reviewed PDMP
patient knows ideally would cut back on morphine to help gut function
-Leukocytosis: Resolved
Possibly due to physical stress
no e/o infection, resolved
-Hx of Spinal Surgery:
Has spinal stimulator
-Hypothyroidism:
Continue home levothyroxine
TSH 2.83 on 06/10/2024 -within normal limit
-Ulcer prophylaxis: Protonix IV 40 mg
-DVT prophylaxis: Lovenox subcu
-Full CODE STATUS
Anticipated Discharge: Today
Subjective/Interval History
-
Date of Service: June 13, 2024
feeling better today and feels ready to go home
Objective Data
-
Vital Signs:
Vital Signs
Temp Pulse Resp BP Pulse Ox
98.5 F 77 18 150/73 97
06/13/24 07:10 06/13/24 07:10 06/13/24 07:10 06/13/24 07:10 06/13/24 07:10
I&O
06/12/24 06/13/24 06/14/24
06:59 06:59 06:59
Intake Total 1200 / 1200 1800 / 1800
Output Total
Balance 1200 / 1200 1796 / 1796
Review of Systems
-
History Source: Patient
All other systems: Reviewed and negative
Physical Exam
-
General: No Apparent Distress
HEENT: PERRLA
Respiratory: Clear to Auscultation; Negative Wheezes
Cardiac: Regular Rhythm and S1/S2
GI: Other (mildly tender )
Musculoskeletal: No Edema
Skin: Warm and Dry; Negative Rash
Neuro: AO x 3
Psych: Calm
Data Reviewed
-
Diagnostic Radiology: Report Reviewed by me
Labs: Labs Reviewed by me
--- NOTE | 2024-06-13 11:08 | W.DS.TRANS ---
DC Summary - [employer] [employer]
-
Discharge Instructions:
Discharge Diagnosis/Procedures left renal vein nutcracker syndrome, abdominal
pain, narcotic induced constipation
Diet Low Residue
Activity As tolerated
Driving Restrictions As prior to admission
Bathing Restrictions None
Instructions:
Stand-Alone Forms:
Changes to Home Medications: Yes
Discharge Medications:
DC Medications w/original date entered in [employer]
gabapentin 600 mg tablet 600 mg PO BID Pain 09/12/21
hydromorphone 4 mg tablet (Dilaudid) 4 mg PO Q6HPRN PRN BREAKTHROUGH PAIN 07/30/22
morphine 30 mg tablet,extended release 30 mg PO TID Pain 05/25/23
albuterol sulfate 90 mcg/actuation aerosol inhaler 2 puff inhalation R Q6HPRN PRN wheezing 07/24/23
levothyroxine 200 mcg tablet 200 mcg PO DAILY@06 Thyroid 07/24/23
carvedilol 12.5 mg tablet 12.5 mg PO BID Heart Failure 12/28/23
ondansetron 4 mg disintegrating tablet 4 mg PO TIDPRN PRN nausea/vomiting 12/28/23
pantoprazole 40 mg tablet,delayed release 40 mg PO DAILY #30 tabs 01/02/24
ibuprofen 600 mg tablet 600 mg PO Q6HPRN PRN mild pain 03/06/24
prochlorperazine maleate 10 mg tablet 10 mg PO Q6HPRN PRN nausea/vomiting 03/06/24
metoclopramide HCl 5 mg tablet 5 mg PO ACHS #28 tabs 06/13/24
polyethylene glycol 3350 17 gram oral powder packet (HealthyLax) 17 g PO BID #100 ea 06/13/24
sennosides 8.6 mg tablet (Senokot) 25.8 mg (3 x 8.6 mg) PO HS #0 tabs 06/13/24
Home Medication Changes
7 days reglan ACHS
miralax increased to BID and senna standing qhs
Pending Results: No
--- NOTE | 2024-06-13 11:42 | CM ---
Pt for discharge today
Pt reports she will have ride home
Plan - anticipate home no needs
--- NOTE | 2024-06-13 13:01 | W.DCSUMMARY ---
Discharge Summary
Discharge Data
Date of Admission: 06/09/24
Date of Discharge: 06/13/24
-
Pending Results: No
Hospital Course
Discharging Physician : Dr. Estela Parisi
Disposition : Home
Primary care physician : Dr. Kwabena Schulte
Principal Discharge diagnosis : left renal vein nutcracker syndrome, acute on chronic abdominal pain, narcotic induced constipation
Hospital Course :
Ms. Chelsie Gao is a 44 yo woman with hx left renal vein nutcracker syndrome, hyopthyroidism, GERD, opiate dependence, SBO s/p ventral hernia repair presents to the ER with abdominal pain, nausea/vomiting. CT without acute pathology, moderate
stool. She was admitted to medicine with GI consulting. Patient's constipation was treated and an increased bowel regimen is recommended at discharge. She was also started with ACHS reglan to treat component gastroparesis. Her symptoms improved
during hospitalization and she felt ready to go home. Tolerating LRD. She will follow up with outpatient physicians including [facility].
Time spent on discharge was 35 minutes.
Important imaging findings :
Abdomen/Pelvis CT 06/08/24
IMPRESSION: No acute pathology of the abdomen or pelvis identified.
Moderate fecal material throughout the colon. Stable
Prior cholecystectomy. Stable
Prominent pelvic vascularity which can be seen with pelvic congestion syndrome. Stable
Procedure findings :
Discharge Plan
-
Patient Disposition: Home (Routine Discharge)
Discharge Diagnosis/Procedures: left renal vein nutcracker syndrome, abdominal pain, narcotic induced constipation
Diet: Low Residue
Activity: As tolerated
Driving Restrictions: As prior to admission
Bathing Restrictions: None
Activity Restrictions/Additional Instructions:
CALL [facility] for follow up appointment
Referrals:
Kwabena Schulte MD [Family Provider] - in less than 1 week
Additional Discharge Medication Instructions: avoid dilaudid and cut back on MS Contin if possible
Take Miralax twice a day
Take Senna every evening
Prescriptions:
New
metoclopramide HCl 5 mg tablet
5 mg PO ACHS Qty: 28 0RF
Continued
gabapentin 600 MG tablet
600 mg PO BID
hydromorphone [Dilaudid] 4 mg Tablet
4 mg PO Q6HPRN PRN (Reason: BREAKTHROUGH PAIN)
Patient Comments:
03/06/2024: last filled 02/10/24, 120 tabs for 30 days from [facility]
morphine 30 mg tablet extended release
30 mg PO TID
Patient Comments:
03/06/2024: last filled 02/27/24, 90 tabs for 30 days from [facility]
levothyroxine 200 mcg Tablet
200 mcg PO DAILY@06
albuterol sulfate 90 mcg/actuation Hfa Aerosol Inhaler
2 puff INHALATION R Q6HPRN PRN (Reason: wheezing)
carvedilol 12.5 mg Tablet
12.5 mg PO BID
ondansetron 4 mg Tablet,Disintegrating
4 mg PO TIDPRN PRN (Reason: nausea/vomiting)
pantoprazole 40 mg Tablet,Delayed Release (Dr/Ec)
40 mg PO DAILY Qty: 30 1RF
prochlorperazine maleate 10 mg tablet
10 mg PO Q6HPRN PRN (Reason: nausea/vomiting)
ibuprofen 600 mg tablet
600 mg PO Q6HPRN PRN (Reason: mild pain)
Changed
sennosides [Senokot] 8.6 mg Tablet
25.8 mg PO HS Qty: 0 0RF
polyethylene glycol 3350 [HealthyLax] 17 gram Powder In Packet
17 g PO BID Qty: 100 0RF
Discharge Orders:
Discharge Patient (As Directed); Ordered 06/13/24
Ordered By: Estela Parisi
Discharge Date and Time
Print Language: CITIZEN [place]
== END 2024-06-13 13:31 | disposition home or self-care (01) ==
LOC: 2 NORTH 01:00
PROVIDERS: Emergency Medicine; Family Medicine; ADMITTING PHYSICIAN Internal Medicine; ATTENDING PHYSICIAN Student in an Organized Health Care Education/Training Program; CONSULT PHYSICIAN Internal Medicine Gastroenterology; EMERGENCY PHYSICIAN Student in an Organized Health Care Education/Training Program; FAMILY PHYSICIAN Internal Medicine
DX: K59.03 Drug induced constipation (principal); K31.84 Gastroparesis; T40.2X5A Adverse effect of other opioids, initial encounter; Y92.9 Unspecified place or not applicable; R10.9 Unspecified abdominal pain; K21.9 Gastro-esophageal reflux disease without esophagitis; E03.9 Hypothyroidism, unspecified; R11.2 Nausea with vomiting, unspecified; F17.200 Nicotine dependence, unspecified, uncomplicated; F11.23 Opioid dependence with withdrawal; R91.8 Other nonspecific abnormal finding of lung field; G90.50 Complex regional pain syndrome I, unspecified; R11.14 Bilious vomiting; I10 Essential (primary) hypertension; G89.4 Chronic pain syndrome; G62.9 Polyneuropathy, unspecified; D72.829 Elevated white blood cell count, unspecified; R73.9 Hyperglycemia, unspecified; I49.8 Other specified cardiac arrhythmias; R00.1 Bradycardia, unspecified; Z86.718 Personal history of other venous thrombosis and embolism; Z79.890 Hormone replacement therapy; Z88.8 Allergy status to other drugs, medicaments and biological substances; Z90.49 Acquired absence of other specified parts of digestive tract; Z96.82 Presence of neurostimulator; Z87.19 Personal history of other diseases of the digestive system; Z98.890 Other specified postprocedural states; Z80.0 Family history of malignant neoplasm of digestive organs
CPT/HCPCS: 74022; 80048; 80053; 81003; 81015; 82248; 83036; 83605; 83690; 84145; 84443; 84484; 85025; 85027; 85610; 85730; 93005; 96374; 96375; 99285; 99406; G0378

== ENCOUNTER 2024-09-13 10:16 | Inpatient (IN) | payer BC, MEDICARE, SELFPAY ==
[2024-09-09 11:24] VITALS: BP 163/116
[2024-09-09 11:53] LABS: % Basophils 0.6 % (0-2); % Eosinophils 0.7 % (0-6); % Immature Granulocytes 0.2 % (0-0.5); % Lymphocytes 12.4 % (20.5-51.1); % Monocytes 3.2 % (1.7-9.3); % Neutrophils 82.9 % (42.2-75.2); Absolute Basophils 0.1 10^3/uL (0-0.2); Absolute Eosinophils 0.1 10^3/uL (0-0.7); Absolute Lymphocytes 1.2 10^3/uL (1.2-3.4); Absolute Monocytes 0.3 10^3/uL (0.1-0.6); Absolute Neutrophils 7.7 10^3/uL (1.4-6.5); Hematocrit 44.4 % (37.0-47.0); Hemoglobin 14.7 g/dL (12.0-16.0); Mean Corp Hgb Conc. 33.1 g/dL (33.0-37.0); Mean Corpuscular Hgb 26.9 pg (27.0-31.0); Mean Corpuscular Volume 81.2 fL (81.0-99.0); Mean Platelet Volume 9.4 fL (7.4-10.4); Nucleated Red Blood Cells % 0 %; Platelet Count 274 10^3/uL (130-400); Red Blood Cell Count 5.47 10^6/uL (4.20-5.40); Red Cell Dist. Width 14.6 % (11.5-14.5); White Blood Cell Count 9.3 10^3/uL (4.8-10.8)
[2024-09-09 12:01] LABS: HCG, Serum Qualitative Screen Negative
[2024-09-09 12:09] LABS: ALT (SGPT) 15 U/L (0-35); AST (SGOT) 25 U/L (14-36); Alkaline Phosphatase 96 U/L (38-126); Blood Urea Nitrogen 11 mg/dl (7-17); Calcium 9.9 mg/dl (8.4-10.2); Carbon Dioxide 19 mmol/L (22-30); Chloride 105 mmol/L (98-107); Glucose 141 mg/dl (70-99); Lipase 37 U/L (23-300); Potassium 4.1 mmol/L (3.5-5.1); Sodium 138 mmol/L (135-145); Total Bilirubin 0.8 mg/dl (0.2-1.3); Total Protein 8.6 g/dl (6.3-8.2); eGFR > 60.00
--- NOTE | 2024-09-09 13:25 | ED.GENMED ---
History of Present Illness
<Juliana Gray PA-C - Last Filed: 09/09/24 22:29>
General
Chief Complaint: Abdominal Symptoms
Source: patient
Exam Limitations: none
Time Seen by Provider: 09/09/24 13:01
Nursing documentation reviewed up to this point in time: agreed with
History of Present Illness
History of Present Illness:
Patient is a 44-year-old female with history hypertension, diverticulitis, hypothyroid presenting to the emergency department for evaluation of abdominal pain and associated nausea, vomiting, diarrhea. Patient reports onset of symptoms in the
middle the night last night. She has had multiple episodes of vomiting and watery diarrhea since. She generalized abdominal pain. Patient denies any hematemesis or hematochezia. No known fever. No chest pain or shortness of breath. No urinary
symptoms. Patient does state that throughout the day yesterday she just felt generally unwell noting fatigue and weakness. She did not have much of an appetite yesterday.
Of note�patient was recently admitted about a month ago at [facility] for colitis complicated by C. difficile and subsequent IV line infection. Infection eventually cleared with Bactrim per patient. Patient is unsure which antibiotic she
was on that led to C. difficile.
Patient denies any known sick contacts.
Past History
<Juliana Gray PA-C - Last Filed: 09/09/24 22:29>
Past History
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 PNA, Gastroenteritis) and Other (C-diff)
ED Past Surgical History: Cholecystectomy, (x 1), Gynecological (Tubal, ), Orthopedic (Right ankle surgery ), Urological ( Renal vein transposition,) and Other ( Spinal stimulator. Hernia repair)
Social History
Tobacco: Smoker
Alcohol: None
Drug: None
Personal:
Living: with family
Review of Systems
<Juliana Gray PA-C - Last Filed: 09/09/24 22:29>
Review of Systems
Allergies reviewed?: Yes
All Other Systems: ROS reviewed and negative except as documented in HPI and ROS
Phy Exam
<Juliana Gray PA-C - Last Filed: 09/09/24 22:29>
Physical Exam
Physical Exam:
Vitals: Hypertensive, otherwise vital signs stable. Afebrile
General: Patient is uncomfortable appearing due to pain
Skin: Warm and dry, no rashes or lesions
Head: Normocephalic, atraumatic
Eyes: Sclera nonicteric. EOMs intact. No nystagmus.
Throat: Protecting airway
Neck: Normal ROM, no cervical spine tenderness, no meningismus
Cardiac: Regular rate and rhythm, no murmurs.
Pulm: Normal respiratory effort, no wheezes, rales, rhonchi heard on exam.
Abdomen: Abdomen soft. Moderate upper abdominal tenderness. No rebound tenderness or guarding. No tenderness McBurney's point.
Extremities: No evidence of cyanosis or edema
Neuro: AAOx3. Grossly intact.
Psychiatric: Normal affect.
Course
<Juliana Gray PA-C - Last Filed: 09/09/24 22:29>
Orders/Labs/Results
Orders:
Orders
09/09/24 11:28
Test Result ONCE
09/09/24 11:35
Complete Blood Count/With Diff Urgent
Comprehensive Metabolic Panel Urgent
HCG, Serum Qualitative Screen Urgent
Lipase Urgent
09/09/24 13:22
C DIFF [C difficile Antigen & Toxins] Urgent
KEILY Source: Feces/Stool
Specimen Description:
Date Specimen was Collected: 09/09/24
Time Specimen was Collected: 16:10
Stool Culture Urgent
KEILY Source: Feces/Stool
Specimen Description:
Date Specimen was Collected: 09/09/24
Time Specimen was Collected: 16:10
0.9% Sodium Chloride 1000 ml [Nss] 1,000 ml IV BOLUS
Ketorolac [Toradol] 15 mg IV NOW STA
Ondansetron Injectable [Zofran] 4 mg IV NOW STA
09/09/24 13:32
Morphine Sulfate 2 mg IV NOW STA
09/09/24 13:51
Norovirus by PCR Urgent
KEILY Source: Feces/Stool
Specimen Description:
Date Specimen was Collected: 09/09/24
Time Specimen was Collected: 16:10
09/09/24 14:49
Haloperidol Lactate [Haldol] 1 mg IV NOW STA
Morphine Sulfate 4 mg IV NOW STA
Obstruct Series W/PA Chest [CR Obstruct Series W/pa Chest] Urgent
Comment:
Reason For Exam: abdominal pain
09/09/24 14:50
Electrocardiogram (*1) Urgent
Reason for Study: Abdominal Pain
EKG- Treatment ONCE
09/09/24 17:10
CT Abd/pelvis W Iv Cont Urgent
Comment:
Reason For Exam: Abdominal pain, N, V
09/09/24 19:40
Morphine Sulfate 2 mg IV NOW STA
Ondansetron Injectable [Zofran] 4 mg IV NOW STA
09/09/24 22:00
Flush (0.9% Sodium Chloride) [Flush (Nss)] See Dose Instructions IV PER PROTOCOL
Abnormal Lab Results
09/09/24
11:35
RBC 5.47 H 10^6/uL
(4.20-5.40)
MCH 26.9 L pg
(27.0-31.0)
RDW 14.6 H %
(11.5-14.5)
Absolute Neuts (auto) 7.7 H 10^3/uL
(1.4-6.5)
Neutrophils % 82.9 H %
(42.2-75.2)
Lymphocytes % 12.4 L %
(20.5-51.1)
Carbon Dioxide 19 L mmol/L
(22-30)
Glucose 141 H mg/dl
(70-99)
Total Protein 8.6 H g/dl
(6.3-8.2)
09/09/24 11:35
09/09/24 11:35
Vital Signs
Initial and Last Documented VS:
Initial Vital Signs
Temp Pulse Resp BP Pulse Ox
98.9 F 98 18 163/116 99
09/09/24 11:24 09/09/24 11:24 09/09/24 11:24 09/09/24 11:24 09/09/24 11:24
Last Documented Vital Signs
Temp Pulse Resp BP Pulse Ox
98.6 F 85 17 148/98 98
09/09/24 14:06 09/09/24 14:08 09/09/24 14:06 09/09/24 14:06 09/09/24 14:08
<Oneyda Thomson MD - Last Filed: 09/09/24 15:02>
Orders/Labs/Results
Orders:
Orders
09/09/24 11:28
Test Result ONCE
09/09/24 11:35
Complete Blood Count/With Diff Urgent
Comprehensive Metabolic Panel Urgent
HCG, Serum Qualitative Screen Urgent
Lipase Urgent
09/09/24 13:22
C DIFF [C difficile Antigen & Toxins] Urgent
KEILY Source: Feces/Stool
Specimen Description:
Date Specimen was Collected: 09/09/24
Time Specimen was Collected: 16:10
Stool Culture Urgent
KEILY Source: Feces/Stool
Specimen Description:
Date Specimen was Collected: 09/09/24
Time Specimen was Collected: 16:10
0.9% Sodium Chloride 1000 ml [Nss] 1,000 ml IV BOLUS
Ketorolac [Toradol] 15 mg IV NOW STA
Ondansetron Injectable [Zofran] 4 mg IV NOW STA
09/09/24 13:32
Morphine Sulfate 2 mg IV NOW STA
09/09/24 13:51
Norovirus by PCR Urgent
KEILY Source: Feces/Stool
Specimen Description:
Date Specimen was Collected: 09/09/24
Time Specimen was Collected: 16:10
09/09/24 14:49
Haloperidol Lactate [Haldol] 1 mg IV NOW STA
Morphine Sulfate 4 mg IV NOW STA
Obstruct Series W/PA Chest [CR Obstruct Series W/pa Chest] Urgent
Comment:
Reason For Exam: abdominal pain
09/09/24 14:50
Electrocardiogram (*1) Urgent
Reason for Study: Abdominal Pain
EKG- Treatment ONCE
09/09/24 17:10
CT Abd/pelvis W Iv Cont Urgent
Comment:
Reason For Exam: Abdominal pain, N, V
09/09/24 19:40
Morphine Sulfate 2 mg IV NOW STA
Ondansetron Injectable [Zofran] 4 mg IV NOW STA
09/09/24 22:00
Flush (0.9% Sodium Chloride) [Flush (Nss)] See Dose Instructions IV PER PROTOCOL
Abnormal Lab Results
09/09/24
11:35
RBC 5.47 H 10^6/uL
(4.20-5.40)
MCH 26.9 L pg
(27.0-31.0)
RDW 14.6 H %
(11.5-14.5)
Absolute Neuts (auto) 7.7 H 10^3/uL
(1.4-6.5)
Neutrophils % 82.9 H %
(42.2-75.2)
Lymphocytes % 12.4 L %
(20.5-51.1)
Carbon Dioxide 19 L mmol/L
(22-30)
Glucose 141 H mg/dl
(70-99)
Total Protein 8.6 H g/dl
(6.3-8.2)
09/09/24 11:35
09/09/24 11:35
Vital Signs
Initial and Last Documented VS:
Initial Vital Signs
Temp Pulse Resp BP Pulse Ox
98.9 F 98 18 163/116 99
09/09/24 11:24 09/09/24 11:24 09/09/24 11:24 09/09/24 11:24 09/09/24 11:24
Last Documented Vital Signs
Temp Pulse Resp BP Pulse Ox
98.6 F 85 17 148/98 98
09/09/24 14:06 09/09/24 14:08 09/09/24 14:06 09/09/24 14:06 09/09/24 14:08
<Juliana Gray PA-C - Last Filed: 09/09/24 22:29>
MDM/Problems Addressed
Differential Diagnosis Includes:
Not limited to: Viral gastroenteritis, diverticulitis, bowel obstruction, appendicitis, etc.
MDM/Problems Addressed:
44-year-old female presenting with upper abdominal discomfort associated with nausea, vomiting, diarrhea. Patient with extensive history of similar symptoms. Recently discharged from [facility] after colitis complicated by C. difficile.
Patient initially hypertensive on arrival to emergency department although resolved by my assessment. Patient is afebrile with otherwise stable vital signs. On exam�patient appears uncomfortable. Her abdomen is soft with moderate tenderness in
upper abdomen without rebound tenderness or guarding. No lower abdominal tenderness. Differential very broad at this time. Patient has had multiple recent CT scans of abdomen. Will start with screening laboratory analysis. Will check
obstruction series. Will give pain medicine, IV fluids, Zofran. Will closely monitor and reassess
Update: Labs reviewed. There is no leukocytosis. Chemistry without any clinically significant abnormalities. Obstruction series without any acute changes. Patient without any improvement in pain. Will give additional pain medicine and try
Haldol as patient has received improvement with this in the past. Patient thus far unable to provide stool sample. Given persistent pain�will obtain CT scan to rule out acute infection.
Update: Patient remains in significant discomfort despite multiple rounds of IV pain medication and antiemetics. No vomiting since arrival to emergency department. CT scan report shows no evidence of definitive acute infection. Given patient is
afebrile with no leukocytosis and recent history of C. difficile�will hold on antibiotics for now. Patient will be admitted to hospital service with intractable pain/nausea and vomiting. Patient stable condition at time of admission. Patient seen
with attending physician.
Chronic conditions affecting care:
Hypertension, diverticulosis
Acute Exacerbation and/or Progression of Chronic Illness:
Acutely hypertensive
<Juilana Gray PA-C - Last Filed: 09/09/24 22:29>
*Radiology
Radiology exam reviewed: preliminary read by ED provider (Obstruction series reviewed by me-no acute abnormalities) and radiology read reviewed
*Pulse Oximetry
Patient hypoxic: no
*EKG
Interpreted by ED Provider?: Yes
EKG Intrepretation Date: 09/09/24
Interpretation: normal
Comparison EKG: no changes
Heart Rate: 74
Rate: normal
Rhythm: sinus and sinus arrhythmia
Snyder: normal axis
Interval: normal interval
QRS Pattern: normal QRS
Ischemia: no ischemia
*Hash Slinger Interpretation
Rate: Hash Slinger- N/A
*Critical Care Note
Total Time (30-74mins, 75-104mins- exclusive of procedures): Not Applicable
<Juliana Gray PA-C - Last Filed: 09/09/24 22:29>
Patient Management
Discussion with other providers: Hospitalist
Escalation/DeEscalation of care consider admission/obs:
Admit for pain control, antiemetic for intractable pain/nausea and vomiting
ED Attending Note
<Juliana Gray PA-C - Last Filed: 09/09/24 22:29>
-
Portions of this chart may have been created with voice recognition software.� Occasional wrong word or��sound alike� substitutions may have occurred due to the inherent limitations of voice recognition software.
<Oneyda Thomson MD - Last Filed: 09/09/24 15:02>
ED Attending Note
Patient seen and examined by attending physician: Yes
I performed the substantive portion of visit, reviewed & personally made and approve the management plan that is documented in note by myself or CED.: Yes
ED Attending Note:
44 yr old female with c/o abd pain/n/v/d that started yesterdy and continues...no blood noted, no fever, but does report chills. On exam, pt overall comfortable. Abd soft, no r/g, nonspec ttp noted upper abd. Long hx of prior episodes of abd
pain, nutcracker syndrome, bowel obstruction, etc. Also has had multiple CT's. No fever, leukocytosis, acute abd. Has not had stool here for sample. Will get obs series to r/o free air/obstruction,etc. Pt reluctant to get ct abd/pelvis.
Discharge Plan
Departure
Patient Disposition: Admit
Date of Disposition: 09/09/24
Time of Disposition: 20:32
Presentation/result/management discussed w/ accepting MD/DO: Hospitalist
Discharge Problem:
Intractable abdominal pain, Intractable nausea
Prescriptions:
No Action
gabapentin 600 MG tablet
600 mg PO BID
hydromorphone [Dilaudid] 4 mg Tablet
4 mg PO Q6HPRN PRN (Reason: BREAKTHROUGH PAIN)
Patient Comments:
09/09/24: last filled 08/26/24, 120 tabs for 30 days
morphine 30 mg tablet extended release
30 mg PO TID
Patient Comments:
09/09/24: last filled 08/20/24, 90 tabs for 30 day
levothyroxine 200 mcg Tablet
200 mcg PO DAILY@06
albuterol sulfate 90 mcg/actuation Hfa Aerosol Inhaler
2 puff INHALATION R Q6HPRN PRN (Reason: wheezing)
carvedilol 12.5 mg Tablet
12.5 mg PO BID
sennosides [Senokot] 8.6 mg tablet
25.8 mg PO HSPRN PRN (Reason: constipation)
polyethylene glycol 3350 [HealthyLax] 17 gram powder in packet
17 g PO BIDPRN PRN (Reason: constipation)
Referrals:
Nidia Escobar DO [Family Provider] -
Interventions
Interventions:
*Risk Screen - Suicide Last Done: 09/09/24 11:27
*General Assessment Last Done: 09/09/24 11:27
*Neglect/Abuse Screening Last Done: 09/09/24 11:27
ED- Fall Risk Assessment Last Done: 09/09/24 13:23
*ED COVID-19 Vaccine History Last Done: 09/09/24 15:52
LI-Rcxxhb-Bznhfhxham Assessment Last Done: 09/09/24 13:23
Discharge Date and Time
Print Language: IRISH
[2024-09-09] MEDS: ZOFRAN 4 MG IV ×2 (13:41→20:02)
[2024-09-09] MEDS: MORPHINE SULFATE 2 MG IV ×2 (13:42→20:03)
[2024-09-09] MEDS: NSS 1000 IV (13:42)
[2024-09-09 13:45] VITALS: BMI 32.0
[2024-09-09 14:06] VITALS: BP 148/98
[2024-09-09] MEDS: HALDOL 1 MG IV (15:43)
[2024-09-09] MEDS: MORPHINE SULFATE 4 MG IV (15:43)
[2024-09-09 22:48] VITALS: BP 171/98
--- NOTE | 2024-09-10 03:01 | HPS.HSE ---
Family Physician
-
Family Physician: Nidia Escobar,
Chief Complaint
-
Abdominal pain
History of Present Illness
This is a 44-year-old female with past medical history of GERD, opioid dependence, small bowel obstruction status post ventral hernia repair, gastroparesis and history of left renal vein nutcracker syndrome presents to the emergency department with
intractable abdominal pain nausea and vomiting.
Patient reports onset of symptoms in the middle the night last night. She has had multiple episodes of vomiting and watery diarrhea since. She generalized abdominal pain. Patient denies any hematemesis or hematochezia. No known fever. No chest
pain or shortness of breath. No urinary symptoms. Recently admitted at [facility] for colitis complicated by C diff.
Continues to have nausea vomiting and abdominal pain despite despite multiple rounds of IV pain meds/ antiemetics.
In the ED she was afebrile, blood pressure was 170/98 with a pulse of 94. Was not saturation was 90% on room air. CT of the abdomen pelvis showed diverticulosis without acute diverticulitis. No other acute abnormal findings. LFTs and lipase are
within normal limits. CBC was unremarkable. Electrolytes BUN/creatinine were otherwise within normal limits.
Medical History
Past Medical History
Past Medical History: Reports Other
Additional Past Medical History:
GERD, HTN, Hypothyroidism, RSD, nutcracker syndrome, lung nodules, hidradenitis, Colitis, Diverticulitis, Chronic pain syndrome due to RSD, Numbness arms and leg. PNA, Gastroenteritis and C-diff.
Past Surgical History: Reports Other
Additional Past Surgical History:
Cholecystectomy, (x 1), Tubal ligation, Right ankle surgery, Renal vein transposition and Spinal stimulator. Hernia repair
Social History
Tobacco: Smoker
Alcohol: None
Drug: None
Personal:
Living: With Family
Family History
Family History: Not pertinent
Allergies / Home Medications
Allergies reflects when Allergies were last updated in [employer].
Home Medications with original date entered in [email or web address]
Allergy/Medication List:
Allergies
Allergy/AdvReac Type Severity Reaction Status Date / Time
metoclopramide [From Reglan] AdvReac 'I got Verified 06/08/24 03:43
real
anxious,
jumping
out of my
skin'
Home Medications
gabapentin 600 mg tablet 600 mg PO BID Pain 09/12/21
hydromorphone 4 mg tablet (Dilaudid) 4 mg PO Q6HPRN PRN BREAKTHROUGH PAIN 07/30/22
morphine 30 mg tablet,extended release 30 mg PO TID Pain 05/25/23
albuterol sulfate 90 mcg/actuation aerosol inhaler 2 puff inhalation R Q6HPRN PRN wheezing 07/24/23
levothyroxine 200 mcg tablet 200 mcg PO DAILY@06 Thyroid 07/24/23
carvedilol 12.5 mg tablet 12.5 mg PO BID Heart Failure 12/28/23
polyethylene glycol 3350 17 gram oral powder packet (HealthyLax) 17 g PO BIDPRN PRN constipation 09/09/24
sennosides 8.6 mg tablet (Senokot) 25.8 mg PO HSPRN PRN constipation 09/09/24
Review of Systems
-
History Source: Patient
Constitutional: Reports No Symptoms
EENT: Reports No Symptoms
Respiratory: Reports No Symptoms
Cardiac: Reports No Symptoms
Abdomen/GI: Reports Abdominal Pain, Nausea and Vomiting
: Reports No Symptoms
Musculoskeletal: Reports No Symptoms
Skin: Reports No Symptoms
Neurological: Reports No Symptoms
Endocrine: Reports No Symptoms
Hematologic/Lymphatic: Reports No Symptoms
Psych: Reports No Symptoms
Physical Exam
Vital Signs
Vital Signs
Temp Pulse Resp BP Pulse Ox
98.6 F 94 18 171/98 98
09/09/24 14:06 09/09/24 22:48 09/09/24 22:48 09/09/24 22:48 09/09/24 22:48
Physical Exam
General: Well Developed, Well Nourished, No Apparent Distress and Comfortable
HEENT: NormoCephalic, Anicteric, Moist mucous membranes and Atraumatic
Respiratory: Clear
Cardiac: S1/S2 and Regular Rhythm
GI: Soft, Non Tender, Non Distended and Normal Bowel Sounds
Rectal: Deferred by Provider
Genito-urinary: Deferred by me
Musculoskeletal: No Clubbing, No Cyanosis and No Edema
Skin: Warm and Dry
Neuro: AO x 3
Hematologic/Lymphatic: No Lymphadenopathy
Psych: Calm
Laboratory Results
-
09/09/24 11:35
09/09/24 11:35
Laboratory Results
Total Bilirubin 0.8 mg/dl (0.2-1.3) 09/09/24 11:35
AST 25 U/L (14-36) 09/09/24 11:35
ALT 15 U/L (0-35) 09/09/24 11:35
Alkaline Phosphatase 96 U/L (38-126) 09/09/24 11:35
Lipase 37 U/L (23-300) 09/09/24 11:35
Data Reviewed
-
CT Scan: Report Reviewed by me
Lab Data: Labs Reviewed by me
Old Records: Reviewed
Impression/Plan
-
IMPRESSION:
44-year-old with complex gastric history including history of gastroparesis, history of acute diverticulitis, history of bowel obstruction status post hernia repair presents to the emergency department with symptoms that are clearly consistent with
acute gastroenteritis. She reports diarrhea nausea vomiting and abdominal pain. Labs are benign. CT scan shows no acute abnormalities and no obstruction. He is otherwise nontoxic-appearing and hemodynamically stable.
PLAN:
1. Acute gastroenteritis
- admit to [facility]
- stool cdiff and culture pending
- clear liquid diet for now
- continue antiemetics and IV fluids
- judicious opioid for pain control given opioid dependence and possible narcortic bowel
- no indication for abx at this time, no indication for GI consult thus far.
DVT PPx - lovenox sq
Code status - full code
[2024-09-10 04:00] VITALS: BP 176/98
[2024-09-10] MEDS: LR 1000 IV ×2 (04:29→13:48)
[2024-09-10] MEDS: ZOFRAN 4 MG IV ×2 (04:30→10:24)
[2024-09-10] MEDS: FLUSH (NSS) 1 FLUSH IV (04:32)
[2024-09-10] MEDS: MORPHINE SULFATE 4 MG IV (05:00)
[2024-09-10 06:52] LABS: Hematocrit 40.6 % (37.0-47.0); Hemoglobin 13.6 g/dL (12.0-16.0); Mean Corp Hgb Conc. 33.5 g/dL (33.0-37.0); Mean Corpuscular Hgb 27.3 pg (27.0-31.0); Mean Corpuscular Volume 81.4 fL (81.0-99.0); Mean Platelet Volume 9.8 fL (7.4-10.4); Platelet Count 260 10^3/uL (130-400); Red Blood Cell Count 4.99 10^6/uL (4.20-5.40); Red Cell Dist. Width 14.4 % (11.5-14.5); White Blood Cell Count 9.9 10^3/uL (4.8-10.8)
[2024-09-10 07:05] LABS: Blood Urea Nitrogen 11 mg/dl (7-17); Calcium 9.3 mg/dl (8.4-10.2); Carbon Dioxide 21 mmol/L (22-30); Chloride 105 mmol/L (98-107); Estimated Creatinine Clearance > 125 ml/min; Glucose 122 mg/dl (70-99); Potassium 3.9 mmol/L (3.5-5.1); Sodium 138 mmol/L (135-145); eGFR > 60.00
--- NOTE | 2024-09-10 07:29 | EDRN ---
Pharmacy called for synthroid 200 mcg po at this time.
--- NOTE | 2024-09-10 07:30 | EDRN ---
Pt complained of pain in L abd at 8. This RN called pharmacist for MS contin 30 mg as ordered and pt's levothyroxine.
[2024-09-10 07:37] VITALS: BP 177/93
--- NOTE | 2024-09-10 07:38 | EDRN ---
Pt states she takes dilaudid 4mg every 4 hours prn pain, no order. Will TT MD when know who pt is assigned to.
[2024-09-10] MEDS: SYNTHROID 200 MCG PO (07:58)
[2024-09-10] MEDS: NEURONTIN 600 MG PO ×2 (08:46→20:37)
[2024-09-10] MEDS: COREG 12.5 MG PO ×2 (08:48→20:35)
[2024-09-10] MEDS: MS CONTIN (EXTENDED RELEASE) 30 MG PO ×3 (08:51→21:45)
--- NOTE | 2024-09-10 08:55 | EDRN ---
MS Contin was administered at 8:51 as ordered. Pain in L abdomen was 8/10 at this time.
--- NOTE | 2024-09-10 10:24 | EDRN ---
Pt c/o nausea and administered zofran IV at this time.
--- NOTE | 2024-09-10 10:57 | EDRN ---
Pharmacist called for dilaudid.
--- NOTE | 2024-09-10 11:00 | EDRN ---
Pt states nausea is gone at this time.
[2024-09-10] MEDS: DILAUDID 4 MG PO ×2 (11:39→18:13)
--- NOTE | 2024-09-10 11:40 | EDRN ---
Pt states L abd pain still 04/17.
[2024-09-10] MEDS: MIRALAX 17 GRAMS PO ×2 (11:43→20:37)
--- NOTE | 2024-09-10 11:45 | EDRN ---
Pt declined taking miralax at 8:51 w/ her other daily medications. Pt did take miralax at 11:43.
--- NOTE | 2024-09-10 12:04 | W.PN.UPDATE ---
Update Note
Progress Note Update
Seen and examined independent of pulmonary physician. Nonbillable note.
States of loose diarrhea. States of ongoing abdominal pain. States abdominal pain worsened overnight. States she was admitted to [facility] where she was found to have colitis and was started on broad-spectrum antibiotics. Subsequently
afterwards developed C. difficile and was started on antibiotics.
General: Well Developed, Well Nourished, No Apparent Distress and Comfortable
HEENT: NormoCephalic, Anicteric, Moist mucous membranes and Atraumatic
Respiratory: Clear
Cardiac: S1/S2 and Regular Rhythm
GI: Soft, Non Tender, Non Distended and Normal Bowel Sounds
Musculoskeletal: No Clubbing, No Cyanosis and No Edema
Skin: Warm and Dry
Neuro: AO x 3
Hematologic/Lymphatic: No Lymphadenopathy
Psych: Calm
Ct abd/pelvis-Moderate diffuse sigmoid diverticulosis. No definite evidence to suggest acute diverticulitis. Underdistended cecum, ascending colon, and proximal transverse colon. This may contribute to mild wall thickening, though cannot entirely
exclude mild pathologic (infectious or inflammatory) wall thickening. No evidence of pneumatosis. Mild to moderate colonic fecal burden from the mid transverse colon through the proximal sigmoid colon. No evidence of bowel obstruction.
IMPRESSION:
44-year-old with complex gastric history including history of gastroparesis, history of acute diverticulitis, history of bowel obstruction status post hernia repair presents to the emergency department with symptoms that are clearly consistent with
acute gastroenteritis. She reports diarrhea nausea vomiting and abdominal pain. Labs are benign. CT scan shows no acute abnormalities and no obstruction. He is otherwise nontoxic-appearing and hemodynamically stable.
PLAN:
Intractable abdominal pain likely secondary to opioid induced severe constipation
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
History of hernia repair Manuel
History of opioid-induced constipation
- clear liquid diet for now. Advance diet as tolerated.
- continue antiemetics and IV fluids
- judicious opioid for pain control given opioid dependence
- no indication for abx at this time,
-Start patient on MiraLAX and senna. Dose of enema. If no improvement can consider trial of Relistor
Chronic pain and daily opioid dependence
History of spinal surgery status post spinal stimulator
Hypothyroidism continue with Synthroid
Recent C. difficile infection 4 weeks ago
DVT PPx - lovenox sq
Code status - full code
--- NOTE | 2024-09-10 12:15 | EDRN ---
Lunch ordered for pt. Pt OOB to BR but did not have any stool this time only voided. Pt was OOB earlier and had tiny BM though receptacle was not in toilet.
[2024-09-10 13:00] VITALS: BMI 32.0
[2024-09-10 13:50] VITALS: BP 115/85
--- NOTE | 2024-09-10 16:00 | EDRN ---
500 mL warm tap water enema administered to pt as ordered at this time.
--- NOTE | 2024-09-10 16:28 | EDRN ---
Pt passed a little bit of stool. Pt states she feels as if she will be able to move her bowels again.
--- NOTE | 2024-09-10 16:32 | EDRN ---
Pt has small BM hard and formed and brown from enema. Stool orders for C diff, norovirus and culture have been discontinued.
--- NOTE | 2024-09-10 16:42 | EDRN ---
Pt placed in a hospital bed at this time.
--- NOTE | 2024-09-10 17:55 | EDRN ---
Pt had a second BM post tap water enema, this time medium hard brown and formed.
--- NOTE | 2024-09-10 18:16 | EDRN ---
Pharmacy called to send lovenox as not in [facility].
[2024-09-10] MEDS: LOVENOX 40 MG SC (18:31)
[2024-09-10 19:30] VITALS: BP 127/84
[2024-09-10 20:36] VITALS: BP 122/77
[2024-09-10] MEDS: SENOKOT 25.8 MG PO (21:45)
[2024-09-10 23:30] VITALS: BP 120/77
[2024-09-11] MEDS: LR 1000 IV ×2 (00:34→08:02)
[2024-09-11] MEDS: DILAUDID 4 MG PO ×4 (00:34→18:28)
[2024-09-11 03:07] VITALS: BP 97/48
[2024-09-11] MEDS: SYNTHROID 200 MCG PO (06:28)
[2024-09-11 07:32] VITALS: BP 133/83
[2024-09-11] MEDS: COREG 12.5 MG PO ×2 (07:45→20:10)
[2024-09-11] MEDS: MS CONTIN (EXTENDED RELEASE) 30 MG PO ×3 (07:45→22:39)
[2024-09-11] MEDS: NEURONTIN 600 MG PO ×2 (07:45→20:10)
[2024-09-11] MEDS: MIRALAX 17 GRAMS PO ×2 (07:45→20:10)
[2024-09-11] MEDS: TYLENOL 650 MG PO (07:45)
[2024-09-11 11:50] LABS: ALT (SGPT) 14 U/L (0-35); AST (SGOT) 18 U/L (14-36); Albumin 3.9 g/dl (3.5-5.0); Alkaline Phosphatase 62 U/L (38-126); Blood Urea Nitrogen 10 mg/dl (7-17); Calcium 9.1 mg/dl (8.4-10.2); Carbon Dioxide 25 mmol/L (22-30); Chloride 103 mmol/L (98-107); Estimated Creatinine Clearance 115 ml/min; Glucose 127 mg/dl (70-99); Potassium 3.7 mmol/L (3.5-5.1); Sodium 137 mmol/L (135-145); Total Bilirubin 0.5 mg/dl (0.2-1.3); Total Protein 6.9 g/dl (6.3-8.2); eGFR > 60.00
--- NOTE | 2024-09-11 12:35 | W.PN.HOSP.TC ---
Today's Communication/Plan
-
Bowel regimen
Fulls
stop IVF
Assessment / Plan
Assessment / Plan
General: Well Developed, Well Nourished, No Apparent Distress and Comfortable
HEENT: NormoCephalic, Anicteric, Moist mucous membranes and Atraumatic
Respiratory: Clear
Cardiac: S1/S2 and Regular Rhythm
GI: Soft, mild Tender epigastric and Left side, Non Distended and Normal Bowel Sounds, no guarding or rigidity
Musculoskeletal: No Clubbing, No Cyanosis and No Edema
Skin: Warm and Dry
Neuro: AO x 3
Hematologic/Lymphatic: No Lymphadenopathy
Psych: Calm
Ct abd/pelvis-Moderate diffuse sigmoid diverticulosis. No definite evidence to suggest acute diverticulitis. Underdistended cecum, ascending colon, and proximal transverse colon. This may contribute to mild wall thickening, though cannot entirely
exclude mild pathologic (infectious or inflammatory) wall thickening. No evidence of pneumatosis. Mild to moderate colonic fecal burden from the mid transverse colon through the proximal sigmoid colon. No evidence of bowel obstruction.
IMPRESSION:
44-year-old with complex gastric history including history of gastroparesis, history of acute diverticulitis, history of bowel obstruction status post hernia repair presents to the emergency department with symptoms that are clearly consistent with
acute gastroenteritis. She reports diarrhea nausea vomiting and abdominal pain. Labs are benign. CT scan shows no acute abnormalities and no obstruction. He is otherwise nontoxic-appearing and hemodynamically stable.
PLAN:
Intractable abdominal pain likely secondary to opioid induced severe constipation
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
History of hernia repair [place]
History of opioid-induced constipation
- fulls Advance diet as tolerated.
- continue antiemetics. DC IVF
- judicious opioid for pain control given opioid dependence
- no indication for abx at this time,
-Start patient on MiraLAX and senna. MoM. If no improvement can consider trial of Relistor
Chronic pain and daily opioid dependence
History of spinal surgery status post spinal stimulator
Hypothyroidism continue with Synthroid
Recent C. difficile infection 4 weeks ago
DVT PPx - lovenox sq
Code status - full code
Anticipated Discharge: > 48 hours
Subjective/Interval History
-
Date of Service: September 11, 2024
states only small bm
feeling bloated
remains with abd pain
no nausea or vomiting
Objective Data
-
Labs:
Laboratory Results
09/11/24
11:27
Sodium 137
Potassium 3.7
Chloride 103
Carbon Dioxide 25
BUN 10
Creatinine 0.7
Glucose 127 H
Calcium 9.1
Total Bilirubin 0.5
AST 18
ALT 14
Alkaline Phosphatase 62
Vital Signs:
Vital Signs
Temp Pulse Resp BP Pulse Ox
98.4 F 80 16 133/83 97
09/11/24 11:24 09/11/24 07:45 09/10/24 13:50 09/11/24 07:45 09/11/24 07:31
I&O
09/10/24 09/11/24 09/12/24
06:59 06:59 06:59
Intake Total 1000 / 1000 540 / 540
Balance 1000 / 1000 540 / 540
[2024-09-11] MEDS: MILK OF MAGNESIA 30 ML PO (12:49)
[2024-09-11 16:27] VITALS: BP 117/79
[2024-09-11] MEDS: LOVENOX 40 MG SC (18:26)
[2024-09-11 20:38] VITALS: BP 133/76
[2024-09-11] MEDS: SENOKOT 25.8 MG PO (22:39)
[2024-09-11] MEDS: DULCOLAX 10 MG PO (22:39)
--- NOTE | 2024-09-11 22:43 | EDRN ---
Gave Patient a cup of ice, otherwise resting comfortably at this time with call stock in reach.
[2024-09-12] MEDS: DILAUDID 4 MG PO ×4 (00:44→18:31)
--- NOTE | 2024-09-12 00:45 | EDRN ---
Patient had asked for something for pain, medicated as ordered, otherwise patient resting comfortably at this time, call stock in reach.
--- NOTE | 2024-09-12 04:33 | EDRN ---
Patient resting comfortably at this time, call stock in reach.
[2024-09-12] MEDS: SYNTHROID 200 MCG PO (05:57)
--- NOTE | 2024-09-12 06:25 | EDRN ---
Patient asking for some pain medication, medicated as ordered and also got her some more toilet paper for her bathroom, call stock in reach, no other complaints.
[2024-09-12 06:38] VITALS: BP 141/61
[2024-09-12 06:54] LABS: ALT (SGPT) 11 U/L (0-35); AST (SGOT) 21 U/L (14-36); Albumin 3.8 g/dl (3.5-5.0); Alkaline Phosphatase 59 U/L (38-126); Blood Urea Nitrogen 7 mg/dl (7-17); Calcium 8.6 mg/dl (8.4-10.2); Carbon Dioxide 28 mmol/L (22-30); Chloride 102 mmol/L (98-107); Estimated Creatinine Clearance > 125 ml/min; Glucose 93 mg/dl (70-99); Potassium 4.1 mmol/L (3.5-5.1); Sodium 138 mmol/L (135-145); Total Bilirubin 0.5 mg/dl (0.2-1.3); Total Protein 6.6 g/dl (6.3-8.2); eGFR > 60.00
[2024-09-12] MEDS: NEURONTIN 600 MG PO ×2 (08:01→19:35)
[2024-09-12] MEDS: COREG 12.5 MG PO ×2 (08:01→19:35)
[2024-09-12] MEDS: MS CONTIN (EXTENDED RELEASE) 30 MG PO ×3 (08:02→21:41)
[2024-09-12] MEDS: MIRALAX 17 GRAMS PO ×2 (08:02→19:37)
[2024-09-12] MEDS: ZOFRAN 4 MG IV (08:05)
--- NOTE | 2024-09-12 12:23 | W.PN.HOSP.TC ---
Today's Communication/Plan
-
Abd xray
probably will require Enema/+/- Relistor
fulls for now
Assessment / Plan
Assessment / Plan
General: Well Developed, Well Nourished, No Apparent Distress and Comfortable
HEENT: NormoCephalic, Anicteric, Moist mucous membranes and Atraumatic
Respiratory: Clear
Cardiac: S1/S2 and Regular Rhythm
GI: Soft, mild Tender epigastric and Left side, Non Distended and Normal Bowel Sounds, no guarding or rigidity
Musculoskeletal: No Clubbing, No Cyanosis and No Edema
Skin: Warm and Dry
Neuro: AO x 3
Hematologic/Lymphatic: No Lymphadenopathy
Psych: Calm
Ct abd/pelvis-Moderate diffuse sigmoid diverticulosis. No definite evidence to suggest acute diverticulitis. Underdistended cecum, ascending colon, and proximal transverse colon. This may contribute to mild wall thickening, though cannot entirely
exclude mild pathologic (infectious or inflammatory) wall thickening. No evidence of pneumatosis. Mild to moderate colonic fecal burden from the mid transverse colon through the proximal sigmoid colon. No evidence of bowel obstruction.
IMPRESSION:
44-year-old with complex gastric history including history of gastroparesis, history of acute diverticulitis, history of bowel obstruction status post hernia repair presents to the emergency department with symptoms that are clearly consistent with
acute gastroenteritis. She reports diarrhea nausea vomiting and abdominal pain. Labs are benign. CT scan shows no acute abnormalities and no obstruction. He is otherwise nontoxic-appearing and hemodynamically stable.
PLAN:
Intractable abdominal pain likely secondary to opioid induced severe constipation
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
History of hernia repair [place]
History of opioid-induced constipation
- Cont with fulls for now.
- continue antiemetics. DC IVF
- judicious opioid for pain control given opioid dependence
- no indication for abx at this time,
- Check AXR as ?worsening of constipation-ileus. Probably will require Enema/Relistor.
- Start patient on MiraLAX and senna. MoM.
Chronic pain and daily opioid dependence
History of spinal surgery status post spinal stimulator
Hypothyroidism continue with Synthroid
Recent C. difficile infection 4 weeks ago
Hypothyroidism:
Continue home levothyroxine
DVT PPx - lovenox sq
Code status - full code
Anticipated Discharge: 24 - 48 hours
Subjective/Interval History
-
Date of Service: September 12, 2024
remains with abd pain
no nausea or vomiting
not much bm
tolerating liquids so far but does not want it to advance to regular
Objective Data
-
Labs:
Laboratory Results
09/12/24
05:59
Sodium 138
Potassium 4.1
Chloride 102
Carbon Dioxide 28
BUN 7
Creatinine 0.6
Glucose 93
Calcium 8.6
Total Bilirubin 0.5
AST 21
ALT 11
Alkaline Phosphatase 59
Vital Signs:
Vital Signs
Temp Pulse Resp BP Pulse Ox
98.1 F 65 16 141/61 97
09/12/24 07:44 09/12/24 06:38 09/12/24 06:38 09/12/24 06:38 09/12/24 06:38
I&O
09/11/24 09/12/24 09/13/24
06:59 06:59 06:59
Intake Total 1000 / 1000 540 / 540 600 / 600
Balance 1000 / 1000 540 / 540 600 / 600
--- NOTE | 2024-09-12 12:53 | CM ---
CM met with pt bedside
Pt resides with her spouse and 3 children in a split level home, 3STE
12 steps (6+6) to sleeping area and full bath
Pt is independent with her ADLs- ambulates with crutches
Has hx with [facility], no SNF hx
Denies insecurities
PCP- Nidia Escobar
Rx- [facility]
Pt is OBS- DAS verbally completed, placed on ED chart
Pt declined copy
Discharge Disposition-home, anticipate no needs
--- NOTE | 2024-09-12 15:15 | PTCARENOTE ---
Pt said she drank some coffee and it caused her to have a bm - mostly liquid. She feels like she is going to go more in the near future. Pt does not want to try enema at this time.
[2024-09-12 16:17] VITALS: BP 126/81
[2024-09-12] MEDS: LOVENOX 40 MG SC (18:31)
[2024-09-12] MEDS: SENOKOT 25.8 MG PO (21:43)
[2024-09-12] MEDS: DULCOLAX 10 MG PO (21:43)
[2024-09-13] MEDS: DILAUDID 4 MG PO ×4 (00:32→19:37)
[2024-09-13] MEDS: SYNTHROID 200 MCG PO (06:21)
[2024-09-13 06:33] LABS: % Basophils 0.7 % (0-2); % Eosinophils 2.3 % (0-6); % Immature Granulocytes 0.3 % (0-0.5); % Lymphocytes 23.7 % (20.5-51.1); % Monocytes 7.5 % (1.7-9.3); % Neutrophils 65.5 % (42.2-75.2); Absolute Basophils 0.1 10^3/uL (0-0.2); Absolute Eosinophils 0.2 10^3/uL (0-0.7); Absolute Lymphocytes 1.7 10^3/uL (1.2-3.4); Absolute Monocytes 0.5 10^3/uL (0.1-0.6); Absolute Neutrophils 4.6 10^3/uL (1.4-6.5); Hematocrit 36.5 % (37.0-47.0); Hemoglobin 11.7 g/dL (12.0-16.0); Mean Corp Hgb Conc. 32.1 g/dL (33.0-37.0); Mean Corpuscular Hgb 27.5 pg (27.0-31.0); Mean Corpuscular Volume 85.7 fL (81.0-99.0); Mean Platelet Volume 9.7 fL (7.4-10.4); Nucleated Red Blood Cells % 0 %; Platelet Count 215 10^3/uL (130-400); Red Blood Cell Count 4.26 10^6/uL (4.20-5.40); Red Cell Dist. Width 14.1 % (11.5-14.5)
[2024-09-13 06:59] LABS: Blood Urea Nitrogen 5 mg/dl (7-17); Calcium 8.9 mg/dl (8.4-10.2); Carbon Dioxide 27 mmol/L (22-30); Chloride 103 mmol/L (98-107); Estimated Creatinine Clearance > 125 ml/min; Glucose 96 mg/dl (70-99); Sodium 138 mmol/L (135-145); eGFR > 60.00
[2024-09-13] MEDS: MS CONTIN (EXTENDED RELEASE) 30 MG PO ×3 (09:15→22:06)
[2024-09-13] MEDS: MIRALAX 17 GRAMS PO ×2 (09:15→19:37)
[2024-09-13] MEDS: COREG 12.5 MG PO ×2 (09:15→19:35)
[2024-09-13 09:32] VITALS: BP 131/76
[2024-09-13] MEDS: NEURONTIN 600 MG PO ×2 (09:39→19:37)
--- NOTE | 2024-09-13 10:03 | W.PN.HOSP.TC ---
Today's Communication/Plan
-
GI consult
consider sigmoidoscopic decompression, as per GI
Assessment / Plan
Assessment / Plan
Ct abd/pelvis-Moderate diffuse sigmoid diverticulosis. No definite evidence to suggest acute diverticulitis. Underdistended cecum, ascending colon, and proximal transverse colon. This may contribute to mild wall thickening, though cannot entirely
exclude mild pathologic (infectious or inflammatory) wall thickening. No evidence of pneumatosis. Mild to moderate colonic fecal burden from the mid transverse colon through the proximal sigmoid colon. No evidence of bowel obstruction.
IMPRESSION:
44-year-old with complex gastric history including history of gastroparesis, history of acute diverticulitis, history of bowel obstruction status post hernia repair presents to the emergency department with symptoms that are clearly consistent with
acute abdominal process. She reports diarrhea nausea vomiting and abdominal pain. WBC 9.3-->9.9-->7.0 CT scan shows no acute abnormalities and no obstruction. She is otherwise nontoxic-appearing and hemodynamically stable. Appears to be
tolerating full liquid diet
PLAN:
Intractable abdominal pain likely secondary to opioid induced severe constipation
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
History of hernia repair [place]
History of opioid-induced constipation
- Cont with fulls for now.
- continue antiemetics. DC'ed IVF
- judicious opioid for pain control given opioid dependence
- no indication for abx at this time,
- Abd X-Ray:1. Mild distention of the ascending and transverse colon with air and fluid.
2. No radiographic evidence for small bowel obstruction or pneumoperitoneum.
3. Previous cholecystectomy.
4. Spinal stimulator in place.
- Start patient on MiraLAX and senna. MoM.
Pt follows with Dr. Kwon for diverticulosis. Will consult GI. Concern for high fecal load in area of upper sigmoid colon, where has known diverticulosis
Case discussed with SHIRLENE Kelley
Chronic pain and daily opioid dependence
History of spinal surgery status post spinal stimulator
Hypothyroidism continue with Synthroid
Recent C. difficile infection 4 weeks ago
Hypothyroidism:
Continue home levothyroxine
DVT PPx - lovenox sq
Change status to full admit
Time 55 minutes
Code status - full code
Anticipated Discharge: 24 - 48 hours
Subjective/Interval History
-
Date of Service: September 13, 2024
Still with abd pain, passing some liquidy stool, but feels like there is something blocking adequate stool evacuation
Objective Data
-
Labs:
Laboratory Results
09/13/24
05:31
WBC 7.0
Hgb 11.7 L
Hct 36.5 L
Plt Count 215
Sodium 138
Potassium 4.0
Chloride 103
Carbon Dioxide 27
BUN 5 L
Creatinine 0.6
Glucose 96
Calcium 8.9
Vital Signs:
Vital Signs
Temp Pulse Resp BP Pulse Ox
98.4 F 66 16 131/76 97
09/13/24 09:32 09/13/24 09:32 09/13/24 09:32 09/13/24 09:32 09/13/24 09:32
I&O
09/12/24 09/13/24 09/14/24
06:59 06:59 06:59
Intake Total 540 / 540 1080 / 1080
Balance 540 / 540 1080 / 1080
Review of Systems
-
History Source: Patient and Coordinated Provider
Constitutional: Denies Fever
EENT: Reports No Symptoms Reported
Respiratory: Reports No Symptoms
Cardiac: Reports No Symptoms
Abdomen/GI: Reports Abdominal Pain, Diarrhea (passing small amount of liquidy stool) and Constipated
Genitourinary: Reports No Symptoms
Physical Exam
-
General: Well Developed, Well Nourished and No Apparent Distress
HEENT: Normocephalic, Atraumatic and Moist Mucous Membranes
Respiratory: Clear to Auscultation; Negative Wheezes, Rales or Rhonchi
Cardiac: Regular Rhythm and S1/S2
GI: Soft, Tender (direct and indirect rebound, most tender in area of upper sigmoid colon) and Distended; Negative Normal Bowel Sounds (hypoactive)
Musculoskeletal: No Clubbing, No Cyanosis and No Edema
Neuro: Awake, Alert and Oriented
Psych: Calm
--- NOTE | 2024-09-13 10:47 | CON.GI ---
Addendum entered and electronically signed by Sasha Thompson Do, MD 09/13/24 15:53:
I saw and examined the patient.
The DRIP BOX TENDER's note was reviewed and I agree with the note.
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
in setting of constipation. She does use miralax and senna at home. She currently feels pain is 5 out 10 improved. There is gas and bloating. She is tolerating FLD. Vitals reviewed exam obese mild TTP epigastric but not rebound or guarding.
Labs reviewed.
Impression
- Opioid induced gastroparesis and constipation
- Hx left renal vein nutcracker compression with prior left renal vein transposition with occlusion- pelvic congestion noted on imaging
- hernia repair at [facility] in February with SBO after repair treated with medical management
- hx SCAD on prior colonoscopy
- hx abnormal uterine bx
- regional pain symptoms with prior ankle injury- chronic narcotics and stimulator in place
Recommendations
- Repeat AXR today looks improved with less gas/stool burden
- Add simethicone s tanding
- C/w bowel regimen. [facility] outpatient may benefit from motegrity or movantik (neither is formulary currently)
- Adv to regular diet
- C/w PPI
- She is current with colonoscopy in 2021. She can follow up with Dr Kwon OP basis
Will follow with you
Original Note:
Consultation
-
Date/Time Consultation Requested: 09/13/24 9715
Date/Time Consultation Performed: 09/13/24 1045
Requesting Provider: Gregory Cortez MD
Performing Provider: SHIRLENE Gamez, Sasha Simms MD
Reason for Consultation: abdominal pain
Medical History
Chief Complaint / HPI
Chief Complaint: abdominal pain/constipation
History of Present Illness:
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
hypothyroidism, RSD with prior accident and chronic leg pain with chronic narcotic use, colitis, diverticulitis, scad on colonoscopy however was diagnosed with renal vein nutcracker compression after that finding. She has been admitted to
several time for recurrent pain. In the past she has been seen by [facility] and vascular surgery for consideration of transposition of ovarian vein vs nephrectomy. She is scheduled follow up in November for specialist at [facility] for review of nutcracker
syndrome and further intervention as was trying to avoid nephrectomy. She now presents with recurrent abdominal pain and constipation . Since admission on 09/[address] she was noted with diverticulosis with mild to moderate colonic fecal
burden. She has been on Miralax BID along with senna with liquid stools. She remains without fever or WBC but still with persistent pain despite continued narcotic use with Morphine TID along with Dilaudid use. She admit pain was 8/10 on admission
now 5/10 but still with tenderness on exam. Follow up abd film 09/12 with non abnormal volume of fecal material in colon or rectum with mild distention of ascending and transverse colon with air and fluid.
Pt otherwise admits to vomiting on admission that has improved and some continued nausea. Pain is mid abdomen and slight to left worse with palpation. She admits to chronic constipation. She did have some blood in stool but likely related to
recent menses. No black stools. HX EGD [address] Alston with mild antral gastritis, bilious gastric fluid, normal duodenum, coloscopy [address] Kwon SCAD thickening with diverticular disease, hemorrhoids multiple small polyps in rectum
and sigmoid, diverticulosis, congested and erythema in recto sigmoid, and distal sigmoid, polyps(hyperplastic) and glandularity. random bx with nodular lymphoid aggregate no significant pathology.
Past Medical History
Past Medical History: GERD, Hypothyroidism and Other (Left renal vein nutcracker syndrome, ovarian cyst, renal pain syndrome, diverticulosis, scad, lung nodule, hidradenitis, SBO after hernia repair treated medically )
Past Surgical History: Cholecystectomy, , Gynecological (The ligation), Orthopedic (Ankle surgery) and Other (Spinal cord stimulator, renal vein transposition, ventral hernia repair )
Social History
Tobacco: Smoker
Alcohol: None
Drug: None
Personal:
Living: With Family
Employment: Disabled
Family History
Family History: Other (aunt colon cancer, mother with polyps)
Allergies / Home Medications
Allergy/AdvReac Type Severity Reaction Status Date / Time
metoclopramide [From Reglan] AdvReac 'I got Verified 06/08/24 03:43
real
anxious,
jumping
out of my
skin'
�Medication �Instructions �Recorded
gabapentin 600 mg tablet 600 mg PO BID Pain 09/12/21
hydromorphone 4 mg tablet 4 mg PO Q6HPRN PRN BREAKTHROUGH 07/30/22
(Dilaudid) PAIN
morphine 30 mg tablet,extended 30 mg PO TID Pain 05/25/23
release
albuterol sulfate 90 mcg/actuation 2 puff inhalation R Q6HPRN PRN 07/24/23
aerosol inhaler wheezing
levothyroxine 200 mcg tablet 200 mcg PO DAILY@06 Thyroid 07/24/23
carvedilol 12.5 mg tablet 12.5 mg PO BID Heart Failure 12/28/23
polyethylene glycol 3350 17 gram 17 g PO BIDPRN PRN constipation 09/09/24
oral powder packet (HealthyLax)
sennosides 8.6 mg tablet (Senokot) 25.8 mg PO HSPRN PRN constipation 09/09/24
Review of Systems
-
History Source: Patient
Constitutional: Reports No Symptoms
EENT: Reports No Symptoms
Respiratory: Reports No Symptoms
Cardiac: Reports No Symptoms
Abdomen/GI: Reports Abdominal Pain, Nausea, Vomiting and Constipated
: Reports No Symptoms
Musculoskeletal: Reports Other (chronic pain with chronic narcotic use )
Skin: Reports No Symptoms
Neurological: Reports No Symptoms
Endocrine: Reports No Symptoms
Hematologic/Lymphatic: Reports No Symptoms
Vital Signs
Temp Pulse Resp BP Pulse Ox
98.4 F 66 16 131/76 97
09/13/24 09:32 09/13/24 09:32 09/13/24 09:32 09/13/24 09:32 09/13/24 09:32
Physical Exam
Exam
General: Well Developed, Well Nourished and No Apparent Distress
HEENT: Normocephalic and Anicteric
Respiratory: Clear
Cardiac: Regular Rhythm
GI: Soft, Non Distended and Tender (mid and LLQ with some guarding on exam )
Musculoskeletal: No Clubbing and No Cyanosis
Skin: Warm and Dry
Neuro: Awake, Alert and AO x 3
Psych: Calm
Results
WBC 7.0 10^3/uL (4.8-10.8) 09/13/24 05:31
Hgb 11.7 g/dL (12.0-16.0) L 09/13/24 05:31
Hct 36.5 % (37.0-47.0) L 09/13/24 05:31
MCV 85.7 fL (81.0-99.0) 09/13/24 05:31
Plt Count 215 10^3/uL (130-400) 09/13/24 05:31
Absolute Neuts (auto) 4.6 10^3/uL (1.4-6.5) 09/13/24 05:31
Sodium 138 mmol/L (135-145) 09/13/24 05:31
Potassium 4.0 mmol/L (3.5-5.1) 09/13/24 05:31
Chloride 103 mmol/L (98-107) 09/13/24 05:31
Carbon Dioxide 27 mmol/L (22-30) 09/13/24 05:31
BUN 5 mg/dl (7-17) L 09/13/24 05:31
Creatinine 0.6 mg/dL (0.6-1.0) 09/13/24 05:31
Calcium 8.9 mg/dl (8.4-10.2) 09/13/24 05:31
Total Bilirubin 0.5 mg/dl (0.2-1.3) 09/12/24 05:59
AST 21 U/L (14-36) 09/12/24 05:59
ALT 11 U/L (0-35) 09/12/24 05:59
Alkaline Phosphatase 59 U/L (38-126) 09/12/24 05:59
Lipase 37 U/L (23-300) 09/09/24 11:35
Diagnostic Image Results:
09/12/24- CR Abdomen - 2 Views
1. Mild distention of the ascending and transverse colon with air and fluid.
2. No radiographic evidence for small bowel obstruction or pneumoperitoneum.
3. Previous cholecystectomy.
4. Spinal stimulator in place.
09/09/24 CT Abd/pelvis W Iv Cont
Moderate diffuse sigmoid diverticulosis. No definite evidence to suggest acute diverticulitis. Underdistended cecum, ascending colon, and proximal transverse colon. This may contribute to mild wall thickening, though cannot entirely exclude mild
pathologic (infectious or inflammatory) wall thickening. No evidence of pneumatosis.
Mild to moderate colonic fecal burden from the mid transverse colon through the proximal sigmoid colon.
No evidence of bowel obstruction.
09/09/24 obstruction series
Unremarkable bowel gas pattern. No obstruction or ileus. No free air. No active pulmonary disease.
06/08/24 obstruction series
No active cardiopulmonary disease.
No evidence of acute abdominal pathology.
06/08/24 CT A/p with IV and oral contrast:
IMPRESSION: No acute pathology of the abdomen or pelvis identified.
Moderate fecal material throughout the colon. Stable
Prior cholecystectomy. Stable
Prominent pelvic vascularity which can be seen with pelvic congestion syndrome. Stable
03/06/24 CT Abd/Pel (IV only)- only
IMPRESSION: Interval surgery with ventral hernia repair. Drains are present within the anterior subcutaneous soft tissues of the anterior abdominal wall. Small amount of air within the anterior subcutaneous soft tissues with no evidence for
collection/abscess.
Thin fluid collection along the posterior margin of the rectus muscles in the anterior abdominal wall, which is likely a postsurgical seroma
CT findings compatible with small bowel obstruction. Transition in the left anterior paramedian abdomen, adjacent to the site of surgery, with obstruction likely on the basis of an adhesion.
Small to moderate amount of free fluid within the pelvic cul-de-sac. No evidence of free intraperitoneal air.
Splenic size is in the upper range of normal, maximum dimension of 12.9 cm.
Prior GI Procedures:
EGD: [facility] 2021 with normal esophagus, mild antral gastritis, bilious gastric fluid, normal duodenum. bx chronic inactive gastritis, neg H pylori, neg celiac, neg EOE or dysplasia.
Colonoscopy: 01/2022 [facility]- SCAD thickening with diverticular disease, hemorrhoids multiple small polyps in rectum and sigmoid, diverticulosis, congested and erythema in recto sigmoid, and distal sigmoid, polyps(hyperplastic) and glandularity.
random bx with nodular lymphoid aggregate no significant pathology.
Assessment / Plan
-
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
hypothyroidism, RSD with prior accident and chronic leg pain with chronic narcotic use, colitis, diverticulitis, scad on colonoscopy however was diagnosed with renal vein nutcracker compression after that finding. She has been admitted to
several time for recurrent pain. In the past she has been seen by [facility] and vascular surgery for consideration of transposition of ovarian vein vs nephrectomy. She is scheduled follow up in November for specialist at [facility] for review of nutcracker
syndrome and further intervention as was trying to avoid nephrectomy. She now presents with recurrent abdominal pain and constipation . Since admission on 09/[address] she was noted with diverticulosis with mild to moderate colonic fecal
burden. She has been on Miralax BID along with senna with liquid stools. She remains without fever or WBC but still with persistent pain despite continued narcotic use with Morphine TID along with Dilaudid use. She admit pain was 8/10 on admission
now 5/10 but still with tenderness on exam. Follow up abd film 09/12 with non abnormal volume of fecal material in colon or rectum with mild distention of ascending and transverse colon with air and fluid.
-abdominal pain with nausea/vomiting
-constipation s/p miralax, senna and enema given now with loose stool
-hx left renal vein nutcracker compression with prior left renal vein transposition with occlusion- pelvic congestion noted on imaging
-narcotic induced constipation
-hernia repair at [facility] in February with SBO after repair treated with medical management
-hx SCAD on prior colonoscopy
-hx abnormal uterine bx
other medical problems:
-regional pain symptoms with prior ankle injury- chronic narcotics and stimulator in place
-tobacco abuse
-GERD
-ovarian cyst
-julio cesar
-hx prior Marijuana use
-family hx colon CA
-hypothyroidism
PLAN:
etiology of left sided pain related to constipation with chronic narcotic use, nutcracker compression with continued occlusion, component of gastroparesis as suspected in past vs adhesive disease though no obstructive process on imaging, vs other
pt states some improved pain since admission was 8/10 now 5/10 but still with guarding on exam
she continued with loose stool and last film 09/12 without stool burden
cont to monitor clinically
will review imaging with Dr. Simms and for repeat testing
if worsening pain, fever, leukocytosis consider repeat CT
clear diet til pain improved
pain control but will need to cut back OP meds as this is leading to increased constipation
t/c trial of Movantik or relistor for continued constipation with narcotic use
due OP follow up at [facility] in November --for underlying nutcracker compression
-
-
Thank you for consultation and allowing me to participate in the patient's care. Please call the estimation manager GI physician during the after hours with any questions or concerns.
--- NOTE | 2024-09-13 17:20 | PTCARENOTE ---
Stool studies ordered this morning. Pt aware and hat placed in toilet. Pt has not had BM. Pt still has mild tenderness LLQ abd. Pt eating and drinking. Still asking for PRN PO dilaudid every 6 hours for pain.
[2024-09-13 17:50] VITALS: BP 119/62
[2024-09-13] MEDS: LOVENOX 40 MG SC (17:51)
[2024-09-13] MEDS: MYLICON DROPS 40 MG PO ×2 (17:51→22:06)
[2024-09-13 21:19] VITALS: BP 113/64; BMI 33.7
[2024-09-13] MEDS: SENOKOT 25.8 MG PO (22:06)
[2024-09-13] MEDS: DULCOLAX 10 MG PO (22:06)
[2024-09-14] MEDS: SYNTHROID 200 MCG PO (04:22)
[2024-09-14] MEDS: DILAUDID 4 MG PO ×4 (04:23→23:07)
[2024-09-14 07:26] VITALS: BP 123/71
[2024-09-14] MEDS: NEURONTIN 600 MG PO ×2 (10:38→20:21)
[2024-09-14] MEDS: COREG 12.5 MG PO ×2 (10:38→20:23)
[2024-09-14] MEDS: MS CONTIN (EXTENDED RELEASE) 30 MG PO ×3 (10:38→22:53)
[2024-09-14] MEDS: MYLICON DROPS 40 MG PO ×4 (10:39→22:55)
[2024-09-14] MEDS: MIRALAX PO ×2 (10:40→20:16)
--- NOTE | 2024-09-14 12:31 | CM ---
CM reviewed chart, patient seen beside. GI following patient. Patient reports no needs to CM at this time, will continue to follow for all discharge planning needs.
Plan; home with family, no needs.
--- NOTE | 2024-09-14 14:54 | W.PN.GI.CBS2 ---
Addendum entered and electronically signed by Lucila Ybarra MD 09/14/24 17:13:
I saw and examined the patient.
The EXECUTIVE CHEF or PA's note was reviewed and I agree with the note.
Comment: Patient reports she is better, abdominal pain is improved but not gone. No nausea or vomiting, tolerating low residue diet. Still reports having loose stool.
History of chronic constipation with underlying opiate use and currently on MiraLAX twice a day and Senokot.
If diarrhea continues, can hold a dose of MiraLAX.
Agree with considering Motegrity or Movantik as outpatient for opioid constipation
Limit narcotic use.
Outpatient GI follow-up.
Will sign off, please call back if needed
Original Note:
Today's Communication / Plan
-
etiology of left sided pain related to constipation with chronic narcotic use, nutcracker compression with continued occlusion, component of gastroparesis as suspected in past vs adhesive disease though no obstructive process on imaging, vs other
pt states some improved pain since admission was 810 now 11/15
tolerating full liquids advance to low residue diet
monitor stool with diet
cont standing simethacone
[employer] outpatient may benefit from motegrity or movantik (neither is formulary currently)
cont to monitor clinically
if worsening pain, fever, leukocytosis consider repeat CT
pain control but will need to cut back OP meds as this is leading to increased constipation
C/w PPI
due OP follow up at [facility] in November --for underlying nutcracker compression
Assessment / Plan
-
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
hypothyroidism, RSD with prior accident and chronic leg pain with chronic narcotic use, colitis, diverticulitis, scad on colonoscopy however was diagnosed with renal vein nutcracker compression after that finding. She has been admitted to
several time for recurrent pain. In the past she has been seen by [facility] and vascular surgery for consideration of transposition of ovarian vein vs nephrectomy. She is scheduled follow up in November for specialist at [facility] for review of nutcracker
syndrome and further intervention as was trying to avoid nephrectomy. She now presents with recurrent abdominal pain and constipation . Since admission on 09/[address] she was noted with diverticulosis with mild to moderate colonic fecal
burden. She has been on Miralax BID along with senna with liquid stools. She remains without fever or WBC but still with persistent pain despite continued narcotic use with Morphine TID along with Dilaudid use. She admit pain was 8/10 on admission
now 01/15 but still with tenderness on exam. Follow up abd film 09/12 with non abnormal volume of fecal material in colon or rectum with mild distention of ascending and transverse colon with air and fluid.
-abdominal pain with nausea/vomiting
-constipation s/p miralax, senna and enema given now with loose stool
-hx left renal vein nutcracker compression with prior left renal vein transposition with occlusion- pelvic congestion noted on imaging
-narcotic induced constipation
-hernia repair at [employer] [facility] in February with SBO after repair treated with medical management
-hx SCAD on prior colonoscopy
-hx abnormal uterine bx
other medical problems:
-regional pain symptoms with prior ankle injury- chronic narcotics and stimulator in place
-tobacco abuse
-GERD
-ovarian cyst
-julio cesar
-hx prior Marijuana use
-family hx colon CA
-hypothyroidism
PLAN:
etiology of left sided pain related to constipation with chronic narcotic use, nutcracker compression with continued occlusion, component of gastroparesis as suspected in past vs adhesive disease though no obstructive process on imaging, vs other
pt states some improved pain since admission was 8/10 now 10
tolerating full liquids advance to low residue diet
monitor stool with diet
cont standing simethacone
[facility] outpatient may benefit from motegrity or movantik (neither is formulary currently)
cont to monitor clinically
if worsening pain, fever, leukocytosis consider repeat CT
pain control but will need to cut back OP meds as this is leading to increased constipation
C/w PPI
due OP follow up at [facility] in November --for underlying nutcracker compression
Subjective
Subjective
Date of Service: September 14, 2024
watery stool on full liquid diet -- pain improving now 11/15
Objective
Data Reviewed
Laboratory Data:
Laboratory Results
09/13/24 05:31
09/13/24 05:31
Laboratory Results
Magnesium 2.0 mg/dl (1.6-2.3) 09/10/24 06:45
Total Bilirubin 0.5 mg/dl (0.2-1.3) 09/12/24 05:59
AST 21 U/L (14-36) 09/12/24 05:59
ALT 11 U/L (0-35) 09/12/24 05:59
Alkaline Phosphatase 59 U/L (38-126) 09/12/24 05:59
Lipase 37 U/L (23-300) 09/09/24 11:35
Vital Signs and I&O:
Vital Signs
Temp Pulse Resp BP Pulse Ox
97.9 F 66 18 123/71 97
09/14/24 07:26 09/14/24 07:26 09/14/24 07:26 09/14/24 07:26 09/14/24 07:26
I&O
09/13/24 09/14/24 09/15/24
06:59 06:59 06:59
Intake Total 1080 / 1080 480 / 480
Balance 1080 / 1080 480 / 480
Physical Exam
Physical Exam
HEENT: Anicteric and Moist mucous membranes
Cardiology: Normal Sinus Rhythm
Pulmonary: Clear
GI: Soft, Non Distended and Tender (mild lower abdomen no guarding and improved from 09/13 )
Extremities: No Edema
Neuro: Non Focal
[2024-09-14 15:00] VITALS: BP 113/68
--- NOTE | 2024-09-14 17:04 | W.PN.HOSP.TC ---
Today's Communication/Plan
-
diet advanced to low residue. If tolerates and WBC remain low, potential dc tomorrow
Assessment / Plan
Assessment / Plan
Ct abd/pelvis-Moderate diffuse sigmoid diverticulosis. No definite evidence to suggest acute diverticulitis. Underdistended cecum, ascending colon, and proximal transverse colon. This may contribute to mild wall thickening, though cannot entirely
exclude mild pathologic (infectious or inflammatory) wall thickening. No evidence of pneumatosis. Mild to moderate colonic fecal burden from the mid transverse colon through the proximal sigmoid colon. No evidence of bowel obstruction.
IMPRESSION:
44-year-old with complex gastric history including history of gastroparesis, history of acute diverticulitis, history of bowel obstruction status post hernia repair presents to the emergency department with symptoms that are clearly consistent with
acute abdominal process. She reports diarrhea nausea vomiting and abdominal pain. WBC 9.3-->9.9-->7.0 CT scan shows no acute abnormalities and no obstruction. She is otherwise nontoxic-appearing and hemodynamically stable. diet advanced to low
residue and appears to be tolerating
PLAN:
Intractable abdominal pain likely secondary to opioid induced severe constipation
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
History of hernia repair Manuel. As per GI has appt with [facility] in November
History of opioid-induced constipation
- Cont with fulls for now.
- continue antiemetics. DC'ed IVF
- judicious opioid for pain control given opioid dependence
- no indication for abx at this time,
- Abd X-Ray:1. Mild distention of the ascending and transverse colon with air and fluid.
2. No radiographic evidence for small bowel obstruction or pneumoperitoneum.
3. Previous cholecystectomy.
4. Spinal stimulator in place.
- Start patient on MiraLAX and senna. MoM.
Pt follows with Dr. Kwon for diverticulosis. Appreciate consult GI. Concern for high fecal load in area of upper sigmoid colon, where has known diverticulosis
Case discussed with SHIRLENE Kelley
Chronic pain and daily opioid dependence
History of spinal surgery status post spinal stimulator
Hypothyroidism continue with Synthroid
Recent C. difficile infection 4 weeks ago
Hypothyroidism:
Continue home levothyroxine
DVT PPx - lovenox sq
Change status to full admit
Code status - full code
Reviewed with in room
Anticipated Discharge: 24 - 48 hours
Subjective/Interval History
-
Date of Service: September 14, 2024
Still with diarrhea, but abd pain has lessened
Objective Data
-
Vital Signs:
Vital Signs
Temp Pulse Resp BP Pulse Ox
98.1 F 59 18 113/68 98
09/14/24 15:00 09/14/24 15:00 09/14/24 15:00 09/14/24 15:00 09/14/24 15:00
I&O
09/13/24 09/14/24 09/15/24
06:59 06:59 06:59
Intake Total 1080 / 1080 480 / 480
Balance 1080 / 1080 480 / 480
Review of Systems
-
History Source: Patient and Coordinated Provider
Constitutional: Denies Fever
EENT: Reports No Symptoms Reported
Respiratory: Reports No Symptoms
Cardiac: Reports No Symptoms
Abdomen/GI: Reports Abdominal Pain and Diarrhea (stillwih diarhea); Denies Constipated
Genitourinary: Reports No Symptoms
Physical Exam
-
General: Well Developed, Well Nourished and No Apparent Distress
HEENT: Normocephalic, Atraumatic and Moist Mucous Membranes
Respiratory: Clear to Auscultation; Negative Wheezes, Rales or Rhonchi
Cardiac: Regular Rhythm and S1/S2
GI: Soft, Tender (remains somewhattener, u les pronounced) and Distended; Negative Normal Bowel Sounds (more active,probaby approaching baseline)
Musculoskeletal: No Clubbing, No Cyanosis and No Edema
Neuro: Awake, Alert and Oriented
Psych: Calm
[2024-09-14] MEDS: LOVENOX 40 MG SC (19:18)
[2024-09-14] MEDS: SENOKOT PO (20:24)
[2024-09-14 23:12] VITALS: BP 123/73
[2024-09-15] MEDS: DILAUDID 4 MG PO ×2 (05:08→12:14)
[2024-09-15] MEDS: SYNTHROID 200 MCG PO (05:08)
[2024-09-15 07:20] VITALS: BP 121/68
[2024-09-15] MEDS: MYLICON DROPS 40 MG PO ×2 (08:47→12:11)
[2024-09-15] MEDS: MS CONTIN (EXTENDED RELEASE) 30 MG PO ×2 (08:47→15:00)
[2024-09-15] MEDS: COREG 12.5 MG PO (08:47)
[2024-09-15] MEDS: NEURONTIN 600 MG PO (08:47)
[2024-09-15] MEDS: MIRALAX PO (08:47)
--- NOTE | 2024-09-15 14:10 | W.PN.HOSP.TC ---
Today's Communication/Plan
-
dc to home
Assessment / Plan
Assessment / Plan
Ct abd/pelvis-Moderate diffuse sigmoid diverticulosis. No definite evidence to suggest acute diverticulitis. Underdistended cecum, ascending colon, and proximal transverse colon. This may contribute to mild wall thickening, though cannot entirely
exclude mild pathologic (infectious or inflammatory) wall thickening. No evidence of pneumatosis. Mild to moderate colonic fecal burden from the mid transverse colon through the proximal sigmoid colon. No evidence of bowel obstruction.
IMPRESSION:
44-year-old with complex gastric history including history of gastroparesis, history of acute diverticulitis, history of bowel obstruction status post hernia repair presents to the emergency department with symptoms that are clearly consistent with
acute abdominal process. She reports diarrhea nausea vomiting and abdominal pain. WBC 9.3-->9.9-->7.0 CT scan shows no acute abnormalities and no obstruction. She is otherwise nontoxic-appearing and hemodynamically stable. diet advanced to low
residue and appears to be tolerating
PLAN:
Intractable abdominal pain likely secondary to opioid induced severe constipation, responding to laxatives with definite improvement
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
History of hernia repair Manuel. 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
History of opioid-induced constipation
- Cont with fulls for now.
- continue antiemetics. DC'ed IVF
- judicious opioid for pain control given opioid dependence
- no indication for abx at this time,
- Abd X-Ray:1. Mild distention of the ascending and transverse colon with air and fluid.
2. No radiographic evidence for small bowel obstruction or pneumoperitoneum.
3. Previous cholecystectomy.
4. Spinal stimulator in place.
- Start patient on MiraLAX and senna. MoM.
Pt follows with Dr. Kwon for diverticulosis. Appreciate consult GI. Concern for high fecal load in area of upper sigmoid colon, where has known diverticulosis, appears to have responded to Tx
Chronic pain and daily opioid dependence
History of spinal surgery status post spinal stimulator
Hypothyroidism continue with Synthroid
Recent C. difficile infection 4 weeks ago
Hypothyroidism:
Continue home levothyroxine
DVT PPx - lovenox sq
Change status to full admit
Code status - full code
Reviewed with in room
With improvement will dc to home
see dictated note
More than 30 minutes spent in discharge including
Final examination of the patient
Summarizing hospital stay
Instructions for continuing care to all relevant caregivers
Preparation of discharge records, prescriptions, and referral forms
Total time spent (in minutes): 45
Anticipated Discharge: Today
Subjective/Interval History
-
Date of Service: September 15, 2024
Still passing liquidy stool, but abdominal pain markedly better and feels well enough to go home
Objective Data
-
Vital Signs:
Vital Signs
Temp Pulse Resp BP Pulse Ox
98.3 F 74 18 121/68 97
09/15/24 07:20 09/15/24 07:20 09/15/24 07:20 09/15/24 07:20 09/15/24 07:20
I&O
09/14/24 09/15/24 09/16/24
06:59 06:59 06:59
Intake Total 480 / 480 960 / 960
Balance 480 / 480 960 / 960
Review of Systems
-
History Source: Patient and Coordinated Provider
Constitutional: Denies Fever
EENT: Reports No Symptoms Reported
Respiratory: Reports No Symptoms
Cardiac: Reports No Symptoms
Abdomen/GI: Reports Abdominal Pain and Diarrhea (stillwih diarhea); Denies Constipated
Genitourinary: Reports No Symptoms
Physical Exam
-
General: Well Developed, Well Nourished and No Apparent Distress
HEENT: Normocephalic, Atraumatic and Moist Mucous Membranes
Respiratory: Clear to Auscultation; Negative Wheezes, Rales or Rhonchi
Cardiac: Regular Rhythm and S1/S2
GI: Soft, Normal Bowel Sounds (nownrma), Tender (minimal tendenss,probably at baseline) and Distended
Musculoskeletal: No Clubbing, No Cyanosis and No Edema
Neuro: Awake, Alert and Oriented
Psych: Calm
--- NOTE | 2024-09-15 14:30 | CM ---
CM reviewed chart, patient for discharge today. Patient seen bedside, reports no needs to CM at this time. Patient reports her will provide transportation home. IMM reviewed, verbally agreeable, placed in chart. CM will continue to follow
for all discharge planning needs.
Plan; home with no needs.
[2024-09-15 15:07] VITALS: BP 117/70
--- NOTE | 2024-09-15 18:41 | W.DS.TRANS ---
DC Summary - Financial Reporting Manager
-
Discharge Instructions:
Discharge Diagnosis/Procedures Colonic Dysmotility with stool impaction
Diet Regular
Activity With assistance
Driving Restrictions No driving
Bathing Restrictions None
Blood Work CBC, BMP in 1-2 weeks
Instructions:
Stand-Alone Forms:
Changes to Home Medications: Yes
Discharge Medications:
DC Medications w/original date entered in [employer]
gabapentin 600 mg tablet 600 mg PO BID Pain 09/12/21
hydromorphone 4 mg tablet (Dilaudid) 4 mg PO Q6HPRN PRN BREAKTHROUGH PAIN 07/30/22
morphine 30 mg tablet,extended release 30 mg PO TID Pain 05/25/23
albuterol sulfate 90 mcg/actuation aerosol inhaler 2 puff inhalation R Q6HPRN PRN wheezing 07/24/23
levothyroxine 200 mcg tablet 200 mcg PO DAILY@06 Thyroid 07/24/23
carvedilol 12.5 mg tablet 12.5 mg PO BID Heart Failure 12/28/23
polyethylene glycol 3350 17 gram oral powder packet (HealthyLax) 17 g PO BIDPRN PRN constipation 09/09/24
sennosides 8.6 mg tablet (Senokot) 25.8 mg PO HSPRN PRN constipation 09/09/24
simethicone 40 mg/0.6 mL oral drops,suspension ([employer] Gas Relief) 40 mg (0.6 mL) PO PCHS #10 mL 09/15/24
Home Medication Changes
take Miralax regularly
Simethicone if needed for gas pockets
Pending Results: No
== END 2024-09-15 16:29 | disposition home or self-care (01) | DRG 392 ==
LOC: 4 WEST ACU 10:16
PROVIDERS: Emergency Medicine; Hospitalist; ADMITTING PHYSICIAN Internal Medicine; ATTENDING PHYSICIAN Internal Medicine; CONSULT PHYSICIAN Internal Medicine Gastroenterology; EMERGENCY PHYSICIAN Emergency Medicine; FAMILY PHYSICIAN Family Medicine
DX: K59.03 Drug induced constipation (principal); F11.20 Opioid dependence, uncomplicated; F17.200 Nicotine dependence, unspecified, uncomplicated; G89.4 Chronic pain syndrome; K31.84 Gastroparesis; E03.9 Hypothyroidism, unspecified
CPT/HCPCS: 74018; 74019; 74022; 74177; 80048; 80053; 83690; 83735; 84703; 85025; 85027; 87045; 87046; 87324; 87427; 87449; 87798; 89055; 93005; 96361; 96374; 96375; 96376; 99285; Q9967

== ENCOUNTER 2024-10-11 18:17 | Observation (INO) | payer BC, MEDICARE, SELFPAY ==
[2024-10-11 06:36] VITALS: BP 187/114
[2024-10-11] MEDS: ZOFRAN ODT (ORALLY DISINTEGRATING) 4 MG PO (06:41)
[2024-10-11 07:08] LABS: % Basophils 0.5 % (0-2); % Eosinophils 0.6 % (0-6); % Immature Granulocytes 0.5 % (0-0.5); % Lymphocytes 10.3 % (20.5-51.1); % Monocytes 2.1 % (1.7-9.3); Absolute Basophils 0.1 10^3/uL (0-0.2); Absolute Eosinophils 0.1 10^3/uL (0-0.7); Absolute Immature Granulocytes 0.1 10^3/uL (0-0.05); Absolute Lymphocytes 1.1 10^3/uL (1.2-3.4); Absolute Monocytes 0.2 10^3/uL (0.1-0.6); Absolute Neutrophils 9.4 10^3/uL (1.4-6.5); Hematocrit 45.2 % (37.0-47.0); Hemoglobin 15.2 g/dL (12.0-16.0); Mean Corp Hgb Conc. 33.6 g/dL (33.0-37.0); Mean Corpuscular Hgb 27.1 pg (27.0-31.0); Mean Corpuscular Volume 80.7 fL (81.0-99.0); Mean Platelet Volume 9.1 fL (7.4-10.4); Nucleated Red Blood Cells % 0 %; Platelet Count 282 10^3/uL (130-400); Red Cell Dist. Width 13.5 % (11.5-14.5); White Blood Cell Count 10.9 10^3/uL (4.8-10.8)
[2024-10-11 07:27] LABS: ALT (SGPT) 15 U/L (0-35); AST (SGOT) 23 U/L (14-36); Albumin 5.2 g/dl (3.5-5.0); Alkaline Phosphatase 93 U/L (38-126); Blood Urea Nitrogen 11 mg/dl (7-17); Calcium 9.8 mg/dl (8.4-10.2); Carbon Dioxide 17 mmol/L (22-30); Chloride 105 mmol/L (98-107); Glucose 148 mg/dl (70-99); Potassium 4.1 mmol/L (3.5-5.1); Sodium 137 mmol/L (135-145); Total Bilirubin 0.9 mg/dl (0.2-1.3); Total Protein 8.8 g/dl (6.3-8.2); eGFR > 60.00
[2024-10-11 09:25] VITALS: BMI 35.1
[2024-10-11 09:33] LABS: Lipase 44 U/L (23-300)
--- NOTE | 2024-10-11 09:34 | ED.GENMED ---
History of Present Illness
<SHIRLENE Martinez - Last Filed: 10/14/24 19:22>
General
Chief Complaint: Abdominal Pain
Source: patient
Exam Limitations: none
Time Seen by Provider: 10/11/24 08:51
Nursing documentation reviewed up to this point in time: agreed with
History of Present Illness
History of Present Illness:
Patient is a 44-year-old female past medical history of chronic pain syndrome/RSD on MS Contin and Dilaudid, hypertension, renal vein nutcracker syndrome, pelvic congestion syndrome cholecystectomy presents to the ER for evaluation. Patient started
with nausea vomiting /abdominal pain at 1 AM. She reports pain is mostly on the left side of her abdomen/mid abdomen .she vomited approximately 6 times. She also said diarrhea however feels that this pain is more consistent with her pelvic
congestion syndrome. She believes she is ovulating now her last menstrual period was just about 2 weeks ago. She denies any associated fever chills. No other sick contacts
She does not drink alcohol.
Patient was recommended to follow-up with specialist at [facility] for renal vein Nutcracker syndrome /pelvic congestion syndrome however appointment is not until November.
She has seen Dr. Garcia before for surg previously.
Past History
<SHIRLENE Martinez - Last Filed: 10/14/24 19:22>
Past History
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 PNA, Gastroenteritis) and Other (C-diff)
ED Past Surgical History: Cholecystectomy, (x 1), Gynecological (Tubal, ), Orthopedic (Right ankle surgery ), Urological ( Renal vein transposition,) and Other ( Spinal stimulator. Hernia repair)
Social History
Tobacco: Smoker
Alcohol: None
Drug: None
Personal:
Living: with family
Review of Systems
<SHIRLENE Martinez - Last Filed: 10/14/24 19:22>
Review of Systems
Allergies reviewed?: Yes
All Other Systems: ROS reviewed and negative except as documented in HPI and ROS
Constitutional: Reports no symptoms; Denies fever, fatigue or chills
EENT: Reports no symptoms
Respiratory: Reports no symptoms
Cardiac: Reports no symptoms
ABD/GI: Reports abdominal pain, nausea, vomiting and diarrhea
: Reports no symptoms; Denies dysuria, flank pain, urgency or discharge
Musculoskeletal: Reports no symptoms
Skin: Reports no symptoms
Hematologic/Lymphatic: Reports no symptoms
Psychiatric: Reports no symptoms
Phy Exam
<SHIRLENE Martinez - Last Filed: 10/14/24 19:22>
General Physical Exam
General Presentation: no apparent distress
General age: appears stated age
General Skin: warm and dry
General Habitus: normal
General Mental: alert
General Hydration: dry mucous membranes
Cardiovascular Exam
Cardiovascular Exam: regular rate/rhythm, no murmur and normal peripheral pulses
Pulmonary Exam
Pulmonary Exam: lungs clear and no respiratory distress
Gastrointestinal Exam
Gastrointestinal Exam: soft and other (Nonspecific tenderness no right lower quadrant tenderness)
Neurological Exam
Neurological Exam: alert and oriented x3
Musculoskeletal Exam
Musculoskeletal Exam: full ROM
Skin Exam
Skin Exam: normal color and warm/dry
Psychiatric Exam
Psychiatric Exam: normal mood/affect
Course
<SHIRLENE Martinez - Last Filed: 10/14/24 19:22>
Orders/Labs/Results
Orders:
Orders
10/11/24 06:39
Ondansetron Orally Disint [Zofran Odt (Orally Disintegrating)] [address]
10/11/24 06:41
Ondansetron Orally Disint [Zofran Odt (Orally Disintegrating)] 4 mg PO NOW STA
10/11/24 06:55
CMP [Comprehensive Metabolic Panel] Urgent
Complete Blood Count/With Diff Urgent
HCG, Serum Qualitative Screen Urgent
Comment: ADD ON
Lipase Urgent
Comment: ADD ON
10/11/24 09:02
Add On- LAB Urgent
Comments:: sst in lab
Tests Added?: HCG qual; lipase
10/11/24 09:46
0.9% Sodium Chloride 1000 ml [Nss] 1,000 ml IV BOLUS
Dicyclomine HCl [Bentyl] 20 mg IM NOW STA
Ondansetron Injectable [Zofran] 4 mg IV NOW STA
10/11/24 10:42
CT Abd/pelvis W Iv Cont Urgent
Comment:
Reason For Exam: abd pain
10/11/24 10:46
Morphine Sulfate 4 mg IV NOW STA
10/11/24 14:07
Ketorolac [Toradol] 15 mg IV NOW STA
Ondansetron Injectable [Zofran] 4 mg IV NOW STA
10/11/24 15:39
HYDROmorphone [Dilaudid] 0.5 mg IV NOW STA
10/11/24 18:01
Admit/Transfer Patient As Directed
Co-Sign Provider:
Level of Care: Observation services
Assign to:: Medical/Surgical
Physician / Group: cheryl marcos
Diagnosis: l flank paain exacerbation nutcracker syndrome causig N/V
Code Status As Directed
Resuscitation Status: Full Code
10/11/24 18:06
PRN Pain Medication Management As Directed
May give lesser potent ordered pain med per pt: Yes
preference::
Protocol:: Medication orders for pain may be administered in a
manner that supports deferring to patient preference
when the pt is:
- Requesting an ordered lesser potent pain medication.
Least to most potent pain medications are defined
as: acetaminophen < NSAID < tramadol < opioids
(morphine, oxycodone, hydromorphone).
- Requesting a lesser dose of the same medication IF
ORDERED.
- Requesting a less intrusive route of administration
if both routes are prescribed by the provider (PO <
IV).
10/11/24 19:46
Morphine Sulfate Extended Rel. [Ms Contin (Extended Release)] 30 mg PO TID
10/11/24 20:28
0.9% Sodium Chloride 1000 ml [Nss] 1,000 ml IV 100 mls/hr
Albuterol [ProAIR HFA INHALER] 2 puff INH R Q6HPRN PRN
Carvedilol [Coreg] 12.5 mg PO BID
HYDROmorphone [Dilaudid] 4 mg PO Q4HPRN PRN
Polyethylene Glycol Powder [Miralax] 17 grams PO BIDPRN PRN
10/11/24 20:28
Activity As Directed
Activity Level: As Tolerated
Vital Signs As Directed
Frequency: Per unit guidelines
Smoking Cessation Counseling [RESP] Routine
DX Deep Vein Thrombosis Video Routine
10/11/24 21:00
Gabapentin [Neurontin] 600 mg PO BID
10/11/24 22:00
Sennosides [Senokot] 25.8 mg PO HSPRN PRN
10/12/24 06:00
Levothyroxine [Synthroid] 200 mcg PO DAILY@0600
10/12/24 07:16
Comprehensive Metabolic Panel IN AM
10/12/24 07:17
Complete Blood Count/With Diff IN AM
Hgba1c [Glycohemoglobin (HgbA1c)] IN AM
10/12/24 18:00
Enoxaparin Sodium [Lovenox] 40 mg SC QPM
Abnormal Lab Results
10/11/24
06:55
WBC 10.9 H 10^3/uL
(4.8-10.8)
RBC 5.60 H 10^6/uL
(4.20-5.40)
MCV 80.7 L fL
(81.0-99.0)
Abs Immat Gran (auto) 0.1 H 10^3/uL
(0-0.05)
Absolute Neuts (auto) 9.4 H 10^3/uL
(1.4-6.5)
Absolute Lymphs (auto) 1.1 L 10^3/uL
(1.2-3.4)
Neutrophils % 86.0 H %
(42.2-75.2)
Lymphocytes % 10.3 L %
(20.5-51.1)
Carbon Dioxide 17 L mmol/L
(22-30)
Creatinine 0.5 L mg/dL
(0.6-1.0)
Glucose 148 H mg/dl
(70-99)
Total Protein 8.8 H g/dl
(6.3-8.2)
Albumin 5.2 H g/dl
(3.5-5.0)
10/11/24 06:55
10/11/24 06:55
Vital Signs
Initial and Last Documented VS:
Initial Vital Signs
Temp Pulse Resp BP Pulse Ox
99.8 F 88 28 187/114 98
10/11/24 06:36 10/11/24 06:36 10/11/24 06:36 10/11/24 06:36 10/11/24 06:36
Last Documented Vital Signs
Temp Pulse Resp BP Pulse Ox
100.2 F 107 16 182/107 99
10/14/24 14:35 10/14/24 14:35 10/14/24 14:35 10/14/24 14:35 10/14/24 14:35
Fixed Interest Dealer consulted with Physician
Fixed Interest Dealer consulted with physician?: Yes
Name of Physician Consulted: Aleisha
<Leni Bourgeois MD - Last Filed: 10/11/24 15:48>
Orders/Labs/Results
Orders:
Orders
10/11/24 06:39
Ondansetron Orally Disint [Zofran Odt (Orally Disintegrating)] 4 mg .ROUTE .[facility]-MED ONE
10/11/24 06:41
Ondansetron Orally Disint [Zofran Odt (Orally Disintegrating)] 4 mg PO NOW STA
10/11/24 06:55
CMP [Comprehensive Metabolic Panel] Urgent
Complete Blood Count/With Diff Urgent
HCG, Serum Qualitative Screen Urgent
Comment: ADD ON
Lipase Urgent
Comment: ADD ON
10/11/24 09:02
Add On- LAB Urgent
Comments:: sst in lab
Tests Added?: HCG qual; lipase
10/11/24 09:46
0.9% Sodium Chloride 1000 ml [Nss] 1,000 ml IV BOLUS
Dicyclomine HCl [Bentyl] 20 mg IM NOW STA
Ondansetron Injectable [Zofran] 4 mg IV NOW STA
10/11/24 10:42
CT Abd/pelvis W Iv Cont Urgent
Comment:
Reason For Exam: abd pain
10/11/24 10:46
Morphine Sulfate 4 mg IV NOW STA
10/11/24 14:07
Ketorolac [Toradol] 15 mg IV NOW STA
Ondansetron Injectable [Zofran] 4 mg IV NOW STA
10/11/24 15:39
HYDROmorphone [Dilaudid] 0.5 mg IV NOW STA
10/11/24 18:01
Admit/Transfer Patient As Directed
Co-Sign Provider:
Level of Care: Observation services
Assign to:: Medical/Surgical
Physician / Group: cheryl marcos
Diagnosis: l flank paain exacerbation nutcracker syndrome causig N/V
Code Status As Directed
Resuscitation Status: Full Code
10/11/24 18:06
PRN Pain Medication Management As Directed
May give lesser potent ordered pain med per pt: Yes
preference::
Protocol:: Medication orders for pain may be administered in a
manner that supports deferring to patient preference
when the pt is:
- Requesting an ordered lesser potent pain medication.
Least to most potent pain medications are defined
as: acetaminophen < NSAID < tramadol < opioids
(morphine, oxycodone, hydromorphone).
- Requesting a lesser dose of the same medication IF
ORDERED.
- Requesting a less intrusive route of administration
if both routes are prescribed by the provider (PO <
IV).
10/11/24 19:46
Morphine Sulfate Extended Rel. [Ms Contin (Extended Release)] 30 mg PO TID
10/11/24 20:28
0.9% Sodium Chloride 1000 ml [Nss] 1,000 ml IV 100 mls/hr
Albuterol [ProAIR HFA INHALER] 2 puff INH R Q6HPRN PRN
Carvedilol [Coreg] 12.5 mg PO BID
HYDROmorphone [Dilaudid] 4 mg PO Q4HPRN PRN
Polyethylene Glycol Powder [Miralax] 17 grams PO BIDPRN PRN
10/11/24 20:28
Activity As Directed
Activity Level: As Tolerated
Vital Signs As Directed
Frequency: Per unit guidelines
Smoking Cessation Counseling [RESP] Routine
DX Deep Vein Thrombosis Video Routine
10/11/24 21:00
Gabapentin [Neurontin] 600 mg PO BID
10/11/24 22:00
Sennosides [Senokot] 25.8 mg PO HSPRN PRN
10/12/24 06:00
Levothyroxine [Synthroid] 200 mcg PO DAILY@0600
10/12/24 07:16
Comprehensive Metabolic Panel IN AM
10/12/24 07:17
Complete Blood Count/With Diff IN AM
Hgba1c [Glycohemoglobin (HgbA1c)] IN AM
10/12/24 18:00
Enoxaparin Sodium [Lovenox] 40 mg SC QPM
Abnormal Lab Results
10/11/24
06:55
WBC 10.9 H 10^3/uL
(4.8-10.8)
RBC 5.60 H 10^6/uL
(4.20-5.40)
MCV 80.7 L fL
(81.0-99.0)
Abs Immat Gran (auto) 0.1 H 10^3/uL
(0-0.05)
Absolute Neuts (auto) 9.4 H 10^3/uL
(1.4-6.5)
Absolute Lymphs (auto) 1.1 L 10^3/uL
(1.2-3.4)
Neutrophils % 86.0 H %
(42.2-75.2)
Lymphocytes % 10.3 L %
(20.5-51.1)
Carbon Dioxide 17 L mmol/L
(22-30)
Creatinine 0.5 L mg/dL
(0.6-1.0)
Glucose 148 H mg/dl
(70-99)
Total Protein 8.8 H g/dl
(6.3-8.2)
Albumin 5.2 H g/dl
(3.5-5.0)
10/11/24 06:55
10/11/24 06:55
Vital Signs
Initial and Last Documented VS:
Initial Vital Signs
Temp Pulse Resp BP Pulse Ox
99.8 F 88 28 187/114 98
10/11/24 06:36 10/11/24 06:36 10/11/24 06:36 10/11/24 06:36 10/11/24 06:36
Last Documented Vital Signs
Temp Pulse Resp BP Pulse Ox
100.2 F 107 16 182/107 99
10/14/24 14:35 10/14/24 14:35 10/14/24 14:35 10/14/24 14:35 10/14/24 14:35
<SHIRLENE Martinez - Last Filed: 10/14/24 19:22>
MDM/Problems Addressed
Differential Diagnosis Includes:
Not limited to chronic pain, diverticulitis, colitis, viral syndrome
MDM/Problems Addressed:
Patient is a 44-year-old female with chronic pain from RSD, renal vein nutcracker syndrome pelvic congestion complaints abdominal pain nausea vomiting. She presented very nauseous nonspecific abdominal tenderness throughout. She received multiple
doses of antiemetic and pain medicine still complaining of nausea and pain. No acute diverticulitis on CAT scan there is pelvic congestion found on CAT scan. Patient reassessed several times and continues to feel very nauseous and has pain despite
being medicated. Patient does not feel that she can go home. Case discussed with ED physician who reviewed labs/ct
Case discussed admitting hospitalist who recommended we speak with [employer]. Patient was evaluated by DR GONZALEZ of [employer] who does not feel that this is necessarily [employer] issue. Patient on reexam continues to complain of pain and despite she feels that this
is her 'pelvic congestion pain ,' patient describes pain as mid to left abdomen not pelvic region.
Patient continues to feel nauseous and complains of pain and does not feel that she can go home due to this intractable nausea and pain. d/c with admittin hospitalist.
Chronic conditions affecting care:
Chronic pain nutcracker syndrome
<SHIRLENE Martinez - Last Filed: 10/14/24 19:22>
*Radiology
Radiology exam reviewed: radiology read reviewed
*Pulse Oximetry
Patient hypoxic: no
*Critical Care Note
Total Time (30-74mins, 75-104mins- exclusive of procedures): Not Applicable
Data Reviewed
Review of Other/Old Records Reveals: Labs, Radiology Studies and Discharge Summary
ED Attending Note
<SHIRLENE Martinez - Last Filed: 10/14/24 19:22>
-
Portions of this chart may have been created with voice recognition software.� Occasional wrong word or��sound alike� substitutions may have occurred due to the inherent limitations of voice recognition software.
<Leni Bourgeois MD - Last Filed: 10/11/24 15:48>
ED Attending Note
Patient seen and examined by attending physician: Yes
I performed the substantive portion of visit, reviewed & personally made and approve the management plan that is documented in note by myself or CED.: Yes
ED Attending Note:
I have seen and evaluated the patient with a [id number] encounter. I have spoken to the [DOPE [employer]SE OPERATOR HELPER] and involved in the medical history, the physical exam, medical decision making.
Evaluation and management service: agree unless noted differently below.
Results interpretation: agree unless noted differently below.
44-year-old woman with history of pelvic congestion, nutcracker syndrome presenting to the emergency room with abdominal pain. Patient states she is been having ongoing diffuse abdominal pain with associated nausea vomiting. She states that the
pain is so severe it is causing her nausea and vomiting. She states that it feels similar to her pelvic congestion syndrome. Patient states that doctors told her that the pain likely worsens during her ovulation. She is currently in her mid
cycle. She denies any diarrhea. No lightheadedness dizziness. On my evaluation patient does appear slightly uncomfortable. She does have diffuse abdominal tenderness. It is not distended. She has received multiple rounds of IV Zofran as well
as opioids without success in controlling her symptoms. CT scan was obtained that did not show any acute abnormalities. Patient will need admission for intractable nausea vomiting/pain.
Discharge Plan
Departure
Patient Disposition: Admit
Date of Disposition: 10/11/24
Time of Disposition: 15:14
Admit to: Med/Surg
Admit to doctor: hosptalist
Presentation/result/management discussed w/ accepting MD/DO: Hospitalist
Patient with high blood pressure during this ER visit?: Yes
Covid-19: Not Applicable
Discharge Problem:
Abdominal pain, Nausea & vomiting
Interventions
Interventions:
*Risk Screen - Suicide Last Done: 10/11/24 06:36
*General Assessment Last Done: 10/11/24 20:28
*Neglect/Abuse Screening Last Done: 10/11/24 06:36
ED- Fall Risk Assessment Last Done: 10/11/24 20:28
*ED COVID-19 Vaccine History Last Done: 10/11/24 20:28
*Nursing Disposition Last Done: 10/11/24 20:28
NM-Zikhbt-Wklozezyxy Assessment Last Done: 10/11/24 09:25
Discharge Date and Time
Discharge Date/Time: 10/11/24 20:25
[2024-10-11 10:00] VITALS: BP 178/107
[2024-10-11] MEDS: NSS 1000 IV ×2 (10:03→21:01)
[2024-10-11] MEDS: BENTYL 20 MG IM (10:04)
[2024-10-11] MEDS: ZOFRAN 4 MG IV ×2 (10:04→14:21)
[2024-10-11] MEDS: MORPHINE SULFATE 4 MG IV (10:51)
[2024-10-11 11:52] LABS: HCG, Serum Qualitative Screen Negative
[2024-10-11 14:20] VITALS: BP 138/78
[2024-10-11] MEDS: TORADOL 15 MG IV (14:21)
[2024-10-11] MEDS: DILAUDID 0.5 MG IV (16:14)
--- NOTE | 2024-10-11 18:08 | HPS.HSE ---
Addendum entered and electronically signed by Allie Mayo DO 10/11/24 20:53:
The patient is seen and examined. I have discussed the patient with Susan, and agree with her history and physical, assessment and plan of care as per below.
The patient was having persistent vomiting in ED. She sees OP pain management. She denies constipation at this time. She indorses occasional marijuana to help her sleep, not every night. She has a medical marijuana card.
VSS, AF
Abd with left-sided tenderness, no peritoneal signs
CV RRR, no m/r/g
Lungs CTA b/l no w/r/r
Neuro no focal deficits
CT a/p:
IMPRESSION: Colonic diverticula with no CT evidence for diverticulitis.
History of left renal vein transposition. The left renal vein drains into an enlarged left ovarian vein. Prominent left periuterine veins, which appears to mainly drain into the left internal iliac vein. Please correlate with any symptoms that would
suggest left-sided pelvic congestion syndrome.
The appendix appears normal.
Status post cholecystectomy with no evidence for biliary ductal dilation.
Moderate fatty infiltration of the head of the pancreas.
See assessment and plan as per below with addition of : add UA reflex to culture , cont supportive care, no [employer] Consult- has OP Nephro cx per Dr. Garcia due to nutcracker compression of left renal vein.
Original Note:
Family Physician
-
Family Physician: Kwabena Schulte MD
Chief Complaint
-
Nausea, vomiting, left-sided abdominal pain
History of Present Illness
44-year-old female complaining of left-sided abdominal pain she believes is due to her nutcracker compression of the left renal vein exacerbating pelvic congestion syndrome that was diagnosed [address] Garcia. She complains of waking up at 1
AM with nausea vomiting left-sided abdominal pain. She also believes she is ovulating now with her last menstrual period being about 2 weeks ago. She denies any use of control pills due to fear of stroke given her father had a stroke at 42.
she is also a smoker. She denies any fever, chills, vaginal discharge, chest pain, palpitations, cough, shortness of breath, diarrhea, urinary symptoms. She reports her surgeon Dr. Garcia moved the left renal vein, but it eventually clotted off then
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 She reports she was diagnosed with this 2 years ago and was advised to follow-up with a reproduction production manager at [facility] she did not follow-up until 9 months
ago when she made an appointment for this November 01, [address] German nephrology at [facility]. She does follow with Dr. Bella [facility] pain management who has her on a drug regimen of MS Contin 30 mg XR 3 times
daily along with Dilaudid 4 mg every 4 hours as needed for pain. She did confirm he did not want to increase her pain medications until she had evaluation by the reproduction production manager at [facility]. She reports she has not had her pain meds MS
Contin/Dilaudid since yesterday due to vomiting. I discussed we will need to control her nausea and vomiting and get her back on her routine narcotic medication as I do not want her to be in extreme pain from withdrawal. She has past medical
history of nutcracker syndrome left side, pelvic congestion syndrome, with chronic pain on chronic opiates, hypothyroidism, RSD, hidradenitis suppurativa, gastroparesis, nicotine abuse, chronic constipation due to narcotic use, pulmonary nodules
sigmoid diverticulosis, chronic back pain, spinal stimulator, C. difficile.
Medical History
Past Medical History
Past Medical History: Reports Other
Additional Past Medical History:
GERD, HTN, Hypothyroidism, RSD, nutcracker syndrome, lung nodules, hidradenitis, Colitis, Diverticulitis, Chronic pain syndrome due to RSD, Numbness arms and leg. PNA, Gastroenteritis and C-diff
4 para 3 AB 1 miscarriage less than few weeks
Past Surgical History: Reports Other
Additional Past Surgical History:
Cholecystectomy, (x 1), Tubal ligation, Right ankle surgery, Renal vein transposition and Spinal stimulator. Hernia repair
Social History
Tobacco: Smoker
Alcohol: None
Drug: None
Personal:
Living: With Family
Family History
Family History: Not pertinent
Allergies / Home Medications
Allergies reflects when Allergies were last updated in [employer].
Home Medications with original date entered in [employer]
Allergy/Medication List:
Allergies
Allergy/AdvReac Type Severity Reaction Status Date / Time
metoclopramide [From Reglan] AdvReac 'I got Verified 10/11/24 06:38
real
anxious,
jumping
out of my
skin'
Home Medications
gabapentin 600 mg tablet 600 mg PO BID Pain 09/12/21
hydromorphone 4 mg tablet (Dilaudid) 4 mg PO Q4HPRN PRN BREAKTHROUGH PAIN 07/30/22
morphine 30 mg tablet,extended release 30 mg PO TID Pain 05/25/23
albuterol sulfate 90 mcg/actuation aerosol inhaler 2 puff inhalation R Q6HPRN PRN wheezing 07/24/23
levothyroxine 200 mcg tablet 200 mcg PO DAILY@06 Thyroid 07/24/23
carvedilol 12.5 mg tablet 12.5 mg PO BID Heart Failure 12/28/23
polyethylene glycol 3350 17 gram oral powder packet (HealthyLax) 17 g PO BIDPRN PRN constipation 09/09/24
sennosides 8.6 mg tablet (Senokot) 25.8 mg PO HSPRN PRN constipation 09/09/24
Review of Systems
-
History Source: Patient and Family ( at bedside)
A 12 point ROS was completed and negative except as noted: Yes
Constitutional: Denies Fever or Fatigue
EENT: Denies Sore Throat or Runny Nose
Respiratory: Denies Cough or Trouble Breathing
Cardiac: Denies Chest Pain, Diaphoresis, Palpitations or Syncope
Abdomen/GI: Reports Abdominal Pain (Left-sided along left ovary), Nausea and Vomiting; Denies Diarrhea or Constipated
: Denies Dysuria, Frequency, Flank Pain, Incontinence, Difficulty Voiding, Urgency or Dark Urine
Musculoskeletal: Denies Joint Pain or Edema
Skin: Denies Itching or Rash
Neurological: Denies Dizzy or Headache
Endocrine: Reports No Symptoms
Hematologic/Lymphatic: Reports No Symptoms
Psych: Reports Calm
Physical Exam
Vital Signs
Vital Signs
Temp Pulse Resp BP Pulse Ox
99.8 F 78 16 138/78 97
10/11/24 06:36 10/11/24 14:20 10/11/24 14:20 10/11/24 14:20 10/11/24 14:20
Physical Exam
General: Comfortable and Conversant; No Fever or Chills
HEENT: NormoCephalic, Anicteric, Moist mucous membranes, PERRLA, [place] Conjunctivae and No Ptosis
Respiratory: Clear; No Wheezes, Rales or Rhonchi
Cardiac: S1/S2 and Regular Rhythm; No Murmur, Rub, Gallop or Peripheral Edema
GI: Soft, Non Distended, Normal Bowel Sounds, Tender (Left lower quadrant abdominal pain) and No Hepatosplenomegaly
Rectal: Deferred by Provider
Genito-urinary: Deferred by me
Musculoskeletal: No Clubbing, No Cyanosis and No Edema
Skin: Warm and Dry; No Rash
Neuro: AO x 3, No Motor Deficits, Nonfocal/grossly intact, Cranial Nerves Intact and No Sensory Deficits; No Slurred Speech, Facial Droop, Tremors or Sedated
Psych: Calm
Laboratory Results
-
10/11/24 06:55
10/11/24 06:55
Laboratory Results
Total Bilirubin 0.9 mg/dl (0.2-1.3) 10/11/24 06:55
AST 23 U/L (14-36) 10/11/24 06:55
ALT 15 U/L (0-35) 10/11/24 06:55
Alkaline Phosphatase 93 U/L (38-126) 10/11/24 06:55
Lipase 44 U/L (23-300) 10/11/24 06:55
Data Reviewed
-
CT Scan: Report Reviewed by me
Lab Data: Labs Reviewed by me
Impression/Plan
-
Impression/plan:
Observation MedSurg
#Left-sided nutcracker syndrome exacerbating left pelvic congestion with nausea, vomiting missing chronic oral opiates
-IV Zofran as needed, patient cannot take Reglan reports anxiety
-IV Compazine
-Will resume patient's morphine 30 mg now then 30 mg 3 times daily plus breakthrough Dilaudid 4 mg p.o. every 4 hours as needed and gabapentin
-Patient has appointment with Dr German nephrology for evaluation November 01, 2024 at [facility]
CT abdomen/pelvis with IV contrast:
1. History of left renal vein transposition. The left renal vein drains into an enlarged left ovarian vein.
2. Prominent left periuterine veins, which appears to mainly drain into the left internal iliac vein. Please correlate with any symptoms that would suggest left-sided pelvic congestion syndrome.
3. The appendix appears normal.
4. Status post cholecystectomy with no evidence for biliary ductal dilation.
5. Moderate fatty infiltration of the head of the pancreas.
#Hyperglycemia
BS 148 check HgbA1c
#Chronic pain on chronic opiates due to chronic back pain/chronic nutcracker syndrome, pelvic congestion syndrome
#Hx spinal stimulator
-Will control her current nausea with Zofran, Compazine she cannot tolerate Reglan
-Will resume her MS Contin 30 mg now then 3 times daily along with Dilaudid 4 mg Q4 as needed breakthrough pain, continue gabapentin 600 mg twice daily
#Chronic constipation due to narcotic use
-Continue MiraLAX 17 g twice daily as needed constipation, Senokot 25.8 mg p.o. at bedtime as needed constipation
#Hypothyroidism
-Continue levothyroxine 200 mcg p.o. daily at 6 AM
#RSD
Patient on chronic oral opiates and gabapentin
#Hx gastroparesis
#Nicotine abuse
#Pulmonary nodules known
1 pack/day
-Cessation advised
#Class II obesity�BMI 35.1 kg
Weight loss recommended as it affects all aspects of care
Other PMH:
Hydradenitis suppurativa
Sigmoid diverticulosis
C. difficil hx
DVT prophylaxis
Subcu Lovenox
Full code
[2024-10-11] MEDS: COMPAZINE 5 MG IV (19:48)
[2024-10-11] MEDS: MS CONTIN (EXTENDED RELEASE) 30 MG PO (19:53)
--- NOTE | 2024-10-11 20:20 | PTCARENOTE ---
Pt received from ED to [facility]. Pt oriented to room and call stock.
[2024-10-11 20:30] VITALS: BP 175/102; BMI 33.1
[2024-10-11] MEDS: COREG 12.5 MG PO (20:51)
[2024-10-11] MEDS: DILAUDID 4 MG PO (20:52)
[2024-10-11] MEDS: NEURONTIN 600 MG PO (20:52)
[2024-10-11 23:44] VITALS: BP 125/78
[2024-10-12] MEDS: DILAUDID 4 MG PO ×5 (01:12→19:30)
[2024-10-12] MEDS: SYNTHROID 200 MCG PO (05:14)
[2024-10-12] MEDS: NSS 1000 IV ×2 (07:00→17:01)
[2024-10-12 07:24] VITALS: BP 137/85
[2024-10-12 07:57] LABS: % Basophils 0.5 % (0-2); % Eosinophils 0.9 % (0-6); % Immature Granulocytes 0.4 % (0-0.5); % Lymphocytes 20.9 % (20.5-51.1); % Monocytes 7.5 % (1.7-9.3); % Neutrophils 69.8 % (42.2-75.2); Absolute Eosinophils 0.1 10^3/uL (0-0.7); Absolute Lymphocytes 1.8 10^3/uL (1.2-3.4); Absolute Monocytes 0.6 10^3/uL (0.1-0.6); Hemoglobin 12.6 g/dL (12.0-16.0); Mean Corp Hgb Conc. 33.2 g/dL (33.0-37.0); Mean Corpuscular Hgb 27.6 pg (27.0-31.0); Mean Corpuscular Volume 83.2 fL (81.0-99.0); Mean Platelet Volume 9.6 fL (7.4-10.4); Nucleated Red Blood Cells % 0 %; Platelet Count 229 10^3/uL (130-400); Red Blood Cell Count 4.57 10^6/uL (4.20-5.40); White Blood Cell Count 8.5 10^3/uL (4.8-10.8)
[2024-10-12] MEDS: COMPAZINE 5 MG IV ×2 (08:04→17:03)
[2024-10-12 08:32] LABS: ALT (SGPT) 10 U/L (0-35); AST (SGOT) 21 U/L (14-36); Albumin 4.2 g/dl (3.5-5.0); Alkaline Phosphatase 65 U/L (38-126); Blood Urea Nitrogen 14 mg/dl (7-17); Calcium 8.7 mg/dl (8.4-10.2); Carbon Dioxide 20 mmol/L (22-30); Chloride 104 mmol/L (98-107); Estimated Creatinine Clearance > 125 ml/min; Glucose 97 mg/dl (70-99); Potassium 3.8 mmol/L (3.5-5.1); Sodium 134 mmol/L (135-145); Total Bilirubin 1.2 mg/dl (0.2-1.3); eGFR > 60.00
[2024-10-12 08:58] LABS: Glycohemoglobin (HgbA1c) 5.3 % (4.0-5.6)
[2024-10-12] MEDS: NEURONTIN 600 MG PO ×2 (09:04→19:31)
[2024-10-12] MEDS: COREG 12.5 MG PO ×2 (09:04→19:31)
[2024-10-12] MEDS: MS CONTIN (EXTENDED RELEASE) 30 MG PO ×3 (09:04→21:16)
--- NOTE | 2024-10-12 12:16 | CM ---
Addendum entered by Josh Olson 10/12/24 12:41:
Pt is currently admitted as OBS. OOBS form reviewed, pt given copy, copy placed on chart
Original Note:
Pt seen bedside. Initial assessment completed. Admitted for nausea, vomiting, left-sided abdominal pain.
Pt reports she lives w/ spouse, their 3 children and her mother in a 2STH-3 steps
Pt is independent w/ the use of crutches. Denies SNF/VN/PT hx. Pt engaged in OP therapy in the past
Address, point of contact and insurance verified
PCP: Dr. Schulte
Pharmacy: [facility]
Plan: Home; no needs likely
[2024-10-12 16:13] VITALS: BP 147/104
--- NOTE | 2024-10-12 16:13 | W.PN.HOSP.TC ---
Today's Communication/Plan
-
Advance diet
Monitor oral intake
Wean off IV fluids
Assessment / Plan
Assessment / Plan
Impression:
Presentation with persistent vomiting.
Other conditions:
Recent hospitalization with left-sided abdominal pain and constipation.
Chronic constipation due to narcotic use
Left renal vein transposition/nutcracker syndrome status post
Chronic pain
Chronic opiate use
Medical marijuana use
Tobacco use disorder
Ovarian cyst
Obesity with BMI of 33
Plan:
Presentation with persistent nausea and vomiting inability to take regular medication including analgesics/opiates.
Abdominal examination benign.
CBC/CMP within normal limit other than very mild normal gap metabolic acidosis from GI losses.
CT of the abdomen/pelvis with IV contrast only
Colonic diverticula with no CT evidence for diverticulitis.
History of left renal vein transposition. The left renal vein drains into an enlarged left ovarian vein. Prominent left periuterine veins, which appears to mainly drain into the left internal iliac vein. Please correlate with any symptoms that would
suggest left-sided pelvic congestion syndrome.
The appendix appears normal.
Status post cholecystectomy with no evidence for biliary ductal dilation.
Moderate fatty infiltration of the head of the pancreas.
Diet has been advanced.
Continue current analgesic regimen
Wean off IV fluids if tolerates oral intake
Monitor over the next 24 hours
Anticipated Discharge: 24 - 48 hours
Subjective/Interval History
-
Date of Service: October 12, 2024
Objective Data
-
Labs:
Laboratory Results
10/12/24 10/12/24
07:16 07:17
WBC 8.5
Hgb 12.6
Hct 38.0
Plt Count 229
Sodium 134 L
Potassium 3.8
Chloride 104
Carbon Dioxide 20 L
BUN 14
Creatinine 0.6
Glucose 97
Calcium 8.7
Total Bilirubin 1.2
AST 21
ALT 10
Alkaline Phosphatase 65
Vital Signs:
Vital Signs
Temp Pulse Resp BP Pulse Ox
97.7 F 68 16 137/85 95
10/12/24 07:24 10/12/24 07:24 10/12/24 07:24 10/12/24 09:04 10/12/24 07:24
I&O
10/11/24 10/12/24 10/13/24
06:59 06:59 06:59
Intake Total 1959 480 / 480
Balance 1959 480 / 480
Physical Exam
-
General: Well Developed, Well Nourished and No Apparent Distress
HEENT: Normocephalic, Atraumatic and Moist Mucous Membranes
Respiratory: Clear to Auscultation; Negative Wheezes, Rales or Rhonchi
Cardiac: Regular Rhythm and S1/S2
GI: Soft, Normal Bowel Sounds (nownrma), Tender (minimal tendenss,probably at baseline) and Distended
Musculoskeletal: No Clubbing, No Cyanosis and No Edema
Neuro: Awake, Alert and Oriented
Psych: Calm
[2024-10-12] MEDS: LOVENOX 40 MG SC (17:02)
[2024-10-12 23:20] VITALS: BP 147/90
[2024-10-13] MEDS: DILAUDID 4 MG PO ×5 (01:08→20:43)
[2024-10-13] MEDS: NSS 1000 IV (03:05)
[2024-10-13] MEDS: SYNTHROID 200 MCG PO (05:25)
[2024-10-13 07:30] VITALS: BP 162/97
[2024-10-13] MEDS: NEURONTIN 600 MG PO ×2 (07:40→20:43)
[2024-10-13] MEDS: COREG 12.5 MG PO ×2 (07:40→20:43)
[2024-10-13] MEDS: COMPAZINE 5 MG IV ×3 (07:40→22:47)
[2024-10-13] MEDS: MS CONTIN (EXTENDED RELEASE) 30 MG PO ×3 (07:41→22:46)
[2024-10-13 14:28] LABS: % Basophils 0.8 % (0-2); % Eosinophils 3.1 % (0-6); % Immature Granulocytes 0.1 % (0-0.5); % Lymphocytes 23.8 % (20.5-51.1); % Monocytes 6.4 % (1.7-9.3); % Neutrophils 65.8 % (42.2-75.2); Absolute Basophils 0.1 10^3/uL (0-0.2); Absolute Eosinophils 0.2 10^3/uL (0-0.7); Absolute Lymphocytes 1.7 10^3/uL (1.2-3.4); Absolute Monocytes 0.5 10^3/uL (0.1-0.6); Absolute Neutrophils 4.7 10^3/uL (1.4-6.5); Hematocrit 36.7 % (37.0-47.0); Hemoglobin 12.3 g/dL (12.0-16.0); Mean Corp Hgb Conc. 33.5 g/dL (33.0-37.0); Mean Corpuscular Hgb 27.5 pg (27.0-31.0); Mean Corpuscular Volume 82.1 fL (81.0-99.0); Mean Platelet Volume 8.9 fL (7.4-10.4); Nucleated Red Blood Cells % 0 %; Platelet Count 225 10^3/uL (130-400); Red Blood Cell Count 4.47 10^6/uL (4.20-5.40); Red Cell Dist. Width 13.6 % (11.5-14.5); White Blood Cell Count 7.1 10^3/uL (4.8-10.8)
[2024-10-13 14:42] LABS: Blood Urea Nitrogen 7 mg/dl (7-17); Calcium 8.8 mg/dl (8.4-10.2); Carbon Dioxide 25 mmol/L (22-30); Chloride 103 mmol/L (98-107); Estimated Creatinine Clearance > 125 ml/min; Glucose 92 mg/dl (70-99); Potassium 3.9 mmol/L (3.5-5.1); Sodium 134 mmol/L (135-145); eGFR > 60.00
[2024-10-13 15:00] VITALS: BP 163/98
--- NOTE | 2024-10-13 15:03 | W.PN.HOSP.TC ---
Today's Communication/Plan
-
Observe oral intake while on current analgesic regimen.
If persistent symptoms, would consider to repeat enhanced CT scan of the abdomen/pelvis
Assessment / Plan
Assessment / Plan
Impression:
Presentation with persistent vomiting.
Other conditions:
Recent hospitalization with left-sided abdominal pain and constipation.
Chronic constipation due to narcotic use
Left renal vein transposition/nutcracker syndrome status post
Chronic pain
Chronic opiate use
Medical marijuana use
Tobacco use disorder
Ovarian cyst
Obesity with BMI of 33
Plan:
Presentation with persistent nausea and vomiting inability to take regular medication including analgesics/opiates.
Abdominal examination benign.
CBC/CMP within normal limit other than very mild normal gap metabolic acidosis from GI losses.
CT of the abdomen/pelvis with IV contrast only
Colonic diverticula with no CT evidence for diverticulitis.
History of left renal vein transposition. The left renal vein drains into an enlarged left ovarian vein. Prominent left periuterine veins, which appears to mainly drain into the left internal iliac vein. Please correlate with any symptoms that would
suggest left-sided pelvic congestion syndrome.
The appendix appears normal.
Status post cholecystectomy with no evidence for biliary ductal dilation.
Moderate fatty infiltration of the head of the pancreas.
Diet has been advanced.
Patient complains of ongoing nausea and so far low oral intake.
Exam with very mild left lower quadrant tenderness otherwise benign
Repeated CBC and BMP unremarkable
Continue current analgesic regimen
Wean off IV fluids if tolerates oral intake
Monitor over the next 24 hours
Anticipated Discharge: 24 - 48 hours
Subjective/Interval History
-
Date of Service: October 13, 2024
Objective Data
-
Labs:
Laboratory Results
10/13/24
14:19
WBC 7.1
Hgb 12.3
Hct 36.7 L
Plt Count 225
Sodium 134 L
Potassium 3.9
Chloride 103
Carbon Dioxide 25
BUN 7
Creatinine 0.6
Glucose 92
Calcium 8.8
Vital Signs:
Vital Signs
Temp Pulse Resp BP Pulse Ox
98.4 F 70 22 162/97 98
10/13/24 07:30 10/13/24 07:40 10/13/24 07:30 10/13/24 07:40 10/13/24 07:30
I&O
10/12/24 10/13/24 10/14/24
06:59 06:59 06:59
Intake Total 1959
Balance 1959
Physical Exam
-
General: Well Developed, Well Nourished and No Apparent Distress
HEENT: Normocephalic, Atraumatic and Moist Mucous Membranes
Respiratory: Clear to Auscultation; Negative Wheezes, Rales or Rhonchi
Cardiac: Regular Rhythm and S1/S2
GI: Soft, Normal Bowel Sounds (nownrma), Tender (minimal tendenss,probably at baseline) and Distended
Musculoskeletal: No Clubbing, No Cyanosis and No Edema
Neuro: Awake, Alert and Oriented
Psych: Calm
[2024-10-13] MEDS: LOVENOX 40 MG SC (17:45)
[2024-10-13 23:00] VITALS: BP 161/78
[2024-10-14] MEDS: DILAUDID 4 MG PO ×4 (01:26→14:25)
[2024-10-14] MEDS: SYNTHROID 200 MCG PO (05:41)
[2024-10-14 07:30] VITALS: BP 173/96
[2024-10-14] MEDS: NEURONTIN 600 MG PO (09:55)
[2024-10-14] MEDS: COREG 12.5 MG PO (09:55)
[2024-10-14] MEDS: MS CONTIN (EXTENDED RELEASE) 30 MG PO (09:56)
--- NOTE | 2024-10-14 12:19 | W.DS.TRANS ---
DC Summary - Clinical Faculty
-
Discharge Instructions:
Discharge Diagnosis/Procedures Impression:
Presentation with persistent vomiting.
Other conditions:
Recent hospitalization with left-sided abdominal
pain and constipation.
Chronic constipation due to narcotic use
Left renal vein transposition/nutcracker
syndrome status post
Chronic pain
Chronic opiate use
Medical marijuana use
Tobacco use disorder
Ovarian cyst
Obesity with BMI of 33
Diet Regular
Instructions:
Stand-Alone Forms:
Changes to Home Medications: No
Discharge Medications:
DC Medications w/original date entered in [employer]
gabapentin 600 mg tablet 600 mg PO BID Pain 09/12/21
hydromorphone 4 mg tablet (Dilaudid) 4 mg PO Q4HPRN PRN BREAKTHROUGH PAIN 07/30/22
morphine 30 mg tablet,extended release 30 mg PO TID Pain 05/25/23
albuterol sulfate 90 mcg/actuation aerosol inhaler 2 puff inhalation R Q6HPRN PRN wheezing 07/24/23
levothyroxine 200 mcg tablet 200 mcg PO DAILY@06 Thyroid 07/24/23
carvedilol 12.5 mg tablet 12.5 mg PO BID Heart Failure 12/28/23
polyethylene glycol 3350 17 gram oral powder packet (HealthyLax) 17 g PO BIDPRN PRN constipation 09/09/24
sennosides 8.6 mg tablet (Senokot) 25.8 mg PO HSPRN PRN constipation 09/09/24
Home Medication Changes
Pending Results: No
--- NOTE | 2024-10-14 13:02 | CM ---
Chart reviewed. Pt medically stable for d/c today
No CM needs identified
Plan: Home; no needs
[2024-10-14 14:35] VITALS: BP 182/107
== END 2024-10-14 15:23 | disposition home or self-care (01) ==
LOC: 4 WEST ACU 18:17
PROVIDERS: Clinical Nurse Specialist Family Health; Emergency Medicine; ADMITTING PHYSICIAN Internal Medicine; ATTENDING PHYSICIAN Internal Medicine; EMERGENCY PHYSICIAN Student in an Organized Health Care Education/Training Program; FAMILY PHYSICIAN Internal Medicine
DX: R11.2 Nausea with vomiting, unspecified (principal); R10.9 Unspecified abdominal pain; G89.4 Chronic pain syndrome; K59.03 Drug induced constipation; I87.1 Compression of vein; R19.7 Diarrhea, unspecified; F11.20 Opioid dependence, uncomplicated; E87.20 Acidosis, unspecified; K57.30 Diverticulosis of large intestine without perforation or abscess without bleeding; R73.9 Hyperglycemia, unspecified; E66.812 Obesity, class 2; K76.0 Fatty (change of) liver, not elsewhere classified; N83.209 Unspecified ovarian cyst, unspecified side; T40.2X5A Adverse effect of other opioids, initial encounter; Y92.9 Unspecified place or not applicable; I10 Essential (primary) hypertension; E03.9 Hypothyroidism, unspecified; N94.89 Other specified conditions associated with female genital organs and menstrual cycle; K21.9 Gastro-esophageal reflux disease without esophagitis; F17.210 Nicotine dependence, cigarettes, uncomplicated; K31.84 Gastroparesis; F12.90 Cannabis use, unspecified, uncomplicated; M54.9 Dorsalgia, unspecified; R91.8 Other nonspecific abnormal finding of lung field; L73.2 Hidradenitis suppurativa; Z87.01 Personal history of pneumonia (recurrent); Z90.49 Acquired absence of other specified parts of digestive tract; Z87.19 Personal history of other diseases of the digestive system; Z98.51 Tubal ligation status; Z96.82 Presence of neurostimulator; Z88.8 Allergy status to other drugs, medicaments and biological substances; Z79.890 Hormone replacement therapy; Z68.35 Body mass index [BMI] 35.0-35.9, adult
CPT/HCPCS: 74177; 80048; 80053; 83036; 83690; 84703; 85025; 96361; 96372; 96374; 96375; 99285; G0378; Q9967

== ENCOUNTER 2024-11-09 15:29 | Inpatient (IN) | payer BC, MEDICARE, SELFPAY ==
[2024-11-09] VITALS (9 sets, daily range): BP systolic 157–219; BP diastolic 91–134; BMI 33.5
[2024-11-09 06:15] LABS: % Basophils 0.4 % (0-2); % Eosinophils 0.1 % (0-6); % Immature Granulocytes 0.5 % (0-0.5); % Lymphocytes 6.3 % (20.5-51.1); % Monocytes 2.6 % (1.7-9.3); % Neutrophils 90.1 % (42.2-75.2); Absolute Basophils 0.1 10^3/uL (0-0.2); Absolute Immature Granulocytes 0.1 10^3/uL (0-0.05); Absolute Lymphocytes 0.9 10^3/uL (1.2-3.4); Absolute Monocytes 0.4 10^3/uL (0.1-0.6); Absolute Neutrophils 13.5 10^3/uL (1.4-6.5); Hematocrit 46.6 % (37.0-47.0); Mean Corp Hgb Conc. 34.3 g/dL (33.0-37.0); Mean Corpuscular Hgb 27.4 pg (27.0-31.0); Mean Corpuscular Volume 79.8 fL (81.0-99.0); Mean Platelet Volume 9.1 fL (7.4-10.4); Nucleated Red Blood Cells % 0 %; Platelet Count 303 10^3/uL (130-400); Red Blood Cell Count 5.84 10^6/uL (4.20-5.40); Red Cell Dist. Width 13.8 % (11.5-14.5)
[2024-11-09 06:24] LABS: HCG, Serum Qualitative Screen Negative
[2024-11-09 06:29] LABS: ALT (SGPT) 25 U/L (0-35); AST (SGOT) 30 U/L (14-36); Alkaline Phosphatase 107 U/L (38-126); Blood Urea Nitrogen 11 mg/dl (7-17); Calcium 10.2 mg/dl (8.4-10.2); Carbon Dioxide 20 mmol/L (22-30); Chloride 102 mmol/L (98-107); Glucose 190 mg/dl (70-99); Lipase 23 U/L (23-300); Potassium 3.7 mmol/L (3.5-5.1); Sodium 139 mmol/L (135-145); Total Bilirubin 0.9 mg/dl (0.2-1.3); Total Protein 9.3 g/dl (6.3-8.2); eGFR > 60.00
--- NOTE | 2024-11-09 07:39 | ED.GENMED ---
History of Present Illness
General
Chief Complaint: Abdominal Symptoms
Source: patient
Time Seen by Provider: 11/09/24 07:09
History of Present Illness
History of Present Illness:
44-year-old female presents to the emergency room complaining of abdominal pain nausea vomiting. Patient has had numerous visits for similar complaints. She agrees that this event is stereotypical to her previous events. No fever or chills.
Past History
Past History
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 PNA, Gastroenteritis) and Other (C-diff)
ED Past Surgical History: Cholecystectomy, (x 1), Gynecological (Tubal, ), Orthopedic (Right ankle surgery ), Urological ( Renal vein transposition,) and Other ( Spinal stimulator. Hernia repair)
Social History
Tobacco: Smoker
Alcohol: None
Drug: None
Personal:
Living: with family
Phy Exam
Physical Exam
Physical Exam:
General: Awake, Alert, Oriented X3. No acute distress.
Vitals: unremarkable
Head: Atraumatic
Eyes: Pupils equal, EOMI
Throat: Airway intact, no exudates
Neck: Trachea midline
Lungs: Clear and equal b/l
Heart: Regular rate, no murmurs
Abd: Soft, no significant reproducible abdominal pain on palpation, No pulsatile mass
Neuro: Nonfocal
Skin: Warm, dry, no rash
Extremities: pulses equal b/l, no edema
Course
Orders/Labs/Results
Orders:
Orders
11/09/24 05:36
Test Result ONCE
11/09/24 05:42
Complete Blood Count/With Diff Urgent
Comprehensive Metabolic Panel Urgent
HCG, Serum Qualitative Screen Urgent
Lipase Urgent
11/09/24 Breakfast
NPO
Allow oral meds: Yes
Allow clear liquids: Sips of Clears
NPO with Ice Chips: Yes
11/09/24 07:32
0.9% Sodium Chloride 1000 ml [Nss] 1,000 ml IV BOLUS
HYDROmorphone [Dilaudid] 1 mg IV NOW STA
Ondansetron Injectable [Zofran] 4 mg IV NOW STA
11/09/24 09:30
Ketorolac [Toradol] 15 mg IV NOW STA
Ondansetron Injectable [Zofran] 4 mg IV NOW STA
11/09/24 11:59
Ketamine 28 mg 0.9% Sodium Chloride 50 ml [Nss] 50 ml IV NOW
11/09/24 14:01
HYDROmorphone [Dilaudid] 0.5 mg IV NOW STA
11/09/24 14:45
Prochlorperazine [Compazine] 10 mg IV NOW STA
11/09/24 15:11
Admit/Transfer Patient As Directed
Co-Sign Provider:
Level of Care: Inpatient admission
Assign to:: Medical/Surgical
Physician / Group: Brigettey
Diagnosis: Intractable Abdominal Pain
Reason for Hospitalization: IV pain meds, anti-emetics
Expected length of stay greater than two midnights?: Yes
ELOS- Estimated Length of Stay in days: 3
I certify the patient meets the requirements for IP care: Yes
PRN Pain Medication Management As Directed
May give lesser potent ordered pain med per pt: Yes
preference::
Protocol:: Medication orders for pain may be administered in a
manner that supports deferring to patient preference
when the pt is:
- Requesting an ordered lesser potent pain medication.
Least to most potent pain medications are defined
as: acetaminophen < NSAID < tramadol < opioids
(morphine, oxycodone, hydromorphone).
- Requesting a lesser dose of the same medication IF
ORDERED.
- Requesting a less intrusive route of administration
if both routes are prescribed by the provider (PO <
IV).
11/09/24 15:12
Code Status As Directed
Resuscitation Status: Full Code
11/09/24 16:15
Acetaminophen [Tylenol] 650 mg PO Q4HPRN PRN
HYDROmorphone [Dilaudid] 1 mg IV Q3HPRN PRN
HydrALAZINE [Apresoline] 5 mg IV Q6HPRN PRN
KCl 20 Meq/0.9%Sodchl 1000 ml [NSS with KCL 20 MEQ] 20 meq in 1,000 ml IV 100 mls/hr
Morphine Sulfate Extended Rel. [Ms Contin (Extended Release)] 30 mg PO TID
Ondansetron Injectable [Zofran] 4 mg IV Q6HPRN PRN
Prochlorperazine [Compazine] 10 mg IV Q6HPRN PRN
11/09/24 16:15
Activity As Directed
Activity Level: Out of Bed-Early Mobility
With Assistance
I&O [Intake/ Output] As Directed
Frequency: q12h
Vital Signs As Directed
Frequency: Per unit guidelines
DX Deep Vein Thrombosis Video Routine
11/09/24 18:00
Enoxaparin Sodium [Lovenox] 40 mg SC QPM
11/09/24 20:00
Gabapentin [Neurontin] 600 mg PO BID
11/10/24 06:00
Levothyroxine [Synthroid] 200 mcg PO DAILY@0600
11/10/24 08:00
Amlodipine [Norvasc] 5 mg PO DAILY
Pantoprazole [Protonix IV] 40 mg IV DAILY
11/10/24 08:03
Basic Metabolic Panel IN AM
Complete Blood Count/No Diff IN AM
Abnormal Lab Results
11/09/24
05:42
WBC 15.0 H 10^3/uL
(4.8-10.8)
RBC 5.84 H 10^6/uL
(4.20-5.40)
MCV 79.8 L fL
(81.0-99.0)
Abs Immat Gran (auto) 0.1 H 10^3/uL
(0-0.05)
Absolute Neuts (auto) 13.5 H 10^3/uL
(1.4-6.5)
Absolute Lymphs (auto) 0.9 L 10^3/uL
(1.2-3.4)
Neutrophils % 90.1 H %
(42.2-75.2)
Lymphocytes % 6.3 L %
(20.5-51.1)
Carbon Dioxide 20 L mmol/L
(22-30)
Creatinine 0.5 L mg/dL
(0.6-1.0)
Glucose 190 H mg/dl
(70-99)
Total Protein 9.3 H g/dl
(6.3-8.2)
11/09/24 05:42
11/09/24 05:42
Vital Signs
Initial and Last Documented VS:
Initial Vital Signs
Temp Pulse Resp BP Pulse Ox
97.4 F 80 28 219/134 97
11/09/24 05:31 11/09/24 05:31 11/09/24 05:31 11/09/24 05:31 11/09/24 05:31
Last Documented Vital Signs
Temp Pulse Resp BP Pulse Ox
98.9 F 72 24 158/88 97
11/10/24 07:46 11/10/24 12:26 11/10/24 12:26 11/10/24 12:59 11/10/24 07:46
MDM/Problems Addressed
Differential Diagnosis Includes:
Exacerbation of chronic abdominal pain, urinary tract infection, bowel obstruction
MDM/Problems Addressed:
Patient presents with abdominal pain. Her abdominal exam is benign. Her white count is 16.5 but otherwise her labs are reassuring. Patient has had 30 CAT scans here at [facility]. My threshold for obtaining further imaging in this patient would
be quite high given the radiation exposure she has had already is concerning. I do not believe she has a intra-abdominal emergency but rather an exacerbation of her chronic abdominal pain from nutcracker syndrome and pelvic venous congestion
syndrome. Patient provided with various analgesics including Dilaudid, Toradol and we also attempted analgesic dose ketamine. Despite all this the patient did not feel any better and we will hospitalize the patient for continued management and IV
fluids
*Pulse Oximetry
Patient hypoxic: no
*Critical Care Note
Total Time (30-74mins, 75-104mins- exclusive of procedures): Not Applicable
Patient Management
Discussion with other providers: Hospitalist
ED Attending Note
-
Portions of this chart may have been created with voice recognition software.� Occasional wrong word or��sound alike� substitutions may have occurred due to the inherent limitations of voice recognition software.
Discharge Plan
Departure
Patient Disposition: Admit
Date of Disposition: 11/09/24
Time of Disposition: 14:01
Admit to: Med/Surg
Presentation/result/management discussed w/ accepting MD/DO: Hospitalist
Condition: Fair
Discharge Problem:
exacerbation of chronic abdominal pain
Interventions
Interventions:
*Risk Screen - Suicide Last Done: 11/09/24 19:58
*General Assessment Last Done: 11/09/24 07:20
*Neglect/Abuse Screening Last Done: 11/09/24 07:20
*ED- Fall Risk Assessment Last Done: 11/09/24 09:40
*ED COVID-19 Vaccine History Last Done: 11/09/24 07:20
*Nursing Disposition Last Done: 11/09/24 16:15
SJ-Hbicso-Qxjosvpula Assessment Last Done: 11/09/24 07:20
Discharge Date and Time
Discharge Date/Time: 11/09/24 16:16
[2024-11-09] MEDS: ZOFRAN 4 MG IV ×4 (07:45→22:57)
[2024-11-09] MEDS: DILAUDID 1 MG IV ×4 (07:45→22:52)
[2024-11-09] MEDS: NSS 1000 IV (07:45)
[2024-11-09] MEDS: KETAMINE 52.8 MG IV (12:46)
[2024-11-09] MEDS: DILAUDID 0.5 MG IV (14:08)
--- NOTE | 2024-11-09 14:44 | HPS.HSE ---
Family Physician
-
Family Physician: Ponce Gomez
Chief Complaint
-
Abdominal Pain
History of Present Illness
Patient is a 44 y/o female past medical history of chronic pain with opioid dependence secondary to nutcracker syndrome and complex regional pain syndrome who presents with left sided abdominal pain. Patient reports pain started around 3pm last
yesterday. She has been unable to tolerate her oral morphine since that time. She admits to nausea and vomiting. She notes a little bit of loose stool/diarrhea this morning. She reports symtpoms are very similar to prior episodes. She denies
fevers.
Medical History
Past Medical History
Past Medical History: Reports Other
Additional Past Medical History:
Complex Regional Pain Syndrome
Opioid Dependence
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
Left Renal Vein Thrombus
Essential Hypertension
GERD
Hypothyroidism
Obesity
Unspecified Colitis
Hidradenitis
Past Surgical History: Reports Other
Additional Past Surgical History:
Left Renal Vein Transposition (08/07/22)
Spinal Stimulator
Tubal Ligation
x 1
Right Ankle Surgery
Cholecystectomy
Social History
Tobacco: Smoker (09/09 ppd)
Alcohol: None
Drug: Other (Patient reports she has a medical marijuana card, but rarely uses)
Family History
Family History: Other (DM, hypertension, Breast Cancer, Lung Cancer)
Allergies / Home Medications
Allergies reflects when Allergies were last updated in [facility].
Home Medications with original date entered in [facility]
Allergy/Medication List:
Allergies
Allergy/AdvReac Type Severity Reaction Status Date / Time
metoclopramide [From Reglan] AdvReac 'I got Verified 11/09/24 05:35
real
anxious,
jumping
out of my
skin'
Home Medications
gabapentin 600 mg tablet 600 mg PO BID Pain 09/12/21
hydromorphone 4 mg tablet (Dilaudid) 4 mg PO Q4HPRN PRN BREAKTHROUGH PAIN 07/30/22
morphine 30 mg tablet,extended release 30 mg PO TID Pain 05/25/23
levothyroxine 200 mcg tablet 200 mcg PO DAILY@06 Thyroid 07/24/23
amlodipine 5 mg tablet (Norvasc) 5 mg PO DAILY 11/09/24
Review of Systems
-
A 12 point ROS was completed and negative except as noted: Yes
Constitutional: Denies Fever
Respiratory: Denies Cough or Trouble Breathing
Cardiac: Denies Chest Pain or Palpitations
Abdomen/GI: Reports See HPI
Physical Exam
Vital Signs
Vital Signs
Temp Pulse Resp BP Pulse Ox
97.4 F 68 14 186/101 97
11/09/24 05:31 11/09/24 13:45 11/09/24 12:58 11/09/24 13:00 11/09/24 13:30
Physical Exam
General: Well Developed, Well Nourished and Conversant
HEENT: Anicteric and Moist mucous membranes
Respiratory: Clear and Non Labored Respirations
Cardiac: S1/S2 and Regular Rhythm
GI: Soft, Normal Bowel Sounds and Tender (Left )
Rectal: Deferred by Provider
Musculoskeletal: No Clubbing, No Cyanosis and No Edema
Skin: Warm and Dry
Neuro: Awake, Alert, Oriented and Nonfocal/grossly intact
Psych: Calm
Laboratory Results
-
11/09/24 05:42
11/09/24 05:42
Laboratory Results
Total Bilirubin 0.9 mg/dl (0.2-1.3) 11/09/24 05:42
AST 30 U/L (14-36) 11/09/24 05:42
ALT 25 U/L (0-35) 11/09/24 05:42
Alkaline Phosphatase 107 U/L (38-126) 11/09/24 05:42
Lipase 23 U/L (23-300) 11/09/24 05:42
Data Reviewed
-
Lab Data: Labs Reviewed by me
Old Records: Reviewed
Impression/Plan
-
Intractable Abdominal Pain with Persistent Vomiting
-Likely acute exacerbation of left renal vein entrapment/nutcracker syndrome
-Patient with inability to tolerate oral pain meds at home
-Continue home morphine 30mg TID
-Continue Dilaudid 1mg IV q3hprn
-Continue Zofran and Compazine for nausea
-Patient reports she is following up at [facility] due to infrequency frequency of exacerbations, and she may require repeat surgery in the future
Uncontrolled Hypertension, possibly due to pain
-Continue amlodipine
-Add hydralazine PRN
Hypothyroidism
-Continue levothyroxine
DVT proph: Lovenox
Code Status: Full Code
[2024-11-09] MEDS: COMPAZINE 10 MG IV ×2 (15:12→19:48)
--- NOTE | 2024-11-09 15:46 | W.PN.UPDATE ---
Update Note
Progress Note Update
This note serves as an addendum to the H&P by child support agent CED Cari QUIGLEY
HPI
44F HX chronic pain with opioid dependence due to to nutcracker syndrome and complex regional pain syndrome who presents with left sided abdominal pain. Patient reports pain started around 3pm last yesterday. She has been unable to tolerate her
oral morphine since that time. She admits to nausea and vomiting. She notes a little bit of loose stool/diarrhea this morning. She reports symtpoms are very similar to prior episodes. She denies fevers.
PHX: se above
VSS
11/09/24
05:31 11/09/24
07:19
Temp 97.4 F
Pulse 80
Resp Rate 28 16
SaO2 97
Oxygen Mode of Delivery Room air
Laboratory Tests
11/09/24
05:42
WBC 15.0 H
Creatinine 0.5 L
Glucose 190 H
HCG, Qual Negative
Last hospitalist admission:
ASSESSMENT & PLAN
Presumed acute flare of left renal vein entrapment/Nutcracker syndrome
Intractable Abdominal Pain with Persistent Vomiting
Soft benign abdominal exam with chr sided abdomen tenderness
- Inadequate pain control; with curent [employer] PO pain Meds regime at home
- c/w home morphine 30mg TID
- c/w Dilaudid 1mg IV q3hprn for herminio thru pain
c/w Zofran and Compazine for nausea
- Patient reports she is following up at [facility] due to infrequency frequency of exacerbations, and she may require repeat surgery in the future
- f/u with [facility] ( Rx of all [facility] Rx are from there per PDMP)
Uncontrolled Hypertension, possibly due to pain
- on amlodipine
- Add hydralazine PRN
Hypothyroidism
- on levothyroxine
DVT proph: Lovenox
Full Code
IP MS
[2024-11-09] MEDS: MS CONTIN (EXTENDED RELEASE) PO ×2 (16:30→23:05)
[2024-11-09] MEDS: NSS with KCL 20 MEQ 1000 IV (16:58)
[2024-11-09] MEDS: LOVENOX 40 MG SC (17:10)
[2024-11-09] MEDS: APRESOLINE 5 MG IV (17:10)
[2024-11-09] MEDS: NEURONTIN PO (19:51)
[2024-11-10] MEDS: COMPAZINE 10 MG IV (01:21)
[2024-11-10] MEDS: DILAUDID 1 MG IV ×6 (01:57→23:03)
[2024-11-10] MEDS: NSS with KCL 20 MEQ 1000 IV ×2 (04:41→15:51)
[2024-11-10] MEDS: ZOFRAN 4 MG IV ×2 (04:41→10:46)
--- NOTE | 2024-11-10 07:34 | W.PN.HOSP.TC ---
Today's Communication/Plan
-
Continue current management
Assessment / Plan
Assessment / Plan
44 y/o female past medical history of chronic pain with opioid dependence secondary to nutcracker syndrome and complex regional pain syndrome who presented with left sided abdominal pain and nausea.
#Intractable Abdominal Pain with Persistent Vomiting
# Leukocytosis
-Likely acute exacerbation of left renal vein entrapment/nutcracker syndrome
-Patient with inability to tolerate oral pain meds at this time
-Continue home morphine 30mg TID when able to take p.o.
-Continue Dilaudid 1mg IV q3hprn
-Continue Zofran and Compazine for nausea
-Lipase within normal limits
-Patient reports she is following up at [place] due to infrequency frequency of exacerbations, and she may require repeat surgery in the future
# Hypokalemia
-Replete
#Uncontrolled Hypertension, possibly due to pain
-Continue amlodipine
-Add hydralazine PRN
Hypothyroidism
-Continue levothyroxine
DVT proph: Lovenox
Code Status: Full Code
Anticipated Discharge: Within 24 hours
Subjective/Interval History
-
Date of Service: November 10, 2024
Afebrile. Elevated blood pressure. Patient continues to experience abdominal pain.
Objective Data
-
Labs:
Laboratory Results
11/10/24
06:00
WBC Pending
Hgb Pending
Hct Pending
Plt Count Pending
Sodium Pending
Potassium Pending
Chloride Pending
Carbon Dioxide Pending
BUN Pending
Creatinine Pending
Glucose Pending
Calcium Pending
Vital Signs:
Vital Signs
Temp Pulse Resp BP Pulse Ox
98.4 F 95 18 161/91 98
11/09/24 23:04 11/09/24 23:04 11/09/24 23:04 11/09/24 23:04 11/09/24 23:04
I&O
11/09/24 11/10/24 11/11/24
06:59 06:59 06:59
Intake Total 1020 / 1020
Balance 1020 / 1020
Review of Systems
-
History Source: Patient
Constitutional: Denies Fever
EENT: Reports No Symptoms Reported
Respiratory: Reports No Symptoms
Cardiac: Reports No Symptoms
Abdomen/GI: Reports Abdominal Pain and Nausea
Genitourinary: Reports No Symptoms
Physical Exam
-
General: Well Developed and Well Nourished
HEENT: Normocephalic, Atraumatic and Moist Mucous Membranes
Respiratory: Clear to Auscultation; Negative Wheezes, Rales or Rhonchi
Cardiac: Regular Rhythm and S1/S2
GI: Nondistended, Normal Bowel Sounds and Tender
Musculoskeletal: No Clubbing, No Cyanosis and No Edema
Neuro: Awake, Alert and Oriented
Psych: Calm
Data Reviewed
-
Labs: Labs Reviewed by me, Discussed with Physician and Discussed with Patient
[2024-11-10 07:46] VITALS: BP 159/103
[2024-11-10] MEDS: SYNTHROID PO (08:35)
[2024-11-10] MEDS: NEURONTIN PO ×2 (08:35→20:00)
[2024-11-10] MEDS: MS CONTIN (EXTENDED RELEASE) PO (08:35)
[2024-11-10] MEDS: NSS (PRESERVATIVE FREE) 10 ML IV (08:36)
[2024-11-10] MEDS: PROTONIX IV 40 MG IV (08:36)
[2024-11-10 08:58] LABS: Hematocrit 44.3 % (37.0-47.0); Hemoglobin 14.7 g/dL (12.0-16.0); Mean Corp Hgb Conc. 33.2 g/dL (33.0-37.0); Mean Corpuscular Hgb 27.1 pg (27.0-31.0); Mean Corpuscular Volume 81.6 fL (81.0-99.0); Mean Platelet Volume 9.3 fL (7.4-10.4); Platelet Count 297 10^3/uL (130-400); Red Blood Cell Count 5.43 10^6/uL (4.20-5.40); Red Cell Dist. Width 14.2 % (11.5-14.5); White Blood Cell Count 16.5 10^3/uL (4.8-10.8)
[2024-11-10 09:20] LABS: Blood Urea Nitrogen 13 mg/dl (7-17); Calcium 9.3 mg/dl (8.4-10.2); Carbon Dioxide 21 mmol/L (22-30); Chloride 101 mmol/L (98-107); Estimated Creatinine Clearance > 125 ml/min; Glucose 129 mg/dl (70-99); Potassium 3.3 mmol/L (3.5-5.1); Sodium 138 mmol/L (135-145); eGFR > 60.00
--- NOTE | 2024-11-10 10:54 | CM ---
outreach manager reviewed patient's chart and met with patient and patient states that she lives with her spouse and 3 children in a 2 story home with 3 steps to enter, patient is independent with adl's and uses crutches with ambulation. Home when
stable, no needs.
PCP: Dr Schulte
Pharmacy: [facility]
Plan; Home with family when stable.
--- NOTE | 2024-11-10 10:57 | PTCARENOTE ---
Patient continues with complaints of nausea and abd pain . Unable to take am meds. Resident present during am med pass . IV Zofran given with relief . Call stock in reach
[2024-11-10] MEDS: MS CONTIN (EXTENDED RELEASE) 30 MG PO ×2 (11:55→15:51)
--- NOTE | 2024-11-10 12:08 | W.PN.UPDATE ---
Update Note
Progress Note Update
I saw and evaluated the patient. I reviewed the resident�s note and agree with findings and plan as documented in the resident�s note.
Pt reports vomiting small amounts of biliary material and persistent, severe abd pain.
Pt seen and examined with nurse Ernestine Leonard present at bedside for the entirety of the interview and physical exam:
Gen: NAD, AAOx3.
Eyes: EOMI, PERRLA, no scleral icterus.
Neck: supple.
CV: RRR, +S1/S2, no m/r/g.
Resp: CTAB, no rales, wheezes, or rhonchi.
Abd: +BS, soft, diffuse TTP, ND
Skin: No rashes.
Neuro: CN 2-12 intact, non-focal.
Psych: tearful
CT A/P 10/11/24: Colonic diverticula with no CT evidence for diverticulitis. History of left renal vein transposition. The left renal vein drains into an enlarged left ovarian vein. Prominent left periuterine veins, which appears to mainly drain into
the left internal iliac vein. Please correlate with any symptoms that would suggest left-sided pelvic congestion syndrome. The appendix appears normal. Status post cholecystectomy with no evidence for biliary ductal dilation. Moderate fatty
infiltration of the head of the pancreas.
Intractable Abdominal Pain with Persistent Vomiting
-Likely acute exacerbation of left renal vein entrapment/nutcracker syndrome
-Patient with inability to tolerate oral pain meds at home, still with some bilious vomiting
-Continue home morphine 30mg TID
-IV dilaudid until vomiting subsides
-stop Zofran, trial Reglan for nausea
-Patient reports she is following up at [facility] due to frequency of exacerbations, and she may require repeat surgery in the future. Pt instructed to follow up with vascular surgery at [place].
Uncontrolled Hypertension:
-likely exacerbated by pain
-increase amlodipine to 10mg daily
-Hydralazine PRN
Other problems:
Obesity due to excess calories
Hypothyroidism: Continue levothyroxine
FULL/Lovenox
Total time spent on today's encounter was 50 minutes which included time spent in counseling the patient/family regarding diagnosis and treatment plan as listed above, goals of care, and symptom management. Case was discussed with nursing staff,
specialists, and care coordinators/case management. All labs and imaging personally reviewed by me. Remainder the time spent in detailed review of previous records, lab data, imaging, and other medical provider documentation.
[2024-11-10 12:26] VITALS: BP 206/114
[2024-11-10] MEDS: APRESOLINE 10 MG IV ×2 (12:27→23:02)
[2024-11-10 12:59] VITALS: BP 158/88
[2024-11-10 15:35] VITALS: BP 175/89
[2024-11-10] MEDS: NORVASC 10 MG PO (15:51)
[2024-11-10] MEDS: LOVENOX 40 MG SC (16:53)
[2024-11-10] MEDS: REGLAN 10 MG IV (19:57)
[2024-11-10 23:07] VITALS: BP 185/67
[2024-11-11] MEDS: REGLAN 10 MG IV (01:30)
[2024-11-11] MEDS: DILAUDID 1 MG IV ×3 (02:14→08:51)
[2024-11-11] MEDS: COMPAZINE 10 MG IV (05:14)
--- NOTE | 2024-11-11 06:13 | PTCARENOTE ---
Elevated BP treated with PRN hydralazine. Patient's pain unrelieved despite administration of PRN Dilaudid and schedule MS Contin. Patient complains of nausea-PRN Compazine and Reglan administered. Patient with minimal relief. x 1 emesis. NSS with
20 mEq K+ running at 100 ml/hr into left hand. No signs of extravasation and/or infiltration. OOB ad anastasia. No alarms in place. Call stock and personal belongings within reach.
[2024-11-11] MEDS: SYNTHROID PO (06:34)
[2024-11-11 07:10] VITALS: BP 158/112
--- NOTE | 2024-11-11 07:16 | W.PN.HOSP.TC ---
Today's Communication/Plan
-
Continue current management
Switch IV Dilaudid to p.o. Dilaudid
Assessment / Plan
Assessment / Plan
44 y/o female past medical history of chronic pain with opioid dependence secondary to nutcracker syndrome and complex regional pain syndrome who presented with left sided abdominal pain and nausea.
#Intractable Abdominal Pain with Persistent Vomiting
# Leukocytosis
-Likely acute exacerbation of left renal vein entrapment/nutcracker syndrome
-Patient with inability to tolerate oral pain meds at this time
-Continue home morphine 30mg TID when able to take p.o.
-Switch to p.o. Dilaudid per patient request
-Continue Zofran and Compazine for nausea
-Lipase within normal limits
-Patient reports she is following up at [facility] due to infrequency frequency of exacerbations, and she may require repeat surgery in the future
# Hypokalemia
-Replete
#Uncontrolled Hypertension, possibly due to pain
-Continue amlodipine; dose increased from home 5 mg to 10 mg
-Add hydralazine PRN
Hypothyroidism
-Continue levothyroxine
DVT proph: Lovenox
Code Status: Full Code
Anticipated Discharge: 24 - 48 hours
Subjective/Interval History
-
Date of Service: November 11, 2024
Elevated blood pressure. Continues to have abdominal pain with intermittent nausea
Objective Data
-
Labs:
Laboratory Results
11/11/24
06:00
WBC Pending
Hgb Pending
Hct Pending
Plt Count Pending
Sodium Pending
Potassium Pending
Chloride Pending
Carbon Dioxide Pending
BUN Pending
Creatinine Pending
Glucose Pending
Calcium Pending
Vital Signs:
Vital Signs
Temp Pulse Resp BP Pulse Ox
98.8 F 98 18 185/67 95
03/05/25 23:07 11/10/24 23:07 11/10/24 23:07 11/10/24 23:07 11/10/24 23:07
I&O
11/10/24 11/11/24 11/12/24
06:59 06:59 06:59
Intake Total 1020 / 1020 3373 / 3373
Balance 1020 / 1020 3373 / 3373
Review of Systems
-
History Source: Patient
Constitutional: Denies Fever
EENT: Reports No Symptoms Reported
Respiratory: Reports No Symptoms
Cardiac: Reports No Symptoms
Abdomen/GI: Reports Abdominal Pain and Nausea
Genitourinary: Reports No Symptoms
Physical Exam
-
General: Well Developed and Well Nourished
HEENT: Normocephalic, Atraumatic and Moist Mucous Membranes
Respiratory: Clear to Auscultation; Negative Wheezes, Rales or Rhonchi
Cardiac: Regular Rhythm and S1/S2
GI: Nondistended, Normal Bowel Sounds, Tender and Other (Well-healed postsurgical scar)
Musculoskeletal: No Clubbing, No Cyanosis and No Edema
Skin: Warm and Dry
Neuro: Awake, Alert and Oriented
Psych: Calm
Data Reviewed
-
Labs: Labs Reviewed by me, Discussed with Physician and Discussed with Patient
[2024-11-11] MEDS: NSS (PRESERVATIVE FREE) 10 ML IV (07:36)
[2024-11-11] MEDS: MS CONTIN (EXTENDED RELEASE) 30 MG PO ×4 (07:36→23:11)
[2024-11-11] MEDS: NORVASC 10 MG PO (07:36)
[2024-11-11] MEDS: PROTONIX IV 40 MG IV (07:36)
[2024-11-11] MEDS: NEURONTIN PO ×2 (07:46→20:08)
[2024-11-11 07:52] LABS: Hematocrit 44.6 % (37.0-47.0); Hemoglobin 14.9 g/dL (12.0-16.0); Mean Corp Hgb Conc. 33.4 g/dL (33.0-37.0); Mean Corpuscular Volume 80.8 fL (81.0-99.0); Mean Platelet Volume 8.6 fL (7.4-10.4); Platelet Count 264 10^3/uL (130-400); Red Blood Cell Count 5.52 10^6/uL (4.20-5.40); Red Cell Dist. Width 14.1 % (11.5-14.5); White Blood Cell Count 14.2 10^3/uL (4.8-10.8)
[2024-11-11 08:26] LABS: Blood Urea Nitrogen 13 mg/dl (7-17); Calcium 9.4 mg/dl (8.4-10.2); Carbon Dioxide 20 mmol/L (22-30); Chloride 104 mmol/L (98-107); Estimated Creatinine Clearance > 125 ml/min; Glucose 127 mg/dl (70-99); Potassium 3.5 mmol/L (3.5-5.1); Sodium 135 mmol/L (135-145); eGFR > 60.00
--- NOTE | 2024-11-11 09:18 | W.PN.UPDATE ---
Update Note
Progress Note Update
I saw and evaluated the patient. I reviewed the resident�s note and agree with findings and plan as documented in the resident�s note.
Pt reports vomiting slightly improved from yesterday, still with abd pain.
Pt seen and examined with nurse Ernestine Leonard present at bedside for the entirety of the interview and physical exam:
Gen: NAD, AAOx3.
Eyes: EOMI, PERRLA, no scleral icterus.
Neck: supple.
CV: remains RRR, +S1/S2, no m/r/g.
Resp: remains CTAB, no rales, wheezes, or rhonchi.
Abd: remains +BS, soft, diffuse TTP, ND
Skin: No rashes.
Neuro: CN 2-12 intact, non-focal.
Psych: tearful
CT A/P 10/11/24: Colonic diverticula with no CT evidence for diverticulitis. History of left renal vein transposition. The left renal vein drains into an enlarged left ovarian vein. Prominent left periuterine veins, which appears to mainly drain into
the left internal iliac vein. Please correlate with any symptoms that would suggest left-sided pelvic congestion syndrome. The appendix appears normal. Status post cholecystectomy with no evidence for biliary ductal dilation. Moderate fatty
infiltration of the head of the pancreas.
Intractable Abdominal Pain with Persistent Vomiting
-Likely acute exacerbation of left renal vein entrapment/nutcracker syndrome
-Patient with inability to tolerate oral pain meds at home, still with some bilious vomiting
-Continue home morphine 30mg TID
-Pt requesting PO Dilaudid as opposed to IV dilaudid for breakthrough pain
-Reglan for nausea
-Patient reports she is following up at [facility] due to frequency of exacerbations, and she may require repeat surgery in the future. Pt instructed to follow up with vascular surgery at [place].
Uncontrolled Hypertension:
-likely exacerbated by pain
-increase amlodipine to 10mg daily
-Hydralazine PRN
Other problems:
Obesity due to excess calories
Hypothyroidism: Continue levothyroxine
FULL/Lovenox
[2024-11-11] MEDS: NSS with KCL 20 MEQ 1000 IV ×3 (10:47→23:11)
--- NOTE | 2024-11-11 10:58 | CM ---
Home when stable.
Plan; Home when stable, no needs.
[2024-11-11] MEDS: DILAUDID 4 MG PO ×3 (12:04→20:03)
[2024-11-11 15:01] VITALS: BP 134/84
[2024-11-11] MEDS: LOVENOX 40 MG SC (17:20)
[2024-11-11 23:39] VITALS: BP 147/93
[2024-11-12] MEDS: DILAUDID 4 MG PO ×7 (01:00→23:53)
--- NOTE | 2024-11-12 03:39 | PTCARENOTE ---
Pain better controlled with PRN Dilaudid PO q 3 hours;thus, BP better controlled. Patient denies nausea. New IV placed in right wrist, by IV team. IV fluids running at 100 ml/hr. Patient tolerating consumption of water. OOB ad anastasia. All patient needs
met. Hourly rounding with safety checks completed.
[2024-11-12] MEDS: SYNTHROID 200 MCG PO (05:08)
--- NOTE | 2024-11-12 07:21 | W.PN.HOSP.TC ---
Today's Communication/Plan
-
Advance diet
Potential discharge if able to tolerate
Assessment / Plan
Assessment / Plan
44 y/o female past medical history of chronic pain with opioid dependence secondary to nutcracker syndrome and complex regional pain syndrome who presented with left sided abdominal pain and nausea.
#Intractable Abdominal Pain with Persistent Vomiting
# Leukocytosis-resolved
-Likely acute exacerbation of left renal vein entrapment/nutcracker syndrome
-Continue home morphine 30mg TID
-Switch to p.o. Dilaudid per patient request
-Continue Reglan and Compazine for nausea
-Lipase within normal limits
-Patient reports she is following up at [facility] due to infrequency frequency of exacerbations, and she may require repeat surgery in the future
-Advance diet
# Hypokalemia
-Resolved
#Uncontrolled Hypertension, possibly due to pain
-Continue amlodipine; dose increased from home 5 mg to 10 mg; blood pressure in 130s with better pain control and increasing amlodipine
-Add hydralazine PRN
Hypothyroidism
-Continue levothyroxine
DVT proph: Lovenox
Code Status: Full Code
Anticipated Discharge: Today
Subjective/Interval History
-
Date of Service: November 12, 2024
AFVSS. States that she is feeling better overall. Rates the pain 4�5 /10
Objective Data
-
Labs:
Laboratory Results
11/12/24
06:00
WBC Pending
Hgb Pending
Hct Pending
Plt Count Pending
Sodium Pending
Potassium Pending
Chloride Pending
Carbon Dioxide Pending
BUN Pending
Creatinine Pending
Glucose Pending
Calcium Pending
Total Bilirubin Pending
AST Pending
ALT Pending
Alkaline Phosphatase Pending
Vital Signs:
Vital Signs
Temp Pulse Resp BP Pulse Ox
98.2 F 80 18 147/93 96
11/11/24 23:39 11/11/24 23:39 11/11/24 23:39 11/11/24 23:39 11/11/24 23:39
I&O
11/11/24 11/12/24 11/13/24
06:59 06:59 06:59
Intake Total 3373 / 3373 1260 / 1260
Balance 3373 / 3373 1260 / 1260
Review of Systems
-
History Source: Patient
Constitutional: Denies Fever
EENT: Reports No Symptoms Reported
Respiratory: Reports No Symptoms
Cardiac: Reports No Symptoms
Abdomen/GI: Reports Abdominal Pain; Denies Nausea
Genitourinary: Reports No Symptoms
Physical Exam
-
General: Well Developed and Well Nourished
HEENT: Normocephalic, Atraumatic and Moist Mucous Membranes
Respiratory: Clear to Auscultation; Negative Wheezes, Rales or Rhonchi
Cardiac: Regular Rhythm and S1/S2
GI: Nondistended, Normal Bowel Sounds, Tender and Other (Well-healed postsurgical scar)
Musculoskeletal: No Clubbing, No Cyanosis and No Edema
Skin: Warm and Dry
Neuro: Awake, Alert and Oriented
Psych: Calm
Data Reviewed
-
Labs: Labs Reviewed by me, Discussed with Physician and Discussed with Patient
[2024-11-12] MEDS: NEURONTIN 600 MG PO ×2 (07:40→21:19)
[2024-11-12 07:41] LABS: Hematocrit 40.6 % (37.0-47.0); Hemoglobin 13.6 g/dL (12.0-16.0); Mean Corp Hgb Conc. 33.5 g/dL (33.0-37.0); Mean Corpuscular Hgb 27.4 pg (27.0-31.0); Mean Corpuscular Volume 81.7 fL (81.0-99.0); Mean Platelet Volume 8.6 fL (7.4-10.4); Platelet Count 223 10^3/uL (130-400); Red Blood Cell Count 4.97 10^6/uL (4.20-5.40); Red Cell Dist. Width 14.1 % (11.5-14.5); White Blood Cell Count 10.4 10^3/uL (4.8-10.8)
[2024-11-12] MEDS: PROTONIX IV 40 MG IV (07:41)
[2024-11-12] MEDS: NSS (PRESERVATIVE FREE) 10 ML IV (07:41)
[2024-11-12] MEDS: NSS with KCL 20 MEQ 1000 IV ×2 (07:42→18:26)
[2024-11-12] MEDS: MS CONTIN (EXTENDED RELEASE) PO ×2 (07:43→15:23)
[2024-11-12] MEDS: NORVASC 10 MG PO (07:49)
[2024-11-12 07:58] VITALS: BP 131/83
--- NOTE | 2024-11-12 08:07 | W.PN.UPDATE ---
Update Note
Progress Note Update
I saw and evaluated the patient. I reviewed the resident�s note and agree with findings and plan as documented in the resident�s note.
Pt reports abdominal pain slightly better than yesterday.
Pt seen and examined with nurse lEoisa Liz present at bedside for the entirety of the interview and physical exam:
Gen: NAD, AAOx3.
Eyes: EOMI, PERRLA, no scleral icterus.
Neck: supple.
CV: continues to remain RRR, +S1/S2, no m/r/g.
Resp: continues to remain CTAB, no rales, wheezes, or rhonchi.
Abd: +BS, soft, diffuse TTP (slightly improved from yesterday), ND
Skin: No rashes.
Neuro: CN 2-12 intact, non-focal.
Psych: normal mood and affect
CT A/P 10/11/24: Colonic diverticula with no CT evidence for diverticulitis. History of left renal vein transposition. The left renal vein drains into an enlarged left ovarian vein. Prominent left periuterine veins, which appears to mainly drain into
the left internal iliac vein. Please correlate with any symptoms that would suggest left-sided pelvic congestion syndrome. The appendix appears normal. Status post cholecystectomy with no evidence for biliary ductal dilation. Moderate fatty
infiltration of the head of the pancreas.
Intractable Abdominal Pain with Persistent Vomiting
-Likely acute exacerbation of left renal vein entrapment/nutcracker syndrome
-Patient with inability to tolerate oral pain meds at home, still with some bilious vomiting
-Continue home morphine 30mg TID, PO Dilaudid PRN
-Reglan for nausea
-Patient reports she is following up at [facility] due to frequency of exacerbations, and she may require repeat surgery in the future. Pt instructed to follow up with vascular surgery at [facility].
Uncontrolled Hypertension:
-likely exacerbated by pain
-increase amlodipine to 10mg daily
-Hydralazine PRN
Other problems:
Obesity due to excess calories
Hypothyroidism: Continue levothyroxine
FULL/Lovenox
Dispo: Possible d/c later today pending tolerance of oral intake.
[2024-11-12 08:22] LABS: ALT (SGPT) 14 U/L (0-35); AST (SGOT) 18 U/L (14-36); Albumin 3.6 g/dl (3.5-5.0); Alkaline Phosphatase 71 U/L (38-126); Blood Urea Nitrogen 18 mg/dl (7-17); Calcium 8.7 mg/dl (8.4-10.2); Carbon Dioxide 22 mmol/L (22-30); Chloride 104 mmol/L (98-107); Estimated Creatinine Clearance 115 ml/min; Glucose 94 mg/dl (70-99); Potassium 3.5 mmol/L (3.5-5.1); Sodium 135 mmol/L (135-145); Total Bilirubin 0.9 mg/dl (0.2-1.3); Total Protein 6.6 g/dl (6.3-8.2); eGFR > 60.00
--- NOTE | 2024-11-12 13:39 | CM ---
Home no needs when stable.
Plan; Home no needs.
[2024-11-12 15:20] VITALS: BP 140/76
[2024-11-12] MEDS: LOVENOX 40 MG SC (18:25)
[2024-11-12] MEDS: MS CONTIN (EXTENDED RELEASE) 30 MG PO (22:19)
[2024-11-12 23:15] VITALS: BP 126/88
[2024-11-13] MEDS: NSS with KCL 20 MEQ 1000 IV (02:43)
[2024-11-13] MEDS: DILAUDID 4 MG PO ×2 (03:20→10:17)
[2024-11-13] MEDS: SYNTHROID 200 MCG PO (05:26)
[2024-11-13] MEDS: NEURONTIN 600 MG PO (07:21)
[2024-11-13] MEDS: NSS (PRESERVATIVE FREE) 10 ML IV (07:21)
[2024-11-13] MEDS: MS CONTIN (EXTENDED RELEASE) 30 MG PO (07:21)
[2024-11-13] MEDS: PROTONIX IV 40 MG IV (07:21)
[2024-11-13] MEDS: NORVASC 10 MG PO (07:22)
[2024-11-13 07:55] VITALS: BP 130/85
[2024-11-13 07:58] LABS: Hematocrit 37.3 % (37.0-47.0); Hemoglobin 12.7 g/dL (12.0-16.0); Mean Corpuscular Volume 82.3 fL (81.0-99.0); Mean Platelet Volume 8.6 fL (7.4-10.4); Platelet Count 200 10^3/uL (130-400); Red Blood Cell Count 4.53 10^6/uL (4.20-5.40); White Blood Cell Count 8.7 10^3/uL (4.8-10.8)
--- NOTE | 2024-11-13 09:45 | W.PN.HOSP.TC ---
Addendum entered and electronically signed by Rosalia Aleman MD 11/13/24 15:43:
I saw and evaluated the patient. I reviewed the resident�s note and agree with findings and plan as documented in the resident�s note except for changes in my documentation
43-year-old female with history of chronic pain opiate dependent and history of nutcracker syndrome admitted with abdominal pain nausea CT abdomen and pelvis
CVS: S1-S2 normal
Chest: CTA B/L
Abdomen: Soft, NT / Bowel sounds present
Extremities: No edema, normal pulses
# Intractable abdominal pain with persistent nausea and vomiting
Leukocytosis resolved
History of left renal vein entrapment/nutcracker syndrome
Continue morphine 3 times daily and as needed Dilaudid which is her home regimen
Reglan and Compazine for nausea
Able to tolerate diet at this point
# Hypokalemia-resolved
# Hypertension-blood pressure was elevated likely secondary to pain
Continue amlodipine at increased dose-10 mg
# Chronic regional pain syndrome with chronic right leg pain
Has a spine stimulator placed in 2014
Chronic pain on narcotic dependence on morphine and Dilaudid
Importance of bowel regimen was discussed with the patient in detail including complications.
# Hypothyroidism-Synthroid (history of Almaz's thyroiditis)
# History of hidradenitis suppurativa
# Tobacco abuse disorder-cessation counseling
# History of C. difficile
# DJD L5-S1
# Diverticulosis
# Obesity with a BMI of 34
# DVT prophylaxis-Lovenox
# Full code
Patient is supposed to see a vascular doctor at [facility]
More than 30 minutes spent in discharge including
Final examination of the patient
Summarizing hospital stay
Instructions for continuing care to all relevant caregivers
Preparation of discharge records, prescriptions, and referral forms
Total time spent (in minutes): 35
Original Note:
Today's Communication/Plan
-
Discharge home today
Assessment / Plan
Assessment / Plan
44 y/o female past medical history of chronic pain with opioid dependence secondary to nutcracker syndrome and complex regional pain syndrome who presented with left sided abdominal pain and nausea.
#Intractable Abdominal Pain with Persistent Vomiting
# Leukocytosis-resolved
-Likely acute exacerbation of left renal vein entrapment/nutcracker syndrome
-Continue home morphine 30mg TID
-Switch to p.o. Dilaudid per patient request
-Continue Reglan and Compazine for nausea
-Lipase within normal limits
-Patient reports she is following up at [facility] due to infrequency frequency of exacerbations, and she may require repeat surgery in the future
-Patient able to tolerate diet with no abdominal pain
# Hypokalemia
-Resolved
#Uncontrolled Hypertension, possibly due to pain
-Continue amlodipine; dose increased from home 5 mg to 10 mg; blood pressure in 130s with better pain control and increasing amlodipine
-Add hydralazine PRN
Hypothyroidism
-Continue levothyroxine
DVT proph: Lovenox
Code Status: Full Code
Anticipated Discharge: Today
Subjective/Interval History
-
Date of Service: November 13, 2024
AFVSS. Patient states her pain is tolerable now. She would like to go home.
Objective Data
-
Labs:
Laboratory Results
11/13/24 11/13/24
06:35 07:51
WBC Cancelled 8.7
Hgb Cancelled 12.7
Hct Cancelled 37.3
Plt Count Cancelled 200
Sodium Cancelled Pending
Potassium Cancelled Pending
Chloride Cancelled Pending
Carbon Dioxide Cancelled Pending
BUN Cancelled Pending
Creatinine Cancelled Pending
Glucose Cancelled Pending
Calcium Cancelled Pending
Vital Signs:
Vital Signs
Temp Pulse Resp BP Pulse Ox
98.6 F 74 18 130/85 97
11/13/24 07:55 11/13/24 07:55 11/13/24 07:55 11/13/24 07:55 11/13/24 07:55
I&O
11/12/24 11/13/24 11/14/24
06:59 06:59 07:59
Intake Total 1260 / 1260 2740 / 2740
Balance 1260 / 1260 2740 / 2740
Review of Systems
-
History Source: Patient
Constitutional: Denies Fever
EENT: Reports No Symptoms Reported
Respiratory: Reports No Symptoms
Cardiac: Reports No Symptoms
Abdomen/GI: Reports Abdominal Pain (10/18); Denies Nausea
Genitourinary: Reports No Symptoms
Physical Exam
-
General: Well Developed and Well Nourished
HEENT: Normocephalic, Atraumatic and Moist Mucous Membranes
Respiratory: Clear to Auscultation and Wheezes; Negative Rales or Rhonchi
Cardiac: Regular Rhythm and S1/S2
GI: Nondistended, Normal Bowel Sounds, Tender and Other (Well-healed postsurgical scar)
Musculoskeletal: No Clubbing, No Cyanosis and No Edema
Skin: Warm and Dry
Neuro: Awake, Alert and Oriented
Psych: Calm
Data Reviewed
-
Labs: Labs Reviewed by me, Discussed with Physician and Discussed with Patient
[2024-11-13 10:17] LABS: Blood Urea Nitrogen 10 mg/dl (7-17); Calcium 8.7 mg/dl (8.4-10.2); Carbon Dioxide 24 mmol/L (22-30); Chloride 106 mmol/L (98-107); Estimated Creatinine Clearance > 125 ml/min; Glucose 108 mg/dl (70-99); Potassium 3.6 mmol/L (3.5-5.1); Sodium 136 mmol/L (135-145); eGFR > 60.00
[2024-11-13] MEDS: SENOKOT 17.2 MG PO (12:08)
[2024-11-13] MEDS: MILK OF MAGNESIA 30 ML PO (12:08)
--- NOTE | 2024-11-13 12:08 | CM ---
CM reviewed chart, patient seen beside. IMM reviewed, signed, placed in chart, patient denies copy. Patient confirms she has transportation home. CM will continue to follow for all discharge planning needs.
Plan; home no needs.
[2024-11-13 15:38] VITALS: BP 133/75
--- NOTE | 2024-11-13 16:13 | W.DCSUMMARY ---
Addendum entered and electronically signed by Rosalia Aleman MD 11/15/24 08:43:
Read, reviewed, and agree. See same day progress note for additional details. Time spent coordinating care, DC planning, review of DC plan of care with resident, transition of care, review of records in EMR, med rec, consults, notes, d/w
consultants, nursing.
Original Note:
Discharge Summary
Discharge Data
Date of Admission: 11/09/24
Date of Discharge: 11/13/24
-
Pending Results: No
Hospital Course
Discharging Physician : Rosalia Aleman MD ; Abel Phillips MD
Disposition : Home
Primary care physician : Ponce Gomez
Principal Discharge diagnosis : Intractable Abdominal Pain with Persistent Vomiting, hypokalemia
Chronic Discharge diagnosis : Hypertension, chronic regional pain syndrome, hypothyroidism, history of hidradenitis suppurativa, tobacco abuse disorder, history of C. difficile, DJD L5/S1, diverticulosis, obesity,
Hospital Course : 44 y/o female past medical history of chronic pain with opioid dependence secondary to nutcracker syndrome and complex regional pain syndrome presented with acute left sided abdominal pain and associated nausea and vomiting. She
was unable to tolerate her home oral morphine. In addition to that she was found to have uncontrolled hypertension likely due to pain.
She was admitted for further treatment. She was initially unable to tolerate any p.o. medication therefore she was given IV Dilaudid for pain in addition to Zofran and Compazine for nausea. Hydralazine as needed to better maintain the blood
pressure. She also received IV fluids as she was n.p.o. initially but later transition to p.o. diet and she was able to tolerated without any pain.
Further workup showed lipase was normal and she had mild leukocytosis which resolved before discharge. He was also found to have low potassium which was repleted.
Patient reports she is following up at [place] due to frequency of exacerbations, and she may require surgery in the future. Pt instructed to follow up with vascular surgery at [facility].
Patient's pain subsided significantly with IV Dilaudid which was transitioned to p.o. Dilaudid and later to her home regimen. She was medically stable on the day of discharge and requested to go home.
She was also instructed to follow-up with PCP within 1 week.
Given her chronic opioid use she was instructed to use senna and MiraLAX to avoid constipation. She verified understanding a prescription was sent to the pharmacy.
Her vitals on the day of discharge were blood pressure 133/75, pulse 86, respiratory rate 18, temperature 98.7, oxygen saturation 96% on room air
Discharge Plan
-
Patient Disposition: Home (Routine Discharge)
Discharge Diagnosis/Procedures: Intractable Abdominal Pain with Persistent Vomiting
Renal vein entrapment/nutcracker syndrome
Hypertension
Hypothyroidism
Condition: Good
Diet: 2 Gram Sodium
Activity: No restrictions
Driving Restrictions: As prior to admission
Bathing Restrictions: None
Activity Restrictions/Additional Instructions:
Follow-up with your primary physician as well as vascular doctor. Make sure that you take Senokot and MiraLAX and have daily bile movements.
Referrals:
Ponce Gomez DO [Family Provider] - in less than 1 week
Additional Discharge Medication Instructions: Take senna 1 tablet by mouth twice daily
Prescriptions:
New
sennosides [Jeniffer-jazzmine] 8.6 mg Tablet
17.2 mg PO BID Qty: 60 0RF
polyethylene glycol 3350 [Miralax] 17 gram powder in packet
17 g PO DAILY Qty: 100 0RF
Continued
gabapentin 600 MG tablet
600 mg PO BID
hydromorphone [Dilaudid] 4 mg Tablet
4 mg PO Q4HPRN PRN (Reason: BREAKTHROUGH PAIN)
morphine 30 mg tablet extended release
30 mg PO TID
levothyroxine 200 mcg Tablet
200 mcg PO DAILY@06
amlodipine [Norvasc] 5 mg Tablet
5 mg PO DAILY
Discharge Orders:
Discharge Patient (As Directed); Ordered 11/13/24
Ordered By: Rosalia Aleman
Discharge Date and Time
Print Language: GREEK
== END 2024-11-13 17:04 | disposition home or self-care (01) | DRG 300 ==
LOC: 4 WEST ACU 15:29
PROVIDERS: Emergency Medicine; Physician Assistant Medical; ADMITTING PHYSICIAN Internal Medicine; ATTENDING PHYSICIAN Hospitalist; EMERGENCY PHYSICIAN Emergency Medicine; FAMILY PHYSICIAN Internal Medicine
DX: Q27.8 Other specified congenital malformations of peripheral vascular system (principal); F11.20 Opioid dependence, uncomplicated; K52.9 Noninfective gastroenteritis and colitis, unspecified; E87.6 Hypokalemia; I10 Essential (primary) hypertension; E03.9 Hypothyroidism, unspecified; L73.2 Hidradenitis suppurativa; E66.9 Obesity, unspecified; Z68.34 Body mass index [BMI] 34.0-34.9, adult; K57.90 Diverticulosis of intestine, part unspecified, without perforation or abscess without bleeding; K21.9 Gastro-esophageal reflux disease without esophagitis; F17.210 Nicotine dependence, cigarettes, uncomplicated; Z80.3 Family history of malignant neoplasm of breast; Z80.1 Family history of malignant neoplasm of trachea, bronchus and lung; M47.817 Spondylosis without myelopathy or radiculopathy, lumbosacral region; G89.4 Chronic pain syndrome; Z79.890 Hormone replacement therapy
CPT/HCPCS: 80048; 80053; 83690; 84703; 85025; 85027; 96361; 96374; 96375; 96376; 99285; 99406